=== PATIENT | male | born 1935 | race Caucasian/White ===

== ENCOUNTER → 2020-04-22 11:14 | Outpatient (REF) | payer MEDICARE, SELFPAY | LOC: ANHLAB 11:14 | PROVIDERS: PCP Internal Medicine; Visit Provider Nurse Practitioner Family | DX: L90.5 Scar conditions and fibrosis of skin (principal) | CPT/HCPCS: 88305 ==

== ENCOUNTER 2020-07-22 03:25 | Emergency (ER) | payer MEDICARE, SELFPAY ==
--- NOTE | ~2020-07-22 | XR_ITS ---
EXAMINATION: XR chest 1V portable EXAM DATE: 07/22/2020 04:05 INDICATION: Chest tightness. TECHNIQUE: Portable AP frontal chest x-ray was obtained. Comparison is made to prior examination from 12/17/2016. FINDINGS: Some left 1st rib chondral cartilage calcification. The lungs are clear. There are no pleu ral effusions. The cardiomediastinal silhouette is within normal limits. There is no pneumothorax s uspected. The bones and soft tissues are unremarkable. IMPRESSION: No acute cardiopulmonary findings. Reviewed, dictated and finalized at location A.
[2020-07-22 03:29] VITALS: BP 130/78; PULSE 115; RESP 11; TEMP 36.8; O2SAT 97
--- NOTE | 2020-07-22 03:37 | ECG_ITS ---
Measurements Intervals [place] Rate: 136 P: [place]: 0 QRS: -39 QRSD: 106 T: 84 QT: 284 QTc: 427 Interpretive Statements ATRIAL FLUTTER/TACHYCARDIA WITH RAPID VENTRICULAR RESPONSE MARKED LEFT AXIS DEVIATION [QRS AXIS < -30] NONSPECIFIC ST & T-WAVE ABNORMALITY- LAT/HIGH LAT LEADS ABNORMAL ECG Electronically Signed On 07-22-2020 6:41:25 CDT by Florin Rosas D.O.
[2020-07-22 03:51] VITALS: PULSE 115
[2020-07-22 03:51] LABS: Basophils Absolute Auto 0.1 K/mm3 (0.0-0.1); Eosinophils Absolute Auto 0.4 K/mm3 (0-0.3); Eosinophils Percent Auto 4.6 % (0-4.4); Hematocrit 41.2 % (42.0-52.0); Hemoglobin 14.2 g/dL (14.0-18.0); Immature Granulocyte Absolute 0.02 K/mm3 (0.00-0.031); Immature Granulocyte Percent A 0.2 % (0-0.5); Lymphocytes Absolute Auto 2.66 K/mm3 (0.9-3.2); Lymphocytes Percent Auto 31.9 % (18.3-44.2); Mean Corpuscular HGB Conc 34.5 g/dl (32-36); Mean Corpuscular Hemoglobin 32.3 pg (26-34); Mean Corpuscular Volume 93.6 fl (80-100); Mean Platelet Volume 10.4 fl (7.4-10.4); Monocytes Absolute Auto 0.7 K/mm3 (0.1-0.6); Monocytes Percent Auto 8.5 % (2.6-8.5); Neutrophils Absolute Auto 4.5 K/mm3 (1.3-6.7); Neutrophils Percent Auto 53.8 % (45.5-73.1); Platelet Count Result 170 k/mm3 (150-375); Red Cell Distribution Width 12.8 % (11.5-14.5); White Blood Count 8.4 K/mm3 (4.5-10.0)
[2020-07-22] MEDS: dilTIAZem HCl INJ 25 MG/5 ML VIAL 20 MG IV PUSH (03:55)
[2020-07-22 04:00] LABS: INR 1.7; Prothrombin Time 19.8 Seconds (11.1-14.7)
[2020-07-22 04:04] LABS: Alanine Aminotransferase 14 U/L (4-50); Albumin Level 4.1 g/dL (3.5-5.1); Alkaline Phosphatase 83 U/L (38-126); Anion Gap 6 mmol/L (8-16); Aspartate Amino Transferase 30 U/L (17-59); Bilirubin,Total 0.7 mg/dL (0.2-1.3); Blood Urea Nitrogen 18 mg/dL (9-20); Calcium 9.8 mg/dL (8.4-10.2); Carbon Dioxide 29 mmol/L (22-30); Chloride 100 mmol/L (98-107); Estimated CRCL calculation 49 ml/min; Estimated Glomerular Filt Rate > 60; Glucose 114 mg/dL (75-110); Potassium 3.7 mmol/L (3.4-5.0); Sodium 135 mmol/L (137-145)
[2020-07-22 04:10] VITALS: BP 103/60; PULSE 69; RESP 16; O2SAT 100
[2020-07-22 04:14] LABS: NT Pro B Type Natriuretic Pept 220 PG/ML (5-100)
[2020-07-22 04:29] LABS: Troponin I 0.049 ng/mL (0.000-0.034)
--- NOTE | 2020-07-22 04:51 | ED.CHESTPAIN ---
HPI - Chest Pain General Chief Complaint: Chest Pain Stated Complaint: A-FIB, CHEST PAIN, LEFT ARM PAIN Time Seen by Provider: 07/22/20 03:37 Source: patient Mode of arrival: ambulatory Limitations: no limitations History of Present Illness HPI narrative: 85-year-old with a history of A. fib on Xarelto here with complaints of palpitation and chest discomfort since 11 PM. Patient states that he was just about to go to sleep started having palpitations along with some chest discomfort he denied any pain. He said it was more like discomfort. No history of shortness of breath or fever or chills. Patient states that he has been taking all his medications. MD complaint: chest discomfort Pertinent past history: other (afib) Onset (ago): hour(s) (5) Timing of current episode: constant Prior episodes: Yes Onset: during rest Pain location: left chest Pain radiation: none Severity: moderate Relieving factors: nothing Exacerbating factors: nothing Risk Factors Coronary artery disease risk factors: none Related Data Home Medications Medication Instructions Recorded Confirmed aspirin 81 mg tablet,delayed 81 mg PO DAILY 01/08/20 release rivaroxaban 20 mg tablet 20 mg PO QPM tablet 01/08/20 ascorbate calcium (vitamin C) 500 500 mg PO DAILY 03/25/20 mg tablet calcium carb-vit D3-minerals 600 tablet PO 03/25/20 mg calcium-200 unit tablet lysqtgu-vdmhyfgnw-ordv tablet PO 03/25/20 coenzyme Q10 100 mg capsule 100 mg PO DAILY 03/25/20 glucosamine-chondroitin 2 tablet PO DAILY 03/25/20 lactobacillus combination no.9 4 4,000 mmu cells PO DAILY 03/25/20 billion cell capsule multivitamin 1 tablet PO DAILY 03/25/20 niacin 250 mg capsule,extended 250 mg PO DAILY cap 03/25/20 release omega-3 fatty acids 1,000 mg 1,000 mg PO DAILY 03/25/20 capsule saw palmetto 160 mg capsule 320 mg PO DAILY cap 03/25/20 vitamin E succinate 400 unit tablet 400 unit PO DAILY 03/25/20 Allergies Allergy/AdvReac Type Severity Reaction Status Date / Time No Known Allergies Allergy Verified 07/20/20 14:19 Review of Systems Review of Systems: All systems reviewed & are unremarkable except as noted in HPI and below Constitutional: Constitutional: Reports no additional constitutional complaints Eyes: Eyes: Reports no additional eye complaints ENT: Reports system reviewed and no additional complaints, except as documented Cardiovascular: Cardiovascular: Reports as per HPI Respiratory: Respiratory: Reports no additional respiratory complaints Gastrointestinal: Gastrointestinal: Reports no additional gastrointestinal complaints Musculoskeletal: Musculoskeletal: Reports no additional musculoskeletal complaints [facility] Surgical History Surgical History History of appendectomy 1951 History of eye surgery 2013, 2016, 2018, 2019 Social History Social History Smoking status: Never smoker Alcohol intake: current Exam Narrative: Exam Narrative: GENERAL: Well-appearing, well-nourished, and in no acute distress. HEAD: Normocephalic, atraumatic. EYES: PERRLA and EOMI. ENT: Nares clear, no rhinorrhea or epistaxis. Mucous membranes moist. NECK: Supple. CHEST: Clear to auscultation. No respiratory distress. HEART: Irregularly irregular and tachycardic. ABDOMEN: Soft, nontender, nondistended, normal active bowel sounds. EXTREMITIES: Normal range of motion. No edema. SKIN: Warm, dry, no rash. NEURO: No focal deficits. Alert and oriented x3. PSYCH: Normal mood and affect. Course Course Emergency Course: EKG showed A. fib with RVR with a rate of 136, given IV Cardizem 10 mg, heart rate has dropped to 80s. Patient states that he was feeling much better. I ordered CBC and a chemistry and tropes. His troponin was 0.049. I discussed with Dr. Lomeli informed him about his trop , pt can be discharged home . pt states he is
[2020-07-22 05:34] VITALS: BP 124/77; PULSE 84; RESP 14; TEMP 36.6; O2SAT 95
== END 2020-07-22 05:36 | disposition home or self-care (01) ==
PROVIDERS: Emergency Provider Family Medicine; PCP Internal Medicine
DX: I48.91 Unspecified atrial fibrillation (principal); R00.0 Tachycardia, unspecified; Z79.01 Long term (current) use of anticoagulants; Z79.82 Long term (current) use of aspirin
CPT/HCPCS: 36415; 71045; 80053; 83880; 84443; 84484; 85025; 85610; 93005; 96374; 99284

== ENCOUNTER 2020-09-29 10:58 | Outpatient (CLI) | payer MEDICARE, SELFPAY ==
--- NOTE | ~2020-09-29 | XR_ITS ---
EXAMINATION: XR finger 1st RT min 2V DATE: 09/29/2020 11:18 INDICATION: Right thumb pain. TECHNIQUE: 3 views of right thumb were obtained. COMPARISON: None. FINDINGS: Bone alignment is normal. No fracture. There is moderate osteoarthritis of first carpometac arpal joint. There is mild osteoarthritis of first metacarpophalangeal joint and first interphalangea l joint. There is a dystrophic calcification at dorsal aspect of first interphalangeal joint. IMPRESSION: 1. Polyarticular osteoarthritis. Reviewed, dictated and finalized at location A. [employer]
== END 2020-09-29 10:59 | disposition home or self-care (01) ==
PROVIDERS: PCP Internal Medicine; Visit Provider Nurse Practitioner
DX: M19.041 Primary osteoarthritis, right hand (principal)
CPT/HCPCS: 73140

== ENCOUNTER 2020-11-11 01:42 | Day surgery (SDC) | payer MEDICARE, SELFPAY ==
[2020-11-03 09:02] VITALS: BMI 24.4
[2020-11-11 12:04] VITALS: BP 142/46; PULSE 54; RESP 16; TEMP 35.9; O2SAT 100
[2020-11-11 12:15] VITALS: BP 157/66; PULSE 56; RESP 18; O2SAT 100
[2020-11-11 12:20] VITALS: BP 155/56; PULSE 57; RESP 18; O2SAT 100
--- NOTE | 2020-11-11 12:20 | PM.HPGS ---
History of Present Illness History of Present Illness Consent: Risks, benefits, and alternatives have been discussed and questions answered. Patient agrees to proceed with procedure. Chief complaint: Hemorrhoids Narrative: Armando Walton is a 85 year old male with history of hemorrhoid banding, lately more symptomatic. Review of Systems Constitutional: Constitutional: Denies headache(s) and Denies weakness Eyes: Eyes: Denies blurry vision ENT: Reports Normal hearing present, Denies headache(s) and Denies neck pain Cardiovascular: Cardiovascular: Denies chest pain and Denies dyspnea Respiratory: Respiratory: Denies dyspnea Gastrointestinal: Gastrointestinal: Reports no additional gastrointestinal complaints Genitourinary: Genitourinary: Denies dysuria Musculoskeletal: Musculoskeletal: Denies neck pain Integumentary/Breasts: Skin/Breast: Denies dry skin Neurologic: Reports Normal hearing present, Denies headache(s) and Denies weakness Psychiatric: Psychiatric: Denies anxiety Endocrine: Endocrine: Denies change in body appearance Hematologic/Lymphatic: Hematologic/Lymphatic: Denies easy bleeding Allergic/Immunologic: Allergic/Immunologic: Denies urticaria PMFSH Past Medical History Medical History (Updated 09/29/20 @ 10:30 by EVER Fox) Pain of right thumb Surgical History Surgical History History of appendectomy 1951 History of eye surgery 2013, 2015, 2017, 2019 Social History Social History Smoking status: Never smoker Alcohol intake: current Drinks per week: 4 Substance use: never Substance use type: does not use Living arrangements: alone Meds Home Medications and Allergies Home Medications Medication Instructions Recorded Confirmed Type aspirin 81 mg tablet,delayed 81 mg PO DAILY 01/08/20 11/03/20 History release rivaroxaban 20 mg tablet 20 mg PO QPM tablet 01/08/20 11/03/20 History ascorbate calcium (vitamin C) 500 500 mg PO DAILY 03/25/20 11/03/20 History mg tablet calcium carb-vit D3-minerals 600 2 tablet PO DAILY 03/25/20 11/03/20 History mg calcium-200 unit tablet waioatg-ipfalwuly-gpsz tablet 2 tablet PO DAILY 03/25/20 11/03/20 History coenzyme Q10 100 mg capsule 100 mg PO DAILY 03/25/20 11/03/20 History glucosamine-chondroitin 2 tablet PO DAILY 03/25/20 11/03/20 History lactobacillus combination no.9 4 4,000 mmu cells PO DAILY 03/25/20 11/03/20 History billion cell capsule multivitamin 1 tablet PO DAILY 03/25/20 11/03/20 History niacin 250 mg capsule,extended 250 mg PO DAILY cap 03/25/20 11/03/20 History release omega-3 fatty acids 1,000 mg 1,000 mg PO DAILY 03/25/20 11/03/20 History capsule vitamin E succinate 400 unit tablet 400 unit PO DAILY 03/25/20 11/03/20 History tamsulosin 0.4 mg capsule 0.4 mg PO DAILY #30 cap 07/14/20 11/03/20 Rx Allergies Allergy/AdvReac Type Severity Reaction Status Date / Time No Known Allergies Allergy Verified 11/11/20 12:12 Exam Const: General: comfortable and no acute distress HENMT: General nose exam: Normal nares present Eyes: General: appearance normal, both eyes and all related structures Neck: Neck: no JVD Resp: Auscultation: clear to auscultation bilaterally Cardio: Rate: regular rate Rhythm: regular rhythm GI: Inspection: non-distended GI Palp: Yes Soft to palpation Skin: General skin exam: normal color Neuro: General: gait normal Speech: normal speech Extrem: General: normal to inspection Psych: Mental Status: mental status grossly normal Assessment and Plan Assessment and plan (1) Hemorrhoids: Code(s): K64.9 - Unspecified hemorrhoids Status: Acute Assessment and Plan: will proceed with IRC
[2020-11-11 12:22] VITALS: BMI 26.2
--- NOTE | 2020-11-11 12:23 | PM.PROC ---
Procedure Note - Detailed Date of procedure: 11/11/20 Pre-op diagnosis: Hemorrhoids Post-op diagnosis: same Procedure performed: after he signed consent, I perfomed rectal exam, no lesions, only small hemorrhoids, no fissure. Then I introduced IRC using anoscope, found grade II internal hemorrhoids at 3-6 o 'clock, treated with IRC x4 applications at 1.5 seconds each time, no complications. We did not use anesthesia Description of procedure: Infrared coagulation Anesthesia: none Surgeon: Redd Schwab MD Complications: No immediate complications Condition: stable Disposition: other (home) Findings: grade II internal hemorrhoids
== END 2020-11-11 12:35 | disposition home or self-care (01) ==
PROVIDERS: PCP Internal Medicine; Visit Provider Internal Medicine Gastroenterology
PROC: (CPT 46930; principal; 2020-11-11 12:30)
DX: K64.1 Second degree hemorrhoids (principal); Z79.82 Long term (current) use of aspirin; Z79.01 Long term (current) use of anticoagulants
CPT/HCPCS: 46930

== ENCOUNTER 2020-12-17 01:33 | Day surgery (SDC) | payer MEDICARE, SELFPAY ==
[2020-12-17 14:20] VITALS: BP 150/72; PULSE 61; RESP 17; O2SAT 100
--- NOTE | 2020-12-17 14:41 | PM.HPGS ---
History of Present Illness History of Present Illness Consent: Risks, benefits, and alternatives have been discussed and questions answered. Patient agrees to proceed with procedure. Chief complaint: Hemorrhoids Narrative: Armando Walton is a 85 year old male here with symptomatic hemorrhoids again, last IRC helped for couple of weeks Review of Systems Constitutional: Constitutional: Denies headache(s) and Denies weakness Eyes: Eyes: Denies blurry vision ENT: Reports Normal hearing present, Denies headache(s) and Denies neck pain Cardiovascular: Cardiovascular: Denies chest pain and Denies dyspnea Respiratory: Respiratory: Denies dyspnea Gastrointestinal: Gastrointestinal: Reports no additional gastrointestinal complaints Genitourinary: Genitourinary: Denies dysuria Musculoskeletal: Musculoskeletal: Denies neck pain Integumentary/Breasts: Skin/Breast: Denies dry skin Neurologic: Reports Normal hearing present, Denies headache(s) and Denies weakness Psychiatric: Psychiatric: Denies anxiety Endocrine: Endocrine: Denies change in body appearance Hematologic/Lymphatic: Hematologic/Lymphatic: Denies easy bleeding Allergic/Immunologic: Allergic/Immunologic: Denies urticaria PMFSH Past Medical History Medical History (Updated 09/29/20 @ 10:30 by EVER Fox) Pain of right thumb Surgical History Surgical History History of appendectomy 1951 History of eye surgery 2013, 2015, 2017, 2019 Social History Social History Smoking status: Never smoker Alcohol intake: current Drinks per week: 4 Substance use: never Substance use type: does not use Living arrangements: alone Spiritual care concerns: No Meds Home Medications and Allergies Home Medications Medication Instructions Recorded Confirmed Type aspirin 81 mg tablet,delayed 81 mg PO DAILY 01/08/20 12/14/20 History release rivaroxaban 20 mg tablet 20 mg PO QPM tablet 01/08/20 12/14/20 History ascorbate calcium (vitamin C) 500 500 mg PO DAILY 03/25/20 12/14/20 History mg tablet calcium carb-vit D3-minerals 600 2 tablet PO DAILY 03/25/20 12/14/20 History mg calcium-200 unit tablet ytzcdof-curnnikex-ruzn tablet 2 tablet PO DAILY 03/25/20 12/14/20 History coenzyme Q10 100 mg capsule 100 mg PO DAILY 03/25/20 12/14/20 History glucosamine-chondroitin 2 tablet PO DAILY 03/25/20 12/14/20 History lactobacillus combination no.9 4 4,000 mmu cells PO DAILY 03/25/20 12/14/20 History billion cell capsule multivitamin 1 tablet PO DAILY 03/25/20 12/14/20 History niacin 250 mg capsule,extended 250 mg PO DAILY cap 03/25/20 12/14/20 History release omega-3 fatty acids 1,000 mg 1,000 mg PO DAILY 03/25/20 12/14/20 History capsule vitamin E succinate 400 unit tablet 400 unit PO DAILY 03/25/20 12/14/20 History tamsulosin 0.4 mg capsule 0.4 mg PO DAILY #30 cap 07/14/20 12/14/20 Rx Allergies Allergy/AdvReac Type Severity Reaction Status Date / Time No Known Allergies Allergy Verified 12/14/20 13:41 Exam Const: General: comfortable and no acute distress HENMT: General nose exam: Normal nares present Eyes: General: appearance normal, both eyes and all related structures Neck: Neck: no JVD Resp: Auscultation: clear to auscultation bilaterally Cardio: Rate: regular rate Rhythm: regular rhythm GI: Inspection: non-distended GI Palp: Yes Soft to palpation Skin: General skin exam: normal color Neuro: General: gait normal Speech: normal speech Extrem: General: normal to inspection Psych: Mental Status: mental status grossly normal Assessment and Plan Assessment and plan (1) Hemorrhoids: Code(s): K64.9 - Unspecified hemorrhoids Status: Acute Assessment and Plan: [facility]
[2020-12-17 14:42] VITALS: BP 131/63; PULSE 57; RESP 16; O2SAT 99
--- NOTE | 2020-12-17 14:42 | PM.PROC ---
Procedure Note - Detailed Date of procedure: 12/17/20 Pre-op diagnosis: Hemorrhoids Surgeon: Redd Schwab MD Pre-op diagnosis: Internal Hemorrhoids Post-op diagnosis: same Procedure performed: after he signed consent, I perfomed rectal exam, no lesions, only small hemorrhoids, no fissure. Then I introduced IRC using anoscope, found grade II internal hemorrhoids at 3-6 o 'clock, treated with IRC x5 applications at 1.5 seconds each time, no complications. We did not use anesthesia Description of procedure: Infrared coagulation Anesthesia: none Surgeon: Redd Schwab MD Complications: No immediate complications Condition: stable Disposition: other (home) Findings: grade II internal hemorrhoids
== END 2020-12-17 15:02 | disposition home or self-care (01) ==
PROVIDERS: PCP Internal Medicine; Visit Provider Internal Medicine Gastroenterology
PROC: (CPT 46930; principal; 2020-12-17 14:45)
DX: K64.1 Second degree hemorrhoids (principal)
CPT/HCPCS: 46930

== ENCOUNTER → 2021-04-13 11:51 | Outpatient (REF) | payer MEDICARE, SELFPAY | LOC: ANHLAB 11:51 | PROVIDERS: PCP Internal Medicine; Visit Provider Nurse Practitioner | DX: L82.1 Other seborrheic keratosis (principal) | CPT/HCPCS: 88305 ==

== ENCOUNTER 2021-05-16 01:47 | Emergency (ER) | payer MEDICARE, SELFPAY ==
--- NOTE | ~2021-05-16 | CT_ITS ---
EXAMINATION: CT lumbar spine wo con DATE: 05/16/2021 02:16 INDICATION: Back pain. TECHNIQUE: Computed tomography (CT) of the lumbar spine was performed without intravenous contrast. A utomated exposure control and iterative reconstruction technique were employed. The dose-length produ ct was 946.32 mGy-cm. COMPARISON: None FINDINGS: There is 3 degrees levocurvature of lumbar spine. Vertebral body heights are normal. There is moderately decreased disc height at L2-L3, mildly decreased disc height at L3-L4 and L4-L5, and mo derately decreased disc height at L5-S1. The following disc levels are specifically discussed: L1-L2: The disc is bulging. There is mild right and moderate left facet joint osteoarthritis. There i s mild left neural foraminal stenosis. There is no central canal stenosis. L2-L3: The disc is bulging. There is severe bilateral facet joint osteoarthritis. There is moderate b ilateral neural foraminal stenosis. There is mild central canal stenosis. L3-L4: The disc is bulging. There is severe bilateral facet joint osteoarthritis. There is mild bilat eral neural foraminal stenosis. There is mild central canal stenosis. L4-L5: The disc is bulging. There is severe bilateral facet joint osteoarthritis. There is mild right and moderate left neural foraminal stenosis. There is mild central canal stenosis. L5-S1: The disc is bulging. There is severe bilateral facet joint osteoarthritis. There is moderate b ilateral neural foraminal stenosis. There is mild central canal stenosis. IMPRESSION: 1. Moderate lumbar spondylosis. Reviewed, dictated and finalized at location A.
[2021-05-16 01:48] VITALS: BP 163/54; PULSE 63; RESP 16; TEMP 36.7; O2SAT 98
[2021-05-16] MEDS: ACETAMINOPHEN 500 MG TABLET 1000 MG PO (02:07)
[2021-05-16 03:28] VITALS: BP 146/60; PULSE 55; RESP 18; O2SAT 97
[2021-05-16] MEDS: predniSONE 20 MG TABLET 60 MG PO (03:44)
--- NOTE | 2021-05-16 03:54 | ED.BACK ---
HPI - Back Pain/Injury General Chief Complaint: Back Pain/Injury Stated Complaint: back pain - i think its nerve, havent slept 3 days Time Seen by Provider: 05/16/21 01:55 Source: RN notes reviewed History of Present Illness HPI Narrative: Patient presents to emergency department from home for back pain. He states he has a long running history of back pain for the past 50 years he states current episode is been ongoing for the past 1 week denies any direct trauma or injury. States pain is located in the right lower back greatest in the right buttocks and down the right leg pain is worse with certain movements. He states he seen his chiropractor 3 times this week and had adjustments in these and ultrasounds back with no relief he states he last took Tylenol this afternoon was had no medication since then states the pain has been keeping him up at night he denies any fevers or chills, abdominal pain numbness or tingling in the extremities bowel or bladder incontinence weakness or any other symptoms. Patient states he drove himself to the emergency department Related Data Home Medications Medication Instructions Recorded Confirmed aspirin 81 mg tablet,delayed 81 mg PO DAILY 01/08/20 01/28/21 release rivaroxaban 20 mg tablet 20 mg PO QPM tablet 01/08/20 01/28/21 ascorbate calcium (vitamin C) 500 500 mg PO DAILY 03/25/20 01/28/21 mg tablet calcium carb-vit D3-minerals 600 2 tablet PO DAILY 03/25/20 01/28/21 mg calcium-200 unit tablet fdyirqv-imadgtnhn-nlzg tablet 2 tablet PO DAILY 03/25/20 01/28/21 coenzyme Q10 100 mg capsule 100 mg PO DAILY 03/25/20 01/28/21 glucosamine-chondroitin 2 tablet PO DAILY 03/25/20 01/28/21 lactobacillus combination no.9 4 4,000 mmu cells PO DAILY 03/25/20 01/28/21 billion cell capsule multivitamin 1 tablet PO DAILY 03/25/20 01/28/21 niacin 250 mg capsule,extended 250 mg PO DAILY cap 03/25/20 01/28/21 release omega-3 fatty acids 1,000 mg 1,000 mg PO DAILY 03/25/20 01/28/21 capsule vitamin E succinate 400 unit tablet 400 unit PO DAILY 03/25/20 01/28/21 Allergies Allergy/AdvReac Type Severity Reaction Status Date / Time No Known Allergies Allergy Verified 05/16/21 01:51 Review of Systems Review of Systems: Narrative: Gen.: Denies fevers or chills ENT: Denies congestion Respiratory: Denies shortness of breath or cough CV: Denies chest pain or palpitations GI: Denies abdominal pain nausea, emesis or diarrhea Musculoskeletal: See HPI Neuro: Denies numbness, tingling, weakness or focal weakness Skin: Denies rash Except as documented, all other systems reviewed and negative [facility] Past Medical History Medical History (Updated 05/16/21 @ 03:56 by Eron Lewis DO) Atrial fibrillation Pain of right thumb Surgical History Surgical History H/O hemorrhoidectomy History of appendectomy 1951 History of eye surgery 2013, 2015, 2017, 2019 Social History Social History Smoking status: Never smoker Alcohol intake: current Drinks per week: 4 Substance use: never Substance use type: does not use Gender identity (if verbalized by the patient): Male Sexual Orientation (if Verbalized by the Patient): Straight or Heterosexual Spiritual care concerns: No Exam Narrative: Exam Narrative: APPEARANCE: No acute distress, nontoxic, resting in bed Eyes: EOMI HEENT: Normocephalic, atraumatic, CV: Regular rate and rhythm without murmur RESPIRATORY: No respiratory distress. Clear to auscultation bilaterally. Abdomen: Soft and nontender, no rebound or guarding MUSCULOSKELETAl: Moves all extremities, no clubbing cyanosis or edema Back: No midline lumbar tenderness to palpation or step-off, tender to palpation over right paravertebral muscles L4-5 and right piriformis region, pain increased with forward flexion NEURO: Awake and alert. Following commands, speech no
[2021-05-16 04:03] LABS: Add Urine Microscopic? YES; Amorphous Sediment Urine Few; Appearance Urine Cloudy (Clear); Bilirubin Urine Negative (Negative); Blood Urine Negative (Negative); Color Urine Yellow (Yellow); Glucose Urine UA Negative (Negative); Ketones Urine Negative (Negative); Leukocyte Esterase Ur Negative LEU/UL (Negative); Mucus Urine Rare /lpf; Nitrate Urine Negative (Negative); Protein Urine Negative (Negative); RBC Urine 0-2 /hpf (0-2); Specific Grav Ur 1.019 (1.001-1.035); Urobilinogen Urine Negative mg/dL (<2.0); WBC Urine 0-3 /hpf
== END 2021-05-16 04:13 | disposition home or self-care (01) ==
PROVIDERS: Emergency Provider Emergency Medicine; PCP Internal Medicine
DX: M54.5 Low back pain (principal); Z79.82 Long term (current) use of aspirin; Z79.01 Long term (current) use of anticoagulants; I48.91 Unspecified atrial fibrillation; M47.816 Spondylosis without myelopathy or radiculopathy, lumbar region
CPT/HCPCS: 72131; 81001; 99284; A9270; J7512

== ENCOUNTER 2024-06-03 03:26 | Emergency (ER) | payer MEDICARE, SELFPAY ==
[2024-06-03 03:35] VITALS: BP 174/55; PULSE 62; RESP 16; TEMP 36.7; O2SAT 99
[2024-06-03] MEDS: FLUORESCEIN SOD 1 MG/STRIP AFFCTD EYE (03:48)
[2024-06-03] MEDS: TETRACAINE HCL 0.5% OPHTH SOLN 4 ML BTL 1 DROP AFFCTD EYE (03:48)
--- NOTE | 2024-06-03 03:52 | ED.EYEPROB ---
HPI - Eye Problem General Chief complaint: Eye Problems Stated complaint: contact feels stuck Time Seen by Provider: 06/03/24 03:30 History of Present Illness HPI Narrative: This is an 88-year-old male with a past medical history including recent corneal surgery on his right eye. Patient wears special contact lenses for visual deficits and protection of his recent procedure. Patient states his vision has been normal but since noon today he has been having some pain at his right eye with some discharge and redness. He states he was not able to get his contact lens out of his right eye and proceeded to the emergency department as he was not able to sleep because of the pain and redness. Denies any systemic features such as fever, chills, nausea, vomiting, headache. He has never had issues with his contact before and has no history of corneal ulcers, corneal abrasions or any kind of complications from his recent procedure otherwise. Related Data Home Medications Medication Instructions Recorded Confirmed aspirin 81 mg tablet,delayed 81 mg PO DAILY 01/08/20 02/20/24 release (Adult Aspirin Regimen) rivaroxaban 20 mg tablet (Xarelto) 20 mg PO QPM 01/08/20 02/20/24 ascorbate calcium (vitamin C) 500 500 mg PO DAILY 03/25/20 02/20/24 mg tablet calcium carb-vit D3-minerals 600 2 tablet PO DAILY 03/25/20 02/20/24 mg calcium-200 unit tablet gfrgcvo-tmbnydebd-kaxc tablet 2 tablet PO DAILY 03/25/20 02/20/24 coenzyme Q10 100 mg capsule 100 mg PO DAILY 03/25/20 02/20/24 (CoQ-10) glucosamine-chondroitin 2 tablet PO DAILY 03/25/20 02/20/24 lactobacillus combination no.9 4 4,000 mmu cells PO DAILY 03/25/20 02/20/24 billion cell capsule (Adult 50 Plus Probiotic) multivitamin 1 tablet PO DAILY 03/25/20 02/20/24 niacin 250 mg capsule,extended 250 mg PO DAILY 03/25/20 02/20/24 release omega-3 fatty acids 1,000 mg 1,000 mg PO DAILY 03/25/20 02/20/24 capsule Allergies Allergy/AdvReac Type Severity Reaction Status Date / Time No Known Allergies Allergy Verified 02/20/24 09:45 Review of Systems Review of Systems: As reviewed above in the HPI [facility] Past Medical History Medical History Atrial fibrillation COVID Pain of right thumb Surgical History Surgical History H/O hemorrhoidectomy THD and rubber banding History of appendectomy 1951 History of eye surgery 2013, 2016, 2018, 2020 Family History Family History Father Dementia Mother Heart disease Sibling Heart disease Sibling Heart disease Social History Social History Smoking status: Never smoker Alcohol intake: current Drinks per week: 4 Substance use: never Substance use type: does not use Lack of Transportation: No Lack of Food: Never True Current Housing: I Have Housing Concerned About Future Housing: No Difficulty Paying Gas/Electric Bills: No Difficulty Paying for Meds: No Currently Unemployed: No Education: Bachelor's Degree Difficulty w/ Childcare or Family Care: No Living arrangements: alone Gender identity (if verbalized by the patient): Male Sexual Orientation (if Verbalized by the Patient): Straight or Heterosexual Spiritual care concerns: No Exam Narrative: GENERAL: [Well-appearing, well-nourished, and in no acute distress.] HEAD: [Normocephalic, atraumatic.] EYES: Pupils are 3 mm and equally reactive. The right eye has some redness any injections at this spares the corneal limbus. Some minimal purulence was noted and crusting around the eyelid. Contact lens remains in place in the right eye without any jagged edges are irregularity to it. Fluorescein stain showed right-sided lateral corneal abrasion when the contact was removed but no other ulcerations, negative Hannah
[2024-06-03] MEDS: MOXIFLOXACIN HCL 0.5% 3 ML OPHTH SOLN 1 DROP RIGHT EYE (03:56)
[2024-06-03 04:55] VITALS: BP 172/88; PULSE 63; RESP 16; O2SAT 100
== END 2024-06-03 04:56 | disposition home or self-care (01) ==
LOC: ANHED 04:04
PROVIDERS: Emergency Provider Student in an Organized Health Care Education/Training Program; PCP Family Medicine
DX: H18.821 Corneal disorder due to contact lens, right eye (principal); I48.91 Unspecified atrial fibrillation; Z86.16 Personal history of COVID-19; Z79.82 Long term (current) use of aspirin; Z79.01 Long term (current) use of anticoagulants
CPT/HCPCS: 99283; A9270

== ENCOUNTER 2025-04-07 14:29 | Inpatient (IN) | payer MEDICARE, SELFPAY ==
[2025-04-07] VITALS (19 sets, daily range): BP systolic 98–115; BP diastolic 48–84; PULSE 73–127; RESP 16–25; TEMP 36.6–39.5; O2SAT 94–100; BMI 24.0
--- NOTE | ~2025-04-07 | XR_ITS ---
Portable chest x-ray Comparison: 04/09/2025 Clinical History: Dyspnea Findings: Right-sided PICC line in place. Small right pleural effusion present. There is probable mi ld interstitial edema. Cardiomediastinal silhouette is stable. Bones and soft tissues are unremarkab le. Impression: Small right pleural effusion and probable mild pulmonary edema pattern. Questionable underlying COPD. Stable cardiomegaly. Right-sided PICC line. Reviewed, dictated and finalized at location . Impression: Small right pleural effusion and probable mild pulmonary edema pattern. Questionable underlying COPD. Stable cardiomegaly. Right-sided PICC line.
--- NOTE | ~2025-04-07 | US_ITS ---
US venous doppler [facility] 04/09/2025 14:13 Indication: Throat and left neck pain. Procedure: Limited vascular ultrasound of the internal jugular veins Comparison: No prior studies for comparison. Findings: The internal jugular veins are patent bilaterally with normal compressibility and augmentat ion. Impression: 1: Normal venous ultrasound of the internal jugular veins. No evidence for deep venous thrombosis. Reviewed, dictated and finalized at location A. Impression: 1: Normal venous ultrasound of the internal jugular veins. No evidence for deep venous thrombosis.
--- NOTE | ~2025-04-07 | CT_ITS ---
EXAMINATION: CT brain wo con DATE: 04/08/2025 15:23 INDICATION: Fall TECHNIQUE: Computed tomography (CT) of the head was performed without intravenous contrast. Sagittal and coronal reconstructions were performed. The mA was adjusted according to patient size. Iterative reconstruction technique was employed. The dose-length product was 681.00 mGy-cm. COMPARISON: None FINDINGS: No fracture. No acute intracranial hemorrhage, acute infarction or abnormal extra axial fluid collect ion. There is mild to moderate scattered white matter hypoattenuation consistent with chronic small v essel ischemic disease. Symmetric prominence of the sulci consistent with mild age-appropriate diffus e cerebral volume loss. Ventricles are normal and symmetric. No mass/mass effect. Changes of bilater al intraocular lens replacement. The orbits, paranasal sinuses and mastoid air cells are normal. IMPRESSION: 1. No fracture or acute intracranial process. 2. Age-related changes including mild diffuse volume loss and mild to moderate scattered white matter hypoattenuation consistent with chronic small vessel ischemic disease. Reviewed, dictated and finalized at location A. IMPRESSION: 1. No fracture or acute intracranial process. 2. Age-related changes including mild diffuse volume loss and mild to moderate scattered white matter hypoattenuation consistent with chronic small vessel isc hemic disease.
--- NOTE | ~2025-04-07 | CT_ITS ---
CT head without contrast Indication: Status post fall COMPARISON: 04/08/2025 Technique: Serial scans were obtained through the brain without the administration of contrast. Dose reduction technique was used on this scan by utilizing automated exposure control and iterative recon struction technique. The dose-length product (DLP) was 681.00 mGy-cm. Findings: There is no evidence of intracranial hemorrhage, mass lesion, or acute infarct. The ventri cles and subarachnoid spaces are dilated, consistent with mild to moderate atrophy. Low attenuation regions are seen within the periventricular white matter bilaterally, likely representing changes fro m chronic microvascular ischemic disease. There is no evidence of edema, mass effect or midline shif t. The visualized paranasal sinuses and mastoid air cells are clear. Impression: No intracranial hemorrhage, mass, or acute infarct. Atrophy and chronic white matter changes, as above. Reviewed, dictated and finalized at location . Impression: No intracranial hemorrhage, mass, or acute infarct. Atrophy and chronic white matter changes, as above.
--- NOTE | ~2025-04-07 | US_ITS ---
Limited ABDOMINAL ULTRASOUND (Doppler ultrasound interrogation techniques used as needed for this exa m.) Ordering provider: Vita Boyer PA-C History: . elevated LFTs . Comparison: None. FINDINGS: PANCREAS: Not visualized. PORTAL VEIN: Hepatopedal flow demonstrated. LIVER: Normal size and echotexture. No focal hepatic lesions or perihepatic fluid collections are yared ntified. BILIARY DUCTS: No intra or extrahepatic biliary dilation. Common bile duct measures 3.9 mm in diamete r which is normal for patient's age. GALLBLADDER: Distended. No stones, sludge, or gallbladder wall thickening. Pericholecystic fluid or e tripp is noted. Negative sonographic Song's sign. Wall thickness is 2.1 mm. FREE FLUID: None visualized within the upper abdomen. IMPRESSION: Distended gallbladder with possible minimal pericholecystic fluid versus edema. Clinical correlation and follow-up advised. Otherwise, normal Limited abdominal ultrasound. Reviewed, dictated and finalized at location A. IMPRESSION: Distended gallbladder with possible minimal pericholecystic fluid versus edema. Clinical correlation and follow-up advised. Otherwise, normal Limited abdomina l ultrasound.
--- NOTE | ~2025-04-07 | XR_ITS ---
XR chest 1V portable 04/08/2025 13:11 Indication: Shortness of breath Procedure: AP portable chest Comparison: Comparison to multiple prior studies sequentially, with oldest reviewed study dated 12/17. Findings: Borderline heart size with interstitial edema. No pleural effusion or pneumothorax. No acut e osseous abnormality. Impression: 1: Borderline heart size with mild interstitial edema. Reviewed, dictated and finalized at location A. Impression: 1: Borderline heart size with mild interstitial edema.
--- NOTE | ~2025-04-07 | CT_ITS ---
EXAMINATION: CT soft tissue neck w con DATE: 04/07/2025 17:01 INDICATION: Neck swelling, sore throat TECHNIQUE: Computed tomography (CT) of the neck was performed with 75 mL Omnipaque-350 intravenous co ntrast. Automated exposure control and iterative reconstruction technique were employed. The dose-christina gth product was 455.86 mGy-cm. COMPARISON: None FINDINGS: Mild right palatine tonsil enlargement. No tonsillar abscess detected. Subcentimeter left thyroid lob e nodule, which requires no additional evaluation. The left submandibular gland is enlarged with gallo rrounding stranding. The parotid glands are symmetric. Enlarged left upper cervical chain lymph nod e. Subcentimeter bilateral anterior and posterior cervical chain nodes are present. The superior med iastinum is unremarkable. The airway is unremarkable. Parapharyngeal and pre-glottic fat planes a re preserved. Normal-appearing neck arteries. Bilateral lens replacements. Ethmoid and maxillary mucosal thickening, the remaining aerated spaces are clear. Septal thickening in the upper lungs. En larged paratracheal lymph nodes. There is mild cervical spondylosis. IMPRESSION: Right palatine tonsillar enlargement. No tonsillar abscess detected. Left submandibular gland enlargement. Left anterior cervical chain lymphadenopathy. Anterior neck soft tissue stranding, which may represent cellulitis in the appropriate clinical chris xt. Paratracheal lymphadenopathy. Mild interstitial edema. Reviewed, dictated and finalized at location K. IMPRESSION: Right palatine tonsillar enlargement. No tonsillar abscess detected. Left submandibular gland enlargement. Left anterior cervical chain lymphadenopathy. Anterior neck soft tissue stranding, which may represent cellulitis in the appr opriate clinical context. Paratracheal lymphadenopathy. Mild interstitial edema.
--- NOTE | ~2025-04-07 | CT_ITS ---
EXAMINATION: CT brain wo con DATE: 04/15/2025 13:01 INDICATION: Mental status changes TECHNIQUE: Computed tomography (CT) of the head was performed without intravenous contrast. Sagittal and coronal reconstructions were performed. The mA was adjusted according to patient size. Iterative reconstruction technique was employed. The dose-length product was 756.67 mGy-cm. COMPARISON: head CT dated 04/09/2025 FINDINGS: No acute intracranial hemorrhage, acute infarction or abnormal extra axial fluid collection. There is moderate scattered white matter hypoattenuation consistent with chronic small vessel ischemic diseas e. Symmetric prominence of the sulci consistent with moderate age-appropriate diffuse cerebral volume loss. Ventricles are normal and symmetric. No mass/mass effect. Changes of bilateral intraocular christina s replacement. The orbits, paranasal sinuses and mastoid air cells are normal. IMPRESSION: 1. No acute intracranial process. 2. Age-related changes including moderate diffuse volume loss and moderate scattered white matter hyp oattenuation consistent with chronic small vessel ischemic disease. Reviewed, dictated and finalized at location A. IMPRESSION: 1. No acute intracranial process. 2. Age-related changes including moderate diffuse volume loss and moderate scat tered white matter hypoattenuation consistent with chronic small vessel ischemi c disease.
--- NOTE | ~2025-04-07 | XR_ITS ---
XR hip BI 2V w AP pelvis 04/08/2025 15:37 Indication: Status post fall. Pelvic pain. Procedure: AP view of the pelvis Comparison: No prior studies for comparison. Findings: No fracture, subluxation or dislocation. Pelvic rings are grossly intact, although evaluati on of sacrum limited by bowel content. No significant joint space narrowing. There is lower lumbar sp ondylosis. Impression: 1: No acute bone or joint abnormality. Reviewed, dictated and finalized at location A. Impression: 1: No acute bone or joint abnormality.
--- NOTE | ~2025-04-07 | XR_ITS ---
XR chest PICC line 04/09/2025 11:05 Indication: PICC line placement Procedure: AP portable chest Comparison: Comparison to multiple prior studies sequentially, with oldest reviewed study dated 02/2024. Findings: Cardiomegaly. Mild interstitial edema. Right subclavian PICC line tip in the SVC. Possible small left effusion. No pneumothorax. Impression: 1: Cardiomegaly with mild interstitial edema, improved compared with 04/08/2025. Reviewed, dictated and finalized at location A. Impression: 1: Cardiomegaly with mild interstitial edema, improved compared with 04/08/2025 .
--- NOTE | ~2025-04-07 | XR_ITS ---
EXAMINATION: XR chest 1V portable Exam Date/Time: 04/07/2025 16:10 CDT HISTORY: FEVER Comparison: 09/09/2024. RESULT: Lines, tubes, and devices: Coronary stents. Lungs and pleura: Clear. Cardiomediastinal silhouette: Stable. Other: No acute osseous or upper abdominal finding. IMPRESSION: No acute cardiopulmonary process. Reviewed, dictated and finalized at location K.
--- NOTE | ~2025-04-07 | CT_ITS ---
CT chest abdomen pelvis wo con Ordering provider: Howard Manuel History: . Sepsis . Comparison: None. Technique: CT chest without IV contrast. CT abdomen and pelvis without oral and IV contrast. Radiatio n reduction technique utilized. The dose-length product was 1009.85 mGy-cm. FINDINGS: The study is limited due to lack of IV contrast. Motion Artifacts degraded the images. CHEST: --VISUALIZED THORACIC INLET: Normal as visualized. --MEDIASTINUM: Aorta/coronary arteries: Mild atheromatous disease. Heart/other: The heart is slightly enlarged. Lymph nodes: Paratracheal lymph nodes are seen with the largest measuring 1.7 cm. Precarinal lymph no mony are also noted with the largest measuring 2.2 cm. --LUNGS: Bilateral basal atelectasis versus pneumonia with moderate right pleural effusion and mild t o moderate left pleural effusion. Nodule is seen adjacent to the oblique fissure in the left upper lo be posteromedially measuring 6 mm. 6 months follow-up CT is advised. No pulmonary masses. No pneumot horax. --MUSCULOSKELETAL: Soft tissues: The superficial soft tissues are normal. Bones: Age appropriate degenerative changes of the spine. ABDOMEN/PELVIS: --MUSCULOSKELETAL: Bones: Age appropriate degenerative changes of the spine. Bilateral sacroiliitis. Bilateral hip osteo arthritic changes. Superficial soft tissues: Bilateral small fat-containing inguinal hernias. Otherwise, The superficial soft tissues are normal. --UPPER ABDOMINAL ORGANS: Liver: Normal. Gallbladder: Normal. Spleen: Normal. Stomach/duodenum: Normal. Pancreas: Normal. Adrenals: Normal. Kidneys: Hypodense area seen in the right kidney midpole left kidney lower poles which may be residua l contrast or hemorrhagic cysts. --PELVIC ORGANS: The bladder shows residual contrast in the urinary bladder.. No bladder stones. Hyp erdense area seen in the left side of the prostate which may be calcification. --BOWEL AND MESENTERY: Colon: No evidence of diverticulitis. No evidence of appendicitis. Small Bowel: Normal. No obstruction. Peritoneum/mesentery: No free air or free fluid. No mesenteric lymphadenopathy. --RETROPERITONEUM: Slight aneurysmal dilatation seen in the distal aorta measuring 2.6 x 2.5 cm. Dila tation of the common iliac artery is also noted Moderate atheromatous disease of the abdominal aorta. No retroperitoneal lymphadenopathy. IMPRESSION: CHEST: 1. Bilateral basal atelectasis versus pneumonia with bilateral pleural effusion more on the right si de. 2. Mediastinal lymphadenopathy. 3. Cardiomegaly. 4. Nodule in the left upper lobe. 6 months follow-up CT is advised. ABDOMEN/PELVIS: 1. No evidence of appendicitis, diverticulitis or intestinal obstruction. 2. 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 3. Hyperdense areas in the kidneys which may be residual contrast versus hemorrhagic cysts. Reviewed, dictated and finalized at location A. IMPRESSION: CHEST: 1. Bilateral basal atelectasis versus pneumonia with bilateral pleural effusio n more on the right side. 2. Mediastinal lymphadenopathy. 3. Cardiomegaly. 4. Nodule in the left upper lobe. 6 months follow-up CT is advised. ABDOMEN/PELVIS: 1. No evidence of appendicitis, diverticulitis or intestinal obstruction. 2. 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 3. Hyperdense areas in the kidneys which may be residual contrast versus hemor rhagic cysts.
--- NOTE | ~2025-04-07 | XR_ITS ---
XR chest 1V portable Ordering provider: Vita Boyer PA-C History: 89 years Male with . tachypnea . Comparison: April 08, 2025 FINDINGS: MEDIASTINUM: The cardiac silhouette is moderately enlarged. Congestive natalia. LUNGS: No effusions or pneumothorax. Bilateral interstitial and alveolar opacification suggestive of pulmonary edema. OTHER: No free air under the diaphragm. Degenerative changes of the spine. IMPRESSION: Cardiomegaly with cardiac decompensation and pulmonary edema. Superimposed pneumonitis is noted. Unde rlying fibrotic changes are also seen. Reviewed, dictated and finalized at location A. IMPRESSION: Cardiomegaly with cardiac decompensation and pulmonary edema. Superimposed pneu monitis is noted. Underlying fibrotic changes are also seen.
--- NOTE | ~2025-04-07 | CT_ITS ---
EXAMINATION: CT cervical spine wo con DATE: 04/08/2025 15:23 INDICATION: Neck pain after fall TECHNIQUE: Computed tomography (CT) of the cervical spine was performed without intravenous contrast. The dose-length product was 324 mGy-cm. Automated exposure control and iterative reconstruction tech nique were employed. COMPARISON: None FINDINGS: There is normal cervical alignment. Vertebral body heights are maintained. There is disc na rrowing at C5-6. There are endplate degenerative changes at C5-6. Odontoid process is normal. Craniov ertebral junction within normal limits. There is multilevel uncinate and facet hypertrophy. There are coarse interstitial changes of the lung apices craniovertebral junction within normal limits. No par aspinal soft tissue abnormality. There is mild cervical lymphadenopathy, likely reactive. IMPRESSION: 1. No acute abnormality of the cervical spine. 2: Moderate cervical spondylosis. Reviewed, dictated and finalized at location A.
--- NOTE | ~2025-04-07 | US_ITS ---
EXAMINATION: US carotid duplex BI DATE: 04/15/2025 12:42 INDICATION: Neck swelling TECHNIQUE: Grayscale, color Doppler, and pulsed Doppler images of the cervical carotid arteries were obtained. The degree of vessel stenosis is placed in one of the following categories: normal, <50%, 5 0-69%, >=70% but less than near-occlusion, near-occlusion, or total occlusion. Note that percent sten osis relative to normal distal artery lumen diameter is indirectly measured from velocity measurement s as described by Del, et al. Radiology 2003; 229:340-346. Notes: Normal: Peak systolic velocity <125 centimeters/sec and no plaque <50%. Peak systolic velocity <125 ( EDV <40; ICA/CCA PSV ratio <2.0; used these factors only a tandem lesions or low cardiac output or co ntralateral disease) 50-69 %: PSV 125-230 (EDV 40-100; ratio 2-4) >= 70% but less than near occlusion: PSV greater than 230 (EDV > 100; ratio> 4.0) Near Occlusion: PSV that is variable; markedly narrowed lumen Occlusion: Absent flow on color/spectral Doppler and no lumen on pena scale. COMPARISON: None. FINDINGS: RIGHT: The right common carotid artery (CCA) peak systolic velocity (PSV) is 60 cm/s. The right internal car otid artery (ICA) PSV is 94 cm/s. The right ICA end-diastolic velocity (EDV) is 7 cm/s. The right ICA /CCA PSV ratio is 1.6. The external carotid artery (ECA) PSV is 95 cm/s. There is antegrade flow in t he right vertebral artery. LEFT: The left CCA PSV is 39 cm/s. The left ICA PSV is 56 cm/s. The left ICA EDV is 9 cm/s. The left ICA/CC A PSV ratio is 1.4. The ECA PSV is 36 cm/s. There is antegrade flow in the left vertebral artery. IMPRESSION: 1. Less than 50% stenosis in the right internal carotid artery by sonographic criteria. 2. Less than 50% stenosis in the left internal carotid artery by sonographic criteria. Reviewed, dictated and finalized at location B. IMPRESSION: 1. Less than 50% stenosis in the right internal carotid artery by sonographic za zuñiga. 2. Less than 50% stenosis in the left internal carotid artery by sonographic ruby boateng.
--- NOTE | 2025-04-07 15:09 | ED_ITS ---
HPI - URI/Sore Throat General Chief Complaint: Upper Respiratory Infection <Latasha Bruce PA-C - Last Filed: 04/07/25 18:42> Stated Complaint: febrile/SOB <Latasha Bruce PA-C - Last Filed: 04/07/25 18:42> Time Seen by Provider: 04/07/25 14:42 <Latasha Bruce PA-C - Last Filed: 04/07/25 18:42> Source: patient <JEZ Gtz Last Filed: 04/07/25 18:42> Mode of arrival: EMS <Latasha Bruce PA-C - Last Filed: 04/07/25 18:42> Limitations: no limitations <Latasha Bruce PA-C - Last Filed: 04/07/25 18:42> History of Present Illness HPI Narrative: This is an 89-year-old male that presents to the emergency department for cold symptoms. Ongoing over the last week. Reports fever, cough, sore throat, he started to developed shortness of breath today which prompted him to be seen. He was seen by his PCP and placed on Cefdinir. He has been taking this with little relief. <Latasha Bruce PA-C - Last Filed: 04/07/25 18:42> Related Data Home Medications: Home Medications ?Medication ?Instructions ?Recorded ?Confirmed ?Last Taken ?Type aspirin 81 mg tablet,delayed 81 mg PO DAILY 01/08/20 04/07/25 11/08/20 History release (Adult Aspirin Regimen) ascorbate calcium (vitamin C) 500 500 mg PO DAILY 03/25/20 04/07/25 11/08/20 History mg tablet calcium 600 mg (as carbonate)-vit 2 tablet PO DAILY 03/25/20 04/07/25 11/08/20 History D3 5 mcg (200 unit)-minerals tablet coenzyme Q10 100 mg capsule 100 mg PO DAILY 03/25/20 04/03/25 11/08/20 History (CoQ-10) multivitamin 1 tablet PO DAILY 03/25/20 04/07/25 11/08/20 History omega-3 fatty acids 1,000 mg 1,000 mg PO DAILY 03/25/20 04/07/25 Unknown History capsule atorvastatin 80 mg tablet (Lipitor) 80 mg PO QHS 12/30/24 04/03/25 Unknown History clopidogrel 75 mg tablet 75 mg PO DAILY 12/30/24 04/07/25 Unknown History cyclosporine 0.05 % eye drops in a 1 drp EACH EYE Q12H 12/30/24 04/07/25 Unknown History dropperette famotidine 20 mg tablet 20 mg PO BID PRN 12/30/24 04/03/25 Unknown History glucosamine-chondroitin 2 tablet PO DAILY 12/30/24 04/07/25 Unknown History isosorbide mononitrate 30 mg 30 mg PO DAILY 12/30/24 04/07/25 Unknown History tablet,extended release 24 hr nitroglycerin 0.4 mg sublingual 0.4 mg sublingual Q5M PRN chest 12/30/24 04/07/25 Unknown History tablet pain propylene glycol 0.6 % eye drops 1 drp EACH EYE 4-6XD PRN 12/30/24 04/03/25 Unknown History (Systane Complete) ranolazine 500 mg tablet,extended 500 mg PO Q12H 12/30/24 04/07/25 Unknown History release,12 hr vitamin E 400 unit/15 mL oral 400 unit PO DAILY 12/30/24 04/03/25 Unknown History liquid perfluorohexyloctane (PF) 100 % 1 drp EACH EYE QID 04/07/25 04/07/25 Unknown History eye drops (Miebo (PF)) <Latasha Bruce PA-C - Last Filed: 04/07/25 18:42> Allergies/Adverse Reactions: Allergies Allergy/AdvReac Type Severity Reaction Status Date / Time No Known Allergies Allergy Verified 04/03/25 13:23 <Latasha Bruce PA-C - Last Filed: 04/07/25 18:42> Review of Systems 2 Review of Systems: CONSTITUTIONAL: Reports fever ENT: Reports sore throat RESPIRATORY: Reports cough and dyspnea. GASTROINTESTINAL: Denies abdominal pain, nausea, vomiting <JEZ Gtz Last Filed: 04/07/25 18:42> All systems reviewed & are unremarkable except as noted in HPI and below < JEZ Gtz Last Filed: 04/07/25 18:42> [facility] Past Medical History Medical History: Medical History (Updated 04/07/25 @ 19:44 by Vita Boyer PA-C) Hypertension Hyperlipidemia Coronary artery disease Benign prostatic hyperplasia Paroxysmal atrial fibrillation <Latasha Bruce PA-C - Last Filed: 04/07/25 18:42> Surgical History Surgical History: Surgical History (Updated 04/07/25 @ 19:19 by Vita Boyer PA-C) History of coronary artery stent placement History of cardiac catheterization History of hemorrhoidectomy History of cataract extraction History of appendectomy <Latasha Bruce PA-C - Last Filed: 04/07/25 18:42> Family History Family History: Family History Father Dementia Mother Heart disease Sibling Heart disease Sibling Heart disease <Latasha Bruce PA-C - Last Filed: 04/07/25 18:42> Social History Social History: Social History (Updated 04/07/25 @ 19:19 by Vita Boyer PA-C) Social History: Surrogate medical decision maker: Luke Gibson. Code status: Full code. 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. Spiritual care concerns: No <Latasah Bruce PA-C - Last Filed: 04/07/25 18:42> Exam 2 Narrative: GENERAL: Ill-appearing, well-nourished, and in no acute distress. HEAD: Normocephalic, atraumatic. EYES: EOMI. ENT: Nares clear, no rhinorrhea or epistaxis. Mucous membranes dry. Oropharynx without tonsillar hypertrophy exudate or other lesions. Bilateral TMs pearly pena non-bulging NECK: Supple. Tender left anterior cervical adenopathy CHEST: Clear to auscultation. No respiratory distress. No wheezes rales or rhonchi HEART: Regular rate and rhythm. No murmur heard. Normal peripheral pulses. ABDOMEN: Soft, nontender, nondistended, normal active bowel sounds. EXTREMITIES: Normal range of motion. No edema. SKIN: Warm, dry, no rash. NEURO: No focal deficits. Alert and oriented x3. PSYCH: Normal mood and affect <Latasha Bruce PA-C - Last Filed: 04/07/25 18:42> Course Course Emergency Course: Patient updated on workup and agrees with plan of care <Latasha Bruce PA-C - Last Filed: 04/07/25 18:42> IT DISASTER RECOVERY MANAGER/PA Physician Supervision This visit was performed by both a physician and an APC. I performed all aspects of the MDM as documented. <Mika Noble MD - Last Filed: 04/07/25 20:34> Consultations Consultation #1: Spoke with hospitalist about patient and workup who accepts admission < Latasha Bruce PA-C - Last Filed: 04/07/25 18:42> Date: 04/07/25 <Latasha Bruce PA-C - Last Filed: 04/07/25 18:42> Vital Signs Vital signs: Vital Signs Temperature 100.5 F H 04/07/25 14:28 Pulse Rate 90 04/07/25 14:28 Respiratory Rate 24 H 04/07/25 14:28 Blood Pressure 115/64 04/07/25 14:28 Pulse Oximetry 97 04/07/25 14:28 Oxygen Delivery Room Air 04/07/25 14:28 Temperature 97.9 F 04/07/25 18:00 Pulse Rate 108 H 04/07/25 20:02 Respiratory Rate 24 H 04/07/25 20:02 Blood Pressure 108/68 04/07/25 20:02 Pulse Oximetry 98 04/07/25 20:02 Oxygen Delivery Room Air 04/07/25 14:30 <Latasha Bruce PA-C - Last Filed: 04/07/25 18:42> Vital Signs Temperature 100.5 F H 04/07/25 14:28 Pulse Rate 90 04/07/25 14:28 Respiratory Rate 24 H 04/07/25 14:28 Blood Pressure 115/64 04/07/25 14:28 Pulse Oximetry 97 04/07/25 14:28 Oxygen Delivery Room Air 04/07/25 14:28 Temperature 97.9 F 04/07/25 18:00 Pulse Rate 108 H 04/07/25 20:02 Respiratory Rate 24 H 04/07/25 20:02 Blood Pressure 108/68 04/07/25 20:02 Pulse Oximetry 98 04/07/25 20:02 Oxygen Delivery Room Air 04/07/25 14:30 <Mika Noble MD - Last Filed: 04/07/25 20:34> MDM - URI/Sore Throat MDM Narrative Medical decision making narrative: Patient presents the emergency department for fevers, sore throat, malaise. Started on Cefdinir by PCP without relief. Febrile and tachypneic upon arrival. Blood pressure is soft, but stable. CBC with leukocytosis to 16.4. Metabolic panel with evidence of dehydration, hyponatremia. CRP is elevated at 26.6. Influenza, RSV and COVID screens are negative. Chest x-ray without acute cardiopulmonary abnormality. CT soft tissue neck obtained for further evaluation, this shows right palatine tonsillar enlargement, no abscess. Left submandibular gland enlargement. Left anterior cervical chain lymphadenopathy. Anterior neck soft tissue stranding, possible cellulitis. Paratracheal lymphadenopathy. Mild interstitial edema. Patient updated on his workup and need for admission. Blood cultures drawn, patient hydrated and started on IV antibiotics. Spoke with hospitalist about patient and workup who accepts admission <Latasha Bruce PA-C - Last Filed: 04/07/25 18:42> Differential Diagnosis Differential diagnosis: Likely upper respiratory infection, sinusitis, viral infection, bronchitis, influenza, pharyngitis and other (sepsis, parotitis, cellulitis) < Latasha Bruce PA-C - Last Filed: 04/07/25 18:42> Lab Data Attestation: I reviewed the patient's lab results. <Latasha Bruce PA-C - Last Filed: 04/07/25 18:42> Result diagrams: 04/07/25 15:14 04/07/25 15:14 <JEZ Gtz Last Filed: 04/07/25 18:42> Labs: Lab Results 04/07/25 Range/Units 15:14 WBC 16.4 H (4.5-10.0) K/mm3 RBC 3.59 L (4.6-6.20) M/mm3 Hgb 11.3 L (14.0-18.0) g/dL Hct 33.3 L (42.0-52.0) % MCV 92.8 (80-100) fl MCH 31.5 (26-34) pg MCHC 33.9 (32-36) g/dl RDW 14.1 (11.5-14.5) % Plt Count 125 L (150-375) k/mm3 MPV 11.2 H (7.4-10.4) fl Immature Gran % (Auto) 0.4 (0-0.5) % Neut % (Auto) 95.1 H (45.5-73.1) % Lymph % (Auto) 2.6 L (18.3-44.2) % [place] % (Auto) 1.4 L (2.6-8.5) % Eos % (Auto) 0.2 (0-4.4) % Baso % (Auto) 0.3 (0.2-1.2) % Lymph # (Auto) 0.43 L (0.9-3.2) K/mm3 [place] # (Auto) 0.2 (0.1-0.6) K/mm3 Eos # (Auto) 0.0 (0-0.3) K/mm3 Baso # (Auto) 0.1 (0.0-0.1) K/mm3 Abs Immat Gran (auto) 0.07 H (0.00-0.031) K/mm3 Absolute Neuts (auto) 15.6 H (1.3-6.7) K/mm3 Absolute Nucleated RBC 0.000 (0.0-0.012) K/mm3 Nucleated RBC % 0.0 (0.0-0.2) % Sodium 124 L (137-145) mmol/L Potassium 4.1 (3.4-5.0) mmol/L Chloride 94 L (98-107) mmol/L Carbon Dioxide 20 L (22-30) mmol/L Anion Gap 10 (4-12) mmol/L BUN 27 H (9-20) mg/dL Creatinine 1.21 (0.7-1.3) mg/dL Estim Creat Clear Calc 38 ml/min Estimated GFR 57 L (59 - ) Glucose 117 H (65-110) mg/dL Lactic Acid 2.0 (0.7-2.0) mmol/L Calcium 8.3 L (8.4-10.2) mg/dL Total Bilirubin 1.1 (0.2-1.3) mg/dL AST 100 H (17-59) U/L ALT 84 H (6-50) U/L Alkaline Phosphatase 118 (38-126) U/L C-Reactive Protein 26.6 H (<1.0) mg/dL Total Protein 6.0 L (6.3-8.2) g/dL Albumin 3.4 L (3.5-5.1) g/dL Influenza A (RT-PCR) Negative (Negative) Influenza B (RT-PCR) Negative (Negative) RSV (RT-PCR) Negative (Negative) SARS-CoV-2 RNA (RT-PCR) Negative (Negative) <Latasha Bruce PA-C - Last Filed: 04/07/25 18:42> Lab Results 04/07/25 Range/Units 15:14 WBC 16.4 H (4.5-10.0) K/mm3 RBC 3.59 L (4.6-6.20) M/mm3 Hgb 11.3 L (14.0-18.0) g/dL Hct 33.3 L (42.0-52.0) % MCV 92.8 (80-100) fl MCH 31.5 (26-34) pg MCHC 33.9 (32-36) g/dl RDW 14.1 (11.5-14.5) % Plt Count 125 L (150-375) k/mm3 MPV 11.2 H (7.4-10.4) fl Immature Gran % (Auto) 0.4 (0-0.5) % Neut % (Auto) 95.1 H (45.5-73.1) % Lymph % (Auto) 2.6 L (18.3-44.2) % [place] % (Auto) 1.4 L (2.6-8.5) % Eos % (Auto) 0.2 (0-4.4) % Baso % (Auto) 0.3 (0.2-1.2) % Lymph # (Auto) 0.43 L (0.9-3.2) K/mm3 [place] # (Auto) 0.2 (0.1-0.6) K/mm3 Eos # (Auto) 0.0 (0-0.3) K/mm3 Baso # (Auto) 0.1 (0.0-0.1) K/mm3 Abs Immat Gran (auto) 0.07 H (0.00-0.031) K/mm3 Absolute Neuts (auto) 15.6 H (1.3-6.7) K/mm3 Absolute Nucleated RBC 0.000 (0.0-0.012) K/mm3 Nucleated RBC % 0.0 (0.0-0.2) % Sodium 124 L (137-145) mmol/L Potassium 4.1 (3.4-5.0) mmol/L Chloride 94 L (98-107) mmol/L Carbon Dioxide 20 L (22-30) mmol/L Anion Gap 10 (4-12) mmol/L BUN 27 H (9-20) mg/dL Creatinine 1.21 (0.7-1.3) mg/dL Estim Creat Clear Calc 38 ml/min Estimated GFR 57 L (59 - ) Glucose 117 H (65-110) mg/dL Lactic Acid 2.0 (0.7-2.0) mmol/L Calcium 8.3 L (8.4-10.2) mg/dL Total Bilirubin 1.1 (0.2-1.3) mg/dL AST 100 H (17-59) U/L ALT 84 H (6-50) U/L Alkaline Phosphatase 118 (38-126) U/L C-Reactive Protein 26.6 H (<1.0) mg/dL Total Protein 6.0 L (6.3-8.2) g/dL Albumin 3.4 L (3.5-5.1) g/dL Influenza A (RT-PCR) Negative (Negative) Influenza B (RT-PCR) Negative (Negative) RSV (RT-PCR) Negative (Negative) SARS-CoV-2 RNA (RT-PCR) Negative (Negative) <Mika Noble MD - Last Filed: 04/07/25 20:34> Imaging Data Radiologist's impression: ITS Impressions Chest X-Ray 04/07/25 16:22 IMPRESSION: No acute cardiopulmonary process. Soft Tissue Neck CT 04/07/25 17:28 IMPRESSION: Right palatine tonsillar enlargement. No tonsillar abscess detected. Left submandibular gland enlargement. Left anterior cervical chain lymphadenopathy. Anterior neck soft tissue stranding, which may represent cellulitis in the appropriate clinical context. Paratracheal lymphadenopathy. Mild interstitial edema. <JEZ Gtz Last Filed: 04/07/25 18:42> Critical Care Time Critical Care Time Critical Care Time: Yes <Latasha Bruce PA-C - Last Filed: 04/07/25 18:42> Total Critical Care Time: 35 <JEZ Gtz Last Filed: 04/07/25 18:42> Discharge Plan Discharge Clinical Impression: Acute hyponatremia, Acute dehydration Cellulitis Qualifiers: Site of cellulitis: head Qualified Code(s): L03.811 - Cellulitis of head [any part, except face] Acute tonsillitis Qualifiers: Pharyngitis/tonsillitis etiology: unspecified etiology Qualified Code(s): J 03.90 - Acute tonsillitis, unspecified Sepsis Qualifiers: Sepsis type: sepsis due to unspecified organism Sepsis acute organ dysfunction status: without acute organ dysfunction Qualified Code(s): A41.9 - Sepsis, unspecified organism <JEZ Gtz Last Filed: 04/07/25 18:42> Patient Disposition: Still a Patient <JEZ Gtz Last Filed: 04/07/25 18:42> Condition: Serious <JEZ Gtz Last Filed: 04/07/25 18:42>
[2025-04-07 15:33] LABS: Basophils Absolute Auto 0.1 K/mm3 (0.0-0.1); Basophils Percent Auto 0.3 % (0.2-1.2); Eosinophils Percent Auto 0.2 % (0-4.4); Hematocrit 33.3 % (42.0-52.0); Hemoglobin 11.3 g/dL (14.0-18.0); Immature Granulocyte Absolute 0.07 K/mm3 (0.00-0.031); Immature Granulocyte Percent A 0.4 % (0-0.5); Lymphocytes Absolute Auto 0.43 K/mm3 (0.9-3.2); Lymphocytes Percent Auto 2.6 % (18.3-44.2); Mean Corpuscular HGB Conc 33.9 g/dl (32-36); Mean Corpuscular Hemoglobin 31.5 pg (26-34); Mean Corpuscular Volume 92.8 fl (80-100); Mean Platelet Volume 11.2 fl (7.4-10.4); Monocytes Absolute Auto 0.2 K/mm3 (0.1-0.6); Monocytes Percent Auto 1.4 % (2.6-8.5); Neutrophils Absolute Auto 15.6 K/mm3 (1.3-6.7); Neutrophils Percent Auto 95.1 % (45.5-73.1); Platelet Count Result 125 k/mm3 (150-375); Red Blood Count 3.59 M/mm3 (4.6-6.20); Red Cell Distribution Width 14.1 % (11.5-14.5); White Blood Count 16.4 K/mm3 (4.5-10.0)
--- OUTSIDE RECORDS SUMMARY | 2025-04-07 15:38 | XMS_ITS | Encounter Summary ---
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
--- OUTSIDE RECORDS SUMMARY | 2025-04-07 15:38 | XMS_ITS | Clinical Summary ---
Author Organization [facility] Address [address] [address] Phone Care Team Providers Care Tele Tech Name Role Phone Alex Sunshine MD Primary Care Provider [phone] Allergies No known active allergies Medications Calcium-Vitamin D 600-200 MG-UNIT Tablet Take 1 Tab by mouth. Active Glucosamine-Luciano droitin 500-400 MG Tablet Take 1 Tab by mouth. Active ipratropium (ATROVENT) 0.06 % Solution 2 Sprays. 8 Active Multiple Vitamins-Mineral s (COMPLETE) Tablet Take by mouth. Active niacin 250 MG Tablet Take 250 mg by mouth. Active Saw [place], [place]renoa repens, (SAW PALMETTO EXTRACT PO) Take by mouth. Active rivaroxaban (XARELTO) 20 MG Tablet TAKE 1 TABLET(20 MG) BY MOUTH DAILY WITH DINNER 9 Active [place]-3 Fatty Acids (FISH OIL PO) Take by mouth. Active aspirin EC (ASPIRIN 81) 81 MG Tablet Delayed Response 81 mg. 5 Active Coenzyme Q10 (CO Q-10) 100 MG Capsule Take by mouth. Active vitamin E (TOCOPHEROL) 400 UNIT Capsule Take 400 Units by mouth daily. Active Multiple Minerals-Vitamin s (CALCIUM-MAGNESI UM-ZINC-D3 PO) Take by mouth. Active Methylcellulose, Laxative, (CITRUCEL PO) Take by mouth 2 times daily. Active PROCTOZONE-HC 2.5 % CreamIndications :Hemorrhoids, unspecified hemorrhoid type APPLY TO RECTUM DIRECTED 30 g 1 0 Active PROCTOZONE-HC 2.5 % CreamIndications :Hemorrhoids, unspecified hemorrhoid type APPLY TO RECTUM DIRECTED 30 g 1 0 Active Active Problems Problem Noted Date Diagnosed Date Ventricular tachycardia, nonsustained 02/22/2019 SVT (supraventricular tachycardia) 02/21/2019 Hemorrhoids 02/21/2019 Coronary artery disease invo lving saxman coronary artery of saxman heart without angina pectoris 02/21/2019 BPH (benign prostatic hyperplasia) 02/21/2019 Paroxysmal atrial fibrillation 02/21/2019 Family History Medical History Relation Name Comments Cancer Brother lung Dementia Father Dementia Mother Colon Cancer Sister Relation Name Status Comments Brother Father Mother Sister Social History Tobacco Use Types Packs/Day Years Used Date Smoking Tobacco: Never Smokeless Tobacco: Never Tobacco Cessation:Counseling Given: No Alcohol Use Standard Drinks/Week Comments Yes 0 (1 standard drink = 0.6 oz pur e alcohol) very little-3 beers per week Sex and Gender Information Value Date Recorded Sex Assigned at Not on file Legal Sex Male 12:11 AM CDT Gender Identity Not on file Sexual Orientation Not on file Last Filed Vital Signs Vital Sign Reading Time Taken Comments Blood Pressure 118/58 03/20/2020 8:55 AM CDT Pulse 60 03/20/2020 8:55 AM CDT Temperature 36.6 C (97.9 F) 03/20/2020 8:55 AM CDT Respiratory Rate 16 03/20/2020 8:55 AM CDT Oxygen Saturation 98% 03/20/2020 8:55 AM CDT Inhaled Oxygen Concentration - - Weight 73.5 kg (162 lb) 03/20/2020 8:55 AM CDT Height 175.3 cm (5' 9) 03/20/2020 8:55 AM CDT Body Mass Index 23.92 03/20/2020 8:55 AM CDT Plan of Treatment Health Maintenance Due Date Last Done Comments Hepatitis C Virus (HCV) Screening 1935 TdaP Immunization 1935 Pneumococcal Immunization (5 0+ years) (1 of 1 - PCV) 1986 Zoster Immunization (1 of 2) 1986 Respiratory Syncytial Virus (RSV) Immunization (Adult) (1 - 1-dose 75+ series) 2011 Influenza Immunization (#1) 2024 SARS-COV-2 Immunization ( season) 2024 09/04/2021, 01/30/2021, 01/07/2021 Hepatitis B Immunization Aged Out No longer eligible based on patient's age to complete this topic Meningococcal Immunization (ACWY) Aged Out No longer eligible b ased on patient's age to complete this topic Rotavirus Immunization Aged Out No lo nger eligible based on patient's age to complete this topic Insurance [facility]IC[facility] [address] [facility] Advance Directives * Full Code (Latest Code Status on File) Date Activated Date Inactivated Comments 02/21/2019 4:00 PM 02/22/2019 2:13 PM CPR-Full Jose L atment: FULL ARREST: Attempt Resuscitation/CPR wit intubation and mechanical ventilation. PRE-ARREST: Use entire range of life support measures to stabilize the patient. Care Teams Tele Tech Relationship Specialty Start Date End Date Alex Sunshine MD PCP - General Internal Medicine 01/02/19
--- OUTSIDE RECORDS SUMMARY | 2025-04-07 15:38 | XMS_ITS | Clinical Summary ---
Author Organization [facility] Address [address] [place] [address] Phone Care Team Providers Care Industrial Machinery Mechanic Name Role Phone Alex Sunshine MD Primary Care Provider + Allergies No known active allergies Medications fluorometholone (FML) 0.1 % suspension Administer 1 Drop in both eyes 2 times daily. Active aspirin (ECOTRIN EC) 81 mg Tablet, Delayed Release (E.C.) Take 81 mg by mouth daily. Active calcium carbonate + vitamin D (CALTRATE+D) 600 mg(1,500mg) -400 unit Tablet Take by mouth. Activ e UBIDECARENONE (COENZYME Q10) 100 mg Tablet Take by mouth. A ctive multivitamin (DAILY-AMEYA) tablet Take 1 Tablet by mouth daily. Active niacin (NIACOR) 250 mg tablet Take 250 mg by mouth daily. Active Saw [place] 160 mg Capsule Take by mouth. Active vitamin E 400 unit capsule Take 400 Units by mouth daily. Active rivaroxaban (XARELTO) 20 mg Tablet Take 20 mg by mouth daily. Active CALCIUM-MAGNESI UM-ZINC ORAL Take by mouth. Ac tive omega-3 fatty acids-fish oil 300-1,000 mg Capsule Take by mouth daily. Active ASCORBIC ACID (VITAMIN C WITH SUKHDEEP HIPS ORAL) Take by mouth. 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 Gender Identity Not on file Sexual Orientation Not on file Last Filed Vital Signs Vital Sign Reading Time Taken Comments Blood Pressure 125/60 11/10/2017 3:34 PM CYCLE SPECIALIST Pulse 55 11/10/2017 3:34 PM CYCLE SPECIALIST Temperature 36.1 C (97 F) 11/10/2017 3:34 PM CYCLE SPECIALIST Respiratory Rate 16 11/10/2017 3:34 PM CYCLE SPECIALIST Oxygen Saturation 99% 11/10/2017 3:34 PM CYCLE SPECIALIST Inhaled Oxygen Concentration - - Weight 76.2 kg (168 lb) 11/10/2017 10:49 AM CYCLE SPECIALIST Height 177.8 cm (5' 10) 11/07/2017 1:41 PM CYCLE SPECIALIST Body Mass Index 24.11 11/07/2017 1:41 PM CYCLE SPECIALIST Plan of Treatment Health Maintenance Due Date Last Done Comments DTAP/TDAP/TD VACCINES (1 - Tdap) 1954 PNEUMOCOCCAL VACCINE 50+ YEARS (1 of 1 - PCV) 07/22/19 86 ZOSTER VACCINE (1 of 2) 1986 RSV VACCINE (60+ or ) (1 - 1-dose 75+ series) 2011 INFLUENZA VACCINE (#1) 2024 Insurance [facility] [id number] Advance Directives For more information, please contact: [phone] * Full Code (Latest Code Status on File) Date Activated Date Inactivated Comments 11/10/2017 12:09 PM 11/10/2017 6:14 PM * Full Code Date Activated Date Inactivated Comments 11/10/2017 10:41 AM 11/10/2017 12:09 PM Care Teams Industrial Machinery Mechanic Relationship Specialty Start Date End Date Alex Sunshine MD [address] [place] [address] PCP - General Internal Medicine 10/23/17
--- OUTSIDE RECORDS SUMMARY | 2025-04-07 15:38 | XMS_ITS | Clinical Summary ---
Author Organization [facility] Address [address] [place] [address] Care Team Providers Care Gallery Director Name Role Phone Alex Sunshine MD Primary Care Provider [phone] Source Comments [facility],non-owned Affiliates and Associated Physician Practices is amultiple site organization consisting of ambulatory clinics and hospital sitesin [place], [place], [place] and [place]. This disclosure is being madepursuant to the Care Everywhere program and may not contain all information available regarding this patient. 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 Gender Identity Not on file Sexual Orientation Not on file Plan of Treatment Health Maintenance Due Date Last Done Comments DTAP/TDAP/TD VACCINES (1 - Tdap) 1955 PNEUMOCOCCAL VACCINE 50+ (1 of 1 - PCV) 1986 ZOSTER VACCINE (1 of 2) 1986 Respiratory Syncytial Virus (RSV) Vaccine Pt: or over 60 yrs (1 - 1-dose 75+ series) 2011 COVID-19 VACCINE ( - 2023-2 5 season) 2024 DEPRESSION SCREENING 11/06/2024 INFLUENZA VACCINE (Season Ended) 2025 HEPATITIS B VACCINE Aged Out No longe r eligible based on patient's age to complete this topic HIB VACCINE Aged Out No longer eligi ble based on patient's age to complete this topic HPV VACCINE Aged Out No longer eligi ble based on patient's age to complete this topic MENINGOCOCCAL (Group B) VACC INE SHARED DECISION-MAKING Aged Out No longer eligibl e based on patient's age to complete this topic MENINGOCOCCAL GROUPS A/C/Y/W VACCINE Aged Out No longer eligible b ased on patient's age to complete this topic Insurance [facility] MEDICARE ADV Care Teams Gallery Director Relationship Specialty Start Date End Date Alex Sunshine MD [address] [place] [address] PCP - General 09/09/15
--- OUTSIDE RECORDS SUMMARY | 2025-04-07 15:38 | XMS_ITS | Encounter Summary ---
Author Organization [employer] Address [address] [place] [address] Care Team Providers Care Leather Flesher Name Role Phone Alex Sunshine MD Primary Care Provider + Encounter Details Date Type Department Care Team (Latest Contact Info) Description 08/03/2007 Inpatient Historical HIS PATIENT IN A BED Martin Calhoun MD [address] [place], [place] [id number] [facility] Infrc, Init Episd ([facility]) (Primary Dx) Social History Tobacco Use Types Packs/Day Years Used Date Smoking Tobacco: Never Assessed Sex and Gender Information Value Date Recorded Sex Assigned at Not on file Legal Sex Male 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 Gender Identity Not on file Sexual Orientation Not on file documented as of this encounter Plan of Treatment Not on file documented as of this encounter Procedures Procedure Name Priority Date/Time Associated Diagnosis Comments CBC WITH DIFFERENTIAL Routine 08/03/2007 2:21 PM CDT CBC WITH DIFFERENTIAL Routine 08/03/2007 2:21 PM CDT PTT Routine 08/03/2007 2:21 PM CDT PROTIME-INR Routine 08/03/2007 2:21 PM CDT COMPREHENSIVE METABOLIC PANEL Routine 08/03/2007 2:21 PM CDT documented in this encounter Results * (ABNORMAL) COMPREHENSIVE METABOLIC PANEL (08/03/2007 2:21 PM CDT) GLUCOSE 102(H) 65 - 99 mg/dL INTERFACE SYSTEM CREATININE 1.12 0.67 - 1.17 mg/dL INTERFACE SYSTEM CALCIUM 8.4 8.4 - 10.2 mg/dL INTERFACE SYSTEM ALKALINE PHOSPHATASE 79 40 - 129 U/L INTERFACE SYSTEM AST 42(H) 12 - 38 U/L INTERFACE SYSTEM ALT 47(H) 0 - 41 U/L INTERFACE SYSTEM TOTAL PROTEIN 6.6 6.3 - 8.6 g/dL INTERFACE SYSTEM ALBUMIN 3.9 3.4 - 4.8 g/dL INTERFACE SYSTEM BILIRUBIN TOTAL 0.4 0.2 - 1.0 mg/dL INTERFACE SYSTEM BUN 14 6 - 20 mg/dL INTERFACE SYSTEM SODIUM 142 135 - 145 mmol/L INTERFACE SYSTEM POTASSIUM 4.5 3.5 - 4.9 mmol/L INTERFACE SYSTEM CHLORIDE 105 96 - 108 mmol/L INTERFACE SYSTEM CO2 31(H) 22 - 30 mmol/L INTERFACE SYSTEM GFR, >60 >=60 mL/min/1. 7 sq meter INTERFACE SYSTEM GFR >60 >=60 mL/min/1. 7 sq meter INTERFACE SYSTEM Comment: Estimated GFR rate interpretative information for both Americans and non- Americans is available on the [facility] Intranet at: [email or web address] Select: Lab Policies and Procedures Select: Reference Ranges - GFR 08/03/2007 2:21 PM CDT Martin Calhoun MD CHEMISTRY ORDERABLES Edited INTERFACE SYSTEM Refer to clinic/hospital department * PTT (08/03/2007 2:21 PM CDT) PTT 29.5 24.4 - 36.4 Seconds INTERFACE SYSTEM Comment: PTT Therapeutic Range: Heparin Level PTT (seconds) <0.10 units/mL <53 0.10 - 0.30 units/mL 53 - 67 0.30 - 0.70 units/mL* 67 - 95* 0.70 - 1.00 units/mL 95 - 116 *corresponds to therapeutic range for unfractionated heparin 08/03/2007 2:[address] [facility] Martin Calhoun MD HEMATOLOGY ORDERABLES Edited Performing Organization Address City/[facility] de Phone Number INTERFACE SYSTEM Refer to clinic/hospital department * PROTIME-INR (08/03/2007 2:21 PM CDT) PROTIME 13.7 12.7 - 15.1 Seconds INTERFACE SYSTEM INR 1.0 0.9 - 1.1 INTERFACE SYSTEM Comment: INR Therapeutic Range: Adult: 2.0 - 3.0 for pulmonary embolism or prophylaxis against venous thrombosis or systemic embolization. 2.0 - 3.0 for patients with tissue heart valves. 2.5 - 3.5 for patients with mechanical heart valves or post DE. Pediatric (12 years and under): 1.5 - 3.0 Although the target range in children is not well established , INR values of 1.5 - 3.0 are recommended for most patients. Higher values have been used in children with prosthetic cardiac valves and hereditary clotting disorders. (<3 days) therapeutic ranges have not been established. 08/03/2007 2:21 PM CDT Martin Calhoun MD HEMATOLOGY ORDERABLES Edited Performing Organization Address [facility] de Phone Number INTERFACE SYSTEM Refer to clinic/hospital department * CBC WITH DIFFERENTIAL (08/03/2007 2:21 PM CDT) NEUTROPHILS 53 45 - 70 % INTERFAC E SYSTEM LYMPHOCYTES 33 16 - 45 % INTERFAC E SYSTEM MONOCYTES 11 3 - 13 % INTERFACE SYSTEM EOSINOPHILS 2 0 - 7 % INTERFAC E SYSTEM BASOPHILS 1 0 - 2 % INTERFACE SYSTEM NEUTROPHIL ABSOLUTE 3.06 1.90 - 7.00 K/uL INTERFACE SYSTEM LYMPHOCYTE ABSOLUTE 1.93 0.70 - 4.50 K/uL INTERFACE SYSTEM MONOCYTE ABSOLUTE 0.64 0.10 - 1.30 K/uL INTERFACE SYSTEM EOSINOPHIL ABSOLUTE 0.14 0.00 - 0.70 K/uL INTERFACE SYSTEM BASOPHILS ABSOLUTE 0.04 0.00 - 0.20 K/uL INTERFACE SYSTEM 08/03/2007 2:[address] [facility] Martin Calhoun MD HEMATOLOGY ORDERABLES Edited INTERFACE SYSTEM Refer to clinic/hospital department * (ABNORMAL) CBC WITH DIFFERENTIAL (08/03/2007 2:21 PM CDT) WBC 5.8 4.0 - 9.8 K/uL INTERFACE SYSTEM RBC 3.99(L) 4.50 - 5.40 M/uL INTERFACE SYSTEM HEMOGLOBIN 12.7(L) 13.6 - 16.5 g/dL INTERFACE SYSTEM HEMATOCRIT 37.0(L) 40.0 - 48.0 % INTERFACE SYSTEM MCV 92.7 82.0 - 99.0 fL INTERFACE SYSTEM MCH 31.8 27.2 - 32.6 pg INTERFACE SYSTEM MCHC 34.3 31.5 - 35.5 % INTERFACE SYSTEM RDW 13.2 11.5 - 14.5 % INTERFACE SYSTEM RDW-STDEV 44.5 37.1 - 48.7 fL INTERFACE SYSTEM PLATELETS 174 140 - 350 K/uL INTERFACE SYSTEM MPV 10.6 9.3 - 12.4 fL INTERFACE SYSTEM 08/03/2007 2:21 PM CDT Martin Calhoun MD HEMATOLOGY ORDERABLES Edited INTERFACE SYSTEM Refer to clinic/hospital department documented in this encounter Visit Diagnoses Diagnosis Acute myocardial infarction, subendocardial infarction, initial episode of care ([facility])- Primary Acute myocardial infarction, subendocardial infarction, initial episode of care documented in this encounter Care Teams Leather Flesher Relationship Specialty Start Date End Date Alex Sunshine MD [address] [place] [id number] PCP - General Internal Medicine 10/23/17 documented as of this encounter
--- OUTSIDE RECORDS SUMMARY | 2025-04-07 15:38 | XMS_ITS | Referral Summary ---
Author Organization [facility] [address] [place] [address] [address] [place] [address] Care Team Providers Care Evp Sales Name Role Phone Al Martinez MD Primary Care Provider [phone] Encounters Date Type Department Care Team Description 02/12/2025 Telephone [facility] Cardiology [address] [place] [address] Kleber Ervin MD 01/24/2025 Telephone [facility] Medical [facility] Cardiology [address] [facility] [address] [place] [address] Kleber Ervin MD 01/20/2025 Telephone [facility] [address] [place] [address] [address] [place] [address] Kleber Ervin MD 01/09/2025 9:30 AM TUBE TELLER Office Visit [facility] Cardiology at [address] [place] [address] Kleber Ervin MD Coronary artery disease involving [place] coronary artery of [place]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 (HCC) (Primary Dx); History of coronary artery stent placement; Paroxysmal atrial fibrillation (HCC) from Last 3 Months Allergies No known active allergies Medications aspirin (ASPIR-81) 81 mg tablet take 1 Tablet by oral route every day 0 0 5 Active multivitamin,tx -iron-minerals tablet Take 1 tablet by mouth every morning Active glucosamine-cho ndroitin 500-400 mg tablet Take 1 tablet by mouth 2 (two) times a day Active vitamin E 400 unit capsule Take 1 capsule (400 Units total) by mouth every morning Active calcium carb-mag oxide-vit D3 400-167-133 mg-mg-unit tablet Take 1 tablet by mouth 2 (two) times a day Active ascorbic acid (VITAMIN C) 500 mg tablet,chewable Take 1 tablet/chew tab (500 mg total) by mouth every morning Active acidophilus-pec tin, citrus 100 million cell-10 mg capsule Take 1 capsule by mouth every morning Active uuaou-0-ydi-epa -dpa-fish oil 1,050-1,200 mg capsule Take 1 capsule by mouth every morning Active ipratropium (ATROVENT) 42 mcg (0.06 %) nasal sprayIndication s:PND (post-nasal drip) Administer 2 sprays into each nostril 3 (three) times a day 15 mL 6 2 09/24/20 25 Active propylene glycoL, PF, (Systane Complete PF) 0.6 % dropsIndication s:Dry Eye Administer 1 drop into affected eye(s) 6 (six) times a day Active hydrocortisone (ANUSOL-HC) 1 % cream with perineal applicatorIndic ations:Hemorrho ids,Pruritus Ani Insert 1 Application into the rectum 2 (two) times a day Active clopidogreL (PLAVIX) 75 mg tablet Take 1 tablet (75 mg total) by mouth daily 90 tablet 1 4 10/16/20 25 Active cycloSPORINE (RESTASIS) 0.05 % ophthalmic emulsion Administer 1 drop into both eyes 2 (two) times a day Active nitroglycerin (NITROSTAT) 0.4 mg SL tabletIndicatio ns:Stable angina Place 1 tablet (0.4 mg total) under the tongue every 5 (five) minutes as needed for chest pain May repeat dose every 5 minutes for up to 3 doses total. 25 tablet 3 5 Active isosorbide mononitrate ER (IMDUR) 30 mg 24 hr tabletIndicatio ns:prevention of anginal pain in coronary artery disease Take 1 tablet (30 mg total) by mouth daily 90 tablet 3 5 12/19/19 26 Active sodium chloride (Renuka 128) 5 % ophthalmic ointment Apply 1 drop to right eye nightly Active senna-docusate (PERICOLACE) 8.6-50 mg Take 1 tablet by mouth 2 (two) times a day as needed for constipation 20 tablet 5 Active famotidine (PEPCID) 20 mg tablet Take 1 tablet (20 mg total) by mouth 2 (two) times a day as needed for heartburn or indigestion 10 tablet 5 Active atorvastatin (LIPITOR) 80 mg tablet Take 1 tablet (80 mg total) by mouth nightly 90 tablet 2 5 11/09/19 26 Active Active Problems Problem Noted Date Diagnosed Date Primary hypertension 12/26/2024 Dyslipidemia 12/26/2024 Stage 3a chronic kidney disease 12/25/2024 Frailty syndrome in geriatric patient 12/25/2024 Moderate protein-calorie malnutrition 12/25/2024 Unstable angina 12/25/2024 Abnormal stress test 12/24/2024 Chronic systolic congestive heart failure 2024 Troponin level elevated 12/24/2024 Chest pain, unspecified type 09/15/2024 Longstanding persistent atrial fibrillation 04/2024 NSTEMI (non-ST elevated myocardial infarction) 1 11/10/2023 Oropharyngeal dysphagia 10/04/2023 Chronic throat clearing 09/21/2023 Pharyngoesophageal dysphagia 08/07/2023 Throat pain in adult 08/07/2023 Coughing 10/25/2021 Laryngopharyngeal reflux (LPR) 10/25/2021 PND (post-nasal drip) 10/25/2021 Dysphonia 10/25/2021 Diplopia 10/25/2019 Overview (10/25/2019): Added automatically from request for surgery [id number] Coronary artery disease invo lving [place] coronary artery of [place]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 09/19/2017 History of coronary artery stent placement 09/19 Paroxysmal atrial fibrillation 09/19/2017 Immunizations Immunization Administration Dates Next Due Influenza, Unspecified 09/05/2024 Pfizer SARS-CoV-2 Monovalent Vaccination (12+ Yrs) PURPLE 01/30/2021,01/07/2021 Social History Tobacco Use Types Packs/Day Years Used Date Smoking Tobacco: Never Smokeless Tobacco: Never Tobacco Cessation:Counseling Given: No Alcohol Use Standard Drinks/Week Comments Yes 0 (1 standard drink = 0.6 oz pur e alcohol) 2-5 ETOH per week [facility] Utilities Answer Date Recorded In the past 12 months has th e electric, gas, oil, or water company threatened to shut off services in your home? No 12/25/2024 Social Connection and Isolat ion Panel [NHANES] Answer Date Recorded In a typical week, how many times do you talk on the phone with family, friends, or neighbors? More than three times a week 12/25/2024 How often do you get togethe r with friends or relatives? More than three times a week 12/25/2024 How often do you attend chur ch or mormon services? More than 4 times per year 12/25/2024 Do you belong to any clubs o r organizations such as protestant groups, unions, fraternal or athletic groups, or school groups? No 12/25/2024 How often do you attend meet ings of the clubs or organizations you belong to? Never 12/25/2024 Are you , , di vorced, , never , or living with a partner? 12/25/2024 AUDIT-C Answer Date Recorded Q1: How often do you have a drink containing alc ohol? Monthly or less 12/25/2024 Q2: How many drinks containi ng alcohol do you have on a typical day when you are drinking? 1 or 2 12/25/2024 Q3: How often do you have si x or more drinks on one occasion? Never 12/25/2024 Overall Financial Resource Strain (CARDIA) Answe r Date Recorded How hard is it for you to pa y for the very basics like food, housing, medical care, and heating? Not hard at all 12/25/2024 Hunger Vital Sign Answer Date Recorded Within the past 12 months, y ou worried that your food would run out before you got the money to buy more. Never true 12/25/19 25 Within the past 12 months, t he food you bought just didn't last and you didn't have money to get more. Never true 12/25/2024 PRAPARE - Transportation Answer Date Re corded In the past 12 months, has l ack of transportation kept you from medical appointments or from getting medications? No 12/07 In the past 12 months, has l ack of transportation kept you from meetings, work, or from getting things needed for daily living? No 12/25/2024 Housing Stability Vital Sign Answer Gilberto e Recorded In the last 12 months, was t here a time when you were not able to pay the mortgage or rent on time? No 12/25/2024 In the past 12 months, how m any times have you moved where you were living? 0 12/25/2024 At any time in the past [address] [facility], were you homeless or living in a long term (including now)? No 12/25/2024 Personal Safety Answer Date Recorded Have you ever been in or are you currently in a harmful physical or emotional relationship or is someone making you feel afraid or unsafe? Denies 12/24/2024 Sex and Gender Information Value Date Recorded Sex Assigned at Not on file Legal Sex Male 8:42 AM TUBE TELLER Gender Identity Not on file Sexual Orientation Not on file Last Filed Vital Signs Vital Sign Reading Time Taken Comments Blood Pressure 116/60 01/09/2025 9:27 AM TUBE TELLER Pulse 61 01/09/2025 9:27 AM TUBE TELLER Temperature 36.4 C (97.5 F) 12/26/2024 11:43 AM TUBE TELLER Respiratory Rate 16 12/26/2024 11:43 AM TUBE TELLER Oxygen Saturation 94% 01/09/2025 9:27 AM TUBE TELLER Inhaled Oxygen Concentration - - Weight 73.5 kg (162 lb) 01/09/2025 9:27 AM TUBE TELLER Height 175.3 cm (5' 9) 01/09/2025 9:27 AM TUBE TELLER Body Mass Index 23.92 01/09/2025 9:27 AM TUBE TELLER Plan of Treatment Not on file Medical Devices Implanted Type Area Lap Runner Device Identifier Shelf Expiration Date Model / Serial / Lot Stent Stent Heart [employer] Angio-Seal Vip Bondek-Plus 8fr .038in 70cm Hemostatic Latex Free [id number] - [id number] Implanted:Qty: 1 on 09/13/2024 by Garo Lopez MD at [facility] [employer] [id number] / / Future [employer] Card Vasc Surgery 3.5 X 34mm Basil Eckert Rx Coronary Stent [id number] - [id number] Implanted:Qty: 1 on [facility]16[facility] Vasc [facility] 06/18/2026 [id number] / / [id number] Medtronic [facility] Vas Surgery 3.0 X 34mm Waverly Eckert Rx Coronary Stent [id number] - [id number] Implanted:Qty: 1 on 12/25/2024 by Margaret Hamilton MD at [facility] Vasc Surgery 05/22/2027 [id number] UX / / [id number] 001 Ter[employer] Casandra Angio-Seal Vip 6fr Closere Device [id number] - [id number] Implanted:Qty: 1 on 12/25/2024 by Margaret Hamilton MD at [facility] [employer] [id number] / / Insurance [facility] MEDICARE [facility] MEDICARE [facility] MEDICARE Advance Directives For more information, please contact: [phone] Documents on File Type Date Recorded Patient Hand Salter Expl anation ADVANCE DIRECTIVE 11/28/2019 4:58 AM POWER OF INSTANT POTATO PROCESSING SUPERVISOR-MEDICAL ADVANCE DIRECTIVE 11/21/2019 12:28 PM SEMAJ R OF INSTANT POTATO PROCESSING SUPERVISOR-MEDICAL * Full Code (Latest Code Status on File) Date Activated Date Inactivated Comments 12/24/2024 11:04 PM 12/26/2024 7:39 PM * Full Code Date Activated Date Inactivated Comments 09/15/2024 12:07 PM 09/17/2024 6:45 PM * Full Code Date Activated Date Inactivated Comments 09/11/2024 4:51 AM 09/14/2024 5:17 PM Healthcare Agents on File Name Relationship Healthcare Agent Relationshi p Communication Daniel Hayden Health Care Agent Care Teams Evp Sales Relationship Specialty Start Date End Date Al Martinez MD PCP - General Family Practice 08/22/23
--- OUTSIDE RECORDS SUMMARY | 2025-04-07 15:38 | XMS_ITS | Clinical Summary ---
Author Organization [facility] [address] Address [address] [place] [address] Care Team Providers Care Manager Packaging Name Role Phone Al Martinez MD Primary Care Provider [phone] Allergies No known active allergies Medications aspirin [...] 1 capsule by mouth every morning Active ydkei-3-vqi-epa -dpa-fish oil 1,050-1,200 mg capsule Take 1 [...] (10/25/2019): Added automatically from request for surgery [id number] Coronary artery disease invo lving [place] coronary artery of [place]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 09/19/2017 History of coronary artery stent placement 09/19 Paroxysmal atrial fibrillation 09/19/2017 Encounters Date Type Department Care Team Description 02/12/2025 Telephone [facility] Cardiology [address] [facility] [address] [facility] [address] [place] [address] Kleber Ervin MD 01/24/2025 Telephone [facility] Medical [facility] Cardiology [address] [place] [address] Kleber Ervin MD 01/20/2025 Telephone [facility] Cardiology [address] [facility] [address] [place] [phone] Kleber Ervin MD 01/09/2025 9:30 AM PUMPER GAGER Office Visit [facility] Medical Group Cardiology at [address] [place] [address] Kleber Ervin MD Coronary artery disease involving [place] coronary artery of [place]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 (HCC) (Primary Dx); History of coronary artery stent placement; Paroxysmal atrial fibrillation (HCC) from Last 3 Months Immunizations Immunization Administration Dates Next Due Influenza, Unspecified 09/05/2024 Pfizer SARS-CoV-2 Monovalent Vaccination (12+ Yrs) PURPLE 01/30/2021,01/07/2021 Surgical History Surgery Date Site/Laterality Comments APPENDECTOMY 11/06/1949 - 11/05/1950 CARDIAC STENT PLACEMENT 09/20/2011: Promus stent x 2 dCrx & Ostium of O2, 12/03/2010: BMS to pCrx, 2007: BMS PRCA, Taxus stent RPL, 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 CARDIAC CATHETERIZATION 12/25/2024 N/A Procedure: IVUS/OCT CORS OR GRAFTS, FIRST VESSEL (+) [id number]; Surgeon: Margaret Hamilton MD; Location: CARDIAC SPREADER BOX OPERATOR; Service: Cardiovascular; Laterality: N/A; Medical devices from this surgery are in the Medical Devices section. CARDIAC CATHETERIZATION 12/25/2024 N/A Procedure: IVUS/OCT CORS OR GRAFTS, EACH ADDTN'L VESSEL (+) [id number]; Surgeon: Margaret Hamilton MD; Location: CARDIAC SPREADER BOX OPERATOR; Service: Cardiovascular; Laterality: N/A; Medical devices from this surgery are in the Medical Devices section. CARDIAC CATHETERIZATION 12/25/2024 N/A Procedure: PCI MIRLANDE MAJOR CORONARY [id number] - [id number]; Surgeon: Margaret Hamilton MD; Location: CARDIAC SPREADER BOX OPERATOR; Service: Cardiovascular; Laterality: N/A; Medical devices from this surgery are in the Medical Devices section. CARDIAC CATHETERIZATION 12/25/2024 N/A Procedure: Percutaneous Coronary Lithotripsy W/ PCI (+) [id number]; Surgeon: Margaret Hamilton MD; Location: CARDIAC SPREADER BOX OPERATOR; Service: Cardiovascular; Laterality: N/A; Medical devices from this surgery are in the Medical Devices section. Medical History Medical History Date Comments PAF (paroxysmal atrial fibri llation) ([facility]) Coronary artery disease Rhinitis BPH (benign prostatic hyperplasia) NSVT (nonsustained ventricul ar tachycardia) ([facility]) 02/21/2019 Cardiac complication 02/21/2019 NSVT during colonoscopy/hemorrhoid surgery --> 23 hr observation admit Nasal drainage Nasal congestion Hoarseness Globus sensation Family History Medical History Relation Name Comments No Known Problems Father No Known Problems Mother Relation Name Status Comments Father Mother Social History Tobacco Use Types Packs/Day Years Used Date Smoking Tobacco: Never Smokeless Tobacco: Never Tobacco Cessation:Counseling Given: No Alcohol Use Standard Drinks/Week Comments Yes 0 (1 standard drink = 0.6 oz pur e alcohol) 2-5 ETOH per week [facility] Utilities Answer Date Recorded In the past 12 months has [employer] ( [employer] ), gas, oil, or water [employer] threatened to shut off services in your [...] often do you attend chur ch or worship services? More than 4 times per year 12/25/2024 Do you belong to any clubs o r organizations such as voodoo groups, unions, fraternal or athletic groups, or [...] any time in the past 12 m [facility], were you homeless or living in a detention (including now)? No 12/25/2024 Personal Safety Answer Date Recorded Have you ever been in or are you currently in a harmful physical or emotional relationship or is someone making you feel afraid or unsafe? Denies 12/24/2024 Sex and Gender Information Value Date Recorded Sex Assigned at Not on file Legal Sex Male 8:42 AM PUMPER GAGER Gender Identity Not on file Sexual Orientation Not on file Obstetrics History Last Filed Vital Signs Vital Sign Reading Time Taken Comments Blood Pressure 116/60 01/09/2025 9:27 AM PUMPER GAGER Pulse 61 01/09/2025 9:27 AM PUMPER GAGER Temperature 36.4 C (97.5 F) 12/26/2024 11:43 AM PUMPER GAGER Respiratory Rate 16 12/26/2024 11:43 AM PUMPER GAGER Oxygen Saturation 94% 01/09/2025 9:27 AM PUMPER GAGER Inhaled Oxygen Concentration - - Weight 73.5 kg (162 lb) 01/09/2025 9:27 AM PUMPER GAGER Height 175.3 cm (5' 9) 01/09/2025 9:27 AM PUMPER GAGER Body Mass Index 23.92 01/09/2025 9:27 AM PUMPER GAGER Plan of Treatment Health Maintenance Due Date Last Done Comments Depression Screening 1936 DTaP/Tdap/Td Vaccine (1 - Tdap) 1947 Hepatitis B Screening 1954 Pneumococcal vaccine 65+ (1 of 2 - PCV) 1955 Zoster Vaccine (1 of 2) 1986 Well Visit 65+ 2001 Covid-19 Vaccine (3 - season) 2024, 01/07/2021 Fall Risk Assessment 12/26/2025 12/26/2024 Influenza Vaccine Completed 09/05/2024 Medical Devices Implanted Type Area Manager Of Training Device Identifier Shelf Expiration Date Model / Serial / Lot Stent Stent Heart [employer] Angio-Seal Vip Bondek-Plus 8fr .038in 70cm Hemostatic Latex Free [id number] - [id number] Implanted:Qty: 1 on 09/13/2024 [facility] [id number] / / Medtronic Card Vasc Surgery 3.5 X 34mm [employer] Rx Coronary Stent [id number] - [id number] Implanted:Qty: 1 on 09/16/2024 by Garo Lopez MD at [facility] Med[employer]onic Card Vasc Surgery 06/18/2026 [id number] UX / / [id number] Medtronic Card Vasc Surgery 3.0 X 34mm [place] [employer] Rx Coronary Stent [id number] - [id number] Implanted:Qty: 1 on 12/25/2024 by Margaret Hamilton MD at [facility] Med[employer]onic Card Vasc Surgery 05/22/2027 [id number] / / [id number] 001 [employer] Angio-Seal Vip 6fr Closere Device [id number] - [id number] Implanted:Qty: 1 on 12/25/2024 by Margaret Hamilton MD at [facility] [id number] / / Insurance [employer] MEDICARE [facility] MEDICARE [facility] MEDICARE Advance Directives For more information, please contact: [phone] Documents on File Type Date Recorded Patient Violin Restorer Expl anation ADVANCE DIRECTIVE 11/28/2019 4:58 AM POWER OF MONONITROTOLUENE OPERATOR-MEDICAL ADVANCE DIRECTIVE 11/21/2019 12:28 PM SEMAJ R OF MONONITROTOLUENE OPERATOR-MEDICAL * Full Code (Latest Code Status on File) Date Activated Date Inactivated Comments 12/24/2024 11:04 PM 12/26/2024 7:39 PM * Full Code Date Activated Date Inactivated Comments 09/15/2024 12:07 PM 09/17/2024 6:45 PM * Full Code Date Activated Date Inactivated Comments 09/11/2024 4:51 AM 09/14/2024 5:17 PM Healthcare Agents on File Name Relationship Healthcare Agent [facility] Communication Daniel Cagebasim Barjooa Health Care Agent Care Teams Manager Packaging Relationship Specialty Start Date End Date Al Martinez MD PCP - General Family Practice 08/22/23
--- OUTSIDE RECORDS SUMMARY | 2025-04-07 15:38 | XMS_ITS | Encounter Summary ---
Author Organization [facility] Address [address] [facility] [place] [address] Care Team Providers Care Associate Financial Representative Name Role Phone Alex Sunshine MD Primary Care Provider [phone] Encounter Details Date Type Department Care Team (Late st Contact Info) Description 05/03/2020 Lab Requisition [facility] Derm[facility] Lab [address] [facility] [place] [id number] Radhames Freeman MD [address] [facility] [address] [place] [address] Social History Tobacco Use Types Packs/Day Years Used Date Smoking Tobacco: Never Alcohol Use Standard Drinks/Week Comments Not Asked 0 (1 standard drink = 0.6 oz pur e alcohol) Sex and Gender Information Value Date Recorded Sex Assigned at Not on file 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 Gender Identity Not on file Sexual Orientation Not on file documented as of this encounter Plan of Treatment Not on file documented as of this encounter Procedures Procedure Name Priority Date/Time Associated Diagnosis Comments DERMPATH SLIDE CONSULT Routine 05/03/2020 12:00 AM CDT documented in this encounter Results * DERMPATH SLIDE CONSULT (05/03/2020 12:00 AM CDT) Case Report Dermatopathology Report Case: [id number] Authorizing Provider: Radhames Freeman MD Collected: 05/03/2020 12:00 AM Ordering Location: [facility] Derm[facility] Lab Received: 05/03/2020 11:44 AM Pathologist: Kari Jones MD Specimen: Slide(s), Left upper leg, OSC# [id number] 0 4:10 PM CDT DERMATOPATHOLOGY LABORATORY Final Diagnosis Specimen A. Slide(s), Left upper leg, [id number]# [id number]: DERMAL SCAR WITH INCREASED DERMAL BLOOD VESSELS (L90.5) 0 4:10 PM CDT DERMATOPATHOLOGY LABORATORY at 1610 CDT Clinical History Materials received from: [facility] [address] [place], [place] [id number] Received at the request of Dr. Radhames Freeman, a consult will be performed on 2 (H&E) slide(s) labeled [id number]. Benign vascular proliferation. All slides returned. Any additional sections, special stains or immunohistochemical stains performed by our laboratory will be kept here on file. 0 4:10 PM CDT DERMATOPATHOLOGY LABORATORY Microscopic Description Specimen A. Slide(s), Left upper leg, OSC# [id number]: There are fibroblasts and collagen bundles oriented parallel to the skin surface with elongated blood vessels, some of which are oriented perpendicular to the skin surface. There are dilated vascular spaces surrounded by widely spaced endothelial cells. 0 4:10 PM CDT DERMATOPATHOLOGY LABORATORY Disclaimer An external and internal positive and negative controls are appropriate for the histochemical, immunohistochemical and immunofluorescence stain(s) in this case (if any), except where stated explicitly. The performance characteristics of the stain(s) cited in this report were developed and its performance characteristic determined by the Dermatopathology Laboratory at [facility], directed by Dr. Tawny Ba. These tests need not be, and therefore are not, approved by the [place] Food and Drug Administration. The tests are used for clinical purposes. Billing Codes Specimen Charges Stain Charges 60287 1 0 4:10 PM CDT DERMATOPATHOLOGY LABORATORY Embedded Images 0 4:10 PM CDT DERMATOPATHOLOGY LABORATORY Pathology/Cytolog y SLIDE / Unknown 05/03/2020 05/03/2020 11:44 AM CDT Radhames Freeman MD LAB - PATHOLOGY/CYTOLOGY ORDER MARLON Final Result DERMATOPATHOLOGY LABORATORY [facility] - Department of Dermatology Dealer Development Manager Center/[facility] [address] [phone] documented in this encounter Visit Diagnoses Not on filedocumented in this encounter Care Teams Associate Financial Representative Relationship Specialty Start Date End Date Alex Sunshine MD [address] [place] [address] PCP - General 09/09/15 documented as of this encounter
[2025-04-07 16:00] LABS: Alanine Aminotransferase 84 U/L (6-50); Albumin Level 3.4 g/dL (3.5-5.1); Alkaline Phosphatase 118 U/L (38-126); Anion Gap 10 mmol/L (4-12); Aspartate Amino Transferase 100 U/L (17-59); Bilirubin,Total 1.1 mg/dL (0.2-1.3); Blood Urea Nitrogen 27 mg/dL (9-20); Calcium 8.3 mg/dL (8.4-10.2); Carbon Dioxide 20 mmol/L (22-30); Chloride 94 mmol/L (98-107); Estimated CRCL calculation 38 ml/min; Estimated Glomerular Filt Rate 57; Glucose 117 mg/dL (65-110); Potassium 4.1 mmol/L (3.4-5.0); Sodium 124 mmol/L (137-145)
[2025-04-07] MEDS: SODIUM CHLORIDE 0.9% IV 1,000 ML 999 ML IV CONT ×2 (16:03→16:30)
[2025-04-07] MEDS: ACETAMINOPHEN 500 MG TABLET 1000 MG PO (16:03)
[2025-04-07 16:13] LABS: Influenza A QL RT-PCR Negative (Negative); Influenza B QL RT-PCR Negative (Negative); RSV RNA, RT-PCR Negative (Negative); SARS-CoV-2 RNA PCR Negative (Negative)
[2025-04-07 16:45] LABS: CRP 26.6 mg/dL (<1.0)
[2025-04-07] MEDS: AMPICILLIN SULB 3 GM/NS 100 ML 3 GM/100 ML VIAL IVPB (17:56)
--- NOTE | 2025-04-07 18:23 | ECG_ITS ---
Test Date: 2025-04-07 19:21:18 Measurements Intervals [place] Rate: 108 P: 0 VT: 0 QRS: -27 QRSD: 109 T: 115 QT: 364 QTc: 489 Interpretive Statements ATRIAL FIBRILLATION WITH RAPID VENTRICULAR RESPONSE CANNOT R/O SEPTAL INFARCT, AGE INDETERMINATE ST-T WAVE ABNORMALITY IN ANTEROLAT/HIGH LAT LEADS- CONSIDER ISCHEMIA ABNORMAL ECG Compared to ECG 09/09/2024 19:56:51 SINUS BRADYCARDIA NO LONGER PRESENT Electronically Signed On 04-07-2025 20:43:16 CDT by Florin Rosas D.O.
[2025-04-07 19:10] LABS: Strep Group A RT-PCR NOT DETECTED (Negative)
--- NOTE | 2025-04-07 19:15 | PM.IMHP ---
H&P: HPI History of Present Illness Date/Time: 04/07/25 19:15 Chief Complaint: Fever and sore throat. Narrative: This is a very pleasant 89-year-old male with history of coronary artery disease, paroxysmal atrial fibrillation, hypertension, gastroesophageal reflux disease, and benign prostatic hyperplasia who presented to the emergency department via EMS from home for evaluation of fever and sore throat. He was in [place] at the beginning of March and about a week after returning home he began to feel unwell with symptoms to include generalized malaise, sore throat, fever, rigors, and a tender nodule under the left side of his jaw. He was seen at his doctor's office 4 days ago and was prescribed cefdinir for [address] scan of the soft tissue of the neck was also ordered but had not yet been done. He is feeling worse despite taking the antibiotics and came in today for evaluation. His appetite is poor and he feels dehydrated. Stools have been a bit soft since starting the antibiotic but he denies overt diarrhea. He arrives with a diffuse rash of which he was unaware. He continues to have frequent rigors for which he is taking acetaminophen. He also reports feeling a bit short of breath. No other parties that accompanied him on vacation have similar symptoms. He denies tick and mosquito bites, animal bites or scratches, weight loss, dental pain and broken teeth, difficulties tolerating secretions, and open wounds. He also denies headache, neck pain, confusion, visual changes, eye pain, otalgia, cough, nausea, vomiting, diarrhea, and dysuria. He has not noticed any joint swelling and denies pruritus despite the widespread rash. In the ED: Vital signs on arrival include a temperature of 100.5?, blood pressure 115/64, pulse 90, respiratory rate 24, SpO2 97% on room air. Labs were significant for WBC count of 16.4, hemoglobin 11.3, platelet 125, sodium 124, chloride 94, BUN 27, creatinine 1.21, lactic acid 2.0, AST 100, ALT 84, CRP 26.6. He tested negative for influenza, RSV, COVID, and group A strep. Soft tissue neck CT showed right palatine tonsillar enlargement, anterior neck soft tissue stranding, and lymphadenopathy. He was given a 2 L bolus of normal saline and was started on ampicillin-sulbactam and he is being admitted in this setting for further treatment. Review of Systems Review of Systems: 12 systems were reviewed and are negative except for as per HPI. [facility] Past Medical History Medical History (Updated 04/08/25 @ 03:32 by Vita Boyer PA-C) Hypertension Hyperlipidemia Coronary artery disease Benign prostatic hyperplasia Paroxysmal atrial fibrillation Surgical History Surgical History (Updated 04/07/25 @ 19:19 by Vita Boyer PA-C) History of coronary artery stent placement History of cardiac catheterization History of hemorrhoidectomy History of cataract extraction History of appendectomy Family History Family History Father Dementia Mother Heart disease Sibling Heart disease Sibling Heart disease Social History Social History Social History: Surrogate medical decision maker: Luke Gibson. Code status: Full code. 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 Spiritual care concerns: No Meds Home Medications and Allergies Home Medications ?Medication ?Instructions ?Recorded ?Confirmed ?Type aspirin 81 mg tablet,delayed 81 mg PO DAILY 01/08/20 04/07/25 History release (Adult Aspirin Regimen) ascorbate calcium (vitamin C) 500 500 mg PO DAILY 03/25/20 04/07/25 History mg tablet calcium 600 mg (as carbonate)-vit 2 tablet PO DAILY 03/25/20 04/07/25 History D3 5 mcg (200 unit)-minerals tablet multivitamin 1 tablet PO DAILY 03/25/20 04/07/25 History omega-3 fatty acids 1,000 mg 1,000 mg PO DAILY 03/25/20 04/07/25 History capsule atorvastatin 80 mg tablet (Lipitor) 80 mg PO QHS 12/30/24 04/07/25 History clopidogrel 75 mg tablet 75 mg PO DAILY 12/30/24 04/07/25 History cyclosporine 0.05 % eye drops in a 1 drp EACH EYE Q12H 12/30/24 04/07/25 History dropperette famotidine 20 mg tablet 20 mg PO BID 12/30/24 04/07/25 History glucosamine-chondroitin 2 tablet PO DAILY 12/30/24 04/07/25 History isosorbide mononitrate 30 mg 30 mg PO DAILY 12/30/24 04/07/25 History tablet,extended release 24 hr nitroglycerin 0.4 mg sublingual 0.4 mg sublingual Q5M PRN chest 12/30/24 04/07/25 History tablet pain propylene glycol 0.6 % eye drops 1 drp EACH EYE 4-6XD PRN dry eye(s) 12/30/24 04/07/25 History (Systane Complete) ranolazine 500 mg tablet,extended 500 mg PO Q12H 12/30/24 04/07/25 History release,12 hr ipratropium bromide 42 mcg (0.06 2 spray intranasal TID #15 mL 01/15/25 04/07/25 Rx %) nasal spray cefdinir 300 mg capsule 300 mg PO Q12H 10 days #20 caps 04/03/25 04/07/25 Rx metoprolol succinate 25 mg 25 mg PO Q12H 04/07/25 04/07/25 History tablet,extended release 24 hr perfluorohexyloctane (PF) 100 % 1 drp EACH EYE QID 04/07/25 04/07/25 History eye drops (Miebo (PF)) Allergies Allergy/AdvReac Type Severity Reaction Status Date / Time No Known Allergies Allergy Verified 04/03/25 13:23 Vital Signs Vital Signs - 24 hr 04/07/25 14:28 04/07/25 14:30 04/07/25 15:30 Temperature 100.5 F H Pulse Rate 90 87 Respiratory Rate 24 H 20 Blood Pressure 115/64 108/54 L Pulse Oximetry 97 97 Oxygen Delivery Room Air Room Air 04/07/25 16:01 04/07/25 16:30 04/07/25 16:46 Temperature Pulse Rate 85 80 77 Respiratory Rate 18 18 23 H Blood Pressure 115/84 107/57 L 111/53 L Pulse Oximetry 97 100 99 Oxygen Delivery 04/07/25 17:06 04/07/25 17:16 04/07/25 17:46 Temperature Pulse Rate 82 81 73 Respiratory Rate 24 H 23 H 24 H Blood Pressure 100/53 L 100/49 L 98/48 L Pulse Oximetry 94 95 97 Oxygen Delivery 04/07/25 18:00 04/07/25 18:04 04/07/25 18:31 Temperature 97.9 F Pulse Rate 104 H 105 H Respiratory Rate 22 H 25 H Blood Pressure 98/58 L 113/65 Pulse Oximetry 97 96 Oxygen Delivery 04/07/25 19:01 Temperature Pulse Rate 112 H Respiratory Rate 22 H Blood Pressure 100/63 Pulse Oximetry 96 Oxygen Delivery Exam Narrative: General: Ill-appearing male sitting up in bed with rigors. Weight: 73.8 kg. BMI: 24.0. HEENT: Normocephalic, atraumatic. PERRL, EOMI. Sclera anicteric. Conjunctiva mildly injected. Oropharynx is erythematous with mild swelling of the right tonsil. No exudate or petechiae seen. Tacky mucous membranes. No oral lesions seen. Floor of the mouth is soft and without swelling. Neck: Supple. No nuchal rigidity. Tender lymphadenopathy along the anterior cervical chain. There is erythema and mild edema of the skin over the anterior neck. Respiratory: Mildly tachypneic. He is speaking in full sentences. Lungs are clear to auscultation. Cardiovascular: Irregularly irregular rate and rhythm. Gastrointestinal: Abdomen is soft, nontender, and nondistended with positive bowel sounds. Skin: Warm and dry. Diffuse morbilliform rash on the trunk and upper and lower extremities with coalescing especially around the lower abdomen, sparing the palms and soles. Extremities: No cyanosis, clubbing, or edema. Normal capillary refill. Hands and feet are warm and perfused. Neurological: Alert and oriented. Cranial nerves 2-12 are grossly intact. No gross focal deficits to casual conversation. Psychiatric: Pleasant and cooperative with normal mood and affect. Judgment and insight intact. H&P: Results Labs Labs: Short CBC 04/07/25 Range/Units 15:14 WBC 16.4 H (4.5-10.0) K/mm3 Hgb 11.3 L (14.0-18.0) g/dL Hct 33.3 L (42.0-52.0) % Plt Count 125 L (150-375) k/mm3 BMP 04/07/25 15:14 Sodium 124 L Potassium 4.1 Chloride 94 L Carbon Dioxide 20 L BUN 27 H Creatinine 1.21 Glucose 117 H Calcium 8.3 L Liver Function 04/07/25 Range/Units 15:14 Total Bilirubin 1.1 (0.2-1.3) mg/dL AST 100 H (17-59) U/L ALT 84 H (6-50) U/L Alkaline Phosphatase 118 (38-126) U/L Albumin 3.4 L (3.5-5.1) g/dL Imaging Chest X-Ray 04/07/25 16:22 IMPRESSION: No acute cardiopulmonary process. Soft Tissue Neck CT 04/07/25 17:28 IMPRESSION: Right palatine tonsillar enlargement. No tonsillar abscess detected. Left submandibular gland enlargement. Left anterior cervical chain lymphadenopathy. Anterior neck soft tissue stranding, which may represent cellulitis in the appropriate clinical context. Paratracheal lymphadenopathy. Mild interstitial edema. Assessment and Plan Assessment and plan (1) Sepsis: Qualifiers: Sepsis acute organ dysfunction status: without acute organ dysfunction Sepsis type: sepsis due to unspecified organism Qualified Code(s): A41.9 - Sepsis, unspecified organism Code(s): A41.9 - Sepsis, unspecified organism Status: Acute (2) Cellulitis of neck: Code(s): L03.221 - Cellulitis of neck Status: Acute (3) Tonsillitis: Code(s): J03.90 - Acute tonsillitis, unspecified Status: Acute (4) Lymphadenitis: Code(s): I88.9 - Nonspecific lymphadenitis, unspecified Status: Acute (5) Hyponatremia: Code(s): E87.1 - Hypo-osmolality and hyponatremia Status: Acute (6) Elevated LFTs: Code(s): R79.89 - Other specified abnormal findings of blood chemistry Status: Acute (7) Rhabdomyolysis: Code(s): M62.82 - Rhabdomyolysis Status: Acute (8) Paroxysmal atrial fibrillation: Code(s): I48.0 - Paroxysmal atrial fibrillation Status: Acute (9) Hypertension: Code(s): I10 - Essential (primary) hypertension Status: Acute (10) Coronary artery disease: Qualifiers: Associated angina: without angina Coronary Disease-Associated Artery/Lesion type: [place] artery [place] vs. transplanted heart: [place] heart Qualified Code(s): I25.10 - Atherosclerotic heart disease of [place] coronary artery without angina pectoris Code(s): I25.10 - Atherosclerotic heart disease of [place] coronary artery without angina pectoris Status: Acute Plan The patient presented to the emergency department for evaluation of fever, sore throat, and swelling under the jaw ongoing for at least 2 weeks without improvement on antibiotics the last several days as detailed in HPI. Labs, imaging, EKG, and all reports were personally reviewed. He meets SIRS and sepsis criteria with a SOFA score of 3 (MAP < 70, thrombocytopenia, creatinine 1.21). It seems as though the infection started as tonsillitis and/or lymphadenitis which has progressed to apparent anterior neck cellulitis. Etiology is not entirely clear; it does not seem to be stemming from an odontogenic, otogenic, or sinogenic source. No evidence of abscess or deep infection seen on CT scan. He tested negative for group A strep and mononucleosis. A morbilliform rash was present on presentation and may be drug related (cefdinir) however the rash seems to have worsened with ampicillin-sulbactam. There is no blistering, sloughing, desquamation, or detachment of the skin to suggest a more severe process. No eosinophilia. Change antibiotics to meropenem and add vancomycin for broad-spectrum coverage as he is quite ill, pending cultures. I am going to ask ENT to see him in consultation for their opinion. Hyponatremia is due to hypovolemia from poor oral intake and insensible losses (he has likely been running a fever for quite some time). AST and ALT are a bit elevated and may be due to mild rhabdomyolysis (total CK 895) which is presumably from ongoing rigors and illness. Abdominal exam is benign though will obtain a right upper quadrant ultrasound. He received an IV fluid bolus in the ED and we will continue with judicious IV fluid rehydration with close monitoring of volume status and electrolytes. No acute issues with regards to his coronary artery disease. Blood pressures have been at the lower end of normal and his antihypertensives have been placed on hold. The rest of his home medications will be reviewed and resumed as appropriate. Findings and treatment plan were discussed with the patient. Questions were solicited and answered to satisfaction. The patient's medical management will be taken over by the hospitalist team in a.m. Quality VTE Prophylaxis VTE prophylaxis: mechanical ordered If No VTE Prophylaxis Answer both mechanical and pharmacologic: Reason no pharmacologic proph: medical contraindication (patient on dual anti-platelet therapy, pharmacologic prophylaxis would put him at increased risk for bleeding) The patient has been admitted under observation status. Hospitalist MIPS Advance Care Plan I have confirmed that the patient's Advanced Care Plan is present, code status is documented, or surrogate decision maker is listed in patient medical record.: Yes Medication Reconciliation I have utilized all available resources to obtain, update and review the patients current medications (includes all prescriptions, OTC, herbals, cannabis, and nutritional supplements).: Yes
--- NOTE | 2025-04-07 20:20 | ADMGEN ---
This patient, Armando Walton, was admitted to IMU Room 214-01. Patient/family oriented to hospital policies and general routines including ID bracelet, bed and alarms, visiting hours, pain management, procedures, bathroom and other care routines, personal items, smoking policy, room service/diet, and visiting hours. Information on how to activate the Rapid Response Team has been discussed. Patient/Family are encouraged to report perceived risks to care and to ask questions if they do not understand what they are told or what they should do.
[2025-04-07 21:27] LABS: Sodium 125 mmol/L (137-145)
[2025-04-07 21:30] LABS: Creatine Kinase 895 U/L (55-170)
[2025-04-07 21:31] LABS: Anion Gap 10 mmol/L (4-12); Blood Urea Nitrogen 24 mg/dL (9-20); Calcium 7.8 mg/dL (8.4-10.2); Carbon Dioxide 19 mmol/L (22-30); Chloride 96 mmol/L (98-107); Estimated CRCL calculation 41 ml/min; Estimated Glomerular Filt Rate > 60; Glucose 113 mg/dL (65-110); Sodium 125 mmol/L (137-145)
[2025-04-07 21:36] LABS: Creatinine Urine 193.8 mg/dL
[2025-04-07 21:44] LABS: Monoscreen Negative (Negative); Negative Monotest Control Negative (Negative); Positive Monotest Control Positive (Positive)
[2025-04-07] MEDS: SODIUM CHLORIDE 0.9% IV 1,000 ML 125 ML IV CONT (21:53)
[2025-04-07] MEDS: ACETAMINOPHEN 325 MG TABLET 650 MG PO (21:53)
[2025-04-07 21:58] LABS: Sodium Urine Random < 5 meq/L
[2025-04-07] MEDS: VANCOMYCIN 1,750 MG/NS 500 ML 1,750 MG/500 ML BAG 250 MG IVPB (22:11)
[2025-04-07 22:14] LABS: Hepatitis B Surface Antigen Negative (Negative)
[2025-04-07 22:20] LABS: HAV RESULT Negative (Negative); Hepatitis B Core IgM Result Negative (Negative)
[2025-04-07 22:32] LABS: Hepatitis C Virus Antibody Negative (Negative)
[2025-04-08] VITALS (22 sets, daily range): BP systolic 101–142; BP diastolic 50–76; PULSE 102–140; RESP 22–34; TEMP 36.8–38.1; O2SAT 96–100
[2025-04-08] MEDS: AMPICILLIN SULB 3 GM/NS 100 ML 3 GM/100 ML VIAL IVPB (00:38)
[2025-04-08] MEDS: ACETAMINOPHEN 325 MG TABLET 650 MG PO ×2 (00:39→06:50)
[2025-04-08] MEDS: SODIUM CHLORIDE 0.9% IV 1,000 ML 125 ML IV CONT (01:21)
[2025-04-08] MEDS: MEROPENEM 1 GM/NS 100 ML 1 GM/100 ML BAG IVPB ×2 (03:10→19:40)
[2025-04-08 05:03] LABS: Creatine Kinase 922 U/L (55-170)
[2025-04-08 05:05] LABS: Alanine Aminotransferase 83 U/L (6-50); Alkaline Phosphatase 106 U/L (38-126); Anion Gap 12 mmol/L (4-12); Aspartate Amino Transferase 103 U/L (17-59); Bilirubin,Total 1.6 mg/dL (0.2-1.3); Blood Urea Nitrogen 24 mg/dL (9-20); Calcium 7.7 mg/dL (8.4-10.2); Carbon Dioxide 17 mmol/L (22-30); Chloride 99 mmol/L (98-107); Estimated CRCL calculation 35 ml/min; Estimated Glomerular Filt Rate 53; Glucose 93 mg/dL (65-110); Magnesium 1.9 mg/dL (1.6-2.3); Sodium 128 mmol/L (137-145)
[2025-04-08 05:08] LABS: Acetaminophen 12 ug/mL (10-30)
[2025-04-08 06:02] LABS: MRSA (PCR) NOT DETECTED (NOT DETECTE)
[2025-04-08] MEDS: METOPROLOL SUCCINATE EXT REL 25 MG TABCR PO (06:41)
--- NOTE | 2025-04-08 06:47 | ECHO_ITS ---
Patient Info Name: Armando Walton Age: 89 years : 1935 Gender: Male Ht: 69 in Wt: 162 lbs BSA: 1.90 m2 HR: 106 bpm BP: 101 / 50 mmHg Heart Rhythm: Atrial Fibrillation Technical Quality: Good Exam Date: 04/08/2025 9:46 AM Patient Status: I Admit Date: 04/08/2025 Exam Type: CA echo dop color flow w con Complete two-dimensional, color flow and Doppler transthoracic echocardiogram is performed with contrast to opacify the left ventricle and to improve the deliniation of the left ventricle endocardial borders. Staff Referring Physician: Vita MONTEZ [employer] Supervisor: Nubia Burt Attending Provider: Juanita Sandoval DO Contrast/Agitated Saline Contrast/Ag. Saline: Definity Amount: 2.00 ml Existing IV Access: Yes IV Access Condition: patent with no signs of infiltration Summary 1. Left ventricular chamber dimension is moderately enlarged. 2. Left ventricular systolic function is severely globally reduced, estimated at 20-25. 3. There is mild concentric increased left ventricular wall thickness. 4. The left ventricular diastolic function is abnormal. 5. E/e' 11 is mildly elevated. 6. Definity contrast administered improved wall motion interpretation. 7. Atrial fibrillation. 8. Left atrial chamber dimension is moderately enlarged. 9. Right atrial chamber dimension is moderately enlarged. 10. There is mild aortic valve sclerosis. 11. There is mild to moderate aortic valve regurgitation. 12. The mitral valve has a mildly calcified annulus. 13. There is mild to moderate mitral valve regurgitation. 14. There is mild tricuspid valve regurgitation. 15. No pulmonary hypertension, estimated pulmonary arterial systolic pressure is 33 mmHg. 16. The prox ascending aorta size is mildly dilated at 4.4 cm. Left Ventricle Atrial fibrillation. Left ventricular chamber dimension is moderately enlarged. Left ventricular systolic function is severely globally reduced, estimated at 20-25. There is mild concentric increased left ventricular wall thickness. The left ventricular diastolic function is abnormal. E/e' 11 is mildly elevated. Definity contrast administered improved wall motion interpretation. Right Ventricle Right ventricular chamber dimension is normal. Right ventricular systolic function is normal. Left Atria Left atrial chamber dimension is moderately enlarged. Right Atria Right atrial chamber dimension is moderately enlarged. Aortic Valve The aortic valve is trileaflet. There is mild aortic valve sclerosis. There is no aortic valve stenosis. There is mild to moderate aortic valve regurgitation. Pulmonic Valve There is no pulmonic regurgitation. Mitral Valve The mitral valve has a mildly calcified annulus. There is no mitral valve stenosis. There is mild to moderate mitral valve regurgitation. Tricuspid Valve There is mild tricuspid valve regurgitation. No pulmonary hypertension, estimated pulmonary arterial systolic pressure is 33 mmHg. Pericardium/Pleural There is no pericardial effusion. Inferior Vena Cava Normal inferior vena cava with >50% collapse upon inspiration consistent with normal right atrial pressure, 5 mmHg. Aorta The aortic root size at the sinus of Valsalva is normal. The prox ascending aorta size is mildly dilated at 4.4 cm. Left Ventricular Outflow Tract Name Value Normal LVOT 2D LVOT Diameter 2.2 cm LVOT Doppler LVOT Peak Velocity 120 cm/s LVOT Peak Gradient 3 mmHg LVOT Mean Gradient 2 mmHg LVOT VTI 19 cm LVOT Stroke Volume 74 ml LVOT CO 17.0 l/min LVOT CI 8.9 l/min/m2 Pulmonic Valve Name Value Normal PV Doppler PV Peak Velocity 55 cm/s PV Peak Gradient 1 mmHg Mitral Valve Name Value Normal MV Diastolic Function MV E Peak Velocity 117 cm/s MV A Peak Velocity 3 cm/s MV E/A 43.5 MV Decel Time (PW) 149 ms MV Annular TDI MV E/e' (Septal) 15.3 MV E/e' (Lateral) 9.3 MV E/e' (Average) 12.3 Tricuspid Valve Name Value Normal TV Regurgitation Doppler TR Peak Velocity 265 cm/s TR Peak Gradient 28 mmHg Estimated PAP/RSVP RA Pressure 5 mmHg <=5 PA Systolic Pressure 33 mmHg <36 RV Systolic Pressure 33 mmHg <36 TV Annular TDI TV Lateral Nichelle s' Velocity 9.6 cm/s >=9.5 Aorta Name Value Normal Ascending Aorta Ao Root Diameter (MM) 3.6 cm Ao Root Diam Index (MM) 1.9 cm/m2 Aortic Valve Name Value Normal AV Regurgitation 2D LVOT Area 3.8 cm2 Ventricles Name Value Normal LV Dimensions 2D/MM IVS Diastolic Thickness (2D) 1.2 cm 0.6-1.0 LVID Diastole (2D) 5.5 cm 4.2-5.8 LVIW Diastolic Thickness (2D) 1.1 cm 0.6-1.0 LVID Systole (2D) 4.7 cm 2.5-4.0 LVOT Diameter 2.2 cm LV Mass (2D Cubed) 252.26 g 88.00-224.00 LV Mass Index (2D Cubed) 133 g/m2 49-115 Relative Wall Thickness (2D) 0.39 <=0.42 LV Fractional Shortening/Ejection Fraction 2D/MM LV Fractional Shortening (2D) 15 % 25-43 LV EF (2D Teichholz) 31 % LV Diastolic Volume (4C MOD) 196 ml LV EF (4C MOD) 20 % LV Diastolic Volume (2C MOD) 179 ml LV EF (2C MOD) 24 % LV Diastolic Volume (BP MOD) 191 ml 62-150 LV Diastolic Volume Index (BP MOD) 101 ml/m2 34-74 LV Systolic Volume (BP MOD) 150 ml 21-61 LV Systolic Volume Index (BP MOD) 79 ml/m2 11-31 LV EF (BP MOD) 21 % 52-72 LV Diastolic Length (4C) 9.3 cm LV Systolic Length (4C) 8.9 cm LV Stroke Volume (4C MOD) 39 ml RV Dimensions 2D/MM RVID Diastole (2D) 4.6 cm 2.1-3.5 Atria Name Value Normal LA Dimensions LA Dimension (MM) 0.0 cm 3.0-4.0 LA Volume (4C A-L) 67 ml LA Volume (BP A-L) 74 ml RA Dimensions RA Systolic Major [place] Length (4C) 5.5 cm 2.1-2.7 RA Area (4C) 24.2 cm2 <=18.0 Report Signatures
[2025-04-08 06:50] LABS: Hematocrit 34.1 % (42.0-52.0); Hemoglobin 11.2 g/dL (14.0-18.0); Immature Platelet Fraction Pct 6.8 % (0.9-11.2); Mean Corpuscular HGB Conc 32.8 g/dl (32-36); Mean Corpuscular Hemoglobin 31.5 pg (26-34); Mean Corpuscular Volume 95.8 fl (80-100); Mean Platelet Volume 11.8 fl (7.4-10.4); Platelet Count Result 113 k/mm3 (150-375); Red Blood Count 3.56 M/mm3 (4.6-6.20); Red Cell Distribution Width 14.5 % (11.5-14.5); White Blood Count 16.7 K/mm3 (4.5-10.0)
[2025-04-08] MEDS: MULTIVITAMINS THERAPEUTIC TAB (*BKC) 1 TABLET PO (09:08)
[2025-04-08] MEDS: ASPIRIN 81 MG ENTERIC TABLET PO (09:09)
[2025-04-08] MEDS: ASCORBIC ACID 500 MG TABLET PO (09:09)
[2025-04-08] MEDS: OMEGA 3 POLYUNSAT FATTY ACIDS 1 GM CAP PO (09:09)
[2025-04-08] MEDS: cycloSPORINE 0.4 ML OPHTH SOLUTION 1 DROP EACH EYE ×2 (09:09→22:00)
[2025-04-08] MEDS: CLOPIDOGREL BISULFATE 75 MG TABLET PO (09:09)
[2025-04-08] MEDS: DOXYCYCLINE HYCLATE 100 MG TABLET PO (09:09)
[2025-04-08] MEDS: FAMOTIDINE 20 MG TABLET PO ×2 (09:09→21:59)
[2025-04-08] MEDS: RANOLAZINE 500 MG TAB.ER.12H PO ×2 (09:09→22:00)
[2025-04-08] MEDS: PERFLUTREN LIPID MICROSPHERES 1.5 ML VIAL DILUTED TO 10 ML TOTAL VOLUME IV PUSH (10:15)
[2025-04-08 10:40] LABS: NT Pro B Type Natriuretic Pept > 30000 pg/mL (19.9-100)
--- NOTE | 2025-04-08 10:58 | IVDEFINITY ---
Prior to administration of IV Definity the patient was educated on the risks and benefits of the imaging enhancing agent including potential adverse side effects. The patient verbalized understanding. Allergies were verified. No exclusion criteria were identified and at least one of the following inclusion criteria were met: 1) physician request, 2) patient technically difficult to image (per the [place] [employer] guidelines of two or more segments not discernable within the apical view), or 3) questionable left ventricular function. ?
--- NOTE | 2025-04-08 11:27 | P.PNIM_ITS ---
Progress Note: A&P Assessment and Plan (1) Sepsis: Qualifiers: Sepsis acute organ dysfunction status: without acute organ dysfunction Sepsis type: sepsis due to unspecified organism Qualified Code(s): A41.9 - S epsis, unspecified organism Code(s): A41.9 - Sepsis, unspecified organism Status: Acute Assessment and Plan: Patient with fever and rash. Rash began after abx given but drug reaction felt less likely. [place] Strept swab negative. [place] negative. MRSA nasal swab negative. CXR clear. CT Neck showing right tonsillar and left submandibular gland enlargement and adneopathy. Also with anterior neck stranding. Consider group A strept given the tonsillitis and cellulitis. Consider measles given recent outbreaks but felt less likely. Believe he has also underlying CHF with low EF and feeling SOB for the past few months possibly related to uncontrolled AFib. Continue broad spectrum abx and follow up on cultures. Discussed with ID RN regarding measles testing. Check for CMV. (2) Cellulitis of neck: Code(s): L03.221 - Cellulitis of neck Status: Acute Assessment and Plan: CT scan showing anterior neck soft tissue stranding and clinically with erythema. Consider strep with rash. Continue abx until clearer etiology is known. (3) Tonsillitis: Code(s): J03.90 - Acute tonsillitis, unspecified Status: Acute Assessment and Plan: As above. (4) Lymphadenitis: Code(s): I88.9 - Nonspecific lymphadenitis, unspecified Status: Acute Assessment and Plan: As above (5) CHF (congestive heart failure): Code(s): I50.9 - Heart failure, unspecified Status: Acute Assessment and Plan: Echo in Sep 2024 showing EF 55% but Lexiscan in December 2024 showing EF 42%. Patient complains of intermittent CP and SOB that has worsened over the past few months. Echo here showing moderately enlarged LV with EF 20-25% and diastolic dysfunction. Moderate LAE and mild valvular disease. He is in AFib with RVR. LV dysfunction could be from uncontrolled AFib. BNP >30K. CXR was clear. Will stop IV fluids since he is becoming more tachypneic. Repeat CXR and consider Lasix. Cardiology consult. (6) Paroxysmal atrial fibrillation: Code(s): I48.0 - Paroxysmal atrial fibrillation Status: Acute Assessment and Plan: Rate poorly controlled here felt related to sepsis. Consider he may have RVR chronically causing his poor EF. He was on metoprolol on admission that has been continued here. Will advance his metoprolol dose to improve his rate. BP reasonable. Defer to cardiology about resuming Xarelto. (7) Hyponatremia: Code(s): E87.1 - Hypo-osmolality and hyponatremia Status: Acute Assessment and Plan: Na low on admission at 124. Urine Na <5 to suggest either dehydration and/or poor cardiac output to kidneys. With IV fluids, sodium has improved to 128. Will hold off on continued IV fluids since his EF 20% and he is becoming more tachypneic Repeat CXR and consider Lasix. (8) Elevated LFTs: Code(s): R79.89 - Other specified abnormal findings of blood chemistry Status: Acute Assessment and Plan: AST/ALT mildly elevated with TBili at 1.6. Consider related to sepsis or viral etiology. Consider hepatic congestion. TCK also elevated which could result in elevated LFTs. Monitor. (9) Rhabdomyolysis: Code(s): M62.82 - Rhabdomyolysis Status: Acute Assessment and Plan: Patient is fluid positive here at 3.7L already so will stop IV fluids. TCK is higher but still <1000 so will monitor. Etiology is probably related to infectious etiology and/or statin therapy. Hold Ranexa since this is a known side effect Follow (10) Coronary artery disease: Qualifiers: Coronary Disease-Associated Artery/Lesion type: [place] artery [place] vs. transplanted heart: [place] heart Associated angina: without angina Qualified Code(s): I25.10 - Atherosclerotic heart disease of [place] coronary artery without angina pectoris Code(s): I25.10 - Atherosclerotic heart disease of [place] coronary artery without angina pectoris Status: Acute Assessment and Plan: Patient wsa hospitalized here in September for NSTEMI and transferred to [facility]. He underwent successful laser atherectomy assisted PTCA distal left circumflex, OM1 and OM2 bifurcation in stent restenosis and intravascular lithotripsy shockwave assisted PTCA the distal to proximal LAD. Patient was hospitalized again at [facility] in December where he underwent heart catheterization with shockwave and balloon angioplasty to distal left circumflex artery in stent restenosis. Patient remains on ASA and Plavix. Ranexa has also been resumed but hold for now Cardiology consult. Plan Code status - full DVT prophylaxis - SCDs Subjective Date/time seen: 04/08/25 11:27 Interval history: 89yo male with CAD with recent stent placement in December, pAFib (off anticoagulation for about 6 months) and HTN here for fever and sore throat. Assuming care. Chart reviewed. He has been SOB for a few months but worse over the past month. Also with chest pain intermittently during this time requiring NTG. He denies CP today but feels SOB. He feels slightly better today. Sore throat better. No throat ot tongue swelling. No odynophagia or dysphagia. His rash began upper torso area and has spread caudally to his feet. He also complains of pedal edema recently. He does not wear O2 at home. No sick contacts. He resides in [place]. He did spend 3 days in [place] recently. No tick bites. He was on Xarelto in the past but was taken off about 6 months ago due to complaints of anemia. Exam Narrative: Tm 103.1 98.4 142/62 110 32 (nml RR at the time of visit) 99% 2L Gen - NARD but becomes more SOB with activity (siting up in bed). HEENT - scant swelling right tonsillar pillar. OP clear. Neck - pink blanchable erythema anterior neck. No nuchal rigidity. Minimal anterior cervical LN pain. No [place] spots. Chest - coarse BS diffusely CV - tachycardia, irregular. Abd - Soft, NT/ND, Positive BS Ext - trace pedal edema Neuro - Alert and appropriate. Nonfocal exam. Psych - Nml mood and affect Skin - Warm and dry. Diffuse macularpapullar rash on the trunk and upper and lower extremities with coalescing especially around the lower abdomen. Sparing the palms and soles. Objective Data Vital Signs Vital Signs: Vital Signs - 24 hr 04/07/25 14:28 04/07/25 14:30 04/07/25 15:30 Temperature 100.5 F H Pulse Rate 90 87 Respiratory Rate 24 H 20 Blood Pressure 115/64 108/54 L Pulse Oximetry 97 97 Oxygen Delivery Room Air Room Air 04/07/25 16:01 04/07/25 16:30 04/07/25 16:46 Temperature Pulse Rate 85 80 77 Respiratory Rate 18 18 23 H Blood Pressure 115/84 107/57 L 111/53 L Pulse Oximetry 97 100 99 Oxygen Delivery 04/07/25 17:06 04/07/25 17:16 04/07/25 17:46 Temperature Pulse Rate 82 81 73 Respiratory Rate 24 H 23 H 24 H Blood Pressure 100/53 L 100/49 L 98/48 L Pulse Oximetry 94 95 97 Oxygen Delivery 04/07/25 18:00 04/07/25 18:04 04/07/25 18:31 Temperature 97.9 F Pulse Rate 104 H 105 H Respiratory Rate 22 H 25 H Blood Pressure 98/58 L 113/65 Pulse Oximetry 97 96 Oxygen Delivery 04/07/25 19:01 04/07/25 20:02 04/07/25 20:30 Temperature 98.0 F Pulse Rate 112 H 108 H 95 Respiratory Rate 22 H 24 H 18 Blood Pressure 100/63 108/68 102/54 L Pulse Oximetry 96 98 96 Oxygen Delivery 04/07/25 21:40 04/07/25 21:53 04/07/25 21:55 Temperature 100 F H 100 F H Pulse Rate 127 H 127 H Respiratory Rate 18 Blood Pressure Pulse Oximetry Oxygen Delivery 04/07/25 22:25 04/07/25 22:53 04/08/25 00:00 Temperature 103.1 F H 100.3 F H Pulse Rate 122 H Respiratory Rate 16 Blood Pressure 113/60 Pulse Oximetry 97 Oxygen Delivery Room Air 04/08/25 00:00 04/08/25 00:00 04/08/25 00:39 Temperature 100.3 F H 100.3 F H Pulse Rate 126 H 120 H Respiratory Rate 30 H Blood Pressure 107/55 L Pulse Oximetry 99 Oxygen Delivery 04/08/25 01:40 04/08/25 02:00 04/08/25 04:00 Temperature 99.8 F H Pulse Rate 129 H Respiratory Rate Blood Pressure Pulse Oximetry Oxygen Delivery Room Air 04/08/25 04:00 04/08/25 04:00 04/08/25 06:00 Temperature 99.8 F H Pulse Rate 119 H 110 H 106 H Respiratory Rate 28 H Blood Pressure 101/50 L Pulse Oximetry 99 Oxygen Delivery 04/08/25 06:41 04/08/25 06:44 04/08/25 06:50 Temperature 100.6 F H 100.6 F H Pulse Rate 124 H Respiratory Rate Blood Pressure Pulse Oximetry Oxygen Delivery 04/08/25 07:30 Temperature 99.9 F H Pulse Rate 102 H Respiratory Rate 22 H Blood Pressure 124/76 Pulse Oximetry 98 Oxygen Delivery Intake/Output Intake/Output: Intake & Output 04/05/25 04/06/25 04/07/25 04/08/25 23:59 23:59 23:59 23:59 Intake Total 2100 2074.0 Output Total 525 Balance 2100 1549.0 Meds/Results Medications: Active Medications Generic Name Dose Route Start Last Admin Trade Name Freq PRN Reason Stop Dose Admin Acetaminophen 650 mg 04/07/25 19:59 04/08/25 06:50 Acetaminophen 325 Mg Tablet PO 650 mg Q6H PRN Administration Mild Pain (1-3) or Fever Artificial Tears 1 drop 04/08/25 03:43 Artificial Tears Ophth Soln 15 Ml Bottle EACH EYE Q4H PRN Dry Eye(s) Ascorbic Acid 500 mg 04/08/25 09:00 04/08/25 09:09 Ascorbic Acid 500 Mg Tablet PO 500 mg DAILY ATUL Administration Aspirin 81 mg 04/08/25 09:00 04/08/25 09:09 Aspirin 81 Mg Enteric Tablet PO 81 mg DAILY ATUL Administration Calcium Carbonate 1,000 mg 04/08/25 12:00 Calcium/Vitamin D 500 Mg/5 Mcg (200 I.U.) Tablet PO DAILY@1200 ATUL Clopidogrel Bisulfate 75 mg 04/08/25 09:00 04/08/25 09:09 Clopidogrel Bisulfate 75 Mg Tablet PO 75 mg DAILY ATUL Administration Cyclosporine 1 drop 04/08/25 09:00 04/08/25 09:09 Cyclosporine 0.4 Ml Ophth Solution EACH EYE 1 drop Q12HR ATUL Administration Doxycycline Hyclate 100 mg 04/08/25 09:00 04/08/25 09:09 Doxycycline Hyclate 100 Mg Tablet PO 100 mg Q12HR ATUL Administration Famotidine 20 mg 04/08/25 09:00 04/08/25 09:09 Famotidine 20 Mg Tablet PO 20 mg Q12HR ATUL Administration Fish Oil 1 gm 04/08/25 09:00 04/08/25 09:09 [place] 3 Polyunsat Fatty Acids 1 Gm Cap PO 1 gm DAILY ATUL Administration Sodium Chloride 1,000 mls @ 75 mls/hr 04/07/25 18:25 04/08/25 06:56 Normal Saline Iv IV CONT 75 mls/hr .[id number] ATUL Infusion Vancomycin HCl 1,500 mg in 500 mls @ 250 mls/hr 04/08/25 22:00 Vancomycin 1,500 Mg/Ns 500 Ml IVPB Q24H ATUL Meropenem 1 gm in 100 mls @ 200 mls/hr 04/08/25 04:00 04/08/25 03:40 IVPB Infused Q12H ATUL Infusion Ipratropium [place] 2 spray 04/08/25 09:00 Ipratropium Nasal [place] 0.06% 15 Ml Bottle NASAL TID ATUL Metoprolol Succinate 25 mg 04/08/25 09:00 04/08/25 06:41 Metoprolol Succinate Ext Rel 25 Mg Tabcr PO 25 mg Q12HR ATUL Administration Miscellaneous Information 1 each 04/08/25 00:01 (Perfluorohexyloctane (Pf) [Miebo (Pf)] 100 % Drops) Are Nonformulary, Can Patient Bring F XX 05/08/25 00:00 [facility] Multivitamins Therapeutic 1 tablet 04/08/25 09:00 04/08/25 09:08 Multivitamins Therapeutic Tab (*Bkc) PO 1 tablet DAILY [facility] Administration Non-Formulary Medication 1 drop 04/08/25 09:00 Perfluorohexyloctane (Pf) [Miebo (Pf)] EACH EYE 05/08/25 08:59 QID ATUL Ranolazine 500 mg 04/08/25 09:00 04/08/25 09:09 Ranolazine 500 Mg Tab.Er.12h PO 500 mg Q12HR ATUL Administration Radiology Results: ITS Impressions Chest X-Ray 04/07/25 16:22 IMPRESSION: No acute cardiopulmonary process. Soft Tissue Neck CT 04/07/25 17:28 IMPRESSION: Right palatine tonsillar enlargement. No tonsillar abscess detected. Left submandibular gland enlargement. Left anterior cervical chain lymphadenopathy. Anterior neck soft tissue stranding, which may represent cellulitis in the appropriate clinical context. Paratracheal lymphadenopathy. Mild interstitial edema. Labs Labs: Laboratory Results - last 24 hr 04/07/25 04/07/25 04/07/25 15:14 18:31 21:03 WBC 16.4 H RBC 3.59 L Hgb 11.3 L Hct 33.3 L MCV 92.8 MCH 31.5 MCHC 33.9 RDW 14.1 Plt Count 125 L MPV 11.2 H Immature Gran % (Auto) 0.4 Neut % (Auto) 95.1 H Lymph % (Auto) 2.6 L [place] % (Auto) 1.4 L Eos % (Auto) 0.2 Baso % (Auto) 0.3 Lymph # (Auto) 0.43 L [place] # (Auto) 0.2 Eos # (Auto) 0.0 Baso # (Auto) 0.1 Abs Immat Gran (auto) 0.07 H Absolute Neuts (auto) 15.6 H Absolute Nucleated RBC 0.000 Nucleated RBC % 0.0 % Immature Plt Fraction Sodium 124 L 125 L Potassium 4.1 Chloride 94 L Carbon Dioxide 20 L Anion Gap 10 BUN 27 H Creatinine 1.21 Estim Creat Clear Calc 38 Estimated GFR 57 L Glucose 117 H Lactic Acid 2.0 Calcium 8.3 L Magnesium Total Bilirubin 1.1 AST 100 H ALT 84 H Alkaline Phosphatase 118 Total Creatine Kinase C-Reactive Protein 26.6 H NT-Pro-B Natriuret Pep Total Protein 6.0 L Albumin 3.4 L TSH (Reflex) Ur Random Sodium Urine Creatinine Nasal MRSA (PCR) Acetaminophen Hepatitis A IgM Ab Hep Bs Antigen Hep B Core IgM Ab Hepatitis C Ab Screen Monoscreen Influenza A (RT-PCR) Negative Influenza B (RT-PCR) Negative RSV (RT-PCR) Negative SARS-CoV-2 RNA (RT-PCR) Negative Group A Strep (PCR) Not detected 04/07/25 04/07/25 04/08/25 21:03 21:06 03:58 WBC 16.7 H RBC 3.56 L Hgb 11.2 L Hct 34.1 L MCV 95.8 MCH 31.5 MCHC 32.8 RDW 14.5 Plt Count 113 L MPV 11.8 H Immature Gran % (Auto) Neut % (Auto) Lymph % (Auto) [place] % (Auto) Eos % (Auto) Baso % (Auto) Lymph # (Auto) [place] # (Auto) Eos # (Auto) Baso # (Auto) Abs Immat Gran (auto) Absolute Neuts (auto) Absolute Nucleated RBC Nucleated RBC % % Immature Plt Fraction 6.8 Sodium 125 L Potassium 4.0 Chloride 96 L Carbon Dioxide 19 L Anion Gap 10 BUN 24 H Creatinine 1.12 Estim Creat Clear Calc 41 Estimated GFR > 60 Glucose 113 H Lactic Acid Calcium 7.8 L Magnesium Total Bilirubin AST ALT Alkaline Phosphatase Total Creatine Kinase 895 H 922 H C-Reactive Protein NT-Pro-B Natriuret Pep > 44132 H Total Protein Albumin TSH (Reflex) 1.580 Ur Random Sodium < 5 Urine Creatinine 193.8 Nasal MRSA (PCR) Acetaminophen 12 Hepatitis A IgM Ab Negative Hep Bs Antigen Negative Hep B Core IgM Ab Negative Hepatitis C Ab Screen Negative Monoscreen Negative Influenza A (RT-PCR) Influenza B (RT-PCR) RSV (RT-PCR) SARS-CoV-2 RNA (RT-PCR) Group A Strep (PCR) 04/08/25 04/08/25 03:59 04:13 WBC RBC Hgb Hct MCV MCH MCHC RDW Plt Count MPV Immature Gran % (Auto) Neut % (Auto) Lymph % (Auto) [place] % (Auto) Eos % (Auto) Baso % (Auto) Lymph # (Auto) [place] # (Auto) Eos # (Auto) Baso # (Auto) Abs Immat Gran (auto) Absolute Neuts (auto) Absolute Nucleated RBC Nucleated RBC % % Immature Plt Fraction Sodium 128 L Potassium 4.0 Chloride 99 Carbon Dioxide 17 L Anion Gap 12 BUN 24 H Creatinine 1.29 Estim Creat Clear Calc 35 Estimated GFR 53 L Glucose 93 Lactic Acid Calcium 7.7 L Magnesium 1.9 Total Bilirubin 1.6 H AST 103 H ALT 83 H Alkaline Phosphatase 106 Total Creatine Kinase C-Reactive Protein NT-Pro-B Natriuret Pep Total Protein 6.0 L Albumin 3.0 L TSH (Reflex) Ur Random Sodium Urine Creatinine Nasal MRSA (PCR) Not detected Acetaminophen Hepatitis A IgM Ab Hep Bs Antigen Hep B Core IgM Ab Hepatitis C Ab Screen Monoscreen Influenza A (RT-PCR) Influenza B (RT-PCR) RSV (RT-PCR) SARS-CoV-2 RNA (RT-PCR) Group A Strep (PCR)
[2025-04-08] MEDS: CALCIUM/VITAMIN D 500 MG/5 MCG (200 I.U.) TABLET 1000 MG PO (13:17)
[2025-04-08] MEDS: METOPROLOL TARTRATE 25 MG TABLET PO ×2 (13:17→21:59)
--- NOTE | 2025-04-08 13:37 | PM.CNCAR ---
Assessment and Plan Assessment and plan (1) Coronary artery disease: Qualifiers: Coronary Disease-Associated Artery/Lesion type: [place] artery [place] vs. transplanted heart: [place] heart Associated angina: without angina Qualified Code(s): I25.10 - Atherosclerotic heart disease of [place] coronary artery without angina pectoris Code(s): I25.10 - Atherosclerotic heart disease of [place] coronary artery without angina pectoris Status: Acute Assessment and Plan: Longstanding history of CAD as detailed in the HPI. He has been having chest pain requiring NTG several times weekly. Could consider repeat angiogram, however, given complex CAD this would need to take place at [facility]. Currently, not appropriate for cath because of sepsis Continue ASA, plavix, statin (2) Atrial fibrillation: Qualifiers: Atrial fibrillation type: persistent (not longstanding) Qualified Code(s): I48.19 - Other persistent atrial fibrillation Code(s): I48.91 - Unspecified atrial fibrillation Status: Acute Assessment and Plan: Atrial fibrillation with RVR in the setting of infection, CHF metoprolol increased to 25mg q8h just recently, so will see how his heart rate responds. Metoprolol can be up titrated as need be Avoid diltiazem given cardiomyopathy He was previously on Xarelto because of atrial fibrillation, unclear why is no longer taking this. Will review records once again to see if there is a contraindication. If not, would resume a/c and discontinue ASA leaving him on plavix. (3) Cardiomyopathy: Code(s): I42.9 - Cardiomyopathy, unspecified Status: Acute Assessment and Plan: EF 20-25%, previously 40% Possibly secondary to worsening CAD or uncontrolled Afib Will start low dose Entresto Add spironolactone, jardiance as tolerated When HR becomes controlled, shift metoprolol tartrate to succinate (4) CHF (congestive heart failure): Code(s): I50.9 - Heart failure, unspecified Status: Acute Assessment and Plan: Perhaps mild decompensated heart failure. Will give one dose IV furosemide 20mg now and observe response. Don't think he needs aggressive diuresis and would avoid this given hyponatremia. (5) Sepsis: Qualifiers: Sepsis acute organ dysfunction status: without acute organ dysfunction Sepsis type: sepsis due to unspecified organism Qualified Code(s): A41.9 - Sepsis, unspecified organism Code(s): A41.9 - Sepsis, unspecified organism Status: Acute Assessment and Plan: Abx and other management per hospitalist. History of Present Illness History of Present Illness Consult date/time: 04/08/25 13:37 Requesting physician: Keith Thomas MD Consult reason: atrial fibrillation, congestive heart failure and shortness of breath Reason For Visit: Sepsis, Cellulitis, Tonsillitis Narrative: Armando Walton is an 89 year old male with coronary artery disease s/p PCI to RCA, LCx, repeat intervention to the c in 2010, vprox LAD in 2023, and shockwave and stenting of the LAD and LCx in 2024). He presents to the hospital with sore throat, shortness of breath, and fever. Cardiology is consulted for atrial fibrillation and CHF. Echocardiogram performed during this hospitalization showed severe LV dysfunction with EF 20-25% which is a decline compared to echo in December 2024 showing EF 40%. Patient states he has intermittent chest pain and takes NTG about 3 times weekly on average. Has been experiencing shortness of breath and some lower extremity edema but no palpitations. Feeling a little better today but still has chills and shortness of breath. Review of Systems Review of Systems: All systems reviewed & are unremarkable except as noted in HPI and below PMFSH Past Medical History Medical History Hypertension Hyperlipidemia Coronary artery disease Benign prostatic hyperplasia Paroxysmal atrial fibrillation Surgical History Surgical History History of coronary artery stent placement History of cardiac catheterization History of hemorrhoidectomy History of cataract extraction History of appendectomy Family History Family History Father Dementia Mother Heart disease Sibling Heart disease Sibling Heart disease Social History Social History Social History: Surrogate medical decision maker: Luke Gibson. Code status: Full code. 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 Spiritual care concerns: No Meds Home Medications and Allergies Home Medications ?Medication ?Instructions ?Recorded ?Confirmed ?Type aspirin 81 mg tablet,delayed 81 mg PO DAILY 01/08/20 04/07/25 History release (Adult Aspirin Regimen) ascorbate calcium (vitamin C) 500 500 mg PO DAILY 03/25/20 04/07/25 History mg tablet calcium 600 mg (as carbonate)-vit 2 tablet PO DAILY 03/25/20 04/07/25 History D3 5 mcg (200 unit)-minerals tablet multivitamin 1 tablet PO DAILY 03/25/20 04/07/25 History omega-3 fatty acids 1,000 mg 1,000 mg PO DAILY 03/25/20 04/07/25 History capsule atorvastatin 80 mg tablet (Lipitor) 80 mg PO QHS 12/30/24 04/07/25 History clopidogrel 75 mg tablet 75 mg PO DAILY 12/30/24 04/07/25 History cyclosporine 0.05 % eye drops in a 1 drp EACH EYE Q12H 12/30/24 04/07/25 History dropperette famotidine 20 mg tablet 20 mg PO BID 12/30/24 04/07/25 History glucosamine-chondroitin 2 tablet PO DAILY 12/30/24 04/07/25 History isosorbide mononitrate 30 mg 30 mg PO DAILY 12/30/24 04/07/25 History tablet,extended release 24 hr nitroglycerin 0.4 mg sublingual 0.4 mg sublingual Q5M PRN chest 12/30/24 04/07/25 History tablet pain propylene glycol 0.6 % eye drops 1 drp EACH EYE 4-6XD PRN dry eye(s) 12/30/24 04/07/25 History (Systane Complete) ranolazine 500 mg tablet,extended 500 mg PO Q12H 12/30/24 04/07/25 History release,12 hr ipratropium bromide 42 mcg (0.06 2 spray intranasal TID #15 mL 03/12/25 06/02/25 Rx %) nasal spray cefdinir 300 mg capsule 300 mg PO Q12H 10 days #20 caps 04/03/25 04/07/25 Rx metoprolol succinate 25 mg 25 mg PO Q12H 04/07/25 04/07/25 History tablet,extended release 24 hr perfluorohexyloctane (PF) 100 % 1 drp EACH EYE QID 04/07/25 04/07/25 History eye drops (Miebo (PF)) Allergies Allergy/AdvReac Type Severity Reaction Status Date / Time cefdinir Allergy Intermediate Rash Verified 04/08/25 09:12 Vital Signs Vital Signs - 24 hr 04/07/25 14:28 04/07/25 14:30 04/07/25 15:30 Temperature 38.1 C H Pulse Rate 90 87 Respiratory Rate 24 H 20 Blood Pressure 115/64 108/54 L Pulse Oximetry 97 97 Oxygen Delivery Room Air Room Air 04/07/25 16:01 04/07/25 16:30 04/07/25 16:46 Temperature Pulse Rate 85 80 77 Respiratory Rate 18 18 23 H Blood Pressure 115/84 107/57 L 111/53 L Pulse Oximetry 97 100 99 Oxygen Delivery 04/07/25 17:06 04/07/25 17:16 04/07/25 17:46 Temperature Pulse Rate 82 81 73 Respiratory Rate 24 H 23 H 24 H Blood Pressure 100/53 L 100/49 L 98/48 L Pulse Oximetry 94 95 97 Oxygen Delivery 04/07/25 18:00 04/07/25 18:04 04/07/25 18:31 Temperature 36.6 C Pulse Rate 104 H 105 H Respiratory Rate 22 H 25 H Blood Pressure 98/58 L 113/65 Pulse Oximetry 97 96 Oxygen Delivery 04/07/25 19:01 04/07/25 20:02 04/07/25 20:30 Temperature 36.7 C Pulse Rate 112 H 108 H 95 Respiratory Rate 22 H 24 H 18 Blood Pressure 100/63 108/68 102/54 L Pulse Oximetry 96 98 96 Oxygen Delivery 04/07/25 21:40 04/07/25 21:53 04/07/25 21:55 Temperature 37.7 C H 37.7 C H Pulse Rate 127 H 127 H Respiratory Rate 18 Blood Pressure Pulse Oximetry Oxygen Delivery 04/07/25 22:25 04/07/25 22:53 04/08/25 00:00 Temperature 39.5 C H 37.9 C H Pulse Rate 122 H Respiratory Rate 16 Blood Pressure 113/60 Pulse Oximetry 97 Oxygen Delivery Room Air 04/08/25 00:00 04/08/25 00:00 04/08/25 00:39 Temperature 37.9 C H 37.9 C H Pulse Rate 126 H 120 H Respiratory Rate 30 H Blood Pressure 107/55 L Pulse Oximetry 99 Oxygen Delivery 04/08/25 01:40 04/08/25 02:00 04/08/25 04:00 Temperature 37.7 C H Pulse Rate 129 H Respiratory Rate Blood Pressure Pulse Oximetry Oxygen Delivery Room Air 04/08/25 04:00 04/08/25 04:00 04/08/25 06:00 Temperature 37.7 C H Pulse Rate 119 H 110 H 106 H Respiratory Rate 28 H Blood Pressure 101/50 L Pulse Oximetry 99 Oxygen Delivery 04/08/25 06:41 04/08/25 06:44 04/08/25 06:50 Temperature 38.1 C H 38.1 C H Pulse Rate 124 H Respiratory Rate Blood Pressure Pulse Oximetry Oxygen Delivery 04/08/25 07:30 04/08/25 11:35 Temperature 37.7 C H 36.9 C Pulse Rate 102 H 140 H Respiratory Rate 22 H 32 H Blood Pressure 124/76 142/62 H Pulse Oximetry 98 99 Oxygen Delivery Exam Const: General: comfortable, no acute distress, alert and awake Orientation/consciousness: patient oriented x3 HENMT: Head: normal to inspection Eyes: General: appearance normal, both eyes and all related structures Pupils: Equal, round and reactive pupils present Neck: Neck: normal visual inspection, supple and no JVD Carotids: normal carotid upstroke Resp: Auscultation: rales Cardio: Rate: tachycardic Rhythm: abnormal rhythm irregularly irregular Heart sounds: S1 normal heart sound present, S2 normal heart sound present and no murmurs GI: Auscultation: normal bowel sounds Skin: General skin exam: erythema Rashes: rashes noted Neuro: General: patient oriented x3 Cranial nerves: Yes Equal, round and reactive pupils present Extrem: General: edema and pedal edema Psych: Appearance: grossly normal Mental Status: mental status grossly normal Results Labs and Meds 04/08/25 03:58 04/08/25 03:59 Lab results: Cardiac Enzymes 04/07/25 04/08/25 Range/Units 15:14 03:59 AST 100 H 103 H (17-59) U/L CBC 04/07/25 04/08/25 Range/Units 15:14 03:58 WBC 16.4 H 16.7 H (4.5-10.0) K/mm3 RBC 3.59 L 3.56 L (4.6-6.20) M/mm3 Hgb 11.3 L 11.2 L (14.0-18.0) g/dL Hct 33.3 L 34.1 L (42.0-52.0) % Plt Count 125 L 113 L (150-375) k/mm3 Lymph # (Auto) 0.43 L (0.9-3.2) K/mm3 [place] # (Auto) 0.2 (0.1-0.6) K/mm3 Eos # (Auto) 0.0 (0-0.3) K/mm3 Baso # (Auto) 0.1 (0.0-0.1) K/mm3 Comprehensive Metabolic Panel 04/07/25 04/07/25 04/07/25 Range/Units 15:14 21:03 21:03 Sodium 124 L 125 L 125 L (137-145) mmol/L Potassium 4.1 4.0 (3.4-5.0) mmol/L Chloride 94 L 96 L (98-107) mmol/L Carbon Dioxide 20 L 19 L (22-30) mmol/L BUN 27 H 24 H (9-20) mg/dL Creatinine 1.21 1.12 (0.7-1.3) mg/dL Glucose 117 H 113 H (65-110) mg/dL Calcium 8.3 L 7.8 L (8.4-10.2) mg/dL AST 100 H (17-59) U/L ALT 84 H (6-50) U/L Alkaline Phosphatase 118 (38-126) U/L Total Protein 6.0 L (6.3-8.2) g/dL Albumin 3.4 L (3.5-5.1) g/dL 04/08/25 Range/Units 03:59 Sodium 128 L (137-145) mmol/L Potassium 4.0 (3.4-5.0) mmol/L Chloride 99 (98-107) mmol/L Carbon Dioxide 17 L (22-30) mmol/L BUN 24 H (9-20) mg/dL Creatinine 1.29 (0.7-1.3) mg/dL Glucose 93 (65-110) mg/dL Calcium 7.7 L (8.4-10.2) mg/dL AST 103 H (17-59) U/L ALT 83 H (6-50) U/L Alkaline Phosphatase 106 (38-126) U/L Total Protein 6.0 L (6.3-8.2) g/dL Albumin 3.0 L (3.5-5.1) g/dL Intake and Output 04/07/25 04/08/25 04/08/25 23:59 07:59 15:59 Intake Total 2100 1250.0 824 Output Total 525 Balance 2100 725.0 824 Intake: IV 2100 1250.0 Sodium Chloride 0.9% IV 1,000 2000 1050.0 ml @ 75 mls/hr IV CONT .[id number] ATUL Rx#:[id number] Ampicillin Sulb 3 gm/Ns 100 ml 100 100 3 gm In 100 ml @ 200 mls/hr IVPB Q6HR ATUL Rx#:[id number] Meropenem 1 gm/Ns 100 ml 1 gm 100 In 100 ml @ 200 mls/hr IVPB Q12H ATUL Rx#:[id number] Oral 824 Output: Urine 525 Other: # Unmeasured Voids 1 Number of Bowel Movements Today 2 Patient Weight 04/08/25 23:59 Weight 73.5 kg
[2025-04-08 16:04] LABS: Alveolar/Arterial O2 Gradient 103.3 mmHg; Base Excess ABG -7.1 mEq/l (+/-2.0); Fractional Inspired Oxygen 28 %; HCO3 ABG 13.5 mEq/l (22.0-26.0); Oxygen Content ABG 15.7 %vol (16.0-22.0); Oxygen Saturation ABG 96.7 % (95.0-100.0); Oxyhemoglobin 95.9 % THb (90.0-100.0); PO2 FiO2 Ratio Arterial Blood 2.71 %; Total Hemoglobin 11.6 g/dL (12.0-18.0)
[2025-04-08 16:12] LABS: Device NASAL CANNULA; Modified Allen's Test Pass; PCO2 ABG 17.2 mmHg (35.0-45.0); Site Drawn RIGHT RADIAL; pH ABG 7.514 (7.350-7.450)
--- NOTE | 2025-04-08 17:26 | WPDCN ---
Assessment and Plan Assessment and plan (1) Nasal mucosa dry: Code(s): J34.89 - Other specified disorders of nose and nasal sinuses Status: Acute (2) Cellulitis: Qualifiers: Site of cellulitis: head Qualified Code(s): L03.811 - Cellulitis of head [any part, except face] Code(s): L03.90 - Cellulitis, unspecified Status: Acute (3) Cellulitis of neck: Code(s): L03.221 - Cellulitis of neck Status: Acute (4) Lymphadenitis: Code(s): I88.9 - Nonspecific lymphadenitis, unspecified Status: Acute Plan 89-year-old male with rash over anterior neck skin with possible skin neck cellulitis ENT exam: Neck: Erythema over the anterior neck skin without palpable masses, no gas or fluctuation could be palpated in the neck, both submandibular glands are non tender to palpation,and left submandibular gland slightly enlarged Throat: Severely dry oral mucosa with tenacious secretions, I do not see any abnormalities of both tonsillar fossa, I do not see any signs of infection in the oral cavity, floor of the mouth soft nontender without any abnormality, tongue soft nontender without signs of infection Nose: Severely dry nasal mucosa with crusting spreading in all the nasal cavity without mucopurulent secretions. FIBEROPTIC NASOLARYNGOSCOPY Anesthesia: None as the patient was able to tolerate the scope well Findings: The flexible fiberoptic laryngoscope was passed through the nasal cavity and advanced to examine the nasopharynx, oropharynx, hypopharynx and larynx. The nasopharynx was without masses, lesions or mucosal irregularities. The pharyngeal morales were symmetric without masses, lesions or mucosal irregularities. The vallecula and base of tongue was symmetric without masses, lesions or mucosal irregularities. The epiglottis and aryepiglottic folds were without masses, lesions or mucosal irregularities. The pyriform sinuses were symmetric without pooled secretions or suspicious lesions. The arytenoids and inter-arytenoid area was without erythema or edema. The glottis showed the false and true vocal folds to be without lesion. True vocal cords had normal mobility with abduction and and midline approximation with adduction. Abnormal finding: Dry oral mucosa, dry nasal mucosa, tenacious secretions in in the laryngopharynx indicating severe dehydration, normal swallowing EBL none No complications were noted. I have personally reviewed the CT scan neck with contrast CT neck with contrast on 04/08/2025 revealed:Mild right palatine tonsil enlargement. No tonsillar abscess detected. Subcentimeter left thyroid lobe nodule, which requires no additional evaluation. The left submandibular gland is enlarged with surrounding stranding. The parotid glands are symmetric. Enlarged left upper cervical chain lymph node. Subcentimeter bilateral anterior and posterior cervical chain nodes are present. The superior mediastinum is unremarkable. The airway is unremarkable. Parapharyngeal and pre-glottic fat planes are preserved. Normal-appearing neck arteries. Bilateral lens replacements. Ethmoid and maxillary mucosal thickening, the remaining aerated spaces are clear. Septal thickening in the upper lungs. Enlarged paratracheal lymph nodes. There is mild cervical spondylosis. IMPRESSION: Right palatine tonsillar enlargement. No tonsillar abscess detected. Left submandibular gland enlargement. Left anterior cervical chain lymphadenopathy. Anterior neck soft tissue stranding, which may represent cellulitis in the appropriate clinical context. Paratracheal lymphadenopathy. Mild interstitial edema. Plan: The oral cavity does not seem to be having an active infection same as the nasal cavity, patient is dehydrated which manifested as dryness in his nasal cavity a laryngopharynx tenacious secretions, and dry oral mucosa I do not see any tonsil infection 1. IV antibiotics based on blood cultures or based on infectious disease consultation. 2. Advised to use saline nasal sprays 2 sprays each nostril 3 times per day to loosen out the crusty secretions in both nostrils, to be used for 2 weeks even after discharge. 3. Oral hygiene every 12 hours. 4. Hydration of the patient 5. Repeat consult as needed HPI Data of Consult Date/Time: 04/08/25 17:26 Requesting Physician: Juanita Sandoval DO Primary Care Provider: Wallace Reich DO Consult Narrative Reason for consult: I was consulted for evaluation of right-sided tonsillar enlargement Narrative: Armando Walton is a 89 year old male why was consulted to examine. 89yo male with CAD with recent stent placement in December, pAFib (off anticoagulation for about 6 months) and HTN here for fever and sore throat. Sore throat better. No throat ot tongue swelling. No odynophagia or dysphagia. Has rash over the anterior aspect of his Review of Systems Review of Systems: All systems reviewed & are unremarkable except as noted in HPI and below Constitutional: Constitutional: Reports as per HPI ENT: Reports as per HPI [facility] Past Medical History Medical History Hypertension Hyperlipidemia Coronary artery disease Benign prostatic hyperplasia Paroxysmal atrial fibrillation Surgical History Surgical History History of coronary artery stent placement History of cardiac catheterization History of hemorrhoidectomy History of cataract extraction History of appendectomy Family History Family History Father Dementia Mother Heart disease Sibling Heart disease Sibling Heart disease Social History Social History Social History: Surrogate medical decision maker: Luke Gibson. Code status: Full code. 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 Spiritual care concerns: No Meds Home Medications and Allergies Home Medications ?Medication ?Instructions ?Recorded ?Confirmed ?Type aspirin 81 mg tablet,delayed 81 mg PO DAILY 01/08/20 04/07/25 History release (Adult Aspirin Regimen) ascorbate calcium (vitamin C) 500 500 mg PO DAILY 03/25/20 04/07/25 History mg tablet calcium 600 mg (as carbonate)-vit 2 tablet PO DAILY 03/25/20 04/07/25 History D3 5 mcg (200 unit)-minerals tablet multivitamin 1 tablet PO DAILY 03/25/20 04/07/25 History omega-3 fatty acids 1,000 mg 1,000 mg PO DAILY 03/25/20 04/07/25 History capsule atorvastatin 80 mg tablet (Lipitor) 80 mg PO QHS 12/30/24 04/07/25 History clopidogrel 75 mg tablet 75 mg PO DAILY 12/30/24 04/07/25 History cyclosporine 0.05 % eye drops in a 1 drp EACH EYE Q12H 12/30/24 04/07/25 History dropperette famotidine 20 mg tablet 20 mg PO BID 12/30/24 04/07/25 History glucosamine-chondroitin 2 tablet PO DAILY 12/30/24 04/07/25 History isosorbide mononitrate 30 mg 30 mg PO DAILY 12/30/24 04/07/25 History tablet,extended release 24 hr nitroglycerin 0.4 mg sublingual 0.4 mg sublingual Q5M PRN chest 12/30/24 04/07/25 History tablet pain propylene glycol 0.6 % eye drops 1 drp EACH EYE 4-6XD PRN dry eye(s) 12/30/24 04/07/25 History (Systane Complete) ranolazine 500 mg tablet,extended 500 mg PO Q12H 12/30/24 04/07/25 History release,12 hr ipratropium bromide 42 mcg (0.06 2 spray intranasal TID #15 mL 01/15/25 04/07/25 Rx %) nasal spray cefdinir 300 mg capsule 300 mg PO Q12H 10 days #20 caps 04/03/25 04/07/25 Rx metoprolol succinate 25 mg 25 mg PO Q12H 04/07/25 04/07/25 History tablet,extended release 24 hr perfluorohexyloctane (PF) 100 % 1 drp EACH EYE QID 04/07/25 04/07/25 History eye drops (Miebo (PF)) Allergies Allergy/AdvReac Type Severity Reaction Status Date / Time cefdinir Allergy Intermediate Rash Verified 04/08/25 09:12 Vital Signs Vital Signs - 24 hr 04/07/25 17:46 04/07/25 18:00 04/07/25 18:04 Temperature 36.6 C Pulse Rate 73 104 H Respiratory Rate 24 H 22 H Blood Pressure 98/48 L 98/58 L Pulse Oximetry 97 97 Oxygen Delivery 04/07/25 18:31 04/07/25 19:01 04/07/25 20:02 Temperature Pulse Rate 105 H 112 H 108 H Respiratory Rate 25 H 22 H 24 H Blood Pressure 113/65 100/63 108/68 Pulse Oximetry 96 96 98 Oxygen Delivery 04/07/25 20:30 04/07/25 21:40 04/07/25 21:53 Temperature 36.7 C 37.7 C H 37.7 C H Pulse Rate 95 127 H Respiratory Rate 18 18 Blood Pressure 102/54 L Pulse Oximetry 96 Oxygen Delivery 04/07/25 21:55 04/07/25 22:25 04/07/25 22:53 Temperature 39.5 C H 37.9 C H Pulse Rate 127 H 122 H Respiratory Rate 16 Blood Pressure 113/60 Pulse Oximetry 97 Oxygen Delivery 04/08/25 00:00 04/08/25 00:00 04/08/25 00:00 Temperature 37.9 C H Pulse Rate 126 H 120 H Respiratory Rate 30 H Blood Pressure 107/55 L Pulse Oximetry 99 Oxygen Delivery Room Air 04/08/25 00:39 04/08/25 01:40 04/08/25 02:00 Temperature 37.9 C H 37.7 C H Pulse Rate 129 H Respiratory Rate Blood Pressure Pulse Oximetry Oxygen Delivery 04/08/25 04:00 04/08/25 04:00 04/08/25 04:00 Temperature 37.7 C H Pulse Rate 119 H 110 H Respiratory Rate 28 H Blood Pressure 101/50 L Pulse Oximetry 99 Oxygen Delivery Room Air 04/08/25 06:00 04/08/25 06:41 04/08/25 06:44 Temperature 38.1 C H Pulse Rate 106 H 124 H Respiratory Rate Blood Pressure Pulse Oximetry Oxygen Delivery 04/08/25 06:50 04/08/25 07:30 04/08/25 08:00 Temperature 38.1 C H 37.7 C H Pulse Rate 102 H 125 H Respiratory Rate 22 H 32 H Blood Pressure 124/76 Pulse Oximetry 98 98 Oxygen Delivery Room Air 04/08/25 11:35 04/08/25 12:00 04/08/25 14:59 Temperature 36.9 C 37.3 C Pulse Rate 140 H 125 H 125 H Respiratory Rate 32 H 32 H 32 H Blood Pressure 142/62 H 126/66 Pulse Oximetry 99 98 98 Oxygen Delivery Room Air 04/08/25 16:00 04/08/25 16:00 Temperature 37.5 C Pulse Rate 125 H 110 H Respiratory Rate 32 H 30 H Blood Pressure 105/59 L Pulse Oximetry 98 100 Oxygen Delivery Room Air Exam Const: General: cooperative, comfortable, well developed, alert and awake Orientation/consciousness: oriented to person, oriented to place, oriented to time and patient oriented x3 HENMT: Head: normocephalic and atraumatic Ears: external ears normal and EAC's normal Face/Nose/Sinus: Normal external nose present, Normal nares present and dry mucous membranes Face and sinus: normal facial exam and sinuses nontender Face images:  1. erythmea over the anterior apsect of the neck Mouth: Yes lip normal, Yes tongue normal and Yes dry mucous membranes Teeth and gingiva: gingiva normal Throat: posterior oropharynx normal, tonsils normal and uvula midline Other: Neck: Erythema over the anterior neck skin with midline neck swelling over the thyroid notch , no gas or fluctuation could be palpated in the neck, both submandibular glands are non tender to palpation Throat: Severely dry oral mucosa with tenacious secretions, I do not see any abnormalities of both tonsillar fossa, I do not see any signs of infection in the oral cavity, floor of the mouth soft nontender without any abnormality, tongue soft nontender without signs of infection Nose: Severely dry nasal mucosa with crusting spreading in all the nasal cavity without mucopurulent secretions. Eyes: General: appearance normal, both eyes and all related structures Neck: Neck: full ROM, trachea midline and lymphadenopathy (midline swelling below the hyoid and above the thyroid notch) bilateral anterior cervical Thyroid: thyroid normal Results Labs 04/08/25 03:58 04/08/25 03:59 Labs: Short CBC 04/08/25 Range/Units 03:58 WBC 16.7 H (4.5-10.0) K/mm3 Hgb 11.2 L (14.0-18.0) g/dL Hct 34.1 L (42.0-52.0) % Plt Count 113 L (150-375) k/mm3 BMP 04/07/25 04/07/25 04/08/25 21:03 21:03 03:59 Sodium 125 L 125 L 128 L Potassium 4.0 4.0 Chloride 96 L 99 Carbon Dioxide 19 L 17 L BUN 24 H 24 H Creatinine 1.12 1.29 Glucose 113 H 93 Calcium 7.8 L 7.7 L Cardiac Enzymes 04/07/25 04/08/25 Range/Units 21:03 03:58 Total Creatine Kinase 895 H 922 H (55-170) U/L Liver Function 04/08/25 Range/Units 03:59 Total Bilirubin 1.6 H (0.2-1.3) mg/dL AST 103 H (17-59) U/L ALT 83 H (6-50) U/L Alkaline Phosphatase 106 (38-126) U/L Albumin 3.0 L (3.5-5.1) g/dL
[2025-04-08 17:49] LABS: Hematocrit 31.2 % (42.0-52.0); Hemoglobin 10.6 g/dL (14.0-18.0); Mean Corpuscular Hemoglobin 31.6 pg (26-34); Mean Corpuscular Volume 93.1 fl (80-100); Mean Platelet Volume 11.2 fl (7.4-10.4); Platelet Count Result 134 k/mm3 (150-375); Red Blood Count 3.35 M/mm3 (4.6-6.20); Red Cell Distribution Width 14.7 % (11.5-14.5); White Blood Count 19.9 K/mm3 (4.5-10.0)
[2025-04-08 18:03] LABS: Lactic Acid Reflex 3.5 mmol/L (0.7-2.0)
[2025-04-08 18:06] LABS: Alanine Aminotransferase 110 U/L (6-50); Alkaline Phosphatase 109 U/L (38-126); Anion Gap 9 mmol/L (4-12); Aspartate Amino Transferase 143 U/L (17-59); Bilirubin,Total 1.1 mg/dL (0.2-1.3); Blood Urea Nitrogen 31 mg/dL (9-20); Calcium 7.9 mg/dL (8.4-10.2); Carbon Dioxide 17 mmol/L (22-30); Chloride 100 mmol/L (98-107); Estimated CRCL calculation 31 ml/min; Estimated Glomerular Filt Rate 46; Glucose 128 mg/dL (65-110); Potassium 4.9 mmol/L (3.4-5.0); Sodium 126 mmol/L (137-145)
[2025-04-08 18:09] LABS: Band Neutrophils Percent 10 % (0-6); Lymphocytes Absolute Manual 0.39 K/mm3 (1.1-4.5); Lymphocytes Percent Manual 2 % (18-44); Monocytes Absolute Manual 0.39 K/mm3 (0.1-0.90); Monocytes Percent Manual 2 % (3-9); Neutrophils Percent Manual 86 % (46-73); Total Cells Counted 100
[2025-04-08 18:10] LABS: Burr Cells 1+; Ovalocytes 1+; Platelet Estimate Slightly Decreased (Adequate); Poikilocytosis 1+; Schistocytes None Seen
[2025-04-08 18:20] LABS: Procalcitonin 5.2 ng/mL
[2025-04-08 18:31] LABS: CRP > 9.0 mg/dL (<1.0)
--- NOTE | 2025-04-08 18:57 | P.PNCROSS_ITS ---
Event Note Event Note Event Note: had another fall. patient was found on the floor. injured right elbow with supe rficial laceration. alerta nd oriented. denies any head injury or LOC. vitals: 98.1, 119/min, 30 bpm, 98% RA, 138/71 mmHg. no other injuries reported. trauma screen negative for any bony injuries. wound care to the lacerations on right elbow with skin protective coverings. fall precautions as ordered
[2025-04-08] MEDS: FUROSEMIDE INJ 40 MG/4 ML VIAL 20 MG IV PUSH (19:39)
[2025-04-08 19:47] LABS: Reflex Lactic Acid Yes or No Add Lactic
[2025-04-08] MEDS: DOXYCYCLINE 100 MG/NS 100 ML 100 MG/100 ML BAG IVPB (21:59)
[2025-04-08] MEDS: SACUBITRIL/VALSARTAN 24-26 MG TABLET 1 TAB PO (22:00)
[2025-04-08] MEDS: VANCOMYCIN 1,500 MG/NS 500 ML 1,500 MG/500 ML BAG 250 MG IVPB (22:30)
[2025-04-08 23:25] LABS: Lactic Acid 3.6 mmol/L (0.7-2.0)
[2025-04-09] VITALS (21 sets, daily range): BP systolic 84–134; BP diastolic 33–76; PULSE 90–117; RESP 24–34; TEMP 36.8–38.9; O2SAT 93–100
[2025-04-09 04:39] LABS: Hematocrit 32.5 % (42.0-52.0); Hemoglobin 10.8 g/dL (14.0-18.0); Mean Corpuscular HGB Conc 33.2 g/dl (32-36); Mean Corpuscular Hemoglobin 31.2 pg (26-34); Mean Corpuscular Volume 93.9 fl (80-100); Platelet Count Result 121 k/mm3 (150-375); Red Blood Count 3.46 M/mm3 (4.6-6.20); White Blood Count 13.5 K/mm3 (4.5-10.0)
[2025-04-09 04:54] LABS: Alanine Aminotransferase 402 U/L (6-50); Albumin Level 2.8 g/dL (3.5-5.1); Alkaline Phosphatase 97 U/L (38-126); Anion Gap 9 mmol/L (4-12); Aspartate Amino Transferase 654 U/L (17-59); Bilirubin,Total 1.1 mg/dL (0.2-1.3); Blood Urea Nitrogen 40 mg/dL (9-20); Calcium 7.9 mg/dL (8.4-10.2); Carbon Dioxide 18 mmol/L (22-30); Chloride 101 mmol/L (98-107); Creatine Kinase 579 U/L (55-170); Estimated CRCL calculation 27 ml/min; Estimated Glomerular Filt Rate 38; Glucose 118 mg/dL (65-110); Magnesium 2.1 mg/dL (1.6-2.3); Phosphorus 3.6 mg/dL (2.5-4.5); Potassium 4.3 mmol/L (3.4-5.0); Sodium 128 mmol/L (137-145); Total Protein 5.6 g/dL (6.3-8.2)
[2025-04-09 05:10] LABS: Band Neutrophils Percent 10 % (0-6); Lymphocytes Absolute Manual 0.54 K/mm3 (1.1-4.5); Lymphocytes Percent Manual 4 % (18-44); Monocytes Absolute Manual 0.27 K/mm3 (0.1-0.90); Monocytes Percent Manual 2 % (3-9); Neutrophils Absolute Manual 12.69 K/mm3 (1.3-6.7); Neutrophils Percent Manual 84 % (46-73); Platelet Estimate Slightly Decreased (Adequate); Total Cells Counted 100
[2025-04-09 05:11] LABS: Burr Cells 2+; Ovalocytes 1+; Poikilocytosis 2+; Schistocytes None Seen
[2025-04-09] MEDS: MEROPENEM 1 GM/NS 100 ML 1 GM/100 ML BAG IVPB ×2 (05:15→16:33)
[2025-04-09] MEDS: METOPROLOL TARTRATE 25 MG TABLET PO (06:35)
[2025-04-09] MEDS: ALBUMIN HUMAN 5% 25 GM/500 ML BTL IV CONT (08:30)
--- NOTE | 2025-04-09 08:46 | WPDCNINT ---
Assessment and Plan Assessment and plan (1) Sepsis: Qualifiers: Sepsis acute organ dysfunction status: without acute organ dysfunction Sepsis type: sepsis due to unspecified organism Qualified Code(s): A41.9 - Sepsis, unspecified organism Code(s): A41.9 - Sepsis, unspecified organism Status: Acute Assessment and Plan: Patient presented with sepsis with the fever and rash and complained of sore throat and pain in the left neck CT scan of the soft tissue neck showed IMPRESSION: Right palatine tonsillar enlargement. No tonsillar abscess detected. Left submandibular gland enlargement. Left anterior cervical chain lymphadenopathy. Anterior neck soft tissue stranding, which may represent cellulitis in the appropriate clinical context. Paratracheal lymphadenopathy Patient was evaluated by ENT who recommended antibiotic therapy Also check UA Will check CT chest to evaluate for pneumonia Blood cultures ordered and pending Ultrasound of the right upper quadrant suggest cholecystitis and hence general surgery will be consulted Patient is currently isolated and is also being checked for measles (2) Cardiomyopathy: Code(s): I42.9 - Cardiomyopathy, unspecified Status: Acute Assessment and Plan: History of coronary disease and ischemic cardiomyopathy. Conservative IV fluid Hold beta-angelo and Entresto at this time due to low blood pressure. EchoSummary 1. Left ventricular chamber dimension is moderately enlarged. 2. Left ventricular systolic function is severely globally reduced, estimated at 20-25. 3. There is mild concentric increased left ventricular wall thickness. 4. The left ventricular diastolic function is abnormal. 5. E/e' 11 is mildly elevated. 6. Definity contrast administered improved wall motion interpretation. 7. Atrial fibrillation. 8. Left atrial chamber dimension is moderately enlarged. 9. Right atrial chamber dimension is moderately enlarged. 10. There is mild aortic valve sclerosis. 11. There is mild to moderate aortic valve regurgitation. 12. The mitral valve has a mildly calcified annulus. 13. There is mild to moderate mitral valve regurgitation. 14. There is mild tricuspid valve regurgitation. 15. No pulmonary hypertension, estimated pulmonary arterial systolic pressure is 33 mmHg. 16. The prox ascending aorta size is mildly dilated at 4.4 cm. (3) CHF (congestive heart failure): Code(s): I50.9 - Heart failure, unspecified Status: Acute Assessment and Plan: See above (4) Coronary artery disease: Qualifiers: Coronary Disease-Associated Artery/Lesion type: [place] artery [place] vs. transplanted heart: [place] heart Associated angina: without angina Qualified Code(s): I25.10 - Atherosclerotic heart disease of [place] coronary artery without angina pectoris Code(s): I25.10 - Atherosclerotic heart disease of [place] coronary artery without angina pectoris Status: Acute Assessment and Plan: History of coronary disease status post stenting. Continue aspirin and Plavix Hold beta-angelo and statin (5) Paroxysmal atrial fibrillation: Code(s): I48.0 - Paroxysmal atrial fibrillation Status: Acute Assessment and Plan: Currently in AFib with controlled ventricular rate. Hold beta-angelo due to hypotension May need amiodarone infusion (6) Localized swelling, mass and lump, neck: Code(s): R22.1 - Localized swelling, mass and lump, neck Status: Acute Assessment and Plan: See above (7) Elevated LFTs: Code(s): R79.89 - Other specified abnormal findings of blood chemistry Status: Acute Assessment and Plan: Likely secondary to shock liver Hold statin ultrasound reviewed (8) Benign prostatic hyperplasia: Code(s): N40.0 - Benign prostatic hyperplasia without lower urinary tract symptoms Status: Acute Assessment and Plan: Place Nation catheter (9) Rhabdomyolysis: Code(s): M62.82 - Rhabdomyolysis Status: Acute Assessment and Plan: Conservative IV fluids due to history of congestive heart failure (10) LENIN (acute kidney injury): Code(s): N17.9 - Acute kidney failure, unspecified Status: Acute Assessment and Plan: Worsening renal function likely secondary to sepsis Conservative IV fluids due to history of congestive heart failure CT scan of abdomen is ordered and will also evaluate any stones or obstruction Place Nation catheter for accurate I&Os Monitor urine output electrolytes and creatinine (11) Rash: Code(s): R21 - Rash and other nonspecific skin eruption Status: Acute Assessment and Plan: Can be secondary antibiotics or viral infection Note schistocytes on peripheral blood smear Check coag panel to evaluate for DIC (12) Cholecystitis: Code(s): K81.9 - Cholecystitis, unspecified Status: Acute Assessment and Plan: Right upper quadrant ultrasound showed Distended gallbladder with possible minimal pericholecystic fluid versus edema. Clinical correlation and follow-up advised. Otherwise, normal Limited abdominal ultrasound. Consult general surgery NPO Plan DVT prophylaxis -Lovenox Nutrition -diet ordered Code Status -patient wishes to be Full Code but does not want want to be on mechanical ventilation for a prolonged period of time. He is a and does not have any biological children. He wants his cousin Daniel to be decision maker on his behalf he is unable to do so Total Critical Care Time - 40 minutes Due to a high probability of clinically significant, life threatening deterioration, the patient required my highest level of preparedness to intervene emergently and I personally spent this critical care time directly and personally managing the patient. This critical care time included obtaining a history; examining the patient; pulse oximetry; ordering and review of studies; arranging urgent treatment with development of a management plan; evaluation of patient's response to treatment; frequent reassessment; and discussions with other providers. It was exclusive of separately billable procedures and treating other patients and teaching time. 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 He he states that was in [place] at the beginning of March and about a week after returning home he began to feel unwell with symptoms to include generalized malaise, sore throat, fever, rigors, and a tender nodule under the left side of his jaw. He was seen at his doctor's office 4 days prior and was prescribed cefdinir for 10 days. He did not improve and came to ER for evaluation. He mentioned that appetite is poor and he feels dehydrated. No diarrhea, constipation, abdominal pain, nausea vomiting. He also had some shortness of breath and cough which is mostly dry. No dizziness lightheadedness. Review of system was also positive shortness of breath. He denied tick and mosquito bites, animal bites or scratches, weight loss, dental pain and broken teeth, difficulties tolerating secretions, and open wounds. He also denies headache, neck pain, confusion, visual changes, eye pain, otalgia, cough, nausea, vomiting, diarrhea, and dysuria. He has not noticed any joint swelling and denies pruritus Workup in the ER showed the patient had a diffuse rash of which he was unaware. Vital signs on arrival include a temperature of 100.5?, blood pressure 115/64, pulse 90, respiratory rate 24, SpO2 97% on room air. Labs were significant for WBC count of 16.4, hemoglobin 11.3, platelet 125, sodium 124, chloride 94, BUN 27, creatinine 1.21, lactic acid 2.0, AST 100, ALT 84, CRP 26.6. He tested negative for influenza, RSV, COVID, and group A strep. Soft tissue neck CT showed right palatine tonsillar enlargement, anterior neck soft tissue stranding, and lymphadenopathy. He was given a 2 L bolus of normal saline and was started on ampicillin-sulbactam and and was admitted to step-down unit. In the hospital patient was evaluated by ENT who did not find any tonsil infection and I commended IV antibiotics Patient was also evaluated by Cardiology and was started on metoprolol and Entresto. Echocardiogram was done and is as below Last night patient twice try to get out of bed and once had a fall Overnight patient's blood pressure was further low and I was asked to evaluate the patient. This morning patient is confused but able to give history and confirmed most of the history mentioned above. He states he still has pain in the left side of his neck. Review of Systems Review of Systems: All systems reviewed & are unremarkable except as noted in HPI and below (HPI) [facility] Past Medical History Medical History Hypertension Hyperlipidemia Coronary artery disease Benign prostatic hyperplasia Paroxysmal atrial fibrillation Surgical History Surgical History History of coronary artery stent placement History of cardiac catheterization History of hemorrhoidectomy History of cataract extraction History of appendectomy Family History Family History Father Dementia Mother Heart disease Sibling Heart disease Sibling Heart disease Social History Social History Social History: Surrogate medical decision maker: Luke Gibson. Code status: Full code. 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 Spiritual care concerns: No Meds Home Medications and Allergies Home Medications ?Medication ?Instructions ?Recorded ?Confirmed ?Type aspirin 81 mg tablet,delayed 81 mg PO DAILY 01/08/20 04/07/25 History release (Adult Aspirin Regimen) ascorbate calcium (vitamin C) 500 500 mg PO DAILY 03/25/20 04/07/25 History mg tablet calcium 600 mg (as carbonate)-vit 2 tablet PO DAILY 03/25/20 04/07/25 History D3 5 mcg (200 unit)-minerals tablet multivitamin 1 tablet PO DAILY 03/25/20 04/07/25 History omega-3 fatty acids 1,000 mg 1,000 mg PO DAILY 03/25/20 04/07/25 History capsule atorvastatin 80 mg tablet (Lipitor) 80 mg PO QHS 12/30/24 04/07/25 History clopidogrel 75 mg tablet 75 mg PO DAILY 12/30/24 04/07/25 History cyclosporine 0.05 % eye drops in a 1 drp EACH EYE Q12H 12/30/24 04/07/25 History dropperette famotidine 20 mg tablet 20 mg PO BID 12/30/24 04/07/25 History glucosamine-chondroitin 2 tablet PO DAILY 12/30/24 04/07/25 History isosorbide mononitrate 30 mg 30 mg PO DAILY 12/30/24 04/07/25 History tablet,extended release 24 hr nitroglycerin 0.4 mg sublingual 0.4 mg sublingual Q5M PRN chest 12/30/24 04/07/25 History tablet pain propylene glycol 0.6 % eye drops 1 drp EACH EYE 4-6XD PRN dry eye(s) 12/30/24 04/07/25 History (Systane Complete) ranolazine 500 mg tablet,extended 500 mg PO Q12H 12/30/24 04/07/25 History release,12 hr ipratropium bromide 42 mcg (0.06 2 spray intranasal TID #15 mL 01/15/25 04/07/25 Rx %) nasal spray cefdinir 300 mg capsule 300 mg PO Q12H 10 days #20 caps 04/03/25 04/07/25 Rx metoprolol succinate 25 mg 25 mg PO Q12H 04/07/25 04/07/25 History tablet,extended release 24 hr perfluorohexyloctane (PF) 100 % 1 drp EACH EYE QID 04/07/25 04/07/25 History eye drops (Miebo (PF)) Allergies Allergy/AdvReac Type Severity Reaction Status Date / Time cefdinir Allergy Intermediate Rash Verified 04/08/25 09:12 Vital Signs Vital Signs - 24 hr 04/08/25 10:00 04/08/25 11:35 04/08/25 12:00 Temperature 36.9 C Pulse Rate 125 H 140 H 125 H Respiratory Rate 32 H 32 H Blood Pressure 142/62 H Pulse Oximetry 99 98 Oxygen Delivery Room Air 04/08/25 12:00 04/08/25 14:00 04/08/25 14:59 Temperature 37.3 C Pulse Rate 119 H 125 H 125 H Respiratory Rate 32 H Blood Pressure 126/66 Pulse Oximetry 98 Oxygen Delivery 04/08/25 16:00 04/08/25 16:00 04/08/25 16:00 Temperature 37.5 C Pulse Rate 125 H 110 H 105 H Respiratory Rate 32 H 30 H Blood Pressure 105/59 L Pulse Oximetry 98 100 Oxygen Delivery Room Air 04/08/25 18:00 04/08/25 19:35 04/08/25 20:00 Temperature 37.3 C Pulse Rate 119 H 119 H 112 H Respiratory Rate 30 H 34 H Blood Pressure 138/71 Pulse Oximetry 98 98 Oxygen Delivery Room Air 04/08/25 20:00 04/08/25 20:00 04/08/25 21:59 Temperature 36.8 C Pulse Rate 112 H 112 H 131 H Respiratory Rate 34 H Blood Pressure 118/69 Pulse Oximetry 96 Oxygen Delivery 04/08/25 22:00 04/09/25 00:00 04/09/25 00:00 Temperature Pulse Rate 115 H 115 H 115 H Respiratory Rate 34 H Blood Pressure Pulse Oximetry 96 Oxygen Delivery Room Air 04/09/25 00:00 04/09/25 02:00 04/09/25 04:00 Temperature 38.6 C H Pulse Rate 115 H 99 97 Respiratory Rate 32 H 32 H Blood Pressure 134/72 Pulse Oximetry 100 100 Oxygen Delivery Room Air 04/09/25 04:00 04/09/25 04:00 04/09/25 06:00 Temperature 36.8 C Pulse Rate 97 90 101 H Respiratory Rate 24 H Blood Pressure 102/33 L Pulse Oximetry 96 Oxygen Delivery 04/09/25 06:35 04/09/25 07:45 Temperature 38.8 C H Pulse Rate 102 H 105 H Respiratory Rate 32 H Blood Pressure 89/53 L Pulse Oximetry 100 Oxygen Delivery Exam Narrative: General: Pt is free old man who is drowsy but arousable and slightly confused Lungs/Chest: Trachea central course BS B/L, mild tachypnea but no respiratory distress Cardiac: Irregular rate and rhythm. Normal S1 S2. No murmurs Circulation: Pedal pulses are intact and symmetrical. Feet are warm Abdomen: Normal bowel sounds.. Soft. Mild tenderness to palpation right upper quadrant Extremities: No clubbing, cyanosis or edema. Warm : Nation in place Neurologic: Follows commands. Moves all 4 extremities PERRL AO x1 Skin: Maculopapular rash on both legs Results Labs 04/09/25 04:02 04/09/25 04:02 Labs: Short CBC 04/08/25 04/09/25 Range/Units 17:43 04:02 WBC 19.9 H 13.5 H (4.5-10.0) K/mm3 Hgb 10.6 L 10.8 L (14.0-18.0) g/dL Hct 31.2 L 32.5 L (42.0-52.0) % Plt Count 134 L 121 L (150-375) k/mm3 BMP 04/08/25 04/09/25 17:43 04:02 Sodium 126 L 128 L Potassium 4.9 4.3 Chloride 100 101 Carbon Dioxide 17 L 18 L BUN 31 H 40 H Creatinine 1.46 H 1.69 H Glucose 128 H 118 H Calcium 7.9 L 7.9 L Cardiac Enzymes 04/09/25 Range/Units 04:02 Total Creatine Kinase 579 H (55-170) U/L Liver Function 04/08/25 04/09/25 Range/Units 17:43 04:02 Total Bilirubin 1.1 1.1 (0.2-1.3) mg/dL AST 143 H 654 H (17-59) U/L ALT 110 H 402 H (6-50) U/L Alkaline Phosphatase 109 97 (38-126) U/L Albumin 3.0 L 2.8 L (3.5-5.1) g/dL Quality VTE Prophylaxis VTE prophylaxis: pharmacologic ordered Hospitalist MIPS Advance Care Plan I have confirmed that the patient's Advanced Care Plan is present, code status is documented, or surrogate decision maker is listed in patient medical record.: Yes Medication Reconciliation I have utilized all available resources to obtain, update and review the patients current medications (includes all prescriptions, OTC, herbals, cannabis, and nutritional supplements).: Yes
[2025-04-09] MEDS: DOXYCYCLINE 100 MG/NS 100 ML 100 MG/100 ML BAG IVPB ×2 (08:53→20:59)
[2025-04-09 09:20] LABS: Alveolar/Arterial O2 Gradient 167.6 mmHg; Base Excess ABG -9.9 mEq/l (+/-2.0); Fractional Inspired Oxygen 32 %; HCO3 ABG 13.2 mEq/l (22.0-26.0); Oxygen Content ABG 10.4 %vol (16.0-22.0); PO2 FiO2 Ratio Arterial Blood 1.08 %; Total Hemoglobin 11.7 g/dL (12.0-18.0); pH ABG 7.392 (7.350-7.450)
[2025-04-09 09:24] LABS: PCO2 ABG 22.2 mmHg (35.0-45.0)
[2025-04-09 09:25] LABS: Oxygen Saturation ABG 67.8 % (95.0-100.0); PO2 ABG 34.6 mmHg (80.0-100.0)
[2025-04-09 09:26] LABS: Oxyhemoglobin 63.3 % THb (90.0-100.0); Site Drawn LEFT RADIAL
[2025-04-09 09:27] LABS: Device NASAL CANNULA
[2025-04-09] MEDS: LIDOCAINE 1% PF INJ 5 ML VIAL INFILTRATE (09:35)
--- NOTE | 2025-04-09 10:36 | PM.CNGS ---
Assessment and Plan Assessment and plan (1) Atrial fibrillation: Qualifiers: Atrial fibrillation type: persistent (not longstanding) Qualified Code(s): I48.19 - Other persistent atrial fibrillation Code(s): I48.91 - Unspecified atrial fibrillation Status: Acute (2) Coronary artery disease: Qualifiers: Coronary Disease-Associated Artery/Lesion type: [place] artery [place] vs. transplanted heart: [place] heart Associated angina: without angina Qualified Code(s): I25.10 - Atherosclerotic heart disease of [place] coronary artery without angina pectoris Code(s): I25.10 - Atherosclerotic heart disease of [place] coronary artery without angina pectoris Status: Acute (3) CHF (congestive heart failure): Code(s): I50.9 - Heart failure, unspecified Status: Acute (4) Cholecystitis: Code(s): K81.9 - Cholecystitis, unspecified Status: Acute Assessment and Plan: RUQ US demonstrated distended gallbladder with possible pericholecystic fluid versus edema. Patient nontender on exam. Elevated WBC, creatinine, lactic acid, and liver enzymes. CT abd/pelvis w/ con ordered (CT agreed ok for contrast if gfr >30) to rule out any abdominal etiology of sepsis. Plavix temporarily held. Plan Discussed patient's case and plan of care with Dr. Vu. History of Present Illness Consult details Consult date: 04/09/25 Reason for consult: other (cholecystitis, sepsis) Requesting physician: Howard Manuel MD Narrative: Patient is an 89 y/o male with history of CAD, afib, HTN, and GERD who presented to ED 2 days ago with complaint of cold symptoms, fever, shortness of breath, and a tender left jaw nodule. He was previously seen by his PCP and prescribed cefdinir for 10 days. Upon ED admission, patient meets SIRS and sepsis criteria. Etiology unclear. Abdominal exam was benign however right upper quadrant ultrasound was obtained and demonstrated a distended gallbladder with possible minimal pericholecystic fluid vs. edema. General surgery consulted, as well as ENT. Patient does not note any abdominal pain, nausea/vomiting, or discomfort after meals. He mentions having some diarrhea prior to admission. Abdominal surgical history includes appendectomy when he was 16 y/o. Currently being treated with vanc, meropenem, doxycycline. Cultures still pending. WBC 13.5 (down from 16.4). Creatinine 1.69. CrCl 27. eGFR 38. Lactic acid 3.6. AST 654. ALT 402. [facility] Past Medical History Medical History Hypertension Hyperlipidemia Coronary artery disease Benign prostatic hyperplasia Paroxysmal atrial fibrillation Surgical History Surgical History History of coronary artery stent placement History of cardiac catheterization History of hemorrhoidectomy History of cataract extraction History of appendectomy Family History Family History Father Dementia Mother Heart disease Sibling Heart disease Sibling Heart disease Social History Social History Social History: Surrogate medical decision maker: Luke Gibson. Code status: Full code. 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 Spiritual care concerns: No Meds Home Medications and Allergies Home Medications ?Medication ?Instructions ?Recorded ?Confirmed ?Type aspirin 81 mg tablet,delayed 81 mg PO DAILY 01/08/20 04/07/25 History release (Adult Aspirin Regimen) ascorbate calcium (vitamin C) 500 500 mg PO DAILY 03/25/20 04/07/25 History mg tablet calcium 600 mg (as carbonate)-vit 2 tablet PO DAILY 03/25/20 04/07/25 History D3 5 mcg (200 unit)-minerals tablet multivitamin 1 tablet PO DAILY 03/25/20 04/07/25 History omega-3 fatty acids 1,000 mg 1,000 mg PO DAILY 03/25/20 04/07/25 History capsule atorvastatin 80 mg tablet (Lipitor) 80 mg PO QHS 12/30/24 04/07/25 History clopidogrel 75 mg tablet 75 mg PO DAILY 12/30/24 04/07/25 History cyclosporine 0.05 % eye drops in a 1 drp EACH EYE Q12H 12/30/24 04/07/25 History dropperette famotidine 20 mg tablet 20 mg PO BID 12/30/24 04/07/25 History glucosamine-chondroitin 2 tablet PO DAILY 12/30/24 04/07/25 History isosorbide mononitrate 30 mg 30 mg PO DAILY 12/30/24 04/07/25 History tablet,extended release 24 hr nitroglycerin 0.4 mg sublingual 0.4 mg sublingual Q5M PRN chest 12/30/24 04/07/25 History tablet pain propylene glycol 0.6 % eye drops 1 drp EACH EYE 4-6XD PRN dry eye(s) 12/30/24 04/07/25 History (Systane Complete) ranolazine 500 mg tablet,extended 500 mg PO Q12H 12/30/24 04/07/25 History release,12 hr ipratropium bromide 42 mcg (0.06 2 spray intranasal TID #15 mL 01/15/25 04/07/25 Rx %) nasal spray cefdinir 300 mg capsule 300 mg PO Q12H 10 days #20 caps 04/03/25 04/07/25 Rx metoprolol succinate 25 mg 25 mg PO Q12H 04/07/25 04/07/25 History tablet,extended release 24 hr perfluorohexyloctane (PF) 100 % 1 drp EACH EYE QID 04/07/25 04/07/25 History eye drops (Miebo (PF)) Allergies Allergy/AdvReac Type Severity Reaction Status Date / Time cefdinir Allergy Intermediate Rash Verified 04/08/25 09:12 Vital Signs Vital Signs - 24 hr 04/08/25 11:35 04/08/25 12:00 04/08/25 12:00 Temperature 98.4 F Pulse Rate 140 H 125 H 119 H Respiratory Rate 32 H 32 H Blood Pressure 142/62 H Pulse Oximetry 99 98 Oxygen Delivery Room Air 04/08/25 14:00 04/08/25 14:59 04/08/25 16:00 Temperature 99.2 F Pulse Rate 125 H 125 H 125 H Respiratory Rate 32 H 32 H Blood Pressure 126/66 Pulse Oximetry 98 98 Oxygen Delivery Room Air 04/08/25 16:00 04/08/25 16:00 04/08/25 18:00 Temperature 99.5 F Pulse Rate 110 H 105 H 119 H Respiratory Rate 30 H Blood Pressure 105/59 L Pulse Oximetry 100 Oxygen Delivery 04/08/25 19:35 04/08/25 20:00 04/08/25 20:00 Temperature 99.1 F Pulse Rate 119 H 112 H 112 H Respiratory Rate 30 H 34 H Blood Pressure 138/71 Pulse Oximetry 98 98 Oxygen Delivery Room Air 04/08/25 20:00 04/08/25 21:59 04/08/25 22:00 Temperature 98.3 F Pulse Rate 112 H 131 H 115 H Respiratory Rate 34 H Blood Pressure 118/69 Pulse Oximetry 96 Oxygen Delivery 04/09/25 00:00 04/09/25 00:00 04/09/25 00:00 Temperature 101.4 F H Pulse Rate 115 H 115 H 115 H Respiratory Rate 34 H 32 H Blood Pressure 134/72 Pulse Oximetry 96 100 Oxygen Delivery Room Air 04/09/25 02:00 04/09/25 04:00 04/09/25 04:00 Temperature Pulse Rate 99 97 97 Respiratory Rate 32 H Blood Pressure Pulse Oximetry 100 Oxygen Delivery Room Air 04/09/25 04:00 04/09/25 06:00 04/09/25 06:35 Temperature 98.3 F Pulse Rate 90 101 H 102 H Respiratory Rate 24 H Blood Pressure 102/33 L Pulse Oximetry 96 Oxygen Delivery 04/09/25 07:45 04/09/25 07:54 04/09/25 10:00 Temperature 102 F H Pulse Rate 105 H 97 100 Respiratory Rate 32 H Blood Pressure 89/53 L Pulse Oximetry 100 Oxygen Delivery Exam Const: General: no acute distress Eyes: General: appearance normal, both eyes and all related structures Neck: Neck: supple Resp: Other: shortness of breath Cardio: Rate: regular rate GI: Inspection: non-distended GI Palp: Yes Soft to palpation, No Tenderness to palpation present (GI) and No Guarding due to palpation present (GI) Auscultation: normal bowel sounds Other: No tenderness. Song's sign difficult to appreciate d/t altered mental status and shortness of breath. Skin: Other: morbilliform rash present to bilateral anterior thighs Neuro: Speech: normal speech Sensory Exam: normal sensation Extrem: General: normal exam except as noted (morbilliform rash) Psych: Affect: normal affect Other: mental status slightly altered Results Labs 04/09/25 04:02 04/09/25 04:02 Labs: Abnormal lab results 04/08/25 04/08/25 04/08/25 Range/Units 03:58 15:51 17:43 WBC 19.9 H (4.5-10.0) K/mm3 RBC 3.35 L (4.6-6.20) M/mm3 Hgb 10.6 L (14.0-18.0) g/dL Hct 31.2 L (42.0-52.0) % RDW 14.7 H (11.5-14.5) % Plt Count 134 L (150-375) k/mm3 MPV 11.2 H (7.4-10.4) fl Neutrophils % (Manual) 86 H (46-73) % Band Neutrophils % 10 H (0-6) % Lymphocytes % (Manual) 2 L (18-44) % Monocytes % (Manual) 2 L (3-9) % Abs Neuts (Manual) 19.10 H (1.3-6.7) K/mm3 Abs Lymphs (Manual) 0.39 L (1.1-4.5) K/mm3 ABG pH 7.514 H* (7.350-7.450) ABG pCO2 17.2 L* (35.0-45.0) mmHg ABG pO2 76.0 L (80.0-100.0) mmHg ABG HCO3 13.5 L (22.0-26.0) mEq/l ABG O2 Saturation (95.0-100.0) % ABG O2 Content 15.7 L (16.0-22.0) %vol Oxyhemoglobin (90.0-100.0) % THb Total Hemoglobin 11.6 L (12.0-18.0) g/dL Sodium 126 L (137-145) mmol/L Carbon Dioxide 17 L (22-30) mmol/L BUN 31 H (9-20) mg/dL Creatinine 1.46 H (0.7-1.3) mg/dL Estimated GFR 46 L (59 - ) Glucose 128 H (65-110) mg/dL Lactic Acid 3.5 H (0.7-2.0) mmol/L Calcium 7.9 L (8.4-10.2) mg/dL AST 143 H (17-59) U/L ALT 110 H (6-50) U/L Total Creatine Kinase (55-170) U/L C-Reactive Protein > 9.0 H (<1.0) mg/dL NT-Pro-B Natriuret Pep > 94329 H (19.9-100) pg/mL Total Protein 6.0 L (6.3-8.2) g/dL Albumin 3.0 L (3.5-5.1) g/dL 04/08/25 04/09/25 04/09/25 Range/Units 23:06 04:02 09:17 WBC 13.5 H (4.5-10.0) K/mm3 RBC 3.46 L (4.6-6.20) M/mm3 Hgb 10.8 L (14.0-18.0) g/dL Hct 32.5 L (42.0-52.0) % RDW 15.0 H (11.5-14.5) % Plt Count 121 L (150-375) k/mm3 MPV 12.0 H (7.4-10.4) fl Neutrophils % (Manual) 84 H (46-73) % Band Neutrophils % 10 H (0-6) % Lymphocytes % (Manual) 4 L (18-44) % Monocytes % (Manual) 2 L (3-9) % Abs Neuts (Manual) 12.69 H (1.3-6.7) K/mm3 Abs Lymphs (Manual) 0.54 L (1.1-4.5) K/mm3 ABG pH (7.350-7.450) ABG pCO2 22.2 L* (35.0-45.0) mmHg ABG pO2 34.6 L* (80.0-100.0) mmHg ABG HCO3 13.2 L (22.0-26.0) mEq/l ABG O2 Saturation 67.8 L* (95.0-100.0) % ABG O2 Content 10.4 L (16.0-22.0) %vol Oxyhemoglobin 63.3 L* (90.0-100.0) % THb Total Hemoglobin 11.7 L (12.0-18.0) g/dL Sodium 128 L (137-145) mmol/L Carbon Dioxide 18 L (22-30) mmol/L BUN 40 H (9-20) mg/dL Creatinine 1.69 H (0.7-1.3) mg/dL Estimated GFR 38 L (59 - ) Glucose 118 H (65-110) mg/dL Lactic Acid 3.6 H (0.7-2.0) mmol/L Calcium 7.9 L (8.4-10.2) mg/dL AST 654 H (17-59) U/L ALT 402 H (6-50) U/L Total Creatine Kinase 579 H (55-170) U/L C-Reactive Protein (<1.0) mg/dL NT-Pro-B Natriuret Pep (19.9-100) pg/mL Total Protein 5.6 L (6.3-8.2) g/dL Albumin 2.8 L (3.5-5.1) g/dL Diabetes panel 04/08/25 04/09/25 Range/Units 17:43 04:02 Sodium 126 L 128 L (137-145) mmol/L Potassium 4.9 4.3 (3.4-5.0) mmol/L Chloride 100 101 (98-107) mmol/L Carbon Dioxide 17 L 18 L (22-30) mmol/L BUN 31 H 40 H (9-20) mg/dL Creatinine 1.46 H 1.69 H (0.7-1.3) mg/dL Glucose 128 H 118 H (65-110) mg/dL Calcium 7.9 L 7.9 L (8.4-10.2) mg/dL AST 143 H 654 H (17-59) U/L ALT 110 H 402 H (6-50) U/L Alkaline Phosphatase 109 97 (38-126) U/L Total Protein 6.0 L 5.6 L (6.3-8.2) g/dL Albumin 3.0 L 2.8 L (3.5-5.1) g/dL Calcium panel 04/08/25 04/09/25 Range/Units 17:43 04:02 Calcium 7.9 L 7.9 L (8.4-10.2) mg/dL Phosphorus 3.6 (2.5-4.5) mg/dL Albumin 3.0 L 2.8 L (3.5-5.1) g/dL Pituitary panel 04/08/25 04/09/25 Range/Units 17:43 04:02 Sodium 126 L 128 L (137-145) mmol/L Potassium 4.9 4.3 (3.4-5.0) mmol/L Chloride 100 101 (98-107) mmol/L Carbon Dioxide 17 L 18 L (22-30) mmol/L BUN 31 H 40 H (9-20) mg/dL Creatinine 1.46 H 1.69 H (0.7-1.3) mg/dL Glucose 128 H 118 H (65-110) mg/dL Calcium 7.9 L 7.9 L (8.4-10.2) mg/dL Adrenal panel 04/08/25 04/09/25 Range/Units 17:43 04:02 Sodium 126 L 128 L (137-145) mmol/L Potassium 4.9 4.3 (3.4-5.0) mmol/L Chloride 100 101 (98-107) mmol/L Carbon Dioxide 17 L 18 L (22-30) mmol/L BUN 31 H 40 H (9-20) mg/dL Creatinine 1.46 H 1.69 H (0.7-1.3) mg/dL Glucose 128 H 118 H (65-110) mg/dL Calcium 7.9 L 7.9 L (8.4-10.2) mg/dL Total Bilirubin 1.1 1.1 (0.2-1.3) mg/dL AST 143 H 654 H (17-59) U/L ALT 110 H 402 H (6-50) U/L Alkaline Phosphatase 109 97 (38-126) U/L Total Protein 6.0 L 5.6 L (6.3-8.2) g/dL Albumin 3.0 L 2.8 L (3.5-5.1) g/dL All other labs normal.
--- NOTE | 2025-04-09 10:57 | P.PNCA_ITS ---
Progress Note: A&P Assessment and Plan (1) Sepsis: Qualifiers: Sepsis acute organ dysfunction status: without acute organ dysfunction Sepsis type: sepsis due to unspecified organism Qualified Code(s): A41.9 - S epsis, unspecified organism Code(s): A41.9 - Sepsis, unspecified organism Status: Acute Plan Sepsis Acute on chronic heart failure with reduced LVEF Paroxysmal atrial fibrillation with RVR Coronary artery disease s/p PCI Elevated liver enzymes Anemia Acute kidney injury Rhabdomyolysis PLAN: -Currently, CHF meds are on hold due to hypotension. Will continue to hold these for now until blood pressures stabilize and sepsis resolves. -Currently in rate controlled AFIB, however, if issues with RVR, then would do Amiodarone given hypotension. -Continue ASA 81mg once daily. Plavix currently on hold -- if no procedures are anticipated, then recommend to resume Plavix given his recent PCI. -Continue Ranolazine. -Statin on hold given elevated liver enzymes. -He was previously on Xarelto because of atrial fibrillation, unclear why he is no longer taking this. Will review records to see if there is a contraindication. If not, would resume a/c at some point prior to discharge and discontinue ASA leaving him on Plavix (to avoid triple therapy). -IV Lasix as needed. Recommendations and plan discussed with ICU Physician. Subjective Date/time seen: 04/09/25 10:57 Interval history: Reason for visit: AFIB, CHF, Sepsis HPI: Armando Walton is an 89 year old male with coronary artery disease s/p PCI to RCA, LCx, repeat intervention to the LXc in 2010, vprox LAD in 2023, and shockwave and stenting of the LAD and LCx in 2024). He presents to the hospital with sore throat, shortness of breath, and fever. Cardiology is consulted for atrial fibrillation and CHF. Echocardiogram performed during this hospitalization showed severe LV dysfunction with EF 20-25% which is a decline compared to echo in December 2024 showing EF 40%. Patient states he has intermittent chest pain and takes NTG about 3 times weekly on average. Has been experiencing shortness of breath and some lower extremity edema but no palpitations. Feeling a little better today but still has chills and shortness of breath. Date of service 04/09: Overnight, he had two falls in his room. Now in the ICU. Patient quite sleepy this morning. Review of Systems Review of Systems: ROS unobtainable: Yes unobtainable due to mental status Exam Const: General: no acute distress Other: Sleepy HENMT: Mouth: Yes dry mucous membranes Eyes: General: appearance normal, both eyes and all related structures Sclera: sclerae normal Resp: Effort & Inspection: normal respiratory effort Cardio: Rate: regular rate Rhythm: abnormal rhythm irregularly irregular Skin: General skin exam: normal color Psych: Other: Sleepy Objective Data Vital Signs Vital Signs: Vital Signs - 24 hr 04/08/25 11:35 04/08/25 12:00 04/08/25 12:00 Temperature 36.9 C Pulse Rate 140 H 125 H 119 H Respiratory Rate 32 H 32 H Blood Pressure 142/62 H Pulse Oximetry 99 98 Oxygen Delivery Room Air 04/08/25 14:00 04/08/25 14:59 04/08/25 16:00 Temperature 37.3 C Pulse Rate 125 H 125 H 125 H Respiratory Rate 32 H 32 H Blood Pressure 126/66 Pulse Oximetry 98 98 Oxygen Delivery Room Air 04/08/25 16:00 04/08/25 16:00 04/08/25 18:00 Temperature 37.5 C Pulse Rate 110 H 105 H 119 H Respiratory Rate 30 H Blood Pressure 105/59 L Pulse Oximetry 100 Oxygen Delivery 04/08/25 19:35 04/08/25 20:00 04/08/25 20:00 Temperature 37.3 C Pulse Rate 119 H 112 H 112 H Respiratory Rate 30 H 34 H Blood Pressure 138/71 Pulse Oximetry 98 98 Oxygen Delivery Room Air 04/08/25 20:00 04/08/25 21:59 04/08/25 22:00 Temperature 36.8 C Pulse Rate 112 H 131 H 115 H Respiratory Rate 34 H Blood Pressure 118/69 Pulse Oximetry 96 Oxygen Delivery 04/09/25 00:00 04/09/25 00:00 04/09/25 00:00 Temperature 38.6 C H Pulse Rate 115 H 115 H 115 H Respiratory Rate 34 H 32 H Blood Pressure 134/72 Pulse Oximetry 96 100 Oxygen Delivery Room Air 04/09/25 02:00 04/09/25 04:00 04/09/25 04:00 Temperature Pulse Rate 99 97 97 Respiratory Rate 32 H Blood Pressure Pulse Oximetry 100 Oxygen Delivery Room Air 04/09/25 04:00 06/04/25 06:00 04/09/25 06:35 Temperature 36.8 C Pulse Rate 90 101 H 102 H Respiratory Rate 24 H Blood Pressure 102/33 L Pulse Oximetry 96 Oxygen Delivery 04/09/25 07:45 04/09/25 07:54 04/09/25 10:00 Temperature 38.8 C H Pulse Rate 105 H 97 100 Respiratory Rate 32 H Blood Pressure 89/53 L Pulse Oximetry 100 Oxygen Delivery Intake/Output Intake/Output: Intake & Output 04/06/25 04/07/25 04/08/25 04/09/25 23:59 23:59 23:59 23:59 Intake Total 2100 2524.0 900 Output Total 525 300 Balance 2100 1999.0 600 Meds/Results Medications: Active Medications Generic Name Dose Route Start Last Admin Trade Name Freq PRN Reason Stop Dose Admin Acetaminophen 650 mg 04/07/25 19:59 04/08/25 06:50 Acetaminophen 325 Mg Tablet PO 650 mg Q6H PRN Administration Mild Pain (1-3) or Fever Artificial Tears 1 drop 04/08/25 03:43 Artificial Tears Ophth Soln 15 Ml Bottle EACH EYE Q4H PRN Dry Eye(s) Ascorbic Acid 500 mg 04/08/25 09:00 04/08/25 09:09 Ascorbic Acid 500 Mg Tablet PO 500 mg DAILY ATUL Administration Aspirin 81 mg 04/08/25 09:00 04/08/25 09:09 Aspirin 81 Mg Enteric Tablet PO 81 mg DAILY ATUL Administration Calcium Carbonate 1,000 mg 04/08/25 12:00 04/08/25 13:17 Calcium/Vitamin D 500 Mg/5 Mcg (200 I.U.) Tablet PO 1,000 mg DAILY@1200 ATUL Administration Clopidogrel Bisulfate 75 mg 04/08/25 09:00 04/08/25 09:09 Clopidogrel Bisulfate 75 Mg Tablet PO 75 mg DAILY ATUL Administration Cyclosporine 1 drop 04/08/25 09:00 04/08/25 22:00 Cyclosporine 0.4 Ml Ophth Solution EACH EYE 1 drop Q12HR ATUL Administration Enoxaparin Sodium 30 mg 04/09/25 09:00 Enoxaparin 30 Mg/0.3 Ml Syringe SUB-Q DAILY ATUL Famotidine 20 mg 04/08/25 09:00 04/08/25 21:59 Famotidine 20 Mg Tablet PO 20 mg Q12HR ATUL Administration Fish Oil 1 gm 04/08/25 09:00 04/08/25 09:09 [place] 3 Polyunsat Fatty Acids 1 Gm Cap PO 1 gm DAILY ATUL Administration Vancomycin HCl 1,500 mg in 500 mls @ 250 mls/hr 04/08/25 22:00 04/09/25 08:00 Vancomycin 1,500 Mg/Ns 500 Ml IVPB Infused Q24H ATUL Infusion Meropenem 1 gm in 100 mls @ 200 mls/hr 04/08/25 04:00 04/09/25 08:00 IVPB Infused Q12H ATUL Infusion Doxycycline Hyclate 100 mg in 100 mls @ 100 mls/hr 04/08/25 21:00 04/09/25 08:53 Vibramycin 100 Mg/Ns 100 Ml IVPB 100 mls/hr Q12H ATUL Administration Albumin Human 25 gm in 500 mls @ 125 mls/hr 04/09/25 08:12 Albumin Human 5% IV CONT 04/09/25 12:11 .Q4H ONE Phenylephrine HCl 50 mg/ 250 mls @ 12 mls/hr 04/09/25 10:45 Sodium Chloride IV CONT .[id number] [facility] Protocol 40 MCG/MIN Ipratropium [place] 2 spray 04/08/25 09:00 04/08/25 19:38 Ipratropium Nasal [place] 0.06% 15 Ml Bottle NASAL Not Given TID [facility] Metoprolol Tartrate 25 mg 04/08/25 12:45 04/09/25 06:35 Metoprolol Tartrate 25 Mg Tablet PO 25 mg Q8HR ATUL Administration Multivitamins Therapeutic 1 tablet 04/08/25 09:00 04/08/25 09:08 Multivitamins Therapeutic Tab (*Bkc) PO 1 tablet DAILY ATUL Administration Oxymetazoline HCl 1 spray 04/08/25 16:42 Oxymetazoline Hcl 0.05% Ade[place] 15 Ml Btl (*Bkc) NASAL Q12HR PRN Congestion Ranolazine 500 mg 04/08/25 09:00 04/08/25 22:00 Ranolazine 500 Mg Tab.Er.12h PO 500 mg Q12HR ATUL Administration Sodium Chloride 10 ml 04/09/25 14:00 Central Line Flush IV PUSH Q8HR ATUL Sodium Chloride 10 ml 04/09/25 10:42 Central Line Flush IV PUSH PRN PRN with TPN bag changes Sodium Chloride 20 ml 04/09/25 10:42 Central Line Flush IV PUSH PRN PRN after blood draws Radiology Results: ITS Impressions Soft Tissue Neck CT 04/07/25 17:28 IMPRESSION: Right palatine tonsillar enlargement. No tonsillar abscess detected. Left submandibular gland enlargement. Left anterior cervical chain lymphadenopathy. Anterior neck soft tissue stranding, which may represent cellulitis in the appropriate clinical context. Paratracheal lymphadenopathy. Mild interstitial edema. Hip/Pelvis X-Ray 04/08/25 15:38 Impression: 1: No acute bone or joint abnormality. Head CT 04/08/25 15:46 IMPRESSION: 1. No fracture or acute intracranial process. 2. Age-related changes including mild diffuse volume loss and mild to moderate scattered white matter hypoattenuation consistent with chronic small vessel ischemic disease. Cervical Spine CT 04/08/25 15:49 IMPRESSION: 1. No acute abnormality of the cervical spine. 2: Moderate cervical spondylosis. Abdomen Ultrasound 04/08/25 17:43 IMPRESSION: Distended gallbladder with possible minimal pericholecystic fluid versus edema. Clinical correlation and follow-up advised. Otherwise, normal Limited abdominal ultrasound. Labs Labs: Laboratory Results - last 24 hr 04/08/25 04/08/25 04/08/25 15:51 17:43 23:06 WBC 19.9 H RBC 3.35 L Hgb 10.6 L Hct 31.2 L MCV 93.1 MCH 31.6 MCHC 34.0 RDW 14.7 H Plt Count 134 L MPV 11.2 H Immature Gran % (Auto) Not Reportable Neut % (Auto) Not Reportable Lymph % (Auto) Not Reportable [place] % (Auto) Not Reportable Eos % (Auto) Not Reportable Baso % (Auto) Not Reportable Lymph # (Auto) Not Reportable [place] # (Auto) Not Reportable Eos # (Auto) Not Reportable Baso # (Auto) Not Reportable Abs Immat Gran (auto) Not Reportable Absolute Neuts (auto) Not Reportable Absolute Nucleated RBC Not Reportable Total Counted 100 Neutrophils % (Manual) 86 H Band Neutrophils % 10 H Lymphocytes % (Manual) 2 L Monocytes % (Manual) 2 L Nucleated RBC % Not Reportable Abs Neuts (Manual) 19.10 H Abs Lymphs (Manual) 0.39 L Abs Monocytes (Manual) 0.39 Platelet Estimate Slightly decreased Poikilocytosis 1+ Ovalocytes 1+ Bly Cells 1+ Schistocytes None seen Puncture Site Right radial ABG pH 7.514 H* ABG pCO2 17.2 L* ABG pO2 76.0 L ABG PO2/FiO2 Ratio 2.71 ABG HCO3 13.5 L ABG O2 Saturation 96.7 ABG O2 Content 15.7 L ABG Base Excess -7.1 A-a Gradient 103.3 Oxyhemoglobin 95.9 Total Hemoglobin 11.6 L O2 Delivery Device Nasal cannula O2 Liters/Min 2.0 FiO2 28 Sodium 126 L Potassium 4.9 Chloride 100 Carbon Dioxide 17 L Anion Gap 9 BUN 31 H Creatinine 1.46 H Estim Creat Clear Calc 31 Estimated GFR 46 L Glucose 128 H Lactic Acid 3.5 H 3.6 H Calcium 7.9 L Phosphorus Magnesium Total Bilirubin 1.1 AST 143 H ALT 110 H Alkaline Phosphatase 109 Total Creatine Kinase C-Reactive Protein > 9.0 H Total Protein 6.0 L Albumin 3.0 L Procalcitonin 5.2 04/09/25 04/09/25 04:02 09:17 WBC 13.5 H RBC 3.46 L Hgb 10.8 L Hct 32.5 L MCV 93.9 MCH 31.2 MCHC 33.2 RDW 15.0 H Plt Count 121 L MPV 12.0 H Immature Gran % (Auto) Not Reportable Neut % (Auto) Not Reportable Lymph % (Auto) Not Reportable [place] % (Auto) Not Reportable Eos % (Auto) Not Reportable Baso % (Auto) Not Reportable Lymph # (Auto) Not Reportable [place] # (Auto) Not Reportable Eos # (Auto) Not Reportable Baso # (Auto) Not Reportable Abs Immat Gran (auto) Not Reportable Absolute Neuts (auto) Not Reportable Absolute Nucleated RBC Not Reportable Total Counted 100 Neutrophils % (Manual) 84 H Band Neutrophils % 10 H Lymphocytes % (Manual) 4 L Monocytes % (Manual) 2 L Nucleated RBC % Not Reportable Abs Neuts (Manual) 12.69 H Abs Lymphs (Manual) 0.54 L Abs Monocytes (Manual) 0.27 Platelet Estimate Slightly decreased Poikilocytosis 2+ Ovalocytes 1+ Bly Cells 2+ Schistocytes None seen Puncture Site Left radial ABG pH 7.392 ABG pCO2 22.2 L* ABG pO2 34.6 L* ABG PO2/FiO2 Ratio 1.08 ABG HCO3 13.2 L ABG O2 Saturation 67.8 L* ABG O2 Content 10.4 L ABG Base Excess -9.9 A-a Gradient 167.6 Oxyhemoglobin 63.3 L* Total Hemoglobin 11.7 L O2 Delivery Device Nasal cannula O2 Liters/Min 3.0 FiO2 32 Sodium 128 L Potassium 4.3 Chloride 101 Carbon Dioxide 18 L Anion Gap 9 BUN 40 H Creatinine 1.69 H Estim Creat Clear Calc 27 Estimated GFR 38 L Glucose 118 H Lactic Acid Calcium 7.9 L Phosphorus 3.6 Magnesium 2.1 Total Bilirubin 1.1 AST 654 H ALT 402 H Alkaline Phosphatase 97 Total Creatine Kinase 579 H C-Reactive Protein Total Protein 5.6 L Albumin 2.8 L Procalcitonin
[2025-04-09 10:59] LABS: INR 1.8; Prothrombin Time 20.6 Seconds (11.1-14.7)
[2025-04-09 11:00] LABS: Fibrinogen 453 mg/dl (215-510); Partial Thromboplastin Time 42.3 Seconds (22.3-36.8)
[2025-04-09] MEDS: PHENYLEPHRINE HCL INJ 50 MG in SODIUM CHLORIDE 0.9% IV 245 ML 12 ML IV CONT (11:33)
[2025-04-09] MEDS: CENTRAL LINE FLUSH 10 ML IV PUSH ×2 (12:05→21:08)
[2025-04-09] MEDS: IPRATROPIUM NASAL SPRAY 0.06% 15 ML BOTTLE 2 SPRAY NASAL ×3 (12:06→16:33)
[2025-04-09] MEDS: cycloSPORINE 0.4 ML OPHTH SOLUTION 1 DROP EACH EYE ×2 (12:06→20:52)
--- NOTE | 2025-04-09 13:40 | PCSTNOTE ---
Please refer to the Bedside Swallow Evaluation in the EMR. Please note, silent aspiration cannot be ruled out at bedside. The above pt was seen for a bedside swallow evaluation after RN noted excessive coughing after a sip of water. Pt was admitted with fever and a sore throat. Pt was positioned upright in the bed with head propped for safe swallowing. Cursory oral exam revealed dry mucosa, good dentition, and adequate labial and lingual ROM and strength. Vocal quality was clear before oral trials but pt was coughing. The pt was presented with 1/2 to 1 tsp amounts of pudding, small bite size pieces of cracker, two 5 ml trials of thin liquid via a spoon, and uncontrolled trials of thin liquid via a cup and a straw. The oral stages were WFL, but he complained of dry mouth slowing his ability to chew. Laryngeal elevation appeared adequate but intermittent coughing occurred after the solids and thin liquids when taken via a straw. Given the inconsistent overt s/s of aspiration exhibited at the bedside, it is recommended that the swallow be further assessed via a modified barium swallow (MBS) to determine a safe diet. Impression: questionable degree of dysphagia due to inconsistent overt s/s of aspiration; Recommendation: NPO until MBS
--- NOTE | 2025-04-09 13:49 | P.PNIM_ITS ---
Progress Note: A&P Assessment and Plan (1) Sepsis: Qualifiers: Sepsis acute organ dysfunction status: without acute organ dysfunction Sepsis type: sepsis due to unspecified organism Qualified Code(s): A41.9 - S epsis, unspecified organism Code(s): A41.9 - Sepsis, unspecified organism Status: Acute Assessment and Plan: Patient with fever and rash. Rash began after abx given but drug reaction felt less likely. [place] Strept swab negative. [place] negative. MRSA nasal swab negative. Influenza, COVID and RSV PCR negative. CXR was clear. CT Neck showing right tonsillar and left submandibular gland enlargement and adneopathy. Also with anterior neck stranding. BCx NGTD UA noted and did not trigger a UCx. Curently on Vanco, Meropenem and Doxy. Still having fevers. Developed HoTN with septic shock treated wtih Phenylephrine. Appreciate java software input. CT Ch/A/P pending. WBC better with 10% bands. PCT 5.2. Continue broad spectrum abx and follow up on cultures. Discussed with ID RN regarding measles testing. Discussed with java software. (2) Cellulitis of neck: Code(s): L03.221 - Cellulitis of neck Status: Acute Assessment and Plan: CT scan showing anterior neck soft tissue stranding and clinically with erythema. Consider strep with rash. Continue abx until clearer etiology is known. (3) Tonsillitis: Code(s): J03.90 - Acute tonsillitis, unspecified Status: Acute Assessment and Plan: As above. (4) Lymphadenitis: Code(s): I88.9 - Nonspecific lymphadenitis, unspecified Status: Acute Assessment and Plan: As above (5) CHF (congestive heart failure): Code(s): I50.9 - Heart failure, unspecified Status: Acute Assessment and Plan: Echo in Sep 2024 showing EF 55% but Lexiscan in December 2024 showing EF 42%. Patient complains of intermittent CP and SOB that has worsened over the past few months. Echo here showing moderately enlarged LV with EF 20-25% and diastolic dysfunction. Moderate LAE and mild valvular disease. He is in AFib with RVR. LV dysfunction could be from uncontrolled AFib. BNP >30K. CXR was clear but repeat showing pulmonary edema felt related to IV fluids. IV fluids stopped since he is becoming more tachypneic. Metoprolol advanced to control heart rate. Entresto added by Cardiology. Metoprolol and Entresto on hold since hypotensive now. Apprecaite Cardiology input (6) Paroxysmal atrial fibrillation: Code(s): I48.0 - Paroxysmal atrial fibrillation Status: Acute Assessment and Plan: Rate was poorly controlled here felt related to sepsis. Consider he may have RVR chronically causing his poor EF. He was on metoprolol on admission that was advanced (now held due to HoTN) Defer to cardiology about resuming Xarelto. Monitor on tele (7) Hyponatremia: Code(s): E87.1 - Hypo-osmolality and hyponatremia Status: Acute Assessment and Plan: Na low on admission at 124. Urine Na <5 to suggest either dehydration and/or poor cardiac output to kidneys. With IV fluids, sodium has improved to 128. Off IV fluids since his EF 20% and he is becoming more tachypneic Repeat CXR showing improvement in the pulmonary edema. (8) Elevated LFTs: Code(s): R79.89 - Other specified abnormal findings of blood chemistry Status: Acute Assessment and Plan: AST/ALT elevated. Consider related to sepsis or viral etiology. Consider hepatic congestion. TCK also elevated which could result in elevated LFTs. Abd US showing distended GB with possible pericholecystic fluid vs edema. GenSurg consulted for possible cholecystitis. Monitor. Trend LFTs. (9) Rhabdomyolysis: Code(s): M62.82 - Rhabdomyolysis Status: Acute Assessment and Plan: TCK was 895 on admission. Patient is fluid positive Etiology is probably related to infectious etiology and/or statin therapy. TCK is better Follow (10) Coronary artery disease: Qualifiers: Coronary Disease-Associated Artery/Lesion type: [place] artery [place] vs. transplanted heart: [place] heart Associated angina: without angina Qualified Code(s): I25.10 - Atherosclerotic heart disease of [place] coronary artery without angina pectoris Code(s): I25.10 - Atherosclerotic heart disease of [place] coronary artery without angina pectoris Status: Acute Assessment and Plan: Patient wsa hospitalized here in September for NSTEMI and transferred to [facility]. He underwent successful laser atherectomy assisted PTCA distal left circumflex, OM1 and OM2 bifurcation in stent restenosis and intravascular lithotripsy shockwave assisted PTCA the distal to proximal LAD. Patient was hospitalized again at [facility] in December where he underwent heart catheterization with shockwave and balloon angioplasty to distal left circumflex artery in stent restenosis. Patient was on ASA and Plavix but now on hold Cardiology consult. (11) LENIN (acute kidney injury): Code(s): N17.9 - Acute kidney failure, unspecified Status: Acute Assessment and Plan: Baseline Cr 1-1.2 range. Cr has climbed to 1.7 now [place] related to sepsis and shock. Nation placed so will be able to monitor UOP better. Monitor renal function, UOP and electrolytes. Plan Falls - patient had 2 falls in the IMU yesterday. Repeat CT head again showing no acute findings. Fall precautions. Code status - full DVT prophylaxis - SCDs Subjective Date/time seen: 04/09/25 13:49 Interval history: 89yo male with CAD with recent stent placement in December, pAFib (off anticoagulation for about 6 months) and HTN here for fever and sore throat. Patient moved to ICU yesterday evening. He was confused overnight but this has been improving. He was HoTN was started on phenylephrine. Nation catheter had to be placed today by urology. Still feels SOB but better. No CP. Cough that is productive. Sore throat is better. Exam Narrative: Tm 102 100.1 89/60 96 30 100% RA Gen - NARD Chest - basilar crackles o/w clear CV - tachycardia, irregular. Tele showing AFib Abd - Soft, NT/ND, Positive BS Ext - no pedal edema Neuro - Alert; oriented x3 (not Steve name) Psych - Nml mood and affect Skin - Diffuse maculopapular rash on the trunk and lower extremities with coalescing at the neck and lower abdomen. Objective Data Vital Signs Vital Signs: Vital Signs - 24 hr 04/08/25 14:00 04/08/25 14:59 04/08/25 16:00 Temperature 99.2 F Pulse Rate 125 H 125 H 125 H Respiratory Rate 32 H 32 H Blood Pressure 126/66 Pulse Oximetry 98 98 Oxygen Delivery Room Air 04/08/25 16:00 04/08/25 16:00 04/08/25 18:00 Temperature 99.5 F Pulse Rate 110 H 105 H 119 H Respiratory Rate 30 H Blood Pressure 105/59 L Pulse Oximetry 100 Oxygen Delivery 04/08/25 19:35 04/08/25 20:00 04/08/25 20:00 Temperature 99.1 F Pulse Rate 119 H 112 H 112 H Respiratory Rate 30 H 34 H Blood Pressure 138/71 Pulse Oximetry 98 98 Oxygen Delivery Room Air 04/08/25 20:00 04/08/25 21:59 04/08/25 22:00 Temperature 98.3 F Pulse Rate 112 H 131 H 115 H Respiratory Rate 34 H Blood Pressure 118/69 Pulse Oximetry 96 Oxygen Delivery 04/09/25 00:00 04/09/25 00:00 04/09/25 00:00 Temperature 101.4 F H Pulse Rate 115 H 115 H 115 H Respiratory Rate 34 H 32 H Blood Pressure 134/72 Pulse Oximetry 96 100 Oxygen Delivery Room Air 04/09/25 02:00 04/09/25 04:00 04/09/25 04:00 Temperature Pulse Rate 99 97 97 Respiratory Rate 32 H Blood Pressure Pulse Oximetry 100 Oxygen Delivery Room Air 04/09/25 04:00 04/09/25 06:00 04/09/25 06:35 Temperature 98.3 F Pulse Rate 90 101 H 102 H Respiratory Rate 24 H Blood Pressure 102/33 L Pulse Oximetry 96 Oxygen Delivery 04/09/25 07:45 04/09/25 07:54 04/09/25 10:00 Temperature 102 F H Pulse Rate 105 H 97 100 Respiratory Rate 32 H Blood Pressure 89/53 L Pulse Oximetry 100 Oxygen Delivery 04/09/25 10:00 04/09/25 11:33 04/09/25 12:00 Temperature 100.4 F H Pulse Rate 99 108 H 97 Respiratory Rate 33 H Blood Pressure 101/67 84/52 L Pulse Oximetry 100 Oxygen Delivery 04/09/25 12:00 04/09/25 12:04 Temperature 100.1 F H Pulse Rate 100 96 Respiratory Rate 30 H Blood Pressure 96/61 L 89/60 L Pulse Oximetry 100 Oxygen Delivery Intake/Output Intake/Output: Intake & Output 04/06/25 04/07/25 04/08/25 04/09/25 23:59 23:59 23:59 23:59 Intake Total 2100 2524.0 1006.2 Output Total 525 300 Balance 2100 1999.0 706.2 Meds/Results Medications: Active Medications Generic Name Dose Route Start Last Admin Trade Name Freq PRN Reason Stop Dose Admin Acetaminophen 650 mg 04/07/25 19:59 04/08/25 06:50 Acetaminophen 325 Mg Tablet PO 650 mg Q6H PRN Administration Mild Pain (1-3) or Fever Artificial Tears 1 drop 04/08/25 03:43 Artificial Tears Ophth Soln 15 Ml Bottle EACH EYE Q4H PRN Dry Eye(s) Ascorbic Acid 500 mg 04/08/25 09:00 04/09/25 12:02 Ascorbic Acid 500 Mg Tablet PO Not Given DAILY [facility] Aspirin 81 mg 04/08/25 09:00 04/09/25 12:02 Aspirin 81 Mg Enteric Tablet PO Not Given DAILY [facility] Calcium Carbonate 1,000 mg 04/08/25 12:00 04/09/25 12:03 Calcium/Vitamin D 500 Mg/5 Mcg (200 I.U.) Tablet PO Not Given DAILY@1200 [facility] Clopidogrel Bisulfate 75 mg 04/08/25 09:00 04/09/25 12:02 Clopidogrel Bisulfate 75 Mg Tablet PO Not Given DAILY [facility] Cyclosporine 1 drop 04/08/25 09:00 04/09/25 12:06 Cyclosporine 0.4 Ml Ophth Solution EACH EYE 1 drop Q12HR [facility] Administration Enoxaparin Sodium 30 mg 04/09/25 09:00 04/09/25 12:06 Enoxaparin 30 Mg/0.3 Ml Syringe SUB-Q Not Given DAILY [facility] Famotidine 20 mg 04/08/25 09:00 04/09/25 12:03 Famotidine 20 Mg Tablet PO Not Given Q12HR [facility] Fish Oil 1 gm 04/08/25 09:00 04/09/25 12:03 [place] 3 Polyunsat Fatty Acids 1 Gm Cap PO Not Given DAILY [facility] Vancomycin HCl 1,500 mg in 500 mls @ 250 mls/hr 04/08/25 22:00 04/09/25 08:00 Vancomycin 1,500 Mg/Ns 500 Ml IVPB Infused Q24H [facility] Infusion Meropenem 1 gm in 100 mls @ 200 mls/hr 04/08/25 04:00 04/09/25 08:00 IVPB Infused Q12H [facility] Infusion Doxycycline Hyclate 100 mg in 100 mls @ 100 mls/hr 04/08/25 21:00 04/09/25 11:38 Vibramycin 100 Mg/Ns 100 Ml IVPB Infused Q12H [facility] Infusion Phenylephrine HCl 50 mg/ 250 mls @ 27 mls/hr 04/09/25 10:45 04/09/25 12:04 Sodium Chloride IV CONT 90 mcg/min .Q9H16M ATUL 27 mls/hr Titration Protocol 90 MCG/MIN Ipratropium [place] 2 spray 04/08/25 09:00 04/09/25 12:06 Ipratropium Nasal [place] 0.06% 15 Ml Bottle NASAL 2 spray TID [facility] Administration Metoprolol Tartrate 25 mg 04/08/25 12:45 04/09/25 06:35 Metoprolol Tartrate 25 Mg Tablet PO 25 mg Q8HR [facility] Administration Multivitamins Therapeutic 1 tablet 04/08/25 09:00 04/09/25 12:03 Multivitamins Therapeutic Tab (*Bkc) PO Not Given DAILY [facility] Oxymetazoline HCl 1 spray 04/08/25 16:42 Oxymetazoline Hcl 0.05% [place] 15 Ml Btl (*Bkc) NASAL Q12HR PRN Congestion Ranolazine 500 mg 04/08/25 09:00 04/09/25 12:03 Ranolazine 500 Mg Tab.Er.12h PO Not Given Q12HR [facility] Sodium Bicarbonate 650 mg 04/09/25 17:00 Sodium Bicarbonate Tab 650 Mg Tablet PO BID AT[facility] Sodium Chloride 10 ml 04/09/25 14:00 04/09/25 12:05 Central Line Flush IV PUSH 10 ml Q8HR ATUL Administration Sodium Chloride 10 ml 04/09/25 10:42 Central Line Flush IV PUSH PRN PRN with TPN bag changes Sodium Chloride 20 ml 04/09/25 10:42 Central Line Flush IV PUSH PRN PRN after blood draws Radiology Results: ITS Impressions Soft Tissue Neck CT 04/07/25 17:28 IMPRESSION: Right palatine tonsillar enlargement. No tonsillar abscess detected. Left submandibular gland enlargement. Left anterior cervical chain lymphadenopathy. Anterior neck soft tissue stranding, which may represent cellulitis in the appropriate clinical context. Paratracheal lymphadenopathy. Mild interstitial edema. Hip/Pelvis X-Ray 04/08/25 15:38 Impression: 1: No acute bone or joint abnormality. Cervical Spine CT 04/08/25 15:49 IMPRESSION: 1. No acute abnormality of the cervical spine. 2: Moderate cervical spondylosis. Abdomen Ultrasound 04/08/25 17:43 IMPRESSION: Distended gallbladder with possible minimal pericholecystic fluid versus edema. Clinical correlation and follow-up advised. Otherwise, normal Limited abdominal ultrasound. Chest X-Ray 04/09/25 11:27 Impression: 1: Cardiomegaly with mild interstitial edema, improved compared with 04/08/2025. Head CT 04/09/25 12:26 Impression: No intracranial hemorrhage, mass, or acute infarct. Atrophy and chronic white matter changes, as above. Labs Labs: Laboratory Results - last 24 hr 04/08/25 04/08/25 04/08/25 15:51 17:43 23:06 WBC 19.9 H RBC 3.35 L Hgb 10.6 L Hct 31.2 L MCV 93.1 MCH 31.6 MCHC 34.0 RDW 14.7 H Plt Count 134 L MPV 11.2 H Immature Gran % (Auto) Not Reportable Neut % (Auto) Not Reportable Lymph % (Auto) Not Reportable [place] % (Auto) Not Reportable Eos % (Auto) Not Reportable Baso % (Auto) Not Reportable Lymph # (Auto) Not Reportable [place] # (Auto) Not Reportable Eos # (Auto) Not Reportable Baso # (Auto) Not Reportable Abs Immat Gran (auto) Not Reportable Absolute Neuts (auto) Not Reportable Absolute Nucleated RBC Not Reportable Total Counted 100 Neutrophils % (Manual) 86 H Band Neutrophils % 10 H Lymphocytes % (Manual) 2 L Monocytes % (Manual) 2 L Nucleated RBC % Not Reportable Abs Neuts (Manual) 19.10 H Abs Lymphs (Manual) 0.39 L Abs Monocytes (Manual) 0.39 Platelet Estimate Slightly decreased Poikilocytosis 1+ Ovalocytes 1+ [place] Cells 1+ Schistocytes None seen PT INR APTT Fibrinogen Puncture Site Right radial ABG pH 7.514 H* ABG pCO2 17.2 L* ABG pO2 76.0 L ABG PO2/FiO2 Ratio 2.71 ABG HCO3 13.5 L ABG O2 Saturation 96.7 ABG O2 Content 15.7 L ABG Base Excess -7.1 A-a Gradient 103.3 Oxyhemoglobin 95.9 Total Hemoglobin 11.6 L O2 Delivery Device Nasal cannula O2 Liters/Min 2.0 FiO2 28 Sodium 126 L Potassium 4.9 Chloride 100 Carbon Dioxide 17 L Anion Gap 9 BUN 31 H Creatinine 1.46 H Estim Creat Clear Calc 31 Estimated GFR 46 L Glucose 128 H Lactic Acid 3.5 H 3.6 H Calcium 7.9 L Phosphorus Magnesium Total Bilirubin 1.1 AST 143 H ALT 110 H Alkaline Phosphatase 109 Total Creatine Kinase C-Reactive Protein > 9.0 H Total Protein 6.0 L Albumin 3.0 L Procalcitonin 5.2 04/09/25 04/09/25 04/09/25 04:02 09:17 10:31 WBC 13.5 H RBC 3.46 L Hgb 10.8 L Hct 32.5 L MCV 93.9 MCH 31.2 MCHC 33.2 RDW 15.0 H Plt Count 121 L MPV 12.0 H Immature Gran % (Auto) Not Reportable Neut % (Auto) Not Reportable Lymph % (Auto) Not Reportable [place] % (Auto) Not Reportable Eos % (Auto) Not Reportable Baso % (Auto) Not Reportable Lymph # (Auto) Not Reportable [place] # (Auto) Not Reportable Eos # (Auto) Not Reportable Baso # (Auto) Not Reportable Abs Immat Gran (auto) Not Reportable Absolute Neuts (auto) Not Reportable Absolute Nucleated RBC Not Reportable Total Counted 100 Neutrophils % (Manual) 84 H Band Neutrophils % 10 H Lymphocytes % (Manual) 4 L Monocytes % (Manual) 2 L Nucleated RBC % Not Reportable Abs Neuts (Manual) 12.69 H Abs Lymphs (Manual) 0.54 L Abs Monocytes (Manual) 0.27 Platelet Estimate Slightly decreased Poikilocytosis 2+ Ovalocytes 1+ [place] Cells 2+ Schistocytes None seen PT 20.6 H INR 1.8 APTT 42.3 H Fibrinogen 453 Puncture Site Left radial ABG pH 7.392 ABG pCO2 22.2 L* ABG pO2 34.6 L* ABG PO2/FiO2 Ratio 1.08 ABG HCO3 13.2 L ABG O2 Saturation 67.8 L* ABG O2 Content 10.4 L ABG Base Excess -9.9 A-a Gradient 167.6 Oxyhemoglobin 63.3 L* Total Hemoglobin 11.7 L O2 Delivery Device Nasal cannula O2 Liters/Min 3.0 FiO2 32 Sodium 128 L Potassium 4.3 Chloride 101 Carbon Dioxide 18 L Anion Gap 9 BUN 40 H Creatinine 1.69 H Estim Creat Clear Calc 27 Estimated GFR 38 L Glucose 118 H Lactic Acid Calcium 7.9 L Phosphorus 3.6 Magnesium 2.1 Total Bilirubin 1.1 AST 654 H ALT 402 H Alkaline Phosphatase 97 Total Creatine Kinase 579 H C-Reactive Protein Total Protein 5.6 L Albumin 2.8 L Procalcitonin
[2025-04-09] MEDS: LIDOCAINE 2% GEL UROJET 10 ML PKG MUCOUS MEM (13:59)
[2025-04-09] MEDS: SODIUM BICARBONATE 8.4% 50 MEQ/50 ML SYRINGE IV PUSH (14:03)
[2025-04-09 14:16] LABS: Add Urine Microscopic? YES; Appearance Urine Cloudy (Clear); Bacteria Urine None Seen /hpf; Bilirubin Urine Negative (Negative); Blood Urine Negative (Negative); Color Urine Dark Yellow (Yellow); Glucose Urine UA Negative (Negative); Ketones Urine Trace mg/dL (Negative); Leukocyte Esterase Ur Negative LEU/UL (Negative); Need Manual Microscopic Reviewed; Nitrate Urine Negative (Negative); Non Pathogenic Casts >20; Protein Urine 2+ mg/dL (Negative); Squamous Epithelial Cell Urine Moderate /hpf (Few); WBC Urine 0-5 /hpf (0-3)
[2025-04-09 14:39] LABS: Osmolality, Urine 779 mOsm/kg (50-1200)
--- NOTE | 2025-04-09 14:47 | P.CONUR_ITS ---
Assessment and Plan Assessment and plan (1) Difficult Nation catheter placement: Code(s): T83.9XXA - Unspecified complication of genitourinary prosthetic device, implant and graft, initial encounter Status: Acute Plan - A 20 F coude catheter placed at bedside without incident. Catheter to be maintained as needed per primary team and then void trial -urology will sign off. Call with questions. Urology Consult Note HPI Date Seen: 04/09/25 Requesting Physician: Juanita Sandoval DO Primary Care Provider: Wallace Reich DO Consult Narrative Narrative: Armando Walton is a 89 year old male admitted the ICU for respiratory illness, positive measles. Nursing staff was unable place Nation catheter which is needed for I's and O's. Urology consult catheter placement PMFSH Past Medical History Medical History (Updated 04/09/25 @ 14:50 by Manuel Haider MD) Difficult Nation catheter placement Hypertension Hyperlipidemia Coronary artery disease Benign prostatic hyperplasia Paroxysmal atrial fibrillation Surgical History Surgical History History of coronary artery stent placement History of cardiac catheterization History of hemorrhoidectomy History of cataract extraction History of appendectomy Family History Family History Father Dementia Mother Heart disease Sibling Heart disease Sibling Heart disease Social History Social History Social History: Surrogate medical decision maker: Luke Gibson. Code status: Full code. 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 Spiritual care concerns: No Meds Home Medications and Allergies Home Medications ?Medication ?Instructions ?Recorded ?Confirmed ?Type aspirin 81 mg tablet,delayed 81 mg PO DAILY 01/08/20 04/07/25 History release (Adult Aspirin Regimen) ascorbate calcium (vitamin C) 500 500 mg PO DAILY 03/25/20 04/07/25 History mg tablet calcium 600 mg (as carbonate)-vit 2 tablet PO DAILY 03/25/20 04/07/25 History D3 5 mcg (200 unit)-minerals tablet multivitamin 1 tablet PO DAILY 03/25/20 04/07/25 History omega-3 fatty acids 1,000 mg 1,000 mg PO DAILY 03/25/20 04/07/25 History capsule atorvastatin 80 mg tablet (Lipitor) 80 mg PO QHS 12/30/24 04/07/25 History clopidogrel 75 mg tablet 75 mg PO DAILY 12/30/24 04/07/25 History cyclosporine 0.05 % eye drops in a 1 drp EACH EYE Q12H 12/30/24 04/07/25 History dropperette famotidine 20 mg tablet 20 mg PO BID 12/30/24 04/07/25 History glucosamine-chondroitin 2 tablet PO DAILY 12/30/24 04/07/25 History isosorbide mononitrate 30 mg 30 mg PO DAILY 12/30/24 04/07/25 History tablet,extended release 24 hr nitroglycerin 0.4 mg sublingual 0.4 mg sublingual Q5M PRN chest 12/30/24 04/07/25 History tablet pain propylene glycol 0.6 % eye drops 1 drp EACH EYE 4-6XD PRN dry eye(s) 12/30/24 04/07/25 History (Systane Complete) ranolazine 500 mg tablet,extended 500 mg PO Q12H 12/30/24 04/07/25 History release,12 hr ipratropium bromide 42 mcg (0.06 2 spray intranasal TID #15 mL 01/15/25 04/07/25 Rx %) nasal spray cefdinir 300 mg capsule 300 mg PO Q12H 10 days #20 caps 04/03/25 04/07/25 Rx metoprolol succinate 25 mg 25 mg PO Q12H 04/07/25 04/07/25 History tablet,extended release 24 hr perfluorohexyloctane (PF) 100 % 1 drp EACH EYE QID 04/07/25 04/07/25 History eye drops (Miebo (PF)) Allergies Allergy/AdvReac Type Severity Reaction Status Date / Time cefdinir Allergy Intermediate Rash Verified 04/08/25 09:12 Vital Signs Vital Signs - 24 hr 04/08/25 14:59 04/08/25 16:00 04/08/25 16:00 Temperature 37.3 C 37.5 C Pulse Rate 125 H 125 H 110 H Respiratory Rate 32 H 32 H 30 H Blood Pressure 126/66 105/59 L Pulse Oximetry 98 98 100 Oxygen Delivery Room Air 04/08/25 16:00 04/08/25 18:00 04/08/25 19:35 Temperature 37.3 C Pulse Rate 105 H 119 H 119 H Respiratory Rate 30 H Blood Pressure 138/71 Pulse Oximetry 98 Oxygen Delivery 04/08/25 20:00 04/08/25 20:00 04/08/25 20:00 Temperature 36.8 C Pulse Rate 112 H 112 H 112 H Respiratory Rate 34 H 34 H Blood Pressure 118/69 Pulse Oximetry 98 96 Oxygen Delivery Room Air 04/08/25 21:59 04/08/25 22:00 04/09/25 00:00 Temperature Pulse Rate 131 H 115 H 115 H Respiratory Rate 34 H Blood Pressure Pulse Oximetry 96 Oxygen Delivery Room Air 04/09/25 00:00 04/09/25 00:00 04/09/25 02:00 Temperature 38.6 C H Pulse Rate 115 H 115 H 99 Respiratory Rate 32 H Blood Pressure 134/72 Pulse Oximetry 100 Oxygen Delivery 04/09/25 04:00 04/09/25 04:00 04/09/25 04:00 Temperature 36.8 C Pulse Rate 97 97 90 Respiratory Rate 32 H 24 H Blood Pressure 102/33 L Pulse Oximetry 100 96 Oxygen Delivery Room Air 04/09/25 06:00 04/09/25 06:35 04/09/25 07:45 Temperature 38.8 C H Pulse Rate 101 H 102 H 105 H Respiratory Rate 32 H Blood Pressure 89/53 L Pulse Oximetry 100 Oxygen Delivery 04/09/25 07:54 04/09/25 10:00 04/09/25 10:00 Temperature 38.0 C H Pulse Rate 97 100 99 Respiratory Rate 33 H Blood Pressure 101/67 Pulse Oximetry 100 Oxygen Delivery 04/09/25 11:33 04/09/25 12:00 04/09/25 12:00 Temperature 37.8 C H Pulse Rate 108 H 97 100 Respiratory Rate 30 H Blood Pressure 84/52 L 96/61 L Pulse Oximetry 100 Oxygen Delivery 04/09/25 12:04 04/09/25 14:00 04/09/25 14:00 Temperature Pulse Rate 96 98 101 H Respiratory Rate Blood Pressure 89/60 L 111/76 Pulse Oximetry Oxygen Delivery 04/09/25 14:00 Temperature 37.6 C Pulse Rate 101 H Respiratory Rate 25 H Blood Pressure 111/76 Pulse Oximetry 93 Oxygen Delivery Exam 2 Narrative: Patient is in no acute distress breathing is unlabored his abdomen is soft nontender. exam normal penis bilateral normal testicles Results Labs 04/09/25 04:02 04/09/25 04:02 Labs: Short CBC 04/08/25 04/09/25 Range/Units 17:43 04:02 WBC 19.9 H 13.5 H (4.5-10.0) K/mm3 Hgb 10.6 L 10.8 L (14.0-18.0) g/dL Hct 31.2 L 32.5 L (42.0-52.0) % Plt Count 134 L 121 L (150-375) k/mm3 BMP 04/08/25 04/09/25 17:43 04:02 Sodium 126 L 128 L Potassium 4.9 4.3 Chloride 100 101 Carbon Dioxide 17 L 18 L BUN 31 H 40 H Creatinine 1.46 H 1.69 H Glucose 128 H 118 H Calcium 7.9 L 7.9 L Cardiac Enzymes 04/09/25 Range/Units 04:02 Total Creatine Kinase 579 H (55-170) U/L Liver Function 04/08/25 04/09/25 Range/Units 17:43 04:02 Total Bilirubin 1.1 1.1 (0.2-1.3) mg/dL AST 143 H 654 H (17-59) U/L ALT 110 H 402 H (6-50) U/L Alkaline Phosphatase 109 97 (38-126) U/L Albumin 3.0 L 2.8 L (3.5-5.1) g/dL Urine 04/09/25 Range/Units 10:31 Urine Color Dark yellow (Yellow) Urine Appearance Cloudy H (Clear) Urine pH 5.0 (5.0-9.0) Ur Specific [place] 1.030 (1.001-1.035) Urine Protein 2+ H (Negative) mg/dL Urine Glucose (UA) Negative (Negative) mg/dL Procedure: The patient was prepped and draped in normal sterile fashion. A lidocaine Uro jet was used. A 20 F coude catheter was inserted with return of clear urine. Catheter was placed to gravity drainage.
[2025-04-09] MEDS: RANOLAZINE 500 MG TAB.ER.12H PO (20:52)
[2025-04-09] MEDS: ACETAMINOPHEN 325 MG TABLET 650 MG PO (20:52)
[2025-04-09] MEDS: FAMOTIDINE 20 MG TABLET PO (20:52)
[2025-04-09 21:58] LABS: Vancomycin Trough 10.1 ug/mL (10.0-20.0)
[2025-04-09] MEDS: VANCOMYCIN 1,750 MG/NS 500 ML 1,750 MG/500 ML BAG 250 MG IVPB (22:38)
[2025-04-10] VITALS (20 sets, daily range): BP systolic 76–128; BP diastolic 50–78; PULSE 62–135; RESP 23–29; TEMP 36.7–38.2; O2SAT 95–100
[2025-04-10 02:09] LABS: CMV IgG Antibody <0.60 U/mL; CMV IgM Antibody <30.00 AU/mL
[2025-04-10] MEDS: MEROPENEM 1 GM/NS 100 ML 1 GM/100 ML BAG IVPB ×2 (03:31→15:48)
[2025-04-10 04:10] LABS: Hematocrit 32.9 % (42.0-52.0); Hemoglobin 11.1 g/dL (14.0-18.0); Mean Corpuscular HGB Conc 33.7 g/dl (32-36); Mean Corpuscular Hemoglobin 31.1 pg (26-34); Mean Corpuscular Volume 92.2 fl (80-100); Mean Platelet Volume 11.7 fl (7.4-10.4); Platelet Count Result 136 k/mm3 (150-375); Red Blood Count 3.57 M/mm3 (4.6-6.20); White Blood Count 21.3 K/mm3 (4.5-10.0)
[2025-04-10 04:23] LABS: Alanine Aminotransferase 702 U/L (6-50); Albumin Level 2.6 g/dL (3.5-5.1); Alkaline Phosphatase 85 U/L (38-126); Anion Gap 8 mmol/L (4-12); Aspartate Amino Transferase 722 U/L (17-59); Bilirubin,Total 1.3 mg/dL (0.2-1.3); Blood Urea Nitrogen 52 mg/dL (9-20); Calcium 7.7 mg/dL (8.4-10.2); Carbon Dioxide 19 mmol/L (22-30); Chloride 105 mmol/L (98-107); Creatine Kinase 720 U/L (55-170); Estimated CRCL calculation 33 ml/min; Estimated Glomerular Filt Rate 48; Glucose 108 mg/dL (65-110); Magnesium 2.2 mg/dL (1.6-2.3); Phosphorus 3.2 mg/dL (2.5-4.5); Sodium 132 mmol/L (137-145); Total Protein 5.2 g/dL (6.3-8.2)
[2025-04-10 04:39] LABS: Band Neutrophils Percent 21 % (0-6); Eosinophils Absolute Manual 0.21 K/mm3 (0.02-0.50); Eosinophils Percent Manual 1 % (0-4); Lymphocytes Absolute Manual 0.42 K/mm3 (1.1-4.5); Monocytes Percent Manual 8 % (3-9); Neutrophils Absolute Manual 18.95 K/mm3 (1.3-6.7); Neutrophils Percent Manual 68 % (46-73); Platelet Estimate Decreased (Adequate); Total Cells Counted 100
[2025-04-10 04:40] LABS: Acanthocytes 3+; Anisocytosis 1+; Schistocytes None Seen
[2025-04-10] MEDS: CENTRAL LINE FLUSH 10 ML IV PUSH ×3 (05:00→20:54)
--- NOTE | 2025-04-10 09:03 | WPDINTPN ---
Progress Note: A&P Assessment and Plan (1) Sepsis: Qualifiers: Sepsis acute organ dysfunction status: without acute organ dysfunction Sepsis type: sepsis due to unspecified organism Qualified Code(s): A41.9 - Sepsis, unspecified organism Code(s): A41.9 - Sepsis, unspecified organism Status: Acute Assessment and Plan: Patient presented with sepsis with the fever and rash and complained of sore throat and pain in the left neck CT scan of the soft tissue neck showed IMPRESSION: Right palatine tonsillar enlargement. No tonsillar abscess detected. Left submandibular gland enlargement. Left anterior cervical chain lymphadenopathy. Anterior neck soft tissue stranding, which may represent cellulitis in the appropriate clinical context. Paratracheal lymphadenopathy Patient was evaluated by ENT who recommended antibiotic therapy UA negative Ultrasound of IJ negative for any clot Will check CT chest showed Bilateral basal atelectasis versus pneumonia with bilateral pleural effusion more on the right side. Blood cultures ordered and pending Ultrasound of the right upper quadrant suggest cholecystitis and hence general surgery consulted Patient is currently isolated and is also being checked for measles Continue Kike-Synephrine for blood pressure support (2) Cardiomyopathy: Code(s): I42.9 - Cardiomyopathy, unspecified Status: Acute Assessment and Plan: History of coronary disease and ischemic cardiomyopathy. Hold further IV fluids IV fluid Hold beta-angelo and Entresto at this time due to low blood pressure. Continue Kike-Synephrine EchoSummary 1. Left ventricular chamber dimension is moderately enlarged. 2. Left ventricular systolic function is severely globally reduced, estimated at 20-25. 3. There is mild concentric increased left ventricular wall thickness. 4. The left ventricular diastolic function is abnormal. 5. E/e' 11 is mildly elevated. 6. Definity contrast administered improved wall motion interpretation. 7. Atrial fibrillation. 8. Left atrial chamber dimension is moderately enlarged. 9. Right atrial chamber dimension is moderately enlarged. 10. There is mild aortic valve sclerosis. 11. There is mild to moderate aortic valve regurgitation. 12. The mitral valve has a mildly calcified annulus. 13. There is mild to moderate mitral valve regurgitation. 14. There is mild tricuspid valve regurgitation. 15. No pulmonary hypertension, estimated pulmonary arterial systolic pressure is 33 mmHg. 16. The prox ascending aorta size is mildly dilated at 4.4 cm. (3) CHF (congestive heart failure): Code(s): I50.9 - Heart failure, unspecified Status: Acute Assessment and Plan: See above (4) Coronary artery disease: Qualifiers: Coronary Disease-Associated Artery/Lesion type: [place] artery [place] vs. transplanted heart: [place] heart Associated angina: without angina Qualified Code(s): I25.10 - Atherosclerotic heart disease of [place] coronary artery without angina pectoris Code(s): I25.10 - Atherosclerotic heart disease of [place] coronary artery without angina pectoris Status: Acute Assessment and Plan: History of coronary disease status post stenting. Continue aspirin and Plavix Hold beta-angelo and statin (5) Paroxysmal atrial fibrillation: Code(s): I48.0 - Paroxysmal atrial fibrillation Status: Acute Assessment and Plan: Currently in AFib with controlled ventricular rate. Hold beta-angelo due to hypotension May need amiodarone infusion (6) Localized swelling, mass and lump, neck: Code(s): R22.1 - Localized swelling, mass and lump, neck Status: Acute Assessment and Plan: See above (7) Elevated LFTs: Code(s): R79.89 - Other specified abnormal findings of blood chemistry Status: Acute Assessment and Plan: Likely secondary to shock liver Hold statin ultrasound reviewed (8) Benign prostatic hyperplasia: Code(s): N40.0 - Benign prostatic hyperplasia without lower urinary tract symptoms Status: Acute Assessment and Plan: Place Nation catheter (9) Rhabdomyolysis: Code(s): M62.82 - Rhabdomyolysis Status: Acute Assessment and Plan: Conservative IV fluids due to history of congestive heart failure (10) LENIN (acute kidney injury): Code(s): N17.9 - Acute kidney failure, unspecified Status: Acute Assessment and Plan: LENIN likely secondary to sepsis and abscess Conservative IV fluids due to history of congestive heart failure. Will give additional 1 L of IV fluids with bicarb CT scan of abdomen negative for any obstruction or stone Consulted Urology Place Nation catheter for accurate I&Os Creatinine slightly improved Monitor urine output electrolytes and creatinine (11) Rash: Code(s): R21 - Rash and other nonspecific skin eruption Status: Acute Assessment and Plan: Can be secondary antibiotics or viral infection No schistocytes on peripheral blood smear Coag panel mildly abnormal (12) Cholecystitis: Code(s): K81.9 - Cholecystitis, unspecified Status: Acute Assessment and Plan: Right upper quadrant ultrasound showed Distended gallbladder with possible minimal pericholecystic fluid versus edema. Clinical correlation and follow-up advised. Otherwise, normal Limited abdominal ultrasound. Consulted general surgery NPO at this time Plan DVT prophylaxis -Lovenox Nutrition -diet ordered Code Status -patient wishes to be Full Code but does not want want to be on mechanical ventilation for a prolonged period of time. He is a and does not have any biological children. He wants his cousin Daniel to be decision maker on his behalf he is unable to do so Total Critical Care Time - 30 minutes Due to a high probability of clinically significant, life threatening deterioration, the patient required my highest level of preparedness to intervene emergently and I personally spent this critical care time directly and personally managing the patient. This critical care time included obtaining a history; examining the patient; pulse oximetry; ordering and review of studies; arranging urgent treatment with development of a management plan; evaluation of patient's response to treatment; frequent reassessment; and discussions with other providers. It was exclusive of separately billable procedures and treating other patients and teaching time. Please see Assessment and Plan section and the rest of the note for further information on patient assessment and treatment Subjective Date/time seen: 04/10/25 He states he feels much better today and his throat pain has improved significantly. He denies any nausea vomiting shortness of breath or chest pain. No cough abdominal pain. All other systems were reviewed and were negative. He states he is hungry and would like to have some fluid. He continues to be on Kike-Synephrine drip at a low rate. His in AFib with controlled ventricular rate. Urine output is on the lower side. He is still having fevers. Nation catheter was placed by Urology. Interval history: 89yo male with CAD with recent stent placement in December, pAFib (off anticoagulation for about 6 months) and HTN here for fever and sore throat. Review of Systems Review of Systems: All systems reviewed & are unremarkable except as noted in HPI and below (HPI) Exam Narrative: General: Pt is free old man who is awake and alert today Lungs/Chest: Trachea central course BS decreased at bases B/L, mild tachypnea but no respiratory distress Cardiac: Irregular rate and rhythm. Normal S1 S2. No murmurs Circulation: Pedal pulses are intact and symmetrical. Feet are warm Abdomen: Normal bowel sounds.. Soft. Mild tenderness to palpation right upper quadrant Extremities: No clubbing, cyanosis or edema. Warm : Nation in place Neurologic: Follows commands. Moves all 4 extremities PERRL AO x3 Skin: Maculopapular rash on both legs appears less red the as compared to yesterday Objective Data Vital Signs Vital Signs: Vital Signs - 24 hr 04/09/25 10:00 04/09/25 10:00 04/09/25 11:33 Temperature 38.0 C H Pulse Rate 100 99 108 H Respiratory Rate 33 H Blood Pressure 101/67 84/52 L Pulse Oximetry 100 Oxygen Delivery Oxygen Flow Rate 04/09/25 12:00 04/09/25 12:00 04/09/25 12:04 Temperature 37.8 C H Pulse Rate 97 100 96 Respiratory Rate 30 H Blood Pressure 96/61 L 89/60 L Pulse Oximetry 100 Oxygen Delivery Oxygen Flow Rate 04/09/25 14:00 04/09/25 14:00 04/09/25 14:00 Temperature 37.6 C Pulse Rate 98 101 H 101 H Respiratory Rate 25 H Blood Pressure 111/76 111/76 Pulse Oximetry 93 Oxygen Delivery Oxygen Flow Rate 04/09/25 16:00 04/09/25 16:00 04/09/25 16:00 Temperature 37.7 C H Pulse Rate 96 98 Respiratory Rate 28 H Blood Pressure 117/75 Pulse Oximetry 96 96 Oxygen Delivery Nasal Cannula Oxygen Flow Rate 3 04/09/25 16:00 04/09/25 17:06 04/09/25 18:00 Temperature Pulse Rate 98 106 H 100 Respiratory Rate Blood Pressure 117/75 120/61 Pulse Oximetry Oxygen Delivery Oxygen Flow Rate 04/09/25 18:00 04/09/25 20:00 04/09/25 20:00 Temperature 37.7 C H Pulse Rate 100 108 H 117 H Respiratory Rate 30 H Blood Pressure 113/72 117/63 Pulse Oximetry 100 Oxygen Delivery Oxygen Flow Rate 04/09/25 20:00 04/09/25 20:00 04/09/25 20:52 Temperature 38.9 C H 38.9 C H Pulse Rate 117 H Respiratory Rate 27 H Blood Pressure 117/63 Pulse Oximetry 98 98 Oxygen Delivery Nasal Cannula Oxygen Flow Rate 3 04/09/25 21:00 04/09/25 21:01 04/09/25 21:52 Temperature 36.9 C Pulse Rate 105 H 111 H Respiratory Rate 29 H Blood Pressure 122/74 Pulse Oximetry 99 Oxygen Delivery Nasal Cannula Oxygen Flow Rate 2 04/09/25 22:00 04/09/25 22:00 04/09/25 22:00 Temperature Pulse Rate 109 H 109 H 109 H Respiratory Rate 29 H Blood Pressure 98/63 L 98/63 L Pulse Oximetry 98 Oxygen Delivery Oxygen Flow Rate 04/10/25 00:00 04/10/25 00:00 04/10/25 00:00 Temperature 36.7 C Pulse Rate 96 96 Respiratory Rate 24 H Blood Pressure 92/61 L 92/61 L Pulse Oximetry 98 98 Oxygen Delivery Nasal Cannula Oxygen Flow Rate 3 04/10/25 00:00 04/10/25 02:00 04/10/25 02:00 Temperature Pulse Rate 99 107 H 107 H Respiratory Rate 25 H Blood Pressure 92/58 L Pulse Oximetry 100 Oxygen Delivery Oxygen Flow Rate 04/10/25 02:00 04/10/25 04:00 04/10/25 04:00 Temperature 37.2 C Pulse Rate 107 H 115 H Respiratory Rate 24 H Blood Pressure 92/58 L 114/67 Pulse Oximetry 99 100 Oxygen Delivery Nasal Cannula Oxygen Flow Rate 3 04/10/25 04:00 04/10/25 04:00 04/10/25 04:15 Temperature Pulse Rate 115 H 107 H 112 H Respiratory Rate Blood Pressure 99/54 L 76/50 L Pulse Oximetry Oxygen Delivery Oxygen Flow Rate 04/10/25 04:20 04/10/25 06:00 04/10/25 06:00 Temperature Pulse Rate 110 H 105 H 105 H Respiratory Rate Blood Pressure 83/65 L 92/57 L Pulse Oximetry Oxygen Delivery Oxygen Flow Rate 04/10/25 06:00 04/10/25 07:53 Temperature 38.2 C H Pulse Rate 105 H 62 Respiratory Rate 24 H 24 H Blood Pressure 92/57 L 128/53 L Pulse Oximetry 100 96 Oxygen Delivery Oxygen Flow Rate Intake/Output Intake/Output: Intake & Output 04/07/25 04/08/25 04/09/25 04/10/25 23:59 23:59 23:59 23:59 Intake Total 2100 2524.0 1340.0 653.5 Output Total 525 600 350 Balance 2100 1999.0 740.0 303.5 Meds/Results Medications: Active Medications Generic Name Dose Route Start Last Admin Trade Name Freq PRN Reason Stop Dose Admin Acetaminophen 650 mg 04/07/25 19:59 04/09/25 20:52 Acetaminophen 325 Mg Tablet PO 650 mg Q6H PRN Administration Mild Pain (1-3) or Fever Artificial Tears 1 drop 04/08/25 03:43 Artificial Tears Ophth Soln 15 Ml Bottle EACH EYE Q4H PRN Dry Eye(s) Ascorbic Acid 500 mg 04/08/25 09:00 04/09/25 12:02 Ascorbic Acid 500 Mg Tablet PO Not Given DAILY [facility] Aspirin 81 mg 04/08/25 09:00 04/09/25 12:02 Aspirin 81 Mg Enteric Tablet PO Not Given DAILY ATUL Calcium Carbonate 1,000 mg 04/08/25 12:00 04/09/25 12:03 Calcium/Vitamin D 500 Mg/5 Mcg (200 I.U.) Tablet PO Not Given DAILY@1200 ATUL Clopidogrel Bisulfate 75 mg 04/08/25 09:00 04/09/25 12:02 Clopidogrel Bisulfate 75 Mg Tablet PO Not Given DAILY [facility] Cyclosporine 1 drop 04/08/25 09:00 04/09/25 20:52 Cyclosporine 0.4 Ml Ophth Solution EACH EYE 1 drop Q12HR ATUL Administration Enoxaparin Sodium 30 mg 04/09/25 09:00 04/09/25 12:06 Enoxaparin 30 Mg/0.3 Ml Syringe SUB-Q Not Given DAILY ATUL Famotidine 20 mg 04/08/25 09:00 04/09/25 20:52 Famotidine 20 Mg Tablet PO 20 mg Q12HR ATUL Administration Fish Oil 1 gm 04/08/25 09:00 04/09/25 12:03 [place] 3 Polyunsat Fatty Acids 1 Gm Cap PO Not Given DAILY [facility] Meropenem 1 gm in 100 mls @ 200 mls/hr 04/08/25 04:00 04/10/25 04:01 IVPB Infused Q12H ATUL Infusion Doxycycline Hyclate 100 mg in 100 mls @ 100 mls/hr 04/08/25 21:00 04/09/25 21:59 Vibramycin 100 Mg/Ns 100 Ml IVPB Infused Q12H ATUL Infusion Phenylephrine HCl 50 mg/ 250 mls @ 7.5 mls/hr 04/09/25 10:45 04/10/25 06:00 Sodium Chloride IV CONT 25 mcg/min .[id number] ATUL 7.5 mls/hr Titration Protocol 25 MCG/MIN Vancomycin HCl 1,750 mg in 500 mls @ 250 mls/hr 04/09/25 23:00 04/10/25 00:38 Vancomycin 1,750 Mg/Ns 500 Ml IVPB Infused Q18H ATUL Infusion Ipratropium [place] 2 spray 04/08/25 09:00 04/09/25 16:33 Ipratropium Nasal [place] 0.06% 15 Ml Bottle NASAL 2 spray TID ATUL Administration Metoprolol Tartrate 25 mg 04/08/25 12:45 04/09/25 06:35 Metoprolol Tartrate 25 Mg Tablet PO 25 mg Q8HR ATUL Administration Multivitamins Therapeutic 1 tablet 04/08/25 09:00 04/09/25 12:03 Multivitamins Therapeutic Tab (*Bkc) PO Not Given DAILY ATUL Oxymetazoline HCl 1 spray 04/08/25 16:42 Oxymetazoline Hcl 0.05% Adeel 15 Ml Btl (*Bkc) NASAL Q12HR PRN Congestion Ranolazine 500 mg 04/08/25 09:00 04/09/25 20:52 Ranolazine 500 Mg Tab.Er.12h PO 500 mg Q12HR ATUL Administration Sodium Bicarbonate 650 mg 04/09/25 17:00 04/09/25 16:34 Sodium Bicarbonate Tab 650 Mg Tablet PO Not Given BID ATUL Sodium Chloride 10 ml 04/09/25 14:00 04/10/25 05:00 Central Line Flush IV PUSH 10 ml Q8HR ATUL Administration Sodium Chloride 10 ml 04/09/25 10:42 Central Line Flush IV PUSH PRN PRN with TPN bag changes Sodium Chloride 20 ml 04/09/25 10:42 Central Line Flush IV PUSH PRN PRN after blood draws Radiology Results: ITS Impressions Soft Tissue Neck CT 04/07/25 17:28 IMPRESSION: Right palatine tonsillar enlargement. No tonsillar abscess detected. Left submandibular gland enlargement. Left anterior cervical chain lymphadenopathy. Anterior neck soft tissue stranding, which may represent cellulitis in the appropriate clinical context. Paratracheal lymphadenopathy. Mild interstitial edema. Hip/Pelvis X-Ray 04/08/25 15:38 Impression: 1: No acute bone or joint abnormality. Cervical Spine CT 04/08/25 15:49 IMPRESSION: 1. No acute abnormality of the cervical spine. 2: Moderate cervical spondylosis. Abdomen Ultrasound 04/08/25 17:43 IMPRESSION: Distended gallbladder with possible minimal pericholecystic fluid versus edema. Clinical correlation and follow-up advised. Otherwise, normal Limited abdominal ultrasound. Chest X-Ray 04/09/25 11:27 Impression: 1: Cardiomegaly with mild interstitial edema, improved compared with 04/08/2025. Head CT 04/09/25 12:26 Impression: No intracranial hemorrhage, mass, or acute infarct. Atrophy and chronic white matter changes, as above. Venous Doppler Study 04/09/25 14:23 Impression: 1: Normal venous ultrasound of the internal jugular veins. No evidence for deep venous thrombosis. Chest/Abdomen/Pelvis CT 04/09/25 19:03 IMPRESSION: CHEST: 1. Bilateral basal atelectasis versus pneumonia with bilateral pleural effusion more on the right side. 2. Mediastinal lymphadenopathy. 3. Cardiomegaly. 4. Nodule in the left upper lobe. 6 months follow-up CT is advised. ABDOMEN/PELVIS: 1. No evidence of appendicitis, diverticulitis or intestinal obstruction. 2. 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 3. Hyperdense areas in the kidneys which may be residual contrast versus hemorrhagic cysts. Labs Labs: Laboratory Results - last 24 hr 04/07/25 04/07/25 04/08/25 21:03 21:06 17:43 WBC RBC Hgb Hct MCV MCH MCHC RDW Plt Count MPV Immature Gran % (Auto) Neut % (Auto) Lymph % (Auto) [place] % (Auto) Eos % (Auto) Baso % (Auto) Lymph # (Auto) [place] # (Auto) Eos # (Auto) Baso # (Auto) Abs Immat Gran (auto) Absolute Neuts (auto) Absolute Nucleated RBC Total Counted Neutrophils % (Manual) Band Neutrophils % Lymphocytes % (Manual) Monocytes % (Manual) Eosinophils % (Manual) Nucleated RBC % Abs Neuts (Manual) Abs Lymphs (Manual) Abs Monocytes (Manual) Absolute Eos (Manual) Platelet Estimate Anisocytosis Acanthocytes (Spur) Schistocytes PT INR APTT Fibrinogen Puncture Site ABG pH ABG pCO2 ABG pO2 ABG PO2/FiO2 Ratio ABG HCO3 ABG O2 Saturation ABG O2 Content ABG Base Excess A-a Gradient Oxyhemoglobin Total Hemoglobin O2 Delivery Device O2 Liters/Min FiO2 Sodium Potassium Chloride Carbon Dioxide Anion Gap BUN Creatinine Estim Creat Clear Calc Estimated GFR Glucose Serum Osmolality 278 Calcium Phosphorus Magnesium Total Bilirubin AST ALT Alkaline Phosphatase Total Creatine Kinase Total Protein Albumin Urine Color Urine Appearance Urine pH Ur Specific [place] Urine Protein Urine Glucose (UA) Urine Ketones Ur Blood (Man) Urine Nitrate Urine Bilirubin Urine Urobilinogen Add Ur Microanalysis Leukocyte Esterase Rfl Urine RBC Urine WBC Ur Squamous Epith Cells Urine Bacteria Urine Casts Urine Osmolality 779 Vancomycin Trough CMV IgG Ab <0.60 CMV IgM Ab <30.00 04/09/25 04/09/25 04/09/25 09:17 10:31 21:00 WBC RBC Hgb Hct MCV MCH MCHC RDW Plt Count MPV Immature Gran % (Auto) Neut % (Auto) Lymph % (Auto) [place] % (Auto) Eos % (Auto) Baso % (Auto) Lymph # (Auto) [place] # (Auto) Eos # (Auto) Baso # (Auto) Abs Immat Gran (auto) Absolute Neuts (auto) Absolute Nucleated RBC Total Counted Neutrophils % (Manual) Band Neutrophils % Lymphocytes % (Manual) Monocytes % (Manual) Eosinophils % (Manual) Nucleated RBC % Abs Neuts (Manual) Abs Lymphs (Manual) Abs Monocytes (Manual) Absolute Eos (Manual) Platelet Estimate Anisocytosis Acanthocytes (Spur) Schistocytes PT 20.6 H INR 1.8 APTT 42.3 H Fibrinogen 453 Puncture Site Left radial ABG pH 7.392 ABG pCO2 22.2 L* ABG pO2 34.6 L* ABG PO2/FiO2 Ratio 1.08 ABG HCO3 13.2 L ABG O2 Saturation 67.8 L* ABG O2 Content 10.4 L ABG Base Excess -9.9 A-a Gradient 167.6 Oxyhemoglobin 63.3 L* Total Hemoglobin 11.7 L O2 Delivery Device Nasal cannula O2 Liters/Min 3.0 FiO2 32 Sodium Potassium Chloride Carbon Dioxide Anion Gap BUN Creatinine Estim Creat Clear Calc Estimated GFR Glucose Serum Osmolality Calcium Phosphorus Magnesium Total Bilirubin AST ALT Alkaline Phosphatase Total Creatine Kinase Total Protein Albumin Urine Color Dark yellow Urine Appearance Cloudy H Urine pH 5.0 Ur Specific [place] 1.030 Urine Protein 2+ H Urine Glucose (UA) Negative Urine Ketones Trace H Ur Blood (Man) Negative Urine Nitrate Negative Urine Bilirubin Negative Urine Urobilinogen 1.0 Add Ur Microanalysis Reviewed Leukocyte Esterase Rfl Negative Urine RBC 6-10 H Urine WBC 0-5 Ur Squamous Epith Cells Moderate Urine Bacteria None seen Urine Casts >20 Urine Osmolality Vancomycin Trough 10.1 CMV IgG Ab CMV IgM Ab 04/10/25 03:59 WBC 21.3 H RBC 3.57 L Hgb 11.1 L Hct 32.9 L MCV 92.2 MCH 31.1 MCHC 33.7 RDW 15.0 H Plt Count 136 L MPV 11.7 H Immature Gran % (Auto) Not Reportable Neut % (Auto) Not Reportable Lymph % (Auto) Not Reportable [place] % (Auto) Not Reportable Eos % (Auto) Not Reportable Baso % (Auto) Not Reportable Lymph # (Auto) Not Reportable [place] # (Auto) Not Reportable Eos # (Auto) Not Reportable Baso # (Auto) Not Reportable Abs Immat Gran (auto) Not Reportable Absolute Neuts (auto) Not Reportable Absolute Nucleated RBC Not Reportable Total Counted 100 Neutrophils % (Manual) 68 Band Neutrophils % 21 H Lymphocytes % (Manual) 2.0 L Monocytes % (Manual) 8 Eosinophils % (Manual) 1 Nucleated RBC % Not Reportable Abs Neuts (Manual) 18.95 H Abs Lymphs (Manual) 0.42 L Abs Monocytes (Manual) 1.70 H Absolute Eos (Manual) 0.21 Platelet Estimate Decreased Anisocytosis 1+ Acanthocytes (Spur) 3+ Schistocytes None seen PT INR APTT Fibrinogen Puncture Site ABG pH ABG pCO2 ABG pO2 ABG PO2/FiO2 Ratio ABG HCO3 ABG O2 Saturation ABG O2 Content ABG Base Excess A-a Gradient Oxyhemoglobin Total Hemoglobin O2 Delivery Device O2 Liters/Min FiO2 Sodium 132 L Potassium 4.0 Chloride 105 Carbon Dioxide 19 L Anion Gap 8 BUN 52 H D Creatinine 1.40 H Estim Creat Clear Calc 33 Estimated GFR 48 L Glucose 108 Serum Osmolality Calcium 7.7 L Phosphorus 3.2 Magnesium 2.2 Total Bilirubin 1.3 AST 722 H ALT 702 H Alkaline Phosphatase 85 Total Creatine Kinase 720 H Total Protein 5.2 L Albumin 2.6 L Urine Color Urine Appearance Urine pH Ur Specific [place] Urine Protein Urine Glucose (UA) Urine Ketones Ur Blood (Man) Urine Nitrate Urine Bilirubin Urine Urobilinogen Add Ur Microanalysis Leukocyte Esterase Rfl Urine RBC Urine WBC Ur Squamous Epith Cells Urine Bacteria Urine Casts Urine Osmolality Vancomycin Trough CMV IgG Ab CMV IgM Ab Quality VTE Prophylaxis VTE prophylaxis: pharmacologic ordered
--- NOTE | 2025-04-10 09:36 | P.PNCA_ITS ---
Progress Note: A&P Assessment and Plan (1) Sepsis: Qualifiers: Sepsis acute organ dysfunction status: without acute organ dysfunction Sepsis type: sepsis due to unspecified organism Qualified Code(s): A41.9 - S epsis, unspecified organism Code(s): A41.9 - Sepsis, unspecified organism Status: Acute Plan Sepsis Acute on chronic heart failure with reduced LVEF Paroxysmal atrial fibrillation with RVR Coronary artery disease s/p PCI Elevated liver enzymes Anemia Acute kidney injury Rhabdomyolysis PLAN: -Currently, CHF meds are on hold due to hypotension. Will continue to hold these for now until blood pressures stabilize and sepsis resolves. -Currently reasonably rate controlled AFIB, however, if issues with RVR, then would do Amiodarone given hypotension. -Continue ASA 81mg once daily. Plavix currently on hold -- if no procedures are anticipated, so resuming Plavix -Continue Ranolazine. -Statin on hold given elevated liver enzymes. -He was previously on Xarelto because of atrial fibrillation, unclear why he is no longer taking this. Will review records to see if there is a contraindication. If not, would resume a/c at some point prior to discharge and discontinue ASA leaving him on Plavix (to avoid triple therapy). -IV Lasix as needed. Recommendations and plan discussed with ICU Physician. Subjective Date/time seen: 04/10/25 09:36 Interval history: Reason for visit: AFIB, CHF, Sepsis HPI: Armando Walton is an 89 year old male with coronary artery disease s/p PCI to RCA, LCx, repeat intervention to the LXc in 2010, vprox LAD in 2023, and shockwave and stenting of the LAD and LCx in 2024). He presents to the hospital with sore throat, shortness of breath, and fever. Cardiology is consulted for atrial fibrillation and CHF. Echocardiogram performed during this hospitalization showed severe LV dysfunction with EF 20-25% which is a decline compared to echo in December 2024 showing EF 40%. Patient states he has intermittent chest pain and takes NTG about 3 times weekly on average. Has been experiencing shortness of breath and some lower extremity edema but no palpitations. Feeling a little better today but still has chills and shortness of breath. Date of service 04/09: Overnight, he had two falls in his room. Now in the ICU. Patient quite sleepy this morning. Date of service 04/10/2025: Review of Systems Review of Systems: All systems reviewed & are unremarkable except as noted in HPI and below ROS unobtainable: Yes unobtainable due to mental status Cardiovascular: Cardiovascular: Reports as per HPI Exam Const: General: comfortable, no acute distress, alert and awake Orientation/consciousness: patient oriented x3 Other: Sleepy HENMT: Head: normal to inspection Mouth: Yes moist mucous membranes and Yes dry mucous membranes Eyes: General: appearance normal, both eyes and all related structures Sclera: sclerae normal Pupils: Equal, round and reactive pupils present Neck: Neck: normal visual inspection, supple and no JVD Carotids: normal carotid upstroke Resp: Effort & Inspection: normal respiratory effort Auscultation: rales Cardio: Rate: regular rate and tachycardic Rhythm: abnormal rhythm irregularly irregular Heart sounds: S1 normal heart sound present, S2 normal heart sound present and no murmurs GI: Auscultation: normal bowel sounds Skin: General skin exam: normal color, erythema and rashes Rashes: rashes noted Neuro: General: patient oriented x3 Cranial nerves: Yes Equal, round and reactive pupils present Extrem: General: edema and pedal edema Psych: Appearance: grossly normal Mental Status: mental status grossly normal Affect: normal affect Other: Sleepy Objective Data Vital Signs Vital Signs: Vital Signs - 24 hr 04/09/25 10:00 04/09/25 10:00 04/09/25 11:33 Temperature 38.0 C H Pulse Rate 100 99 108 H Respiratory Rate 33 H Blood Pressure 101/67 84/52 L Pulse Oximetry 100 Oxygen Delivery Oxygen Flow Rate 04/09/25 12:00 04/09/25 12:00 04/09/25 12:04 Temperature 37.8 C H Pulse Rate 97 100 96 Respiratory Rate 30 H Blood Pressure 96/61 L 89/60 L Pulse Oximetry 100 Oxygen Delivery Oxygen Flow Rate 04/09/25 14:00 04/09/25 14:00 04/09/25 14:00 Temperature 37.6 C Pulse Rate 98 101 H 101 H Respiratory Rate 25 H Blood Pressure 111/76 111/76 Pulse Oximetry 93 Oxygen Delivery Oxygen Flow Rate 04/09/25 16:00 04/09/25 16:00 04/09/25 16:00 Temperature 37.7 C H Pulse Rate 96 98 Respiratory Rate 28 H Blood Pressure 117/75 Pulse Oximetry 96 96 Oxygen Delivery Nasal Cannula Oxygen Flow Rate 3 04/09/25 16:00 04/09/25 17:06 04/09/25 18:00 Temperature Pulse Rate 98 106 H 100 Respiratory Rate Blood Pressure 117/75 120/61 Pulse Oximetry Oxygen Delivery Oxygen Flow Rate 04/09/25 18:00 04/09/25 20:00 04/09/25 20:00 Temperature 37.7 C H Pulse Rate 100 108 H 117 H Respiratory Rate 30 H Blood Pressure 113/72 117/63 Pulse Oximetry 100 Oxygen Delivery Oxygen Flow Rate 04/09/25 20:00 04/09/25 20:00 04/09/25 20:52 Temperature 38.9 C H 38.9 C H Pulse Rate 117 H Respiratory Rate 27 H Blood Pressure 117/63 Pulse Oximetry 98 98 Oxygen Delivery Nasal Cannula Oxygen Flow Rate 3 04/09/25 21:00 04/09/25 21:01 04/09/25 21:52 Temperature 36.9 C Pulse Rate 105 H 111 H Respiratory Rate 29 H Blood Pressure 122/74 Pulse Oximetry 99 Oxygen Delivery Nasal Cannula Oxygen Flow Rate 2 04/09/25 22:00 04/09/25 22:00 04/09/25 22:00 Temperature Pulse Rate 109 H 109 H 109 H Respiratory Rate 29 H Blood Pressure 98/63 L 98/63 L Pulse Oximetry 98 Oxygen Delivery Oxygen Flow Rate 04/10/25 00:00 04/10/25 00:00 04/10/25 00:00 Temperature 36.7 C Pulse Rate 96 96 Respiratory Rate 24 H Blood Pressure 92/61 L 92/61 L Pulse Oximetry 98 98 Oxygen Delivery Nasal Cannula Oxygen Flow Rate 3 04/10/25 00:00 04/10/25 02:00 04/10/25 02:00 Temperature Pulse Rate 99 107 H 107 H Respiratory Rate 25 H Blood Pressure 92/58 L Pulse Oximetry 100 Oxygen Delivery Oxygen Flow Rate 04/10/25 02:00 04/10/25 04:00 04/10/25 04:00 Temperature 37.2 C Pulse Rate 107 H 115 H Respiratory Rate 24 H Blood Pressure 92/58 L 114/67 Pulse Oximetry 99 100 Oxygen Delivery Nasal Cannula Oxygen Flow Rate 3 04/10/25 04:00 04/10/25 04:00 04/10/25 04:15 Temperature Pulse Rate 115 H 107 H 112 H Respiratory Rate Blood Pressure 99/54 L 76/50 L Pulse Oximetry Oxygen Delivery Oxygen Flow Rate 04/10/25 04:20 04/10/25 06:00 04/10/25 06:00 Temperature Pulse Rate 110 H 105 H 105 H Respiratory Rate Blood Pressure 83/65 L 92/57 L Pulse Oximetry Oxygen Delivery Oxygen Flow Rate 04/10/25 06:00 04/10/25 07:53 Temperature 38.2 C H Pulse Rate 105 H 62 Respiratory Rate 24 H 24 H Blood Pressure 92/57 L 128/53 L Pulse Oximetry 100 96 Oxygen Delivery Oxygen Flow Rate Intake/Output Intake/Output: Intake & Output 04/07/25 04/08/25 04/09/25 04/10/25 23:59 23:59 23:59 23:59 Intake Total 2100 2524.0 1340.0 653.5 Output Total 525 600 350 Balance 2100 1999.0 740.0 303.5 Meds/Results Medications: Active Medications Generic Name Dose Route Start Last Admin Trade Name Freq PRN Reason Stop Dose Admin Acetaminophen 650 mg 04/07/25 19:59 04/09/25 20:52 Acetaminophen 325 Mg Tablet PO 650 mg Q6H PRN Administration Mild Pain (1-3) or Fever Artificial Tears 1 drop 04/08/25 03:43 Artificial Tears Ophth Soln 15 Ml Bottle EACH EYE Q4H PRN Dry Eye(s) Ascorbic Acid 500 mg 04/08/25 09:00 04/09/25 12:02 Ascorbic Acid 500 Mg Tablet PO Not Given DAILY [facility] Aspirin 81 mg 04/08/25 09:00 04/09/25 12:02 Aspirin 81 Mg Enteric Tablet PO Not Given DAILY [facility] Calcium Carbonate 1,000 mg 04/08/25 12:00 04/09/25 12:03 Calcium/Vitamin D 500 Mg/5 Mcg (200 I.U.) Tablet PO Not Given DAILY@1200 [facility] Clopidogrel Bisulfate 75 mg 04/08/25 09:00 04/09/25 12:02 Clopidogrel Bisulfate 75 Mg Tablet PO Not Given DAILY [facility] Cyclosporine 1 drop 04/08/25 09:00 04/09/25 20:52 Cyclosporine 0.4 Ml Ophth Solution EACH EYE 1 drop Q12HR ATUL Administration Enoxaparin Sodium 30 mg 04/09/25 09:00 04/09/25 12:06 Enoxaparin 30 Mg/0.3 Ml Syringe SUB-Q Not Given DAILY [facility] Famotidine 20 mg 04/08/25 09:00 04/09/25 20:52 Famotidine 20 Mg Tablet PO 20 mg Q12HR ATUL Administration Fish Oil 1 gm 04/08/25 09:00 04/09/25 12:03 Curt[place] 3 Polyunsat Fatty Acids 1 Gm Cap PO Not Given DAILY [facility] Meropenem 1 gm in 100 mls @ 200 mls/hr 04/08/25 04:00 04/10/25 04:01 IVPB Infused Q12H [facility] Infusion Doxycycline Hyclate 100 mg in 100 mls @ 100 mls/hr 04/08/25 21:00 04/09/25 21:59 Vibramycin 100 Mg/Ns 100 Ml IVPB Infused Q12H [facility] Infusion Phenylephrine HCl 50 mg/ 250 mls @ 7.5 mls/hr 04/09/25 10:45 04/10/25 06:00 Sodium Chloride IV CONT 25 mcg/min .[id number] [facility] 7.5 mls/hr Titration Protocol 25 MCG/MIN Vancomycin HCl 1,750 mg in 500 mls @ 250 mls/hr 04/09/25 23:00 04/10/25 00:38 Vancomycin 1,750 Mg/Ns 500 Ml IVPB Infused Q18H [facility] Infusion Sodium Bicarbonate 150 meq/ 1,100 mls @ 75 mls/hr 04/10/25 09:10 Sterile Water IV CONT 04/10/25 23:49 .[id number] [facility] Ipratropium [place] 2 spray 04/08/25 09:00 04/09/25 16:33 Ipratropium Nasal [place] 0.06% 15 Ml Bottle NASAL 2 spray TID ATUL Administration Metoprolol Tartrate 25 mg 04/08/25 12:45 04/09/25 06:35 Metoprolol Tartrate 25 Mg Tablet PO 25 mg Q8HR ATUL Administration Multivitamins Therapeutic 1 tablet 04/08/25 09:00 04/09/25 12:03 Multivitamins Therapeutic Tab (*Bkc) PO Not Given DAILY [facility] Oxymetazoline HCl 1 spray 04/08/25 16:42 Oxymetazoline Hcl 0.05% Adeel 15 Ml Btl (*Bkc) NASAL Q12HR PRN Congestion Ranolazine 500 mg 04/08/25 09:00 04/09/25 20:52 Ranolazine 500 Mg Tab.Er.12h PO 500 mg Q12HR ATUL Administration Sodium Bicarbonate 650 mg 04/09/25 17:00 04/09/25 16:34 Sodium Bicarbonate Tab 650 Mg Tablet PO Not Given BID [facility] Sodium Chloride 10 ml 04/09/25 14:00 04/10/25 05:00 Central Line Flush IV PUSH 10 ml Q8HR ATUL Administration Sodium Chloride 10 ml 04/09/25 10:42 Central Line Flush IV PUSH PRN PRN with TPN bag changes Sodium Chloride 20 ml 04/09/25 10:42 Central Line Flush IV PUSH PRN PRN after blood draws Radiology Results: ITS Impressions Soft Tissue Neck CT 04/07/25 17:28 IMPRESSION: Right palatine tonsillar enlargement. No tonsillar abscess detected. Left submandibular gland enlargement. Left anterior cervical chain lymphadenopathy. Anterior neck soft tissue stranding, which may represent cellulitis in the appropriate clinical context. Paratracheal lymphadenopathy. Mild interstitial edema. Hip/Pelvis X-Ray 04/08/25 15:38 Impression: 1: No acute bone or joint abnormality. Cervical Spine CT 04/08/25 15:49 IMPRESSION: 1. No acute abnormality of the cervical spine. 2: Moderate cervical spondylosis. Abdomen Ultrasound 04/08/25 17:43 IMPRESSION: Distended gallbladder with possible minimal pericholecystic fluid versus edema. Clinical correlation and follow-up advised. Otherwise, normal Limited abdominal ultrasound. Chest X-Ray 04/09/25 11:27 Impression: 1: Cardiomegaly with mild interstitial edema, improved compared with 04/08/2025. Head CT 04/09/25 12:26 Impression: No intracranial hemorrhage, mass, or acute infarct. Atrophy and chronic white matter changes, as above. Venous Doppler Study 04/09/25 14:23 Impression: 1: Normal venous ultrasound of the internal jugular veins. No evidence for deep venous thrombosis. Chest/Abdomen/Pelvis CT 04/09/25 19:03 IMPRESSION: CHEST: 1. Bilateral basal atelectasis versus pneumonia with bilateral pleural effusion more on the right side. 2. Mediastinal lymphadenopathy. 3. Cardiomegaly. 4. Nodule in the left upper lobe. 6 months follow-up CT is advised. ABDOMEN/PELVIS: 1. No evidence of appendicitis, diverticulitis or intestinal obstruction. 2. 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 3. Hyperdense areas in the kidneys which may be residual contrast versus hemorrhagic cysts. Labs Labs: Laboratory Results - last 24 hr 04/07/25 04/07/25 04/08/25 21:03 21:06 17:43 WBC RBC Hgb Hct MCV MCH MCHC RDW Plt Count MPV Immature Gran % (Auto) Neut % (Auto) Lymph % (Auto) [place] % (Auto) Eos % (Auto) Baso % (Auto) Lymph # (Auto) [place] # (Auto) Eos # (Auto) Baso # (Auto) Abs Immat Gran (auto) Absolute Neuts (auto) Absolute Nucleated RBC Total Counted Neutrophils % (Manual) Band Neutrophils % Lymphocytes % (Manual) Monocytes % (Manual) Eosinophils % (Manual) Nucleated RBC % Abs Neuts (Manual) Abs Lymphs (Manual) Abs Monocytes (Manual) Absolute Eos (Manual) Platelet Estimate Anisocytosis Acanthocytes (Spur) Schistocytes PT INR APTT Fibrinogen Sodium Potassium Chloride Carbon Dioxide Anion Gap BUN Creatinine Estim Creat Clear Calc Estimated GFR Glucose Serum Osmolality 278 Calcium Phosphorus Magnesium Total Bilirubin AST ALT Alkaline Phosphatase Total Creatine Kinase Total Protein Albumin Urine Color Urine Appearance Urine pH Ur Specific [place] Urine Protein Urine Glucose (UA) Urine Ketones Ur Blood (Man) Urine Nitrate Urine Bilirubin Urine Urobilinogen Add Ur Microanalysis Leukocyte Esterase Rfl Urine RBC Urine WBC Ur Squamous Epith Cells Urine Bacteria Urine Casts Urine Osmolality 779 Vancomycin Trough CMV IgG Ab <0.60 CMV IgM Ab <30.00 04/09/25 04/09/25 04/10/25 10:31 21:00 03:59 WBC 21.3 H RBC 3.57 L Hgb 11.1 L Hct 32.9 L MCV 92.2 MCH 31.1 MCHC 33.7 RDW 15.0 H Plt Count 136 L MPV 11.7 H Immature Gran % (Auto) Not Reportable Neut % (Auto) Not Reportable Lymph % (Auto) Not Reportable [place] % (Auto) Not Reportable Eos % (Auto) Not Reportable Baso % (Auto) Not Reportable Lymph # (Auto) Not Reportable [place] # (Auto) Not Reportable Eos # (Auto) Not Reportable Baso # (Auto) Not Reportable Abs Immat Gran (auto) Not Reportable Absolute Neuts (auto) Not Reportable Absolute Nucleated RBC Not Reportable Total Counted 100 Neutrophils % (Manual) 68 Band Neutrophils % 21 H Lymphocytes % (Manual) 2.0 L Monocytes % (Manual) 8 Eosinophils % (Manual) 1 Nucleated RBC % Not Reportable Abs Neuts (Manual) 18.95 H Abs Lymphs (Manual) 0.42 L Abs Monocytes (Manual) 1.70 H Absolute Eos (Manual) 0.21 Platelet Estimate Decreased Anisocytosis 1+ Acanthocytes (Spur) 3+ Schistocytes None seen PT 20.6 H INR 1.8 APTT 42.3 H Fibrinogen 453 Sodium 132 L Potassium 4.0 Chloride 105 Carbon Dioxide 19 L Anion Gap 8 BUN 52 H D Creatinine 1.40 H Estim Creat Clear Calc 33 Estimated GFR 48 L Glucose 108 Serum Osmolality Calcium 7.7 L Phosphorus 3.2 Magnesium 2.2 Total Bilirubin 1.3 AST 722 H ALT 702 H Alkaline Phosphatase 85 Total Creatine Kinase 720 H Total Protein 5.2 L Albumin 2.6 L Urine Color Dark yellow Urine Appearance Cloudy H Urine pH 5.0 Ur Specific [place] 1.030 Urine Protein 2+ H Urine Glucose (UA) Negative Urine Ketones Trace H Ur Blood (Man) Negative Urine Nitrate Negative Urine Bilirubin Negative Urine Urobilinogen 1.0 Add Ur Microanalysis Reviewed Leukocyte Esterase Rfl Negative Urine RBC 6-10 H Urine WBC 0-5 Ur Squamous Epith Cells Moderate Urine Bacteria None seen Urine Casts >20 Urine Osmolality Vancomycin Trough 10.1 CMV IgG Ab CMV IgM Ab Quality VTE Prophylaxis VTE prophylaxis: pharmacologic ordered
--- NOTE | 2025-04-10 09:56 | P.PNGS_ITS ---
Progress Note: A&P Assessment and Plan (1) Abnormal findings on diagnostic imaging of gallbladder: Code(s): R93.2 - Abnormal findings on diagnostic imaging of liver and biliary tract Status: Acute Assessment and Plan: * Patient continues to be febrile with his WBC count up to 21,[address] scan chest/abdomen/pelvis showed a normal gallbladder. Only acute finding was bilateral basal atelectasis versus pneumonia. His only complaint is a cough. He is not having any abdominal pain or tenderness. His abdominal exam is completely benign. Suspicion for acute cholecystitis being the source of his sepsis is extremely low. He is still on broad-spectrum IV antibiotics. No plans for any surgical management at this time without findings suggestive of acute cholecystitis. We will sign off, please call with any future surgical questions or concerns. If he were to develop signs of cholecystitis, then would recommend percutaneous cholecystostomy tube as the patient is a poor surgical candidate. Plan I have discussed the patient's case and plan of care with Dr. Vu. Subjective Subjective Date/Time Seen: 04/10/25 09:56 Patient reports: no new complaints and fever Interval history: Patient seen in ICU. Still had a temp of a 102? F last night and 100.7? F this morning. He is not complaining of any abdominal pain, nausea, or vomiting. His only complaint is a cough. Exam Const: General: comfortable and no acute distress GI: Inspection: non-distended GI Palp: Yes Soft to palpation, No Tenderness to palpation present (GI), No Guarding due to palpation present (GI) and No Rebound tenderness present Auscultation: normal bowel sounds Objective Data Vital Signs Vital Signs: Vital Signs - 24 hr 04/09/25 10:04/09/25 10:04/09/25 11:33 Temperature 100.4 F H Pulse Rate 100 99 108 H Respiratory Rate 33 H Blood Pressure 101/67 84/52 L Pulse Oximetry 100 Oxygen Delivery Oxygen Flow Rate 04/09/25 12:00 04/09/25 12:00 04/09/25 12:04 Temperature 100.1 F H Pulse Rate 97 100 96 Respiratory Rate 30 H Blood Pressure 96/61 L 89/60 L Pulse Oximetry 100 Oxygen Delivery Oxygen Flow Rate 04/09/25 14:00 04/09/25 14:04/09/25 14:00 Temperature 99.6 F Pulse Rate 98 101 H 101 H Respiratory Rate 25 H Blood Pressure 111/76 111/76 Pulse Oximetry 93 Oxygen Delivery Oxygen Flow Rate 04/09/25 16:00 04/09/25 16:00 04/09/25 16:00 Temperature 99.9 F H Pulse Rate 96 98 Respiratory Rate 28 H Blood Pressure 117/75 Pulse Oximetry 96 96 Oxygen Delivery Nasal Cannula Oxygen Flow Rate 3 04/09/25 16:00 04/09/25 17:06 04/09/25 18:00 Temperature Pulse Rate 98 106 H 100 Respiratory Rate Blood Pressure 117/75 120/61 Pulse Oximetry Oxygen Delivery Oxygen Flow Rate 04/09/25 18:00 04/09/25 20:00 04/09/25 20:00 Temperature 99.8 F H Pulse Rate 100 108 H 117 H Respiratory Rate 30 H Blood Pressure 113/72 117/63 Pulse Oximetry 100 Oxygen Delivery Oxygen Flow Rate 04/09/25 20:00 04/09/25 20:00 04/09/25 20:52 Temperature 102.0 F H 102.0 F H Pulse Rate 117 H Respiratory Rate 27 H Blood Pressure 117/63 Pulse Oximetry 98 98 Oxygen Delivery Nasal Cannula Oxygen Flow Rate 3 04/09/25 21:00 04/09/25 21:01 04/09/25 21:52 Temperature 98.5 F Pulse Rate 105 H 111 H Respiratory Rate 29 H Blood Pressure 122/74 Pulse Oximetry 99 Oxygen Delivery Nasal Cannula Oxygen Flow Rate 2 04/09/25 22:00 04/09/25 22:00 04/09/25 22:00 Temperature Pulse Rate 109 H 109 H 109 H Respiratory Rate 29 H Blood Pressure 98/63 L 98/63 L Pulse Oximetry 98 Oxygen Delivery Oxygen Flow Rate 04/10/25 00:00 04/10/25 00:00 04/10/25 00:00 Temperature 98.0 F Pulse Rate 96 96 Respiratory Rate 24 H Blood Pressure 92/61 L 92/61 L Pulse Oximetry 98 98 Oxygen Delivery Nasal Cannula Oxygen Flow Rate 3 04/10/25 00:00 04/10/25 02:00 04/10/25 02:00 Temperature Pulse Rate 99 107 H 107 H Respiratory Rate 25 H Blood Pressure 92/58 L Pulse Oximetry 100 Oxygen Delivery Oxygen Flow Rate 04/10/25 02:00 04/10/25 04:00 04/10/25 04:00 Temperature 98.9 F Pulse Rate 107 H 115 H Respiratory Rate 24 H Blood Pressure 92/58 L 114/67 Pulse Oximetry 99 100 Oxygen Delivery Nasal Cannula Oxygen Flow Rate 3 04/10/25 04:00 04/10/25 04:00 04/10/25 04:15 Temperature Pulse Rate 115 H 107 H 112 H Respiratory Rate Blood Pressure 99/54 L 76/50 L Pulse Oximetry Oxygen Delivery Oxygen Flow Rate 04/10/25 04:20 04/10/25 06:00 04/10/25 06:00 Temperature Pulse Rate 110 H 105 H 105 H Respiratory Rate Blood Pressure 83/65 L 92/57 L Pulse Oximetry Oxygen Delivery Oxygen Flow Rate 04/10/25 06:00 04/10/25 07:53 Temperature 100.7 F H Pulse Rate 105 H 62 Respiratory Rate 24 H 24 H Blood Pressure 92/57 L 128/53 L Pulse Oximetry 100 96 Oxygen Delivery Oxygen Flow Rate Intake/Output Intake/Output: Intake & Output 04/07/25 04/08/25 04/09/25 04/10/25 23:59 23:59 23:59 23:59 Intake Total 2100 2524.0 1340.0 653.5 Output Total 525 600 350 Balance 2100 1999.0 740.0 303.5 Meds/Results Medications: Active Medications Generic Name Dose Route Start Last Admin Trade Name Freq PRN Reason Stop Dose Admin Acetaminophen 650 mg 04/07/25 19:59 04/09/25 20:52 Acetaminophen 325 Mg Tablet PO 650 mg Q6H PRN Administration Mild Pain (1-3) or Fever Artificial Tears 1 drop 04/08/25 03:43 Artificial Tears Ophth Soln 15 Ml Bottle EACH EYE Q4H PRN Dry Eye(s) Ascorbic Acid 500 mg 04/08/25 09:00 04/09/25 12:02 Ascorbic Acid 500 Mg Tablet PO Not Given DAILY [facility] Aspirin 81 mg 04/08/25 09:00 04/09/25 12:02 Aspirin 81 Mg Enteric Tablet PO Not Given DAILY [facility] Calcium Carbonate 1,000 mg 04/08/25 12:00 04/09/25 12:03 Calcium/Vitamin D 500 Mg/5 Mcg (200 I.U.) Tablet PO Not Given DAILY@1200 [facility] Clopidogrel Bisulfate 75 mg 04/08/25 09:00 04/09/25 12:02 Clopidogrel Bisulfate 75 Mg Tablet PO Not Given DAILY [facility] Cyclosporine 1 drop 04/08/25 09:00 04/09/25 20:52 Cyclosporine 0.4 Ml Ophth Solution EACH EYE 1 drop Q12HR ATUL Administration Enoxaparin Sodium 30 mg 04/09/25 09:00 04/09/25 12:06 Enoxaparin 30 Mg/0.3 Ml Syringe SUB-Q Not Given DAILY [facility] Famotidine 20 mg 04/08/25 09:00 04/09/25 20:52 Famotidine 20 Mg Tablet PO 20 mg Q12HR ATUL Administration Fish Oil 1 gm 04/08/25 09:00 04/09/25 12:03 [place] 3 Polyunsat Fatty Acids 1 Gm Cap PO Not Given DAILY [facility] Meropenem 1 gm in 100 mls @ 200 mls/hr 04/08/25 04:00 04/10/25 04:01 IVPB Infused Q12H ATUL Infusion Doxycycline Hyclate 100 mg in 100 mls @ 100 mls/hr 04/08/25 21:00 04/09/25 21:59 Vibramycin 100 Mg/Ns 100 Ml IVPB Infused Q12H ATUL Infusion Phenylephrine HCl 50 mg/ 250 mls @ 7.5 mls/hr 04/09/25 10:45 04/10/25 06:00 Sodium Chloride IV CONT 25 mcg/min .[id number] ATUL 7.5 mls/hr Titration Protocol 25 MCG/MIN Vancomycin HCl 1,750 mg in 500 mls @ 250 mls/hr 04/09/25 23:00 04/10/25 00:38 Vancomycin 1,750 Mg/Ns 500 Ml IVPB Infused Q18H ATUL Infusion Sodium Bicarbonate 150 meq/ 1,100 mls @ 75 mls/hr 04/10/25 09:10 Sterile Water IV CONT 04/10/25 23:49 .[id number] ATUL Ipratropium [place] 2 spray 04/08/25 09:00 04/09/25 16:33 Ipratropium Nasal [place] 0.06% 15 Ml Bottle NASAL 2 spray TID ATUL Administration Metoprolol Tartrate 25 mg 04/08/25 12:45 04/09/25 06:35 Metoprolol Tartrate 25 Mg Tablet PO 25 mg Q8HR ATUL Administration Multivitamins Therapeutic 1 tablet 04/08/25 09:00 04/09/25 12:03 Multivitamins Therapeutic Tab (*Bkc) PO Not Given DAILY [facility] Oxymetazoline HCl 1 spray 04/08/25 16:42 Oxymetazoline Hcl 0.05% [place] 15 Ml Btl (*Bkc) NASAL Q12HR PRN Congestion Ranolazine 500 mg 04/08/25 09:00 04/09/25 20:52 Ranolazine 500 Mg Tab.Er.12h PO 500 mg Q12HR ATUL Administration Sodium Bicarbonate 650 mg 04/09/25 17:00 04/09/25 16:34 Sodium Bicarbonate Tab 650 Mg Tablet PO Not Given BID ATUL Sodium Chloride 10 ml 04/09/25 14:00 04/10/25 05:00 Central Line Flush IV PUSH 10 ml Q8HR ATUL Administration Sodium Chloride 10 ml 04/09/25 10:42 Central Line Flush IV PUSH PRN PRN with TPN bag changes Sodium Chloride 20 ml 04/09/25 10:42 Central Line Flush IV PUSH PRN PRN after blood draws Radiology Results: ITS Impressions Soft Tissue Neck CT 04/07/25 17:28 IMPRESSION: Right palatine tonsillar enlargement. No tonsillar abscess detected. Left submandibular gland enlargement. Left anterior cervical chain lymphadenopathy. Anterior neck soft tissue stranding, which may represent cellulitis in the appropriate clinical context. Paratracheal lymphadenopathy. Mild interstitial edema. Hip/Pelvis X-Ray 04/08/25 15:38 Impression: 1: No acute bone or joint abnormality. Cervical Spine CT 04/08/25 15:49 IMPRESSION: 1. No acute abnormality of the cervical spine. 2: Moderate cervical spondylosis. Abdomen Ultrasound 04/08/25 17:43 IMPRESSION: Distended gallbladder with possible minimal pericholecystic fluid versus edema. Clinical correlation and follow-up advised. Otherwise, normal Limited abdominal ultrasound. Chest X-Ray 04/09/25 11:27 Impression: 1: Cardiomegaly with mild interstitial edema, improved compared with 04/08/2025. Head CT 04/09/25 12:26 Impression: No intracranial hemorrhage, mass, or acute infarct. Atrophy and chronic white matter changes, as above. Venous Doppler Study 04/09/25 14:23 Impression: 1: Normal venous ultrasound of the internal jugular veins. No evidence for deep venous thrombosis. Chest/Abdomen/Pelvis CT 04/09/25 19:03 IMPRESSION: CHEST: 1. Bilateral basal atelectasis versus pneumonia with bilateral pleural effusion more on the right side. 2. Mediastinal lymphadenopathy. 3. Cardiomegaly. 4. Nodule in the left upper lobe. 6 months follow-up CT is advised. ABDOMEN/PELVIS: 1. No evidence of appendicitis, diverticulitis or intestinal obstruction. 2. 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 3. Hyperdense areas in the kidneys which may be residual contrast versus hemorrhagic cysts. Labs Labs: Laboratory Results - last 24 hr 04/07/25 04/07/25 04/08/25 21:03 21:06 17:43 WBC RBC Hgb Hct MCV MCH MCHC RDW Plt Count MPV Immature Gran % (Auto) Neut % (Auto) Lymph % (Auto) [place] % (Auto) Eos % (Auto) Baso % (Auto) Lymph # (Auto) [place] # (Auto) Eos # (Auto) Baso # (Auto) Abs Immat Gran (auto) Absolute Neuts (auto) Absolute Nucleated RBC Total Counted Neutrophils % (Manual) Band Neutrophils % Lymphocytes % (Manual) Monocytes % (Manual) Eosinophils % (Manual) Nucleated RBC % Abs Neuts (Manual) Abs Lymphs (Manual) Abs Monocytes (Manual) Absolute Eos (Manual) Platelet Estimate Anisocytosis Acanthocytes (Spur) Schistocytes PT INR APTT Fibrinogen Sodium Potassium Chloride Carbon Dioxide Anion Gap BUN Creatinine Estim Creat Clear Calc Estimated GFR Glucose Serum Osmolality 278 Calcium Phosphorus Magnesium Total Bilirubin AST ALT Alkaline Phosphatase Total Creatine Kinase Total Protein Albumin Urine Color Urine Appearance Urine pH Ur Specific [place] Urine Protein Urine Glucose (UA) Urine Ketones Ur Blood (Man) Urine Nitrate Urine Bilirubin Urine Urobilinogen Add Ur Microanalysis Leukocyte Esterase Rfl Urine RBC Urine WBC Ur Squamous Epith Cells Urine Bacteria Urine Casts Urine Osmolality 779 Vancomycin Trough CMV IgG Ab <0.60 CMV IgM Ab <30.00 04/09/25 04/09/25 04/10/25 10:31 21:00 03:59 WBC 21.3 H RBC 3.57 L Hgb 11.1 L Hct 32.9 L MCV 92.2 MCH 31.1 MCHC 33.7 RDW 15.0 H Plt Count 136 L MPV 11.7 H Immature Gran % (Auto) Not Reportable Neut % (Auto) Not Reportable Lymph % (Auto) Not Reportable [place] % (Auto) Not Reportable Eos % (Auto) Not Reportable Baso % (Auto) Not Reportable Lymph # (Auto) Not Reportable [place] # (Auto) Not Reportable Eos # (Auto) Not Reportable Baso # (Auto) Not Reportable Abs Immat Gran (auto) Not Reportable Absolute Neuts (auto) Not Reportable Absolute Nucleated RBC Not Reportable Total Counted 100 Neutrophils % (Manual) 68 Band Neutrophils % 21 H Lymphocytes % (Manual) 2.0 L Monocytes % (Manual) 8 Eosinophils % (Manual) 1 Nucleated RBC % Not Reportable Abs Neuts (Manual) 18.95 H Abs Lymphs (Manual) 0.42 L Abs Monocytes (Manual) 1.70 H Absolute Eos (Manual) 0.21 Platelet Estimate Decreased Anisocytosis 1+ Acanthocytes (Spur) 3+ Schistocytes None seen PT 20.6 H INR 1.8 APTT 42.3 H Fibrinogen 453 Sodium 132 L Potassium 4.0 Chloride 105 Carbon Dioxide 19 L Anion Gap 8 BUN 52 H D Creatinine 1.40 H Estim Creat Clear Calc 33 Estimated GFR 48 L Glucose 108 Serum Osmolality Calcium 7.7 L Phosphorus 3.2 Magnesium 2.2 Total Bilirubin 1.3 AST 722 H ALT 702 H Alkaline Phosphatase 85 Total Creatine Kinase 720 H Total Protein 5.2 L Albumin 2.6 L Urine Color Dark yellow Urine Appearance Cloudy H Urine pH 5.0 Ur Specific [place] 1.030 Urine Protein 2+ H Urine Glucose (UA) Negative Urine Ketones Trace H Ur Blood (Man) Negative Urine Nitrate Negative Urine Bilirubin Negative Urine Urobilinogen 1.0 Add Ur Microanalysis Reviewed Leukocyte Esterase Rfl Negative Urine RBC 6-10 H Urine WBC 0-5 Ur Squamous Epith Cells Moderate Urine Bacteria None seen Urine Casts >20 Urine Osmolality Vancomycin Trough 10.1 CMV IgG Ab CMV IgM Ab
[2025-04-10] MEDS: ASPIRIN 81 MG ENTERIC TABLET PO (10:08)
[2025-04-10] MEDS: SODIUM BICARBONATE TAB 650 MG TABLET PO ×2 (10:08→15:51)
[2025-04-10] MEDS: OMEGA 3 POLYUNSAT FATTY ACIDS 1 GM CAP PO (10:08)
[2025-04-10] MEDS: RANOLAZINE 500 MG TAB.ER.12H PO ×2 (10:08→20:50)
[2025-04-10] MEDS: FAMOTIDINE 20 MG TABLET PO ×2 (10:08→20:50)
[2025-04-10] MEDS: ASCORBIC ACID 500 MG TABLET PO (10:08)
[2025-04-10] MEDS: MULTIVITAMINS THERAPEUTIC TAB (*BKC) 1 TABLET PO (10:08)
[2025-04-10] MEDS: cycloSPORINE 0.4 ML OPHTH SOLUTION 1 DROP EACH EYE ×2 (10:08→20:50)
[2025-04-10] MEDS: DOXYCYCLINE 100 MG/NS 100 ML 100 MG/100 ML BAG IVPB ×2 (10:09→20:50)
[2025-04-10] MEDS: ENOXAPARIN 30 MG/0.3 ML SYRINGE SUB-Q (10:10)
[2025-04-10] MEDS: SODIUM BICARBONATE 8.4% 150 MEQ in WATER, STERILE FOR INJECTION 950 ML 75 MEQ IV CONT (10:22)
[2025-04-10] MEDS: CALCIUM/VITAMIN D 500 MG/5 MCG (200 I.U.) TABLET 1000 MG PO (11:31)
[2025-04-10] MEDS: IPRATROPIUM NASAL SPRAY 0.06% 15 ML BOTTLE 2 SPRAY NASAL (15:50)
[2025-04-10] MEDS: PHENYLEPHRINE HCL INJ 50 MG in SODIUM CHLORIDE 0.9% IV 245 ML 22.5 ML IV CONT (18:52)
[2025-04-10 23:18] LABS: EVB DNA,QN PCR Not Detected log IU/mL (Not Detected); Epstein Barr Virus PCR Not Detected (Not Detected)
[2025-04-11] VITALS (19 sets, daily range): BP systolic 82–103; BP diastolic 48–90; PULSE 82–123; RESP 14–32; TEMP 36.4–37.4; O2SAT 93–100
[2025-04-11] MEDS: MEROPENEM 1 GM/NS 100 ML 1 GM/100 ML BAG IVPB ×2 (04:13→15:28)
[2025-04-11] MEDS: PHENYLEPHRINE HCL INJ 50 MG in SODIUM CHLORIDE 0.9% IV 245 ML 22.5 ML IV CONT (04:14)
[2025-04-11] MEDS: CENTRAL LINE FLUSH 10 ML IV PUSH ×3 (04:20→20:07)
[2025-04-11 06:28] LABS: Hematocrit 31.9 % (42.0-52.0); Hemoglobin 10.9 g/dL (14.0-18.0); Mean Corpuscular HGB Conc 34.2 g/dl (32-36); Mean Corpuscular Volume 93.5 fl (80-100); Platelet Count Result 159 k/mm3 (150-375); Red Blood Count 3.41 M/mm3 (4.6-6.20); White Blood Count 19.3 K/mm3 (4.5-10.0)
[2025-04-11 06:44] LABS: Alanine Aminotransferase 495 U/L (6-50); Albumin Level 2.1 g/dL (3.5-5.1); Alkaline Phosphatase 88 U/L (38-126); Anion Gap 7 mmol/L (4-12); Aspartate Amino Transferase 334 U/L (17-59); Bilirubin,Total 1.3 mg/dL (0.2-1.3); Blood Urea Nitrogen 48 mg/dL (9-20); Calcium 7.3 mg/dL (8.4-10.2); Carbon Dioxide 22 mmol/L (22-30); Chloride 103 mmol/L (98-107); Creatine Kinase 248 U/L (55-170); Estimated CRCL calculation 43 ml/min; Estimated Glomerular Filt Rate > 60; Glucose 93 mg/dL (65-110); Magnesium 2.2 mg/dL (1.6-2.3); Phosphorus 2.1 mg/dL (2.5-4.5); Potassium 3.8 mmol/L (3.4-5.0); Sodium 132 mmol/L (137-145); Total Protein 4.6 g/dL (6.3-8.2)
[2025-04-11 07:53] LABS: Band Neutrophils Percent 26 % (0-6); Eosinophils Absolute Manual 0.77 K/mm3 (0.02-0.50); Eosinophils Percent Manual 4 % (0-4); Lymphocytes Percent Manual 0 % (18-44); Monocytes Absolute Manual 1.73 K/mm3 (0.1-0.90); Monocytes Percent Manual 9 % (3-9); Neutrophils Absolute Manual 16.79 K/mm3 (1.3-6.7); Neutrophils Percent Manual 61 % (46-73); Total Cells Counted 100
[2025-04-11 07:54] LABS: Nucleated Red Blood Cells 1 %; Platelet Estimate Adequate (Adequate); Schistocytes None Seen
[2025-04-11] MEDS: OMEGA 3 POLYUNSAT FATTY ACIDS 1 GM CAP PO (08:38)
[2025-04-11] MEDS: ENOXAPARIN 30 MG/0.3 ML SYRINGE SUB-Q (08:38)
[2025-04-11] MEDS: CLOPIDOGREL BISULFATE 75 MG TABLET PO (08:38)
[2025-04-11] MEDS: cycloSPORINE 0.4 ML OPHTH SOLUTION 1 DROP EACH EYE ×2 (08:38→20:07)
[2025-04-11] MEDS: FAMOTIDINE 20 MG TABLET PO ×2 (08:38→20:06)
[2025-04-11] MEDS: RANOLAZINE 500 MG TAB.ER.12H PO ×2 (08:38→20:06)
[2025-04-11] MEDS: SODIUM BICARBONATE TAB 650 MG TABLET PO (08:38)
[2025-04-11] MEDS: ASCORBIC ACID 500 MG TABLET PO (08:39)
[2025-04-11] MEDS: IPRATROPIUM NASAL SPRAY 0.06% 15 ML BOTTLE 2 SPRAY NASAL ×2 (08:39→17:39)
[2025-04-11] MEDS: ASPIRIN 81 MG ENTERIC TABLET PO (08:39)
[2025-04-11] MEDS: MULTIVITAMINS THERAPEUTIC TAB (*BKC) 1 TABLET PO (08:39)
[2025-04-11] MEDS: DOXYCYCLINE 100 MG/NS 100 ML 100 MG/100 ML BAG IVPB ×2 (08:39→20:07)
--- NOTE | 2025-04-11 08:40 | P.PNCA_ITS ---
Progress Note: A&P Assessment and Plan (1) Sepsis: Qualifiers: Sepsis acute organ dysfunction status: without acute organ dysfunction Sepsis type: sepsis due to unspecified organism Qualified Code(s): A41.9 - S epsis, unspecified organism Code(s): A41.9 - Sepsis, unspecified organism Status: Acute Plan Sepsis Acute on chronic heart failure with reduced LVEF Paroxysmal atrial fibrillation with RVR Coronary artery disease s/p PCI Elevated liver enzymes Anemia Acute kidney injury Rhabdomyolysis PLAN: -Currently, CHF meds are on hold due to hypotension. Will continue to hold these for now until blood pressures stabilize and sepsis resolves. -On telemetry heart rates consistently above goal but not sustaining over 120bpm generally. Unable to rate control with metoprolol because of need for pressor support. Can consider digoxin. Amiodarone also an option, but given that he has been off anticoagulation for an unknown period of time, concern for CVA if he were to chemically convert (unlikely), but would reserve amiodarone for persistent RVR with hemodynamic compromise. -Continue ASA 81mg once daily. Plavix currently on hold -- no procedures are anticipated, so resumed Plavix -Continue Ranolazine. -Statin on hold given elevated liver enzymes. -He was previously on Xarelto because of atrial fibrillation, unclear why he is no longer taking this. Will review records to see if there is a contraindication. If not, would resume a/c at some point prior to discharge and discontinue ASA leaving him on Plavix (to avoid triple therapy). -IV Lasix as needed. Subjective Date/time seen: 04/11/25 08:40 Interval history: Reason for visit: AFIB, CHF, Sepsis HPI: Armando Walton is an 89 year old male with coronary artery disease s/p PCI to RCA, LCx, repeat intervention to the LXc in 2010, vprox LAD in 2023, and shockwave and stenting of the LAD and LCx in 2024). He presents to the hospital with sore throat, shortness of breath, and fever. Cardiology is consulted for atrial fibrillation and CHF. Echocardiogram performed during this hospitalization showed severe LV dysfunction with EF 20-25% which is a decline compared to echo in December 2024 showing EF 40%. Patient states he has intermittent chest pain and takes NTG about 3 times weekly on average. Has been experiencing shortness of breath and some lower extremity edema but no palpi tations. Feeling a little better today but still has chills and shortness of breath. Date of service 04/09: Overnight, he had two falls in his room. Now in the ICU. Patient quite sleepy this morning. Date of service 04/11/2025: Still has some confusion. Does not have any specific complaints but feels lousy. Denies chest pain, palpitations, shortness of breath Review of Systems Review of Systems: All systems reviewed & are unremarkable except as noted in HPI and below ROS unobtainable: Yes unobtainable due to mental status Cardiovascular: Cardiovascular: Reports as per HPI Exam Const: General: comfortable, no acute distress, alert and awake Orientation/consciousness: confusion Other: Sleepy HENMT: Head: normal to inspection Mouth: Yes moist mucous membranes and Yes dry mucous membranes Eyes: General: appearance normal, both eyes and all related structures Sclera: sclerae normal Pupils: Equal, round and reactive pupils present Neck: Neck: normal visual inspection, supple and no JVD Carotids: normal carotid upstroke Resp: Effort & Inspection: normal respiratory effort Auscultation: rales Cardio: Rate: regular rate and tachycardic Rhythm: abnormal rhythm irregularly irregular Heart sounds: S1 normal heart sound present, S2 normal heart sound present and no murmurs GI: Auscultation: normal bowel sounds Skin: General skin exam: normal color, erythema and rashes Rashes: rashes noted Neuro: General: patient oriented x3 Cranial nerves: Yes Equal, round and reactive pupils present Extrem: General: edema and pedal edema Psych: Appearance: grossly normal Mental Status: mental status grossly normal Affect: normal affect Other: Sleepy Objective Data Vital Signs Vital Signs: Vital Signs - 24 hr 04/10/25 10:04/10/25 10:04/10/25 10:00 Temperature Pulse Rate 112 H 108 H 105 H Respiratory Rate 28 H Blood Pressure 117/55 L 101/68 Pulse Oximetry 97 Oxygen Delivery Oxygen Flow Rate 04/10/25 10:30 04/10/25 12:00 04/10/25 12:00 Temperature 37.7 C H Pulse Rate 109 H 119 H Respiratory Rate 24 H Blood Pressure 111/56 L 88/56 L Pulse Oximetry 99 100 Oxygen Delivery Nasal Cannula Oxygen Flow Rate 3 04/10/25 12:00 04/10/25 12:35 04/10/25 14:00 Temperature Pulse Rate 106 H 113 H 114 H Respiratory Rate Blood Pressure 87/65 L Pulse Oximetry Oxygen Delivery Oxygen Flow Rate 04/10/25 14:00 04/10/25 15:45 04/10/25 16:00 Temperature Pulse Rate 114 H 118 H 120 H Respiratory Rate 26 H 28 H Blood Pressure 97/59 L 93/53 L 105/63 Pulse Oximetry 95 100 Oxygen Delivery Oxygen Flow Rate 04/10/25 16:00 04/10/25 16:00 04/10/25 18:00 Temperature Pulse Rate 120 H 118 H Respiratory Rate 29 H Blood Pressure 85/55 L Pulse Oximetry 100 98 Oxygen Delivery Nasal Cannula Oxygen Flow Rate 3 04/10/25 18:00 04/10/25 18:52 04/10/25 18:52 Temperature Pulse Rate 125 H 111 H 111 H Respiratory Rate Blood Pressure 77/54 L 77/54 L Pulse Oximetry Oxygen Delivery Oxygen Flow Rate 04/10/25 20:00 04/10/25 20:00 04/10/25 20:00 Temperature Pulse Rate 115 H 125 H Respiratory Rate Blood Pressure 99/52 L Pulse Oximetry 100 Oxygen Delivery Nasal Cannula Oxygen Flow Rate 3 04/10/25 20:00 04/10/25 21:00 04/10/25 22:00 Temperature 36.9 C Pulse Rate 121 H 113 H Respiratory Rate 25 H Blood Pressure 99/52 L Pulse Oximetry 100 97 Oxygen Delivery Nasal Cannula Oxygen Flow Rate 3 04/10/25 22:00 04/10/25 22:00 04/11/25 00:00 Temperature Pulse Rate 123 H 123 H Respiratory Rate 23 H Blood Pressure 97/78 L 97/78 L Pulse Oximetry 99 100 Oxygen Delivery Nasal Cannula Oxygen Flow Rate 3 04/11/25 00:00 04/11/25 00:00 04/11/25 00:00 Temperature 37.0 C Pulse Rate 111 H 111 H 123 H Respiratory Rate 25 H Blood Pressure 103/63 103/63 Pulse Oximetry 100 Oxygen Delivery Oxygen Flow Rate 04/11/25 02:00 04/11/25 02:00 04/11/25 02:00 Temperature Pulse Rate 109 H 109 H 109 H Respiratory Rate 20 Blood Pressure 82/61 L 82/61 L Pulse Oximetry 100 Oxygen Delivery Oxygen Flow Rate 04/11/25 04:00 04/11/25 04:00 04/11/25 04:00 Temperature 37.4 C Pulse Rate 112 H 110 H Respiratory Rate 23 H Blood Pressure 88/74 L 88/74 L Pulse Oximetry 97 97 Oxygen Delivery Nasal Cannula Oxygen Flow Rate 3 04/11/25 04:00 04/11/25 04:14 04/11/25 04:14 Temperature Pulse Rate 104 H 110 H 110 H Respiratory Rate Blood Pressure 92/48 L 92/48 L Pulse Oximetry Oxygen Delivery Oxygen Flow Rate 04/11/25 06:00 04/11/25 06:00 04/11/25 06:00 Temperature Pulse Rate 119 H 115 H 119 H Respiratory Rate 26 H Blood Pressure 97/52 L 97/52 L Pulse Oximetry 98 Oxygen Delivery Oxygen Flow Rate Intake/Output Intake/Output: Intake & Output 04/08/25 04/09/25 04/10/25 04/11/25 23:59 23:59 23:59 23:59 Intake Total 2524.0 1340.0 1360.5 1580.0 Output Total 525 600 800 400 Balance 1999.0 740.0 560.5 1180.0 Meds/Results Medications: Active Medications Generic Name Dose Route Start Last Admin Trade Name Freq PRN Reason Stop Dose Admin Acetaminophen 650 mg 04/07/25 19:59 04/09/25 20:52 Acetaminophen 325 Mg Tablet PO 650 mg Q6H PRN Administration Mild Pain (1-3) or Fever Artificial Tears 1 drop 04/08/25 03:43 Artificial Tears Ophth Soln 15 Ml Bottle EACH EYE Q4H PRN Dry Eye(s) Ascorbic Acid 500 mg 04/08/25 09:00 04/10/25 10:08 Ascorbic Acid 500 Mg Tablet PO 500 mg DAILY ATUL Administration Aspirin 81 mg 04/08/25 09:00 04/10/25 10:08 Aspirin 81 Mg Enteric Tablet PO 81 mg DAILY ATUL Administration Calcium Carbonate 1,000 mg 04/08/25 12:00 04/10/25 11:31 Calcium/Vitamin D 500 Mg/5 Mcg (200 I.U.) Tablet PO 1,000 mg DAILY@1200 ATUL Administration Clopidogrel Bisulfate 75 mg 04/08/25 09:00 04/09/25 12:02 Clopidogrel Bisulfate 75 Mg Tablet PO Not Given DAILY ATUL Cyclosporine 1 drop 04/08/25 09:00 04/10/25 20:50 Cyclosporine 0.4 Ml Ophth Solution EACH EYE 1 drop Q12HR ATUL Administration Enoxaparin Sodium 30 mg 04/09/25 09:00 04/10/25 10:10 Enoxaparin 30 Mg/0.3 Ml Syringe SUB-Q 30 mg DAILY ATUL Administration Famotidine 20 mg 04/08/25 09:00 04/10/25 20:50 Famotidine 20 Mg Tablet PO 20 mg Q12HR ATUL Administration Fish Oil 1 gm 04/08/25 09:00 04/10/25 10:08 [place] 3 Polyunsat Fatty Acids 1 Gm Cap PO 1 gm DAILY ATUL Administration Meropenem 1 gm in 100 mls @ 200 mls/hr 04/08/25 04:00 04/11/25 06:37 IVPB Infused Q12H ATUL Infusion Doxycycline Hyclate 100 mg in 100 mls @ 100 mls/hr 04/08/25 21:00 04/10/25 22:38 Vibramycin 100 Mg/Ns 100 Ml IVPB Infused Q12H ATUL Infusion Phenylephrine HCl 50 mg/ 250 mls @ 22.5 mls/hr 04/09/25 10:45 04/11/25 06:00 Sodium Chloride IV CONT 75 mcg/min .Q11H7M ATUL 22.5 mls/hr Titration Protocol 75 MCG/MIN Potassium Phosphate 20 mmol/ 256.6667 mls @ 64.167 mls/hr 04/11/25 08:07 Sodium Chloride IVPB 04/11/25 12:06 ONCE ONE Ipratropium Only 2 spray 04/08/25 09:00 04/10/25 15:50 Ipratropium Nasal [place] 0.06% 15 Ml Bottle NASAL 2 spray TID ATUL Administration Metoprolol Tartrate 25 mg 04/08/25 12:45 04/09/25 06:35 Metoprolol Tartrate 25 Mg Tablet PO 25 mg Q8HR ATUL Administration Multivitamins Therapeutic 1 tablet 04/08/25 09:00 04/10/25 10:08 Multivitamins Therapeutic Tab (*Bkc) PO 1 tablet DAILY ATUL Administration Oxymetazoline HCl 1 spray 04/08/25 16:42 Oxymetazoline Hcl 0.05% [place] 15 Ml Btl (*Bkc) NASAL Q12HR PRN Congestion Ranolazine 500 mg 04/08/25 09:00 04/10/25 20:50 Ranolazine 500 Mg Tab.Er.12h PO 500 mg Q12HR ATUL Administration Sodium Bicarbonate 650 mg 04/09/25 17:00 04/10/25 15:51 Sodium Bicarbonate Tab 650 Mg Tablet PO 650 mg BID ATUL Administration Sodium Chloride 10 ml 04/09/25 14:00 04/11/25 04:20 Central Line Flush IV PUSH 10 ml Q8HR ATUL Administration Sodium Chloride 10 ml 04/09/25 10:42 Central Line Flush IV PUSH PRN PRN with TPN bag changes Sodium Chloride 20 ml 04/09/25 10:42 Central Line Flush IV PUSH PRN PRN after blood draws Radiology Results: ITS Impressions Soft Tissue Neck CT 04/07/25 17:28 IMPRESSION: Right palatine tonsillar enlargement. No tonsillar abscess detected. Left submandibular gland enlargement. Left anterior cervical chain lymphadenopathy. Anterior neck soft tissue stranding, which may represent cellulitis in the appropriate clinical context. Paratracheal lymphadenopathy. Mild interstitial edema. Hip/Pelvis X-Ray 04/08/25 15:38 Impression: 1: No acute bone or joint abnormality. Cervical Spine CT 04/08/25 15:49 IMPRESSION: 1. No acute abnormality of the cervical spine. 2: Moderate cervical spondylosis. Abdomen Ultrasound 04/08/25 17:43 IMPRESSION: Distended gallbladder with possible minimal pericholecystic fluid versus edema. Clinical correlation and follow-up advised. Otherwise, normal Limited abdominal ultrasound. Chest X-Ray 04/09/25 11:27 Impression: 1: Cardiomegaly with mild interstitial edema, improved compared with 04/08/2025. Head CT 04/09/25 12:26 Impression: No intracranial hemorrhage, mass, or acute infarct. Atrophy and chronic white matter changes, as above. Venous Doppler Study 04/09/25 14:23 Impression: 1: Normal venous ultrasound of the internal jugular veins. No evidence for deep venous thrombosis. Chest/Abdomen/Pelvis CT 04/09/25 19:03 IMPRESSION: CHEST: 1. Bilateral basal atelectasis versus pneumonia with bilateral pleural effusion more on the right side. 2. Mediastinal lymphadenopathy. 3. Cardiomegaly. 4. Nodule in the left upper lobe. 6 months follow-up CT is advised. ABDOMEN/PELVIS: 1. No evidence of appendicitis, diverticulitis or intestinal obstruction. 2. 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 3. Hyperdense areas in the kidneys which may be residual contrast versus hemorrhagic cysts. Labs Labs: Laboratory Results - last 24 hr 04/08/25 04/11/25 03:58 06:11 WBC 19.3 H RBC 3.41 L Hgb 10.9 L Hct 31.9 L MCV 93.5 MCH 32.0 MCHC 34.2 RDW 15.0 H Plt Count 159 MPV 12.0 H Immature Gran % (Auto) Not Reportable Neut % (Auto) Not Reportable Lymph % (Auto) Not Reportable Gage % (Auto) Not Reportable Eos % (Auto) Not Reportable Baso % (Auto) Not Reportable Lymph # (Auto) Not Reportable Gage # (Auto) Not Reportable Eos # (Auto) Not Reportable Baso # (Auto) Not Reportable Abs Immat Gran (auto) Not Reportable Absolute Neuts (auto) Not Reportable Absolute Nucleated RBC Not Reportable Total Counted 100 Neutrophils % (Manual) 61 Band Neutrophils % 26 H Lymphocytes % (Manual) 0 L Monocytes % (Manual) 9 Eosinophils % (Manual) 4 Nucleated RBC % Not Reportable Abs Neuts (Manual) 16.79 H Abs Lymphs (Manual) 0.00 L Abs Monocytes (Manual) 1.73 H Absolute Eos (Manual) 0.77 H Nucleated RBCs 1 Platelet Estimate Adequate Schistocytes None seen Sodium 132 L Potassium 3.8 Chloride 103 Carbon Dioxide 22 Anion Gap 7 BUN 48 H Creatinine 1.06 Estim Creat Clear Calc 43 Estimated GFR > 60 Glucose 93 Calcium 7.3 L Phosphorus 2.1 L Magnesium 2.2 Total Bilirubin 1.3 AST 334 H ALT 495 H Alkaline Phosphatase 88 Total Creatine Kinase 248 H Total Protein 4.6 L Albumin 2.1 L EBV (Quant-PCR) Quant Not detected EBV DNA Quant PCR log10 Not detected
--- NOTE | 2025-04-11 09:07 | WPDINTPN ---
Progress Note: A&P Assessment and Plan (1) Sepsis: Qualifiers: Sepsis acute organ dysfunction status: without acute organ dysfunction Sepsis type: sepsis due to unspecified organism Qualified Code(s): A41.9 - Sepsis, unspecified organism Code(s): A41.9 - Sepsis, unspecified organism Status: Acute Assessment and Plan: Patient presented with sepsis with the fever and rash and complained of sore throat and pain in the left neck CT scan of the soft tissue neck showed IMPRESSION: Right palatine tonsillar enlargement. No tonsillar abscess detected. Left submandibular gland enlargement. Left anterior cervical chain lymphadenopathy. Anterior neck soft tissue stranding, which may represent cellulitis in the appropriate clinical context. Paratracheal lymphadenopathy Patient was evaluated by ENT who recommended antibiotic therapy UA negative Ultrasound of IJ negative for any clot CT chest showed Bilateral basal atelectasis versus pneumonia with bilateral pleural effusion more on the right side. Blood cultures ordered and negative till now Ultrasound of the right upper quadrant suggest cholecystitis and hence general surgery consulted Patient is currently isolated and is also being checked for measles Continue Kike-Synephrine for blood pressure support (2) Cardiomyopathy: Code(s): I42.9 - Cardiomyopathy, unspecified Status: Acute Assessment and Plan: History of coronary disease and ischemic cardiomyopathy. Hold further IV fluids IV fluid Hold beta-angelo and Entresto at this time due to low blood pressure. Continue Kike-Synephrine EchoSummary 1. Left ventricular chamber dimension is moderately enlarged. 2. Left ventricular systolic function is severely globally reduced, estimated at 20-25. 3. There is mild concentric increased left ventricular wall thickness. 4. The left ventricular diastolic function is abnormal. 5. E/e' 11 is mildly elevated. 6. Definity contrast administered improved wall motion interpretation. 7. Atrial fibrillation. 8. Left atrial chamber dimension is moderately enlarged. 9. Right atrial chamber dimension is moderately enlarged. 10. There is mild aortic valve sclerosis. 11. There is mild to moderate aortic valve regurgitation. 12. The mitral valve has a mildly calcified annulus. 13. There is mild to moderate mitral valve regurgitation. 14. There is mild tricuspid valve regurgitation. 15. No pulmonary hypertension, estimated pulmonary arterial systolic pressure is 33 mmHg. 16. The prox ascending aorta size is mildly dilated at 4.4 cm. (3) CHF (congestive heart failure): Code(s): I50.9 - Heart failure, unspecified Status: Acute Assessment and Plan: See above (4) Coronary artery disease: Qualifiers: Coronary Disease-Associated Artery/Lesion type: [place] artery [place] vs. transplanted heart: [place] heart Associated angina: without angina Qualified Code(s): I25.10 - Atherosclerotic heart disease of [place] coronary artery without angina pectoris Code(s): I25.10 - Atherosclerotic heart disease of [place] coronary artery without angina pectoris Status: Acute Assessment and Plan: History of coronary disease status post stenting. Continue aspirin and Plavix Resume beta-angelo and hold statin (5) Paroxysmal atrial fibrillation: Code(s): I48.0 - Paroxysmal atrial fibrillation Status: Acute Assessment and Plan: Currently in AFib with now is elevated ventricular rate. Resume p.o. metoprolol (6) Localized swelling, mass and lump, neck: Code(s): R22.1 - Localized swelling, mass and lump, neck Status: Acute Assessment and Plan: See above (7) Elevated LFTs: Code(s): R79.89 - Other specified abnormal findings of blood chemistry Status: Acute Assessment and Plan: Likely secondary to shock liver Hold statin ultrasound reviewed (8) Benign prostatic hyperplasia: Code(s): N40.0 - Benign prostatic hyperplasia without lower urinary tract symptoms Status: Acute Assessment and Plan: Place [place] catheter (9) Rhabdomyolysis: Code(s): M62.82 - Rhabdomyolysis Status: Acute Assessment and Plan: Conservative IV fluids due to history of congestive heart failure CK level improving (10) LENIN (acute kidney injury): Code(s): N17.9 - Acute kidney failure, unspecified Status: Acute Assessment and Plan: LENIN likely secondary to sepsis and abscess Conservative IV fluids due to history of congestive heart failure. Patient was given additional 1 L of IV fluids with bicarb CT scan of abdomen negative for any obstruction or stone Consulted Urology Place [place] catheter for accurate I&Os Creatinine further improved Monitor urine output electrolytes and creatinine (11) Rash: Code(s): R21 - Rash and other nonspecific skin eruption Status: Acute Assessment and Plan: Can be secondary antibiotics or viral infection No schistocytes on peripheral blood smear Coag panel mildly abnormal (12) Cholecystitis: Code(s): K81.9 - Cholecystitis, unspecified Status: Acute Assessment and Plan: Right upper quadrant ultrasound showed Distended gallbladder with possible minimal pericholecystic fluid versus edema. Clinical correlation and follow-up advised. Otherwise, normal Limited abdominal ultrasound. Consulted general surgery and not require any intervention at this time Diet ordered Plan DVT prophylaxis -Lovenox Nutrition -diet ordered Code Status -patient wishes to be Full Code but does not want want to be on mechanical ventilation for a prolonged period of time. He is a and does not have any biological children. He wants his cousin Daniel to be decision maker on his behalf he is unable to do so Incentive spirometry, up in chair Will consult PT OT once isolation is discontinued Total Critical Care Time - 30 minutes Due to a high probability of clinically significant, life threatening deterioration, the patient required my highest level of preparedness to intervene emergently and I personally spent this critical care time directly and personally managing the patient. This critical care time included obtaining a history; examining the patient; pulse oximetry; ordering and review of studies; arranging urgent treatment with development of a management plan; evaluation of patient's response to treatment; frequent reassessment; and discussions with other providers. It was exclusive of separately billable procedures and treating other patients and teaching time. Please see Assessment and Plan section and the rest of the note for further information on patient assessment and treatment Subjective Date/time seen: 04/11/25 Overnight events reviewed. Afebrile On low-dose Kike-Synephrine drip He states he feels weak and tired but denies any specific complaints. Pain in the neck is better. Tolerating p.o. diet. Patient denies fever, chest pain, shortness of breath, cough, nausea vomiting, abdominal pain,, diarrhea, headache or constipation. All other systems were reviewed and were negative Improved urine output Interval history: 89yo male with CAD with recent stent placement in December, pAFib (off anticoagulation for about 6 months) and HTN here for fever and sore throat. Review of Systems Review of Systems: All systems reviewed & are unremarkable except as noted in HPI and below (HPI) Exam Narrative: General: Pt is free old man who is awake and alert today Lungs/Chest: Trachea central course BS decreased at bases B/L, mild tachypnea but no respiratory distress Cardiac: Irregular rate and rhythm. Normal S1 S2. No murmurs Circulation: Pedal pulses are intact and symmetrical. Feet are warm Abdomen: Normal bowel sounds.. Soft. Mild tenderness to palpation right upper quadrant Extremities: No clubbing, cyanosis or edema. Warm : Nation in place Neurologic: Follows commands. Moves all 4 extremities PERRL AO x3 Skin: Maculopapular rash on both legs appears less red the as compared to yesterday Objective Data Vital Signs Vital Signs: Vital Signs - 24 hr 04/10/25 10:00 04/10/25 10:00 04/10/25 10:00 Temperature Pulse Rate 112 H 108 H 105 H Respiratory Rate 28 H Blood Pressure 117/55 L 101/68 Pulse Oximetry 97 Oxygen Delivery Oxygen Flow Rate 04/10/25 10:30 04/10/25 12:00 04/10/25 12:00 Temperature 37.7 C H Pulse Rate 109 H 119 H Respiratory Rate 24 H Blood Pressure 111/56 L 88/56 L Pulse Oximetry 99 100 Oxygen Delivery Nasal Cannula Oxygen Flow Rate 3 04/10/25 12:00 04/10/25 12:35 04/10/25 14:00 Temperature Pulse Rate 106 H 113 H 114 H Respiratory Rate Blood Pressure 87/65 L Pulse Oximetry Oxygen Delivery Oxygen Flow Rate 04/10/25 14:00 04/10/25 15:45 04/10/25 16:00 Temperature Pulse Rate 114 H 118 H 120 H Respiratory Rate 26 H 28 H Blood Pressure 97/59 L 93/53 L 105/63 Pulse Oximetry 95 100 Oxygen Delivery Oxygen Flow Rate 04/10/25 16:00 04/10/25 16:00 04/10/25 18:00 Temperature Pulse Rate 120 H 118 H Respiratory Rate 29 H Blood Pressure 85/55 L Pulse Oximetry 100 98 Oxygen Delivery Nasal Cannula Oxygen Flow Rate 3 04/10/25 18:00 04/10/25 18:52 04/10/25 18:52 Temperature Pulse Rate 125 H 111 H 111 H Respiratory Rate Blood Pressure 77/54 L 77/54 L Pulse Oximetry Oxygen Delivery Oxygen Flow Rate 04/10/25 20:00 04/10/25 20:00 04/10/25 20:00 Temperature Pulse Rate 115 H 125 H Respiratory Rate Blood Pressure 99/52 L Pulse Oximetry 100 Oxygen Delivery Nasal Cannula Oxygen Flow Rate 3 04/10/25 20:00 04/10/25 21:00 04/10/25 22:00 Temperature 36.9 C Pulse Rate 121 H 113 H Respiratory Rate 25 H Blood Pressure 99/52 L Pulse Oximetry 100 97 Oxygen Delivery Nasal Cannula Oxygen Flow Rate 3 04/10/25 22:00 04/10/25 22:00 04/11/25 00:00 Temperature Pulse Rate 123 H 123 H Respiratory Rate 23 H Blood Pressure 97/78 L 97/78 L Pulse Oximetry 99 100 Oxygen Delivery Nasal Cannula Oxygen Flow Rate 3 04/11/25 00:00 04/11/25 00:00 04/11/25 00:00 Temperature 37.0 C Pulse Rate 111 H 111 H 123 H Respiratory Rate 25 H Blood Pressure 103/63 103/63 Pulse Oximetry 100 Oxygen Delivery Oxygen Flow Rate 04/11/25 02:00 04/11/25 02:00 04/11/25 02:00 Temperature Pulse Rate 109 H 109 H 109 H Respiratory Rate 20 Blood Pressure 82/61 L 82/61 L Pulse Oximetry 100 Oxygen Delivery Oxygen Flow Rate 04/11/25 04:00 04/11/25 04:00 04/11/25 04:00 Temperature 37.4 C Pulse Rate 112 H 110 H Respiratory Rate 23 H Blood Pressure 88/74 L 88/74 L Pulse Oximetry 97 97 Oxygen Delivery Nasal Cannula Oxygen Flow Rate 3 04/11/25 04:00 04/11/25 04:14 04/11/25 04:14 Temperature Pulse Rate 104 H 110 H 110 H Respiratory Rate Blood Pressure 92/48 L 92/48 L Pulse Oximetry Oxygen Delivery Oxygen Flow Rate 04/11/25 06:00 04/11/25 06:00 04/11/25 06:00 Temperature Pulse Rate 119 H 115 H 119 H Respiratory Rate 26 H Blood Pressure 97/52 L 97/52 L Pulse Oximetry 98 Oxygen Delivery Oxygen Flow Rate Intake/Output Intake/Output: Intake & Output 04/08/25 04/09/25 04/10/25 04/11/25 23:59 23:59 23:59 23:59 Intake Total 2524.0 1340.0 1360.5 1580.0 Output Total 525 600 800 400 Balance 1999.0 740.0 560.5 1180.0 Meds/Results Medications: Active Medications Generic Name Dose Route Start Last Admin Trade Name Freq PRN Reason Stop Dose Admin Acetaminophen 650 mg 04/07/25 19:59 04/09/25 20:52 Acetaminophen 325 Mg Tablet PO 650 mg Q6H PRN Administration Mild Pain (1-3) or Fever Artificial Tears 1 drop 04/08/25 03:43 Artificial Tears Ophth Soln 15 Ml Bottle EACH EYE Q4H PRN Dry Eye(s) Ascorbic Acid 500 mg 04/08/25 09:00 04/11/25 08:39 Ascorbic Acid 500 Mg Tablet PO 500 mg DAILY ATUL Administration Aspirin 81 mg 04/08/25 09:00 04/11/25 08:39 Aspirin 81 Mg Enteric Tablet PO 81 mg DAILY ATUL Administration Calcium Carbonate 1,000 mg 04/08/25 12:00 04/10/25 11:31 Calcium/Vitamin D 500 Mg/5 Mcg (200 I.U.) Tablet PO 1,000 mg DAILY@1200 ATUL Administration Clopidogrel Bisulfate 75 mg 04/08/25 09:00 04/11/25 08:38 Clopidogrel Bisulfate 75 Mg Tablet PO 75 mg DAILY ATUL Administration Cyclosporine 1 drop 04/08/25 09:00 04/11/25 08:38 Cyclosporine 0.4 Ml Ophth Solution EACH EYE 1 drop Q12HR ATUL Administration Enoxaparin Sodium 30 mg 04/09/25 09:00 04/11/25 08:38 Enoxaparin 30 Mg/0.3 Ml Syringe SUB-Q 30 mg DAILY ATUL Administration Famotidine 20 mg 04/08/25 09:00 04/11/25 08:38 Famotidine 20 Mg Tablet PO 20 mg Q12HR ATUL Administration Fish Oil 1 gm 04/08/25 09:00 04/11/25 08:38 [place] 3 Polyunsat Fatty Acids 1 Gm Cap PO 1 gm DAILY ATUL Administration Meropenem 1 gm in 100 mls @ 200 mls/hr 04/08/25 04:00 04/11/25 06:37 IVPB Infused Q12H ATUL Infusion Doxycycline Hyclate 100 mg in 100 mls @ 100 mls/hr 04/08/25 21:00 04/11/25 08:39 Vibramycin 100 Mg/Ns 100 Ml IVPB 100 mls/hr Q12H ATUL Administration Phenylephrine HCl 50 mg/ 250 mls @ 22.5 mls/hr 04/09/25 10:45 04/11/25 06:00 Sodium Chloride IV CONT 75 mcg/min .Q11H7M ATUL 22.5 mls/hr Titration Protocol 75 MCG/MIN Potassium Phosphate 20 mmol/ 256.6667 mls @ 64.167 mls/hr 04/11/25 08:07 Sodium Chloride IVPB 04/11/25 12:06 ONCE ONE Ipratropium [place] 2 spray 04/08/25 09:00 04/11/25 08:39 Ipratropium Nasal [place] 0.06% 15 Ml Bottle NASAL 2 spray TID ATUL Administration Multivitamins Therapeutic 1 tablet 04/08/25 09:00 04/11/25 08:39 Multivitamins Therapeutic Tab (*Bkc) PO 1 tablet DAILY ATUL Administration Oxymetazoline HCl 1 spray 04/08/25 16:42 Oxymetazoline Hcl 0.05% [place] 15 Ml Btl (*Bkc) NASAL Q12HR PRN Congestion Ranolazine 500 mg 04/08/25 09:00 04/11/25 08:38 Ranolazine 500 Mg Tab.Er.12h PO 500 mg Q12HR ATUL Administration Sodium Bicarbonate 650 mg 04/09/25 17:00 04/11/25 08:38 Sodium Bicarbonate Tab 650 Mg Tablet PO 650 mg BID ATUL Administration Sodium Chloride 10 ml 04/09/25 14:00 04/11/25 04:20 Central Line Flush IV PUSH 10 ml Q8HR ATUL Administration Sodium Chloride 10 ml 04/09/25 10:42 Central Line Flush IV PUSH PRN PRN with TPN bag changes Sodium Chloride 20 ml 04/09/25 10:42 Central Line Flush IV PUSH PRN PRN after blood draws Radiology Results: ITS Impressions Soft Tissue Neck CT 04/07/25 17:28 IMPRESSION: Right palatine tonsillar enlargement. No tonsillar abscess detected. Left submandibular gland enlargement. Left anterior cervical chain lymphadenopathy. Anterior neck soft tissue stranding, which may represent cellulitis in the appropriate clinical context. Paratracheal lymphadenopathy. Mild interstitial edema. Hip/Pelvis X-Ray 04/08/25 15:38 Impression: 1: No acute bone or joint abnormality. Cervical Spine CT 04/08/25 15:49 IMPRESSION: 1. No acute abnormality of the cervical spine. 2: Moderate cervical spondylosis. Abdomen Ultrasound 04/08/25 17:43 IMPRESSION: Distended gallbladder with possible minimal pericholecystic fluid versus edema. Clinical correlation and follow-up advised. Otherwise, normal Limited abdominal ultrasound. Chest X-Ray 04/09/25 11:27 Impression: 1: Cardiomegaly with mild interstitial edema, improved compared with 04/08/2025. Head CT 04/09/25 12:26 Impression: No intracranial hemorrhage, mass, or acute infarct. Atrophy and chronic white matter changes, as above. Venous Doppler Study 04/09/25 14:23 Impression: 1: Normal venous ultrasound of the internal jugular veins. No evidence for deep venous thrombosis. Chest/Abdomen/Pelvis CT 04/09/25 19:03 IMPRESSION: CHEST: 1. Bilateral basal atelectasis versus pneumonia with bilateral pleural effusion more on the right side. 2. Mediastinal lymphadenopathy. 3. Cardiomegaly. 4. Nodule in the left upper lobe. 6 months follow-up CT is advised. ABDOMEN/PELVIS: 1. No evidence of appendicitis, diverticulitis or intestinal obstruction. 2. 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 3. Hyperdense areas in the kidneys which may be residual contrast versus hemorrhagic cysts. Labs Labs: Laboratory Results - last 24 hr 04/08/25 04/11/25 03:58 06:11 WBC 19.3 H RBC 3.41 L Hgb 10.9 L Hct 31.9 L MCV 93.5 MCH 32.0 MCHC 34.2 RDW 15.0 H Plt Count 159 MPV 12.0 H Immature Gran % (Auto) Not Reportable Neut % (Auto) Not Reportable Lymph % (Auto) Not Reportable [place] % (Auto) Not Reportable Eos % (Auto) Not Reportable Baso % (Auto) Not Reportable Lymph # (Auto) Not Reportable [place] # (Auto) Not Reportable Eos # (Auto) Not Reportable Baso # (Auto) Not Reportable Abs Immat Gran (auto) Not Reportable Absolute Neuts (auto) Not Reportable Absolute Nucleated RBC Not Reportable Total Counted 100 Neutrophils % (Manual) 61 Band Neutrophils % 26 H Lymphocytes % (Manual) 0 L Monocytes % (Manual) 9 Eosinophils % (Manual) 4 Nucleated RBC % Not Reportable Abs Neuts (Manual) 16.79 H Abs Lymphs (Manual) 0.00 L Abs Monocytes (Manual) 1.73 H Absolute Eos (Manual) 0.77 H Nucleated RBCs 1 Platelet Estimate Adequate Schistocytes None seen Sodium 132 L Potassium 3.8 Chloride 103 Carbon Dioxide 22 Anion Gap 7 BUN 48 H Creatinine 1.06 Estim Creat Clear Calc 43 Estimated GFR > 60 Glucose 93 Calcium 7.3 L Phosphorus 2.1 L Magnesium 2.2 Total Bilirubin 1.3 AST 334 H ALT 495 H Alkaline Phosphatase 88 Total Creatine Kinase 248 H Total Protein 4.6 L Albumin 2.1 L EBV (Quant-PCR) Quant Not detected EBV DNA Quant PCR log10 Not detected Quality VTE Prophylaxis VTE prophylaxis: pharmacologic ordered
[2025-04-11] MEDS: METOPROLOL TARTRATE 25 MG TABLET PO ×2 (10:43→20:06)
[2025-04-11] MEDS: DIGOXIN INJ 250 MCG/ML 2 ML AMP (*BKC) 125 MCG IV PUSH (10:43)
[2025-04-11] MEDS: POTASSIUM PHOS,M-BASIC-D-BASIC 20 MMOL in SODIUM CHLORIDE 0.9% IV 250 ML 64.17 MMOL IVPB (10:43)
--- NOTE | 2025-04-11 11:26 | PCDIET ---
Spoke with nursing today regarding oral intake. Patient consuming 50-100% of most meals. MD orders for ensure clear on trays providing an additional 240 kcal and 8 gm protein. Agree with diet orders. Will follow in ICU rounds.
[2025-04-11] MEDS: PHENYLEPHRINE HCL INJ 50 MG in SODIUM CHLORIDE 0.9% IV 245 ML 30 ML IV CONT (15:26)
--- NOTE | 2025-04-11 17:28 | PM.IMPN ---
Progress Note: A&P Assessment and Plan (1) Sepsis: Qualifiers: Sepsis acute organ dysfunction status: without acute organ dysfunction Sepsis type: sepsis due to unspecified organism Qualified Code(s): A41.9 - Sepsis, unspecified organism Code(s): A41.9 - Sepsis, unspecified organism Status: Acute Assessment and Plan: Patient with fever and rash. Rash began after abx given but drug reaction felt less likely. GA Strept swab negative. [place] negative. MRSA nasal swab negative. Influenza, COVID and RSV PCR negative. CXR was clear. CT Neck showing right tonsillar and left submandibular gland enlargement and adneopathy. Also with anterior neck stranding. BCx NGTD UA noted and did not trigger a UCx. Curently on Vanco, Meropenem and Doxy. Still having fevers. Developed HoTN with septic shock treated wtih Phenylephrine. Appreciate custom shoemaker input. CT Ch/A/P pending. WBC better with 10% bands. PCT 5.2. Continue broad spectrum abx and follow up on cultures. Discussed with ID RN regarding measles testing. Discussed with custom shoemaker. (2) Cellulitis of neck: Code(s): L03.221 - Cellulitis of neck Status: Acute Assessment and Plan: CT scan showing anterior neck soft tissue stranding and clinically with erythema. Consider strep with rash. Continue abx until clearer etiology is known. (3) Tonsillitis: Code(s): J03.90 - Acute tonsillitis, unspecified Status: Acute Assessment and Plan: As above. (4) Lymphadenitis: Code(s): I88.9 - Nonspecific lymphadenitis, unspecified Status: Acute Assessment and Plan: As above (5) CHF (congestive heart failure): Code(s): I50.9 - Heart failure, unspecified Status: Acute Assessment and Plan: Echo in Sep 2024 showing EF 55% but Lexiscan in December 2024 showing EF 42%. Patient complains of intermittent CP and SOB that has worsened over the past few months. Echo here showing moderately enlarged LV with EF 20-25% and diastolic dysfunction. Moderate LAE and mild valvular disease. He is in AFib with RVR. LV dysfunction could be from uncontrolled AFib. BNP >30K. CXR was clear but repeat showing pulmonary edema felt related to IV fluids. IV fluids stopped since he is becoming more tachypneic. Metoprolol advanced to control heart rate. Entresto added by Cardiology. Metoprolol and Entresto on hold since hypotensive now. Apprecaite Cardiology input (6) Paroxysmal atrial fibrillation: Code(s): I48.0 - Paroxysmal atrial fibrillation Status: Acute Assessment and Plan: Rate was poorly controlled here felt related to sepsis. Consider he may have RVR chronically causing his poor EF. He was on metoprolol on admission that was advanced (now held due to HoTN) Defer to cardiology about resuming Xarelto. Monitor on tele (7) Hyponatremia: Code(s): E87.1 - Hypo-osmolality and hyponatremia Status: Acute Assessment and Plan: Na low on admission at 124. Urine Na <5 to suggest either dehydration and/or poor cardiac output to kidneys. With IV fluids, sodium has improved to 128. Off IV fluids since his EF 20% and he is becoming more tachypneic Repeat CXR showing improvement in the pulmonary edema. (8) Elevated LFTs: Code(s): R79.89 - Other specified abnormal findings of blood chemistry Status: Acute Assessment and Plan: AST/ALT elevated. Consider related to sepsis or viral etiology. Consider hepatic congestion. TCK also elevated which could result in elevated LFTs. Abd US showing distended GB with possible pericholecystic fluid vs edema. GenSurg consulted for possible cholecystitis. Monitor. Trend LFTs. (9) Rhabdomyolysis: Code(s): M62.82 - Rhabdomyolysis Status: Acute Assessment and Plan: TCK was 895 on admission. Patient is fluid positive Etiology is probably related to infectious etiology and/or statin therapy. TCK is better Follow (10) Coronary artery disease: Qualifiers: Coronary Disease-Associated Artery/Lesion type: [place] artery [place] vs. transplanted heart: [place] heart Associated angina: without angina Qualified Code(s): I25.10 - Atherosclerotic heart disease of [place] coronary artery without angina pectoris Code(s): I25.10 - Atherosclerotic heart disease of [place] coronary artery without angina pectoris Status: Acute Assessment and Plan: Patient wsa hospitalized here in September for NSTEMI and transferred to [facility]. He underwent successful laser atherectomy assisted PTCA distal left circumflex, OM1 and OM2 bifurcation in stent restenosis and intravascular lithotripsy shockwave assisted PTCA the distal to proximal LAD. Patient was hospitalized again at [facility] in December where he underwent heart catheterization with shockwave and balloon angioplasty to distal left circumflex artery in stent restenosis. Patient was on ASA and Plavix but now on hold Cardiology consult. (11) LENIN (acute kidney injury): Code(s): N17.9 - Acute kidney failure, unspecified Status: Acute Assessment and Plan: Baseline Cr 1-1.2 range. Cr has climbed to 1.7 now [place] related to sepsis and shock. Nation placed so will be able to monitor UOP better. Monitor renal function, UOP and electrolytes. Plan today patient stats he throat is still soar but as much as when he arrived, he was seen by ENT examined did not find any abscess, patient is being treated with IV abx, will monitor, patient has PAF and seen by sewing machine repairer helper and his HR is controlled, will monitor. Falls - patient had 2 falls in the IMU yesterday. Repeat CT head again showing no acute findings. Fall precautions. Code status - full DVT prophylaxis - SCDs Subjective Date/time seen: 04/11/25 17:28 Interval history: 89yo male with CAD with recent stent placement in December, pAFib (off anticoagulation for about 6 months) and HTN here for fever and sore throat. Patient moved to ICU yesterday evening. He was confused overnight but this has been improving. He was HoTN was started on phenylephrine. Nation catheter had to be placed today by urology. Still feels SOB but better. No CP. Cough that is productive. Sore throat is better. today patient stats he throat is still soar but as much as when he arrived, he was seen by ENT examined did not find any abscess, patient is being treated with IV abx, will monitor, patient has PAF and seen by sewing machine repairer helper and his HR is controlled, will monitor. Review of Systems Review of Systems: 12 systems were reviewed and are negative except for as per HPI. All systems reviewed & are unremarkable except as noted in HPI and below (HPI) Exam Narrative: Elderly frail Patient is comfortable, NAD HEENT: eyes are clear and none icteric LUNGS:CTA HEART: RR S1S2 ABD: BS+, Soft and nontender Lower extremities: no edema SKIN: nonjaundiced Neuro: grossly intact. Objective Data Vital Signs Vital Signs: Vital Signs - 24 hr 04/10/25 18:00 04/10/25 18:00 04/10/25 18:52 Temperature Pulse Rate 118 H 125 H 111 H Respiratory Rate 29 H Blood Pressure 85/55 L 77/54 L Pulse Oximetry 98 Oxygen Delivery Oxygen Flow Rate 04/10/25 18:52 04/10/25 20:00 04/10/25 20:00 Temperature Pulse Rate 111 H 115 H Respiratory Rate Blood Pressure 77/54 L 99/52 L Pulse Oximetry 100 Oxygen Delivery Nasal Cannula Oxygen Flow Rate 3 04/10/25 20:00 04/10/25 20:00 04/10/25 21:00 Temperature 36.9 C Pulse Rate 125 H 121 H Respiratory Rate 25 H Blood Pressure 99/52 L Pulse Oximetry 100 97 Oxygen Delivery Nasal Cannula Oxygen Flow Rate 3 04/10/25 22:00 04/10/25 22:00 04/10/25 22:00 Temperature Pulse Rate 113 H 123 H 123 H Respiratory Rate 23 H Blood Pressure 97/78 L 97/78 L Pulse Oximetry 99 Oxygen Delivery Oxygen Flow Rate 04/11/25 00:00 04/11/25 00:00 04/11/25 00:00 Temperature 37.0 C Pulse Rate 111 H 111 H Respiratory Rate 25 H Blood Pressure 103/63 103/63 Pulse Oximetry 100 100 Oxygen Delivery Nasal Cannula Oxygen Flow Rate 3 04/11/25 00:00 04/11/25 02:00 04/11/25 02:00 Temperature Pulse Rate 123 H 109 H 109 H Respiratory Rate 20 Blood Pressure 82/61 L Pulse Oximetry 100 Oxygen Delivery Oxygen Flow Rate 04/11/25 02:00 04/11/25 04:00 04/11/25 04:00 Temperature Pulse Rate 109 H 112 H Respiratory Rate Blood Pressure 82/61 L 88/74 L Pulse Oximetry 97 Oxygen Delivery Nasal Cannula Oxygen Flow Rate 3 04/11/25 04:00 04/11/25 04:00 04/11/25 04:14 Temperature 37.4 C Pulse Rate 110 H 104 H 110 H Respiratory Rate 23 H Blood Pressure 88/74 L 92/48 L Pulse Oximetry 97 Oxygen Delivery Oxygen Flow Rate 04/11/25 04:14 04/11/25 06:00 04/11/25 06:00 Temperature Pulse Rate 110 H 119 H 115 H Respiratory Rate Blood Pressure 92/48 L 97/52 L Pulse Oximetry Oxygen Delivery Oxygen Flow Rate 04/11/25 06:00 04/11/25 08:00 04/11/25 08:00 Temperature Pulse Rate 119 H 112 H 119 H Respiratory Rate 26 H 28 H Blood Pressure 97/52 L Pulse Oximetry 98 98 Oxygen Delivery Nasal Cannula Oxygen Flow Rate 3 04/11/25 08:00 04/11/25 10:00 04/11/25 10:00 Temperature 37.2 C Pulse Rate 119 H 122 H 122 H Respiratory Rate 26 H 30 H Blood Pressure 96/69 L 100/56 L Pulse Oximetry 98 96 Oxygen Delivery Oxygen Flow Rate 04/11/25 10:43 04/11/25 10:43 04/11/25 12:00 Temperature Pulse Rate 119 H 119 H 92 Respiratory Rate Blood Pressure Pulse Oximetry Oxygen Delivery Oxygen Flow Rate 04/11/25 12:00 04/11/25 12:00 04/11/25 14:00 Temperature Pulse Rate 102 H 102 H 92 Respiratory Rate 24 H 14 Blood Pressure 95/55 L Pulse Oximetry 98 100 Oxygen Delivery Nasal Cannula Oxygen Flow Rate 2 04/11/25 14:00 04/11/25 15:26 04/11/25 15:26 Temperature Pulse Rate 90 110 H 110 H Respiratory Rate 24 H Blood Pressure 95/55 L 89/52 L 89/52 L Pulse Oximetry 99 Oxygen Delivery Oxygen Flow Rate 04/11/25 16:00 04/11/25 16:00 04/11/25 16:00 Temperature 36.4 C Pulse Rate 86 82 98 Respiratory Rate 14 24 H Blood Pressure 91/57 L Pulse Oximetry 100 100 Oxygen Delivery Nasal Cannula Oxygen Flow Rate 2 Intake/Output Intake/Output: Intake & Output 04/08/25 04/09/25 04/10/25 04/11/25 23:59 23:59 23:59 23:59 Intake Total 2524.0 1340.0 1360.5 2710.2 Output Total 525 600 800 400 Balance 1999.0 740.0 560.5 2310.2 Meds/Results Medications: Active Medications Generic Name Dose Route Start Last Admin Trade Name Freq PRN Reason Stop Dose Admin Acetaminophen 650 mg 04/07/25 19:59 04/09/25 20:52 Acetaminophen 325 Mg Tablet PO 650 mg Q6H PRN Administration Mild Pain (1-3) or Fever Artificial Tears 1 drop 04/08/25 03:43 Artificial Tears Ophth Soln 15 Ml Bottle EACH EYE Q4H PRN Dry Eye(s) Ascorbic Acid 500 mg 04/08/25 09:00 04/11/25 08:39 Ascorbic Acid 500 Mg Tablet PO 500 mg DAILY ATUL Administration Aspirin 81 mg 04/08/25 09:00 04/11/25 08:39 Aspirin 81 Mg Enteric Tablet PO 81 mg DAILY ATUL Administration Benzocaine/Butamben/Tetracaine HCl 1 spray 04/11/25 13:54 Benzocaine/Tetracaine [place] (*Sp) 56 Ml Aerosol MUCOUS MEM PRN PRN Sore Throat Calcium Carbonate 1,000 mg 04/08/25 12:00 04/11/25 13:11 Calcium/Vitamin D 500 Mg/5 Mcg (200 I.U.) Tablet PO Not Given DAILY@1200 ATUL Clopidogrel Bisulfate 75 mg 04/08/25 09:00 04/11/25 08:38 Clopidogrel Bisulfate 75 Mg Tablet PO 75 mg DAILY ATUL Administration Cyclosporine 1 drop 04/08/25 09:00 04/11/25 08:38 Cyclosporine 0.4 Ml Ophth Solution EACH EYE 1 drop Q12HR ATUL Administration Digoxin 125 mcg 04/11/25 09:20 04/11/25 10:43 Digoxin Inj 250 Mcg/Ml 2 Ml Amp (*Bkc) IV PUSH 125 mcg DAILY ATUL Administration Enoxaparin Sodium 30 mg 04/09/25 09:00 04/11/25 08:38 Enoxaparin 30 Mg/0.3 Ml Syringe SUB-Q 30 mg DAILY ATUL Administration Famotidine 20 mg 04/08/25 09:00 04/11/25 08:38 Famotidine 20 Mg Tablet PO 20 mg Q12HR ATUL Administration Fish Oil 1 gm 04/08/25 09:00 04/11/25 08:38 [place] 3 Polyunsat Fatty Acids 1 Gm Cap PO 1 gm DAILY ATUL Administration Meropenem 1 gm in 100 mls @ 200 mls/hr 04/08/25 04:00 04/11/25 15:58 IVPB Infused Q12H ATUL Infusion Doxycycline Hyclate 100 mg in 100 mls @ 100 mls/hr 04/08/25 21:00 04/11/25 09:39 Vibramycin 100 Mg/Ns 100 Ml IVPB Infused Q12H ATUL Infusion Phenylephrine HCl 50 mg/ 250 mls @ 30 mls/hr 04/09/25 10:45 04/11/25 15:26 Sodium Chloride IV CONT 100 mcg/min .Q8H20M ATUL 30 mls/hr Administration Protocol 100 MCG/MIN Ipratropium [place] 2 spray 04/08/25 09:00 04/11/25 13:10 Ipratropium Nasal [place] 0.06% 15 Ml Bottle NASAL Not Given TID ATUL Metoprolol Tartrate 25 mg 04/11/25 09:10 04/11/25 10:43 Metoprolol Tartrate 25 Mg Tablet PO 25 mg Q12HR ATUL Administration Multivitamins Therapeutic 1 tablet 04/08/25 09:00 04/11/25 08:39 Multivitamins Therapeutic Tab (*Bkc) PO 1 tablet DAILY ATUL Administration Oxymetazoline HCl 1 spray 04/08/25 16:42 Oxymetazoline Hcl 0.05% [place] 15 Ml Btl (*Bkc) NASAL Q12HR PRN Congestion Ranolazine 500 mg 04/08/25 09:00 04/11/25 08:38 Ranolazine 500 Mg Tab.Er.12h PO 500 mg Q12HR ATUL Administration Sodium Bicarbonate 650 mg 04/09/25 17:00 04/11/25 08:38 Sodium Bicarbonate Tab 650 Mg Tablet PO 650 mg BID ATUL Administration Sodium Chloride 10 ml 04/09/25 14:00 04/11/25 13:11 Central Line Flush IV PUSH 10 ml Q8HR ATUL Administration Sodium Chloride 10 ml 04/09/25 10:42 Central Line Flush IV PUSH PRN PRN with TPN bag changes Sodium Chloride 20 ml 04/09/25 10:42 [place] Line Flush IV PUSH PRN PRN after blood draws Radiology Results: ITS Impressions Soft Tissue Neck CT 04/07/25 17:28 IMPRESSION: Right palatine tonsillar enlargement. No tonsillar abscess detected. Left submandibular gland enlargement. Left anterior cervical chain lymphadenopathy. Anterior neck soft tissue stranding, which may represent cellulitis in the appropriate clinical context. Paratracheal lymphadenopathy. Mild interstitial edema. Hip/Pelvis X-Ray 04/08/25 15:38 Impression: 1: No acute bone or joint abnormality. Cervical Spine CT 04/08/25 15:49 IMPRESSION: 1. No acute abnormality of the cervical spine. 2: Moderate cervical spondylosis. Abdomen Ultrasound 04/08/25 17:43 IMPRESSION: Distended gallbladder with possible minimal pericholecystic fluid versus edema. Clinical correlation and follow-up advised. Otherwise, normal Limited abdominal ultrasound. Chest X-Ray 04/09/25 11:27 Impression: 1: Cardiomegaly with mild interstitial edema, improved compared with 04/08/2025. Head CT 04/09/25 12:26 Impression: No intracranial hemorrhage, mass, or acute infarct. Atrophy and chronic white matter changes, as above. Venous Doppler Study 04/09/25 14:23 Impression: 1: Normal venous ultrasound of the internal jugular veins. No evidence for deep venous thrombosis. Chest/Abdomen/Pelvis CT 04/09/25 19:03 IMPRESSION: CHEST: 1. Bilateral basal atelectasis versus pneumonia with bilateral pleural effusion more on the right side. 2. Mediastinal lymphadenopathy. 3. Cardiomegaly. 4. Nodule in the left upper lobe. 6 months follow-up CT is advised. ABDOMEN/PELVIS: 1. No evidence of appendicitis, diverticulitis or intestinal obstruction. 2. 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 3. Hyperdense areas in the kidneys which may be residual contrast versus hemorrhagic cysts. Labs Labs: Laboratory Results - last 24 hr 04/08/25 04/11/25 03:58 06:11 WBC 19.3 H RBC 3.41 L Hgb 10.9 L Hct 31.9 L MCV 93.5 MCH 32.0 MCHC 34.2 RDW 15.0 H Plt Count 159 MPV 12.0 H Immature Gran % (Auto) Not Reportable Neut % (Auto) Not Reportable Lymph % (Auto) Not Reportable [place] % (Auto) Not Reportable Eos % (Auto) Not Reportable Baso % (Auto) Not Reportable Lymph # (Auto) Not Reportable [place] # (Auto) Not Reportable Eos # (Auto) Not Reportable Baso # (Auto) Not Reportable Abs Immat Gran (auto) Not Reportable Absolute Neuts (auto) Not Reportable Absolute Nucleated RBC Not Reportable Total Counted 100 Neutrophils % (Manual) 61 Band Neutrophils % 26 H Lymphocytes % (Manual) 0 L Monocytes % (Manual) 9 Eosinophils % (Manual) 4 Nucleated RBC % Not Reportable Abs Neuts (Manual) 16.79 H Abs Lymphs (Manual) 0.00 L Abs Monocytes (Manual) 1.73 H Absolute Eos (Manual) 0.77 H Nucleated RBCs 1 Platelet Estimate Adequate Schistocytes None seen Sodium 132 L Potassium 3.8 Chloride 103 Carbon Dioxide 22 Anion Gap 7 BUN 48 H Creatinine 1.06 Estim Creat Clear Calc 43 Estimated GFR > 60 Glucose 93 Calcium 7.3 L Phosphorus 2.1 L Magnesium 2.2 Total Bilirubin 1.3 AST 334 H ALT 495 H Alkaline Phosphatase 88 Total Creatine Kinase 248 H Total Protein 4.6 L Albumin 2.1 L EBV (Quant-PCR) Quant Not detected EBV DNA Quant PCR log10 Not detected Quality VTE Prophylaxis VTE prophylaxis: pharmacologic ordered
[2025-04-11] MEDS: BENZOCAINE/TETRACAINE SPRAY (*SP) 56 ML AEROSOL 1 SPRAY MUCOUS MEM (17:39)
[2025-04-11] MEDS: PHENYLEPHRINE HCL INJ 50 MG in SODIUM CHLORIDE 0.9% IV 245 ML 45 ML IV CONT (22:25)
[2025-04-12] VITALS (56 sets, daily range): BP systolic 88–126; BP diastolic 25–97; PULSE 68–106; RESP 13–26; TEMP 36–36.8; O2SAT 94–100
[2025-04-12] MEDS: ACETAMINOPHEN 325 MG TABLET 650 MG PO ×2 (01:20→09:43)
[2025-04-12] MEDS: MEROPENEM 1 GM/NS 100 ML 1 GM/100 ML BAG IVPB ×2 (03:51→16:35)
[2025-04-12] MEDS: CENTRAL LINE FLUSH 10 ML IV PUSH ×3 (04:01→21:15)
[2025-04-12] MEDS: PHENYLEPHRINE HCL INJ 50 MG in SODIUM CHLORIDE 0.9% IV 245 ML 45 ML IV CONT (04:02)
[2025-04-12 06:54] LABS: Hematocrit 31.1 % (42.0-52.0); Hemoglobin 10.6 g/dL (14.0-18.0); Mean Corpuscular HGB Conc 34.1 g/dl (32-36); Mean Corpuscular Hemoglobin 31.7 pg (26-34); Mean Corpuscular Volume 93.1 fl (80-100); Mean Platelet Volume 11.9 fl (7.4-10.4); Platelet Count Result 173 k/mm3 (150-375); Red Blood Count 3.34 M/mm3 (4.6-6.20); Red Cell Distribution Width 15.3 % (11.5-14.5); White Blood Count 13.9 K/mm3 (4.5-10.0)
[2025-04-12 07:18] LABS: Alanine Aminotransferase 431 U/L (6-50); Alkaline Phosphatase 93 U/L (38-126); Anion Gap 6 mmol/L (4-12); Aspartate Amino Transferase 230 U/L (17-59); Bilirubin,Total 1.2 mg/dL (0.2-1.3); Blood Urea Nitrogen 45 mg/dL (9-20); Calcium 7.1 mg/dL (8.4-10.2); Carbon Dioxide 21 mmol/L (22-30); Chloride 108 mmol/L (98-107); Estimated CRCL calculation 49 ml/min; Estimated Glomerular Filt Rate > 60; Glucose 94 mg/dL (65-110); Magnesium 2.2 mg/dL (1.6-2.3); Potassium 3.7 mmol/L (3.4-5.0); Sodium 135 mmol/L (137-145); Total Protein 4.4 g/dL (6.3-8.2)
--- NOTE | 2025-04-12 08:37 | P.PNINT_ITS ---
Progress Note: A&P Assessment and Plan (1) Sepsis: Qualifiers: Sepsis acute organ dysfunction status: without acute organ dysfunction Sepsis type: sepsis due to unspecified organism Qualified Code(s): A41.9 - S epsis, unspecified organism Code(s): A41.9 - Sepsis, unspecified organism Status: Acute Assessment and Plan: Patient presented with sepsis with the fever and rash and complained of sore throat and pain in the left neck CT scan of the soft tissue neck showed IMPRESSION: Right palatine tonsillar enlargement. No tonsillar abscess detected. Left submandibular gland enlargement. Left anterior cervical chain lymphadenopathy. Anterior neck soft tissue stranding, which may represent cellulitis in the appropriate clinical context. Paratracheal lymphadenopathy Patient was evaluated by ENT who recommended antibiotic therapy UA negative Ultrasound of IJ negative for any clot CT chest showed Bilateral basal atelectasis versus pneumonia with bilateral pleural effusion more on the right side. Blood cultures ordered and negative till now Ultrasound of the right upper quadrant suggest cholecystitis and hence general surgery consulted and they recommend antibiotic treatment with no further intervention Measles ruled out Continue Kike-Synephrine for blood pressure support Add albumin, midodrine and hydrocortisone as patient continues to require low- dose vasopressors. Due to congestive heart failure we limited with IV fluids (2) Cardiomyopathy: Code(s): I42.9 - Cardiomyopathy, unspecified Status: Acute Assessment and Plan: History of coronary disease and ischemic cardiomyopathy. Hold further IV fluids IV fluid Continue beta-angelo hold Entresto at this time due to low blood pressure. Continue Kike-Synephrine EchoSummary 1. Left ventricular chamber dimension is moderately enlarged. 2. Left ventricular systolic function is severely globally reduced, estimated at 20-25. 3. There is mild concentric increased left ventricular wall thickness. 4. The left ventricular diastolic function is abnormal. 5. E/e' 11 is mildly elevated. 6. Definity contrast administered improved wall motion interpretation. 7. Atrial fibrillation. 8. Left atrial chamber dimension is moderately enlarged. 9. Right atrial chamber dimension is moderately enlarged. 10. There is mild aortic valve sclerosis. 11. There is mild to moderate aortic valve regurgitation. 12. The mitral valve has a mildly calcified annulus. 13. There is mild to moderate mitral valve regurgitation. 14. There is mild tricuspid valve regurgitation. 15. No pulmonary hypertension, estimated pulmonary arterial systolic pressure is 33 mmHg. 16. The prox ascending aorta size is mildly dilated at 4.4 cm. (3) CHF (congestive heart failure): Code(s): I50.9 - Heart failure, unspecified Status: Acute Assessment and Plan: See above (4) Coronary artery disease: Qualifiers: Coronary Disease-Associated Artery/Lesion type: [place] artery [place] vs. transplanted heart: [place] heart Associated angina: without angina Qualified Code(s): I25.10 - Atherosclerotic heart disease of [place] coronary artery without angina pectoris Code(s): I25.10 - Atherosclerotic heart disease of [place] coronary artery without angina pectoris Status: Acute Assessment and Plan: History of coronary disease status post stenting. Continue aspirin and Plavix Resume beta-angelo and hold statin (5) Paroxysmal atrial fibrillation: Code(s): I48.0 - Paroxysmal atrial fibrillation Status: Acute Assessment and Plan: On p.o. metoprolol and digoxin as per Cardiology (6) Localized swelling, mass and lump, neck: Code(s): R22.1 - Localized swelling, mass and lump, neck Status: Acute Assessment and Plan: See above (7) Elevated LFTs: Code(s): R79.89 - Other specified abnormal findings of blood chemistry Status: Acute Assessment and Plan: Likely secondary to shock liver Hold statin ultrasound reviewed Levels improving (8) Benign prostatic hyperplasia: Code(s): N40.0 - Benign prostatic hyperplasia without lower urinary tract symptoms Status: Acute Assessment and Plan: Place [place] catheter (9) Rhabdomyolysis: Code(s): M62.82 - Rhabdomyolysis Status: Acute Assessment and Plan: Conservative IV fluids due to history of congestive heart failure CK level improving (10) LENIN (acute kidney injury): Code(s): N17.9 - Acute kidney failure, unspecified Status: Acute Assessment and Plan: LENIN likely secondary to sepsis and abscess Conservative IV fluids due to history of congestive heart failure. Patient was given additional 1 L of IV fluids with bicarb CT scan of abdomen negative for any obstruction or stone Consulted Urology Place [place] catheter for accurate I&Os Creatinine further improved and now in normal range Monitor urine output electrolytes and creatinine (11) Rash: Code(s): R21 - Rash and other nonspecific skin eruption Status: Acute Assessment and Plan: Can be secondary antibiotics or viral infection No schistocytes on peripheral blood smear Coag panel mildly abnormal (12) Cholecystitis: Code(s): K81.9 - Cholecystitis, unspecified Status: Acute Assessment and Plan: Right upper quadrant ultrasound showed Distended gallbladder with possible minimal pericholecystic fluid versus edema. Clinical correlation and follow-up advised. Otherwise, normal Limited abdominal ultrasound. Consulted general surgery and not require any intervention at this time Diet ordered Plan DVT prophylaxis -Lovenox Nutrition -diet ordered Code Status -patient wishes to be Full Code but does not want want to be on mechanical ventilation for a prolonged period of time. He is a and does not have any biological children. He wants his cousin Daniel to be decision maker on his behalf he is unable to do so Incentive spirometry, up in chair Consult PT OT Total Critical Care Time - 30 minutes Due to a high probability of clinically significant, life threatening deterioration, the patient required my highest level of preparedness to int ervene emergently and I personally spent this critical care time directly and personally managing the patient. This critical care time included obtaining a history; examining the patient; pulse oximetry; ordering and review of studies; arranging urgent treatment with development of a management plan; evaluation of patient's response to treatment; frequent reassessment; and discussions with other providers. It was exclusive of separately billable procedures and treating other patients and teaching time. Please see Assessment and Plan section and the rest of the note for further information on patient assessment and treatment Subjective Date/time seen: 04/12/25 Patient states that he has generalized back pain from laying in bed and arthritis. He denies any new complaints and overall feels better. He states he is eating adequately. Patient denies fever, chest pain, shortness of breath, cough, nausea vomiting, abdominal pain,, diarrhea, headache or constipation. He has had some confusion overnight as per nursing staff. He continues to be on phenylephrine infusion to maintain his blood pressure. AFib with controlled ventricular rate Afebrile Interval history: 89yo male with CAD with recent stent placement in December, pAFib (off anticoagulation for about 6 months) and HTN here for fever and sore throat. Review of Systems Review of Systems: All systems reviewed & are unremarkable except as noted in HPI and below (HPI) Exam Narrative: General: Pt is free old man who is awake and alert today Lungs/Chest: Trachea central course BS decreased at bases B/L, on room air Cardiac: Irregular rate and rhythm. Normal S1 S2. No murmurs Circulation: Pedal pulses are intact and symmetrical. Feet are warm Abdomen: Normal bowel sounds.. Soft. No tenderness on palpation Extremities: No clubbing, cyanosis or edema. Warm : Nation in place Neurologic: Follows commands. Moves all 4 extremities PERRL AO x3 Skin: Maculopapular rash on both legs appears less red the as compared to before Objective Data Vital Signs Vital Signs: Vital Signs - 24 hr 04/11/25 10:00 04/11/25 10:00 04/11/25 10:43 Temperature Pulse Rate 122 H 122 H 119 H Respiratory Rate 30 H Blood Pressure 100/56 L Pulse Oximetry 96 Oxygen Delivery Oxygen Flow Rate 04/11/25 10:43 04/11/25 12:00 04/11/25 12:00 Temperature Pulse Rate 119 H 92 102 H Respiratory Rate 24 H Blood Pressure 95/55 L Pulse Oximetry 98 Oxygen Delivery Oxygen Flow Rate 04/11/25 12:00 04/11/25 14:00 04/11/25 14:00 Temperature Pulse Rate 102 H 92 90 Respiratory Rate 14 24 H Blood Pressure 95/55 L Pulse Oximetry 100 99 Oxygen Delivery Nasal Cannula Oxygen Flow Rate 2 04/11/25 15:26 04/11/25 15:26 04/11/25 16:00 Temperature Pulse Rate 110 H 110 H 86 Respiratory Rate 14 Blood Pressure 89/52 L 89/52 L Pulse Oximetry 100 Oxygen Delivery Nasal Cannula Oxygen Flow Rate 2 04/11/25 16:00 04/11/25 16:00 04/11/25 18:00 Temperature 36.4 C Pulse Rate 82 98 101 H Respiratory Rate 24 H Blood Pressure 91/57 L Pulse Oximetry 100 Oxygen Delivery Oxygen Flow Rate 04/11/25 18:00 04/11/25 18:30 04/11/25 20:00 Temperature Pulse Rate 90 97 104 H Respiratory Rate 18 22 H Blood Pressure 95/64 L 88/54 L Pulse Oximetry 93 99 Oxygen Delivery Room Air Oxygen Flow Rate 04/11/25 20:00 04/11/25 20:00 04/11/25 20:01 Temperature 36.6 C Pulse Rate 104 H 104 H 101 H Respiratory Rate 22 H Blood Pressure 103/90 103/90 Pulse Oximetry 99 Oxygen Delivery Oxygen Flow Rate 04/11/25 20:06 04/11/25 22:00 04/11/25 22:00 Temperature Pulse Rate 92 84 84 Respiratory Rate Blood Pressure 95/50 L Pulse Oximetry Oxygen Delivery Oxygen Flow Rate 04/11/25 22:00 04/11/25 22:25 04/11/25 22:25 Temperature Pulse Rate 84 91 91 Respiratory Rate 32 H Blood Pressure 95/50 L 86/53 L 86/53 L Pulse Oximetry 97 Oxygen Delivery Oxygen Flow Rate 04/12/25 00:00 04/12/25 00:00 04/12/25 00:00 Temperature 36.8 C Pulse Rate 91 92 Respiratory Rate 24 H Blood Pressure 102/84 Pulse Oximetry 94 100 Oxygen Delivery Room Air Oxygen Flow Rate 04/12/25 00:00 04/12/25 02:00 04/12/25 02:00 Temperature Pulse Rate 92 96 96 Respiratory Rate 21 H Blood Pressure 102/84 114/97 H Pulse Oximetry 98 Oxygen Delivery Oxygen Flow Rate 04/12/25 02:00 04/12/25 04:00 04/12/25 04:00 Temperature Pulse Rate 96 90 Respiratory Rate Blood Pressure 114/97 H 91/66 L Pulse Oximetry 94 Oxygen Delivery Room Air Oxygen Flow Rate 04/12/25 04:00 04/12/25 04:00 04/12/25 04:02 Temperature 36.3 C L Pulse Rate 88 92 92 Respiratory Rate 21 H Blood Pressure 91/66 L 91/66 L Pulse Oximetry 96 Oxygen Delivery Oxygen Flow Rate 04/12/25 06:00 04/12/25 06:00 04/12/25 06:00 Temperature Pulse Rate 95 95 95 Respiratory Rate 26 H Blood Pressure 105/58 L 105/58 L Pulse Oximetry 100 Oxygen Delivery Oxygen Flow Rate Intake/Output Intake/Output: Intake & Output 04/09/25 04/10/25 04/11/25 04/12/25 23:59 23:59 23:59 23:59 Intake Total 1340.0 1360.5 2949.1 688.5 Output Total 600 800 850 350 Balance 740.0 560.5 2099.1 338.5 Meds/Results Medications: Active Medications Generic Name Dose Route Start Last Admin Trade Name Freq PRN Reason Stop Dose Admin Acetaminophen 650 mg 04/07/25 19:59 04/12/25 01:20 Acetaminophen 325 Mg Tablet PO 650 mg Q6H PRN Administration Mild Pain (1-3) or Fever Artificial Tears 1 drop 04/08/25 03:43 Artificial Tears Ophth Soln 15 Ml Bottle EACH EYE Q4H PRN Dry Eye(s) Ascorbic Acid 500 mg 04/08/25 09:00 04/11/25 08:39 Ascorbic Acid 500 Mg Tablet PO 500 mg DAILY ATUL Administration Aspirin 81 mg 04/08/25 09:00 04/11/25 08:39 Aspirin 81 Mg Enteric Tablet PO 81 mg DAILY ATUL Administration Benzocaine/Butamben/Tetracaine HCl 1 spray 04/11/25 13:54 04/11/25 17:39 Benzocaine/Tetracaine [place] (*Sp) 56 Ml Aerosol MUCOUS MEM 1 spray PRN PRN Administration Sore Throat Calcium Carbonate 1,000 mg 04/08/25 12:00 04/11/25 13:11 Calcium/Vitamin D 500 Mg/5 Mcg (200 I.U.) Tablet PO Not Given DAILY@1200 ATUL Clopidogrel Bisulfate 75 mg 04/08/25 09:00 04/11/25 08:38 Clopidogrel Bisulfate 75 Mg Tablet PO 75 mg DAILY ATUL Administration Cyclosporine 1 drop 04/08/25 09:00 04/11/25 20:07 Cyclosporine 0.4 Ml Ophth Solution EACH EYE 1 drop Q12HR ATUL Administration Digoxin 125 mcg 04/11/25 09:20 04/11/25 10:43 Digoxin Inj 250 Mcg/Ml 2 Ml Amp (*Bkc) IV PUSH 125 mcg DAILY ATUL Administration Enoxaparin Sodium 30 mg 04/09/25 09:00 04/11/25 08:38 Enoxaparin 30 Mg/0.3 Ml Syringe SUB-Q 30 mg DAILY ATUL Administration Famotidine 20 mg 04/08/25 09:00 04/11/25 20:06 Famotidine 20 Mg Tablet PO 20 mg Q12HR ATUL Administration Fish Oil 1 gm 04/08/25 09:00 04/11/25 08:38 [place] 3 Polyunsat Fatty Acids 1 Gm Cap PO 1 gm DAILY ATUL Administration Meropenem 1 gm in 100 mls @ 200 mls/hr 04/08/25 04:00 04/12/25 04:44 IVPB Infused Q12H ATUL Infusion Doxycycline Hyclate 100 mg in 100 mls @ 100 mls/hr 04/08/25 21:00 04/12/25 01:16 Vibramycin 100 Mg/Ns 100 Ml IVPB 04/13/25 20:59 Infused Q12H ATUL Infusion Phenylephrine HCl 50 mg/ 250 mls @ 45 mls/hr 04/09/25 10:45 04/12/25 06:00 Sodium Chloride IV CONT 150 mcg/min .Q5H34M ATUL 45 mls/hr Titration Protocol 150 MCG/MIN Ipratropium [place] 2 spray 04/08/25 09:00 04/11/25 17:39 Ipratropium Nasal [place] 0.06% 15 Ml Bottle NASAL 2 spray TID ATUL Administration Metoprolol Tartrate 25 mg 04/11/25 09:10 04/11/25 20:06 Metoprolol Tartrate 25 Mg Tablet PO 25 mg Q12HR ATUL Administration Multivitamins Therapeutic 1 tablet 04/08/25 09:00 04/11/25 08:39 Multivitamins Therapeutic Tab (*Bkc) PO 1 tablet DAILY ATUL Administration Oxymetazoline HCl 1 spray 04/08/25 16:42 Oxymetazoline Hcl 0.05% [place] 15 Ml Btl (*Bkc) NASAL Q12HR PRN Congestion Ranolazine 500 mg 04/08/25 09:00 04/11/25 20:06 Ranolazine 500 Mg Tab.Er.12h PO 500 mg Q12HR ATUL Administration Sodium Bicarbonate 650 mg 04/09/25 17:00 04/11/25 17:38 Sodium Bicarbonate Tab 650 Mg Tablet PO Not Given BID ATUL Sodium Chloride 10 ml 04/09/25 14:00 04/12/25 04:01 Central Line Flush IV PUSH 10 ml Q8HR ATUL Administration Sodium Chloride 10 ml 04/09/25 10:42 Central Line Flush IV PUSH PRN PRN with TPN bag changes Sodium Chloride 20 ml 04/09/25 10:42 Central Line Flush IV PUSH PRN PRN after blood draws Radiology Results: ITS Impressions Soft Tissue Neck CT 04/07/25 17:28 IMPRESSION: Right palatine tonsillar enlargement. No tonsillar abscess detected. Left submandibular gland enlargement. Left anterior cervical chain lymphadenopathy. Anterior neck soft tissue stranding, which may represent cellulitis in the appropriate clinical context. Paratracheal lymphadenopathy. Mild interstitial edema. Hip/Pelvis X-Ray 04/08/25 15:38 Impression: 1: No acute bone or joint abnormality. Cervical Spine CT 04/08/25 15:49 IMPRESSION: 1. No acute abnormality of the cervical spine. 2: Moderate cervical spondylosis. Abdomen Ultrasound 04/08/25 17:43 IMPRESSION: Distended gallbladder with possible minimal pericholecystic fluid versus edema. Clinical correlation and follow-up advised. Otherwise, normal Limited abdominal ultrasound. Chest X-Ray 04/09/25 11:27 Impression: 1: Cardiomegaly with mild interstitial edema, improved compared with 04/08/2025. Head CT 04/09/25 12:26 Impression: No intracranial hemorrhage, mass, or acute infarct. Atrophy and chronic white matter changes, as above. Venous Doppler Study 04/09/25 14:23 Impression: 1: Normal venous ultrasound of the internal jugular veins. No evidence for deep venous thrombosis. Chest/Abdomen/Pelvis CT 04/09/25 19:03 IMPRESSION: CHEST: 1. Bilateral basal atelectasis versus pneumonia with bilateral pleural effusion more on the right side. 2. Mediastinal lymphadenopathy. 3. Cardiomegaly. 4. Nodule in the left upper lobe. 6 months follow-up CT is advised. ABDOMEN/PELVIS: 1. No evidence of appendicitis, diverticulitis or intestinal obstruction. 2. 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 3. Hyperdense areas in the kidneys which may be residual contrast versus hemorrhagic cysts. Labs Labs: Laboratory Results - last 24 hr 04/12/25 06:44 WBC 13.9 H RBC 3.34 L Hgb 10.6 L Hct 31.1 L MCV 93.1 MCH 31.7 MCHC 34.1 RDW 15.3 H Plt Count 173 MPV 11.9 H Sodium 135 L Potassium 3.7 Chloride 108 H Carbon Dioxide 21 L Anion Gap 6 BUN 45 H Creatinine 0.91 Estim Creat Clear Calc 49 Estimated GFR > 60 Glucose 94 Calcium 7.1 L Magnesium 2.2 Total Bilirubin 1.2 AST 230 H ALT 431 H Alkaline Phosphatase 93 Total Protein 4.4 L Albumin 2.0 L Quality VTE Prophylaxis VTE prophylaxis: pharmacologic ordered
[2025-04-12] MEDS: DOXYCYCLINE 100 MG/NS 100 ML 100 MG/100 ML BAG IVPB ×2 (08:54→21:03)
[2025-04-12] MEDS: DIGOXIN INJ 250 MCG/ML 2 ML AMP (*BKC) 125 MCG IV PUSH (08:54)
[2025-04-12] MEDS: POTASSIUM CHLORIDE 20 MEQ PACKET (FOR LIQUID) 40 MEQ PO (09:04)
[2025-04-12] MEDS: MIDODRINE HCL 10 MG TABLET PO ×3 (09:05→16:36)
[2025-04-12] MEDS: ENOXAPARIN 30 MG/0.3 ML SYRINGE SUB-Q (09:05)
[2025-04-12] MEDS: METOPROLOL TARTRATE 25 MG TABLET PO ×2 (09:06→21:03)
[2025-04-12] MEDS: ASPIRIN 81 MG ENTERIC TABLET PO (09:06)
[2025-04-12] MEDS: CLOPIDOGREL BISULFATE 75 MG TABLET PO (09:07)
[2025-04-12] MEDS: FAMOTIDINE 20 MG TABLET PO ×2 (09:07→21:02)
[2025-04-12 09:08] LABS: Measles(Rubeola) PCR, QL NOT DETECTED (Negative)
[2025-04-12] MEDS: SODIUM BICARBONATE TAB 650 MG TABLET PO ×2 (09:08→16:36)
[2025-04-12] MEDS: OMEGA 3 POLYUNSAT FATTY ACIDS 1 GM CAP PO (09:09)
[2025-04-12] MEDS: RANOLAZINE 500 MG TAB.ER.12H PO ×2 (09:09→21:02)
[2025-04-12] MEDS: MULTIVITAMINS THERAPEUTIC TAB (*BKC) 1 TABLET PO (09:09)
[2025-04-12] MEDS: ASCORBIC ACID 500 MG TABLET PO (09:09)
[2025-04-12] MEDS: HYDROCORTISONE SODIUM SUCCINATE 100 MG/2 ML VIAL IV PUSH ×2 (09:11→16:35)
[2025-04-12] MEDS: cycloSPORINE 0.4 ML OPHTH SOLUTION 1 DROP EACH EYE ×2 (09:11→21:02)
[2025-04-12] MEDS: IPRATROPIUM NASAL SPRAY 0.06% 15 ML BOTTLE 2 SPRAY NASAL ×3 (09:12→16:37)
[2025-04-12] MEDS: ALBUMIN HUMAN 25% 25 GM/100 ML 100 ML IVPB ×3 (09:13→21:03)
[2025-04-12] MEDS: PHENYLEPHRINE HCL INJ 50 MG in SODIUM CHLORIDE 0.9% IV 245 ML 30 ML IV CONT ×2 (09:43→16:00)
--- NOTE | 2025-04-12 11:52 | PM.PNCARD ---
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 He is on room air. He has mild lower extremity edema. He is requiring phenylephrine due to hypotension. Use Lasix as needed but otherwise will not resume scheduled diuretics at this time due to low blood pressure. -regards to hypotension, wean off phenylephrine as tolerated. Continue midodrine that was started today.. -regards to coronary artery disease, history of stenting before. Continue aspirin. Continue Ranexa. In -regards to elevated liver enzymes continue to hold statin for now. -regards to atrial fibrillation rate controlled. Continue metoprolol. Continue digoxin IV which can be changed to p.o.. Not sure why he is not on anticoagulation. But we can resume anticoagulation prior to discharge. Just leave him on aspirin and Xarelto but no Plavix. Regards to acute kidney injury, much improved now. Creatinine on admission 1.4 and today 0.9. Subjective Date/time seen: 04/12/25 11:52 Interval history: Reason for visit: AFIB, CHF, Sepsis HPI: Armando Walton is an 89 year old male with coronary artery disease s/p PCI to RCA, LCx, repeat intervention to the c in 2010, vprox LAD in 2023, and shockwave and stenting of the LAD and LCx in 2024). He presents to the hospital with sore throat, shortness of breath, and fever. Cardiology is consulted for atrial fibrillation and CHF. Echocardiogram performed during this hospitalization showed severe LV dysfunction with EF 20-25% which is a decline compared to echo in December 2024 showing EF 40%. Patient states he has intermittent chest pain and takes NTG about 3 times weekly on average. Has been experiencing shortness of breath and some lower extremity edema but no palpitations. Feeling a little better today but still has chills and shortness of breath. Date of service 04/09: Overnight, he had two falls in his room. Now in the ICU. Patient quite sleepy this morning. Date of service 04/11/2025: Still has some confusion. Does not have any specific complaints but feels lousy. Denies chest pain, palpitations, shortness of xavier Date of service 04/12/2025: Resting comfortably in chair. Sitting on bedside. He has sitter on the bedside. He is in room air. Denies shortness of breath or chest pain. He remains in AFib with heart rates 90 to low 100s. Remains on phenylephrine. Review of Systems Review of Systems: All systems reviewed & are unremarkable except as noted in HPI and below ROS unobtainable: Yes unobtainable due to mental status Cardiovascular: Cardiovascular: Reports as per HPI Neurologic: Reports confusion Psychiatric: Psychiatric: Reports confusion Exam Const: General: comfortable, no acute distress, alert, awake and confusion Orientation/consciousness: patient oriented x3 and confusion Other: Sleepy HENMT: Head: normal to inspection Mouth: Yes moist mucous membranes and Yes dry mucous membranes Eyes: General: appearance normal, both eyes and all related structures Sclera: sclerae normal Pupils: Equal, round and reactive pupils present Neck: Neck: normal visual inspection, supple and no JVD Carotids: normal carotid upstroke Resp: Effort & Inspection: normal respiratory effort Auscultation: rales Cardio: Rate: regular rate and tachycardic Rhythm: abnormal rhythm irregularly irregular Heart sounds: S1 normal heart sound present, S2 normal heart sound present and no murmurs GI: Auscultation: normal bowel sounds Skin: General skin exam: normal color, erythema and rashes Rashes: rashes noted Neuro: General: patient oriented x3 and confusion Cranial nerves: Yes Equal, round and reactive pupils present Extrem: General: edema and pedal edema Psych: Appearance: grossly normal Mental Status: mental status grossly normal Affect: normal affect Other: Sleepy Objective Data Vital Signs Vital Signs: Vital Signs - 24 hr 04/11/25 12:00 04/11/25 12:00 04/11/25 12:00 Temperature Pulse Rate 92 102 H 102 H Respiratory Rate 24 H 14 Blood Pressure 95/55 L Pulse Oximetry 98 100 Oxygen Delivery Nasal Cannula Oxygen Flow Rate 2 04/11/25 14:00 04/11/25 14:00 04/11/25 15:26 Temperature Pulse Rate 92 90 110 H Respiratory Rate 24 H Blood Pressure 95/55 L 89/52 L Pulse Oximetry 99 Oxygen Delivery Oxygen Flow Rate 04/11/25 15:26 04/11/25 16:00 04/11/25 16:00 Temperature Pulse Rate 110 H 86 82 Respiratory Rate 14 Blood Pressure 89/52 L Pulse Oximetry 100 Oxygen Delivery Nasal Cannula Oxygen Flow Rate 2 04/11/25 16:00 04/11/25 18:00 04/11/25 18:00 Temperature 36.4 C Pulse Rate 98 101 H 90 Respiratory Rate 24 H 18 Blood Pressure 91/57 L 95/64 L Pulse Oximetry 100 93 Oxygen Delivery Oxygen Flow Rate 04/11/25 18:30 04/11/25 20:00 04/11/25 20:00 Temperature 36.6 C Pulse Rate 97 104 H 104 H Respiratory Rate 22 H 22 H Blood Pressure 88/54 L 103/90 Pulse Oximetry 99 99 Oxygen Delivery Room Air Oxygen Flow Rate 04/11/25 20:00 04/11/25 20:01 04/11/25 20:06 Temperature Pulse Rate 104 H 101 H 92 Respiratory Rate Blood Pressure 103/90 Pulse Oximetry Oxygen Delivery Oxygen Flow Rate 04/11/25 22:00 04/11/25 22:00 04/11/25 22:00 Temperature Pulse Rate 84 84 84 Respiratory Rate 32 H Blood Pressure 95/50 L 95/50 L Pulse Oximetry 97 Oxygen Delivery Oxygen Flow Rate 04/11/25 22:25 04/11/25 22:25 04/12/25 00:00 Temperature Pulse Rate 91 91 Respiratory Rate Blood Pressure 86/53 L 86/53 L Pulse Oximetry 94 Oxygen Delivery Room Air Oxygen Flow Rate 04/12/25 00:00 04/12/25 00:00 04/12/25 00:00 Temperature 36.8 C Pulse Rate 91 92 92 Respiratory Rate 24 H Blood Pressure 102/84 102/84 Pulse Oximetry 100 Oxygen Delivery Oxygen Flow Rate 04/12/25 02:00 04/12/25 02:00 04/12/25 02:00 Temperature Pulse Rate 96 96 96 Respiratory Rate 21 H Blood Pressure 114/97 H 114/97 H Pulse Oximetry 98 Oxygen Delivery Oxygen Flow Rate 04/12/25 04:00 04/12/25 04:00 04/12/25 04:00 Temperature Pulse Rate 90 88 Respiratory Rate Blood Pressure 91/66 L Pulse Oximetry 94 Oxygen Delivery Room Air Oxygen Flow Rate 04/12/25 04:00 04/12/25 04:02 04/12/25 06:00 Temperature 36.3 C L Pulse Rate 92 92 95 Respiratory Rate 21 H Blood Pressure 91/66 L 91/66 L Pulse Oximetry 96 Oxygen Delivery Oxygen Flow Rate 04/12/25 06:00 04/12/25 06:00 04/12/25 08:00 Temperature Pulse Rate 95 95 94 Respiratory Rate 26 H Blood Pressure 105/58 L 105/58 L 91/25 L Pulse Oximetry 100 Oxygen Delivery Oxygen Flow Rate 04/12/25 08:00 04/12/25 08:00 04/12/25 08:00 Temperature 36.4 C L Pulse Rate 95 101 H Respiratory Rate 20 Blood Pressure 99/57 L Pulse Oximetry 97 Oxygen Delivery Room Air Oxygen Flow Rate 04/12/25 08:52 04/12/25 08:54 04/12/25 09:06 Temperature Pulse Rate 89 87 95 Respiratory Rate Blood Pressure 111/84 Pulse Oximetry Oxygen Delivery Oxygen Flow Rate 04/12/25 09:43 04/12/25 09:43 04/12/25 10:00 Temperature Pulse Rate 106 H 106 H 99 Respiratory Rate Blood Pressure 100/73 100/73 95/64 L Pulse Oximetry Oxygen Delivery Oxygen Flow Rate 04/12/25 10:00 04/12/25 10:00 Temperature Pulse Rate 95 95 Respiratory Rate 20 Blood Pressure 95/64 L Pulse Oximetry 99 Oxygen Delivery Oxygen Flow Rate Intake/Output Intake/Output: Intake & Output 04/09/25 04/10/25 04/11/25 04/12/25 23:59 23:59 23:59 23:59 Intake Total 1340.0 1360.5 2949.1 1207.9 Output Total 600 800 850 350 Balance 740.0 560.5 2099.1 857.9 Meds/Results Medications: Active Medications Generic Name Dose Route Start Last Admin Trade Name Freq PRN Reason Stop Dose Admin Acetaminophen 650 mg 04/07/25 19:59 04/12/25 09:43 Acetaminophen 325 Mg Tablet PO 650 mg Q6H PRN Administration Mild Pain (1-3) or Fever Artificial Tears 1 drop 04/08/25 03:43 Artificial Tears Ophth Soln 15 Ml Bottle EACH EYE Q4H PRN Dry Eye(s) Ascorbic Acid 500 mg 04/08/25 09:00 04/12/25 09:09 Ascorbic Acid 500 Mg Tablet PO 500 mg DAILY ATUL Administration Aspirin 81 mg 04/08/25 09:00 04/12/25 09:06 Aspirin 81 Mg Enteric Tablet PO 81 mg DAILY ATUL Administration Benzocaine/Butamben/Tetracaine HCl 1 spray 04/11/25 13:54 04/11/25 17:39 Benzocaine/Tetracaine [place] (*Sp) 56 Ml Aerosol MUCOUS MEM 1 spray PRN PRN Administration Sore Throat Calcium Carbonate 1,000 mg 04/08/25 12:00 04/11/25 13:11 Calcium/Vitamin D 500 Mg/5 Mcg (200 I.U.) Tablet PO Not Given DAILY@1200 ATUL Clopidogrel Bisulfate 75 mg 04/08/25 09:00 04/12/25 09:07 Clopidogrel Bisulfate 75 Mg Tablet PO 75 mg DAILY ATUL Administration Cyclosporine 1 drop 04/08/25 09:00 04/12/25 09:11 Cyclosporine 0.4 Ml Ophth Solution EACH EYE 1 drop Q12HR ATUL Administration Digoxin 125 mcg 04/11/25 09:20 04/12/25 08:54 Digoxin Inj 250 Mcg/Ml 2 Ml Amp (*Bkc) IV PUSH 125 mcg DAILY ATUL Administration Enoxaparin Sodium 30 mg 04/09/25 09:00 04/12/25 09:05 Enoxaparin 30 Mg/0.3 Ml Syringe SUB-Q 30 mg DAILY ATUL Administration Famotidine 20 mg 04/08/25 09:00 04/12/25 09:07 Famotidine 20 Mg Tablet PO 20 mg Q12HR ATUL Administration Fish Oil 1 gm 04/08/25 09:00 04/12/25 09:09 [place] 3 Polyunsat Fatty Acids 1 Gm Cap PO 1 gm DAILY ATUL Administration Hydrocortisone Sodium Succinate 100 mg 04/12/25 09:00 04/12/25 09:11 Hydrocortisone Sodium Succinate 100 Mg/2 Ml Vial IV PUSH 100 mg Q8H ATUL Administration Meropenem 1 gm in 100 mls @ 200 mls/hr 04/08/25 04:00 04/12/25 04:44 IVPB Infused Q12H ATUL Infusion Doxycycline Hyclate 100 mg in 100 mls @ 100 mls/hr 04/08/25 21:00 04/12/25 10:46 Vibramycin 100 Mg/Ns 100 Ml IVPB 04/13/25 20:59 Infused Q12H ATUL Infusion Phenylephrine HCl 50 mg/ 250 mls @ 30 mls/hr 04/09/25 10:45 04/12/25 10:00 Sodium Chloride IV CONT 100 mcg/min .Q8H20M ATUL 30 mls/hr Titration Protocol 100 MCG/MIN Albumin Human 100 mls @ 60 mls/hr 04/12/25 09:00 04/12/25 10:46 Albutein IVPB 04/13/25 04:39 Infused Q6H ATUL Infusion Ipratropium [place] 2 spray 04/08/25 09:00 04/12/25 09:12 Ipratropium Nasal [place] 0.06% 15 Ml Bottle NASAL 2 spray TID ATUL Administration Metoprolol Tartrate 25 mg 04/11/25 09:10 04/12/25 09:06 Metoprolol Tartrate 25 Mg Tablet PO 25 mg Q12HR ATUL Administration Midodrine 10 mg 04/12/25 09:00 04/12/25 09:05 Midodrine Hcl 10 Mg Tablet PO 10 mg TID ATUL Administration Multivitamins Therapeutic 1 tablet 04/08/25 09:00 04/12/25 09:09 Multivitamins Therapeutic Tab (*Bkc) PO 1 tablet DAILY ATUL Administration Oxymetazoline HCl 1 spray 04/08/25 16:42 Oxymetazoline Hcl 0.05% [place] 15 Ml Btl (*Bkc) NASAL Q12HR PRN Congestion Ranolazine 500 mg 04/08/25 09:00 04/12/25 09:09 Ranolazine 500 Mg Tab.Er.12h PO 500 mg Q12HR ATUL Administration Sodium Bicarbonate 650 mg 04/09/25 17:00 04/12/25 09:08 Sodium Bicarbonate Tab 650 Mg Tablet PO 650 mg BID ATUL Administration Sodium Chloride 10 ml 04/09/25 14:00 04/12/25 04:01 Central Line Flush IV PUSH 10 ml Q8HR ATUL Administration Sodium Chloride 10 ml 04/09/25 10:42 Central Line Flush IV PUSH PRN PRN with TPN bag changes Sodium Chloride 20 ml 04/09/25 10:42 Central Line Flush IV PUSH PRN PRN after blood draws Radiology Results: ITS Impressions Soft Tissue Neck CT 04/07/25 17:28 IMPRESSION: Right palatine tonsillar enlargement. No tonsillar abscess detected. Left submandibular gland enlargement. Left anterior cervical chain lymphadenopathy. Anterior neck soft tissue stranding, which may represent cellulitis in the appropriate clinical context. Paratracheal lymphadenopathy. Mild interstitial edema. Hip/Pelvis X-Ray 04/08/25 15:38 Impression: 1: No acute bone or joint abnormality. Cervical Spine CT 04/08/25 15:49 IMPRESSION: 1. No acute abnormality of the cervical spine. 2: Moderate cervical spondylosis. Abdomen Ultrasound 04/08/25 17:43 IMPRESSION: Distended gallbladder with possible minimal pericholecystic fluid versus edema. Clinical correlation and follow-up advised. Otherwise, normal Limited abdominal ultrasound. Chest X-Ray 04/09/25 11:27 Impression: 1: Cardiomegaly with mild interstitial edema, improved compared with 04/08/2025. Head CT 04/09/25 12:26 Impression: No intracranial hemorrhage, mass, or acute infarct. Atrophy and chronic white matter changes, as above. Venous Doppler Study 04/09/25 14:23 Impression: 1: Normal venous ultrasound of the internal jugular veins. No evidence for deep venous thrombosis. Chest/Abdomen/Pelvis CT 04/09/25 19:03 IMPRESSION: CHEST: 1. Bilateral basal atelectasis versus pneumonia with bilateral pleural effusion more on the right side. 2. Mediastinal lymphadenopathy. 3. Cardiomegaly. 4. Nodule in the left upper lobe. 6 months follow-up CT is advised. ABDOMEN/PELVIS: 1. No evidence of appendicitis, diverticulitis or intestinal obstruction. 2. 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 3. Hyperdense areas in the kidneys which may be residual contrast versus hemorrhagic cysts. Labs Labs: Laboratory Results - last 24 hr 04/08/25 04/12/25 19:43 06:44 WBC 13.9 H RBC 3.34 L Hgb 10.6 L Hct 31.1 L MCV 93.1 MCH 31.7 MCHC 34.1 RDW 15.3 H Plt Count 173 MPV 11.9 H Sodium 135 L Potassium 3.7 Chloride 108 H Carbon Dioxide 21 L Anion Gap 6 BUN 45 H Creatinine 0.91 Estim Creat Clear Calc 49 Estimated GFR > 60 Glucose 94 Calcium 7.1 L Magnesium 2.2 Total Bilirubin 1.2 AST 230 H ALT 431 H Alkaline Phosphatase 93 Total Protein 4.4 L Albumin 2.0 L Resp [place] (PCR) Not detected
[2025-04-12] MEDS: CALCIUM/VITAMIN D 500 MG/5 MCG (200 I.U.) TABLET 1000 MG PO (12:59)
--- NOTE | 2025-04-12 15:57 | PM.IMPN ---
Progress Note: A&P Assessment and Plan (1) Sepsis: Qualifiers: Sepsis acute organ dysfunction status: without acute organ dysfunction Sepsis type: sepsis due to unspecified organism Qualified Code(s): A41.9 - Sepsis, unspecified organism Code(s): A41.9 - Sepsis, unspecified organism Status: Acute Assessment and Plan: Patient with fever and rash. Rash began after abx given but drug reaction felt less likely. GA Strept swab negative. Stark negative. MRSA nasal swab negative. Influenza, COVID and RSV PCR negative. CXR was clear. CT Neck showing right tonsillar and left submandibular gland enlargement and adneopathy. Also with anterior neck stranding. BCx NGTD UA noted and did not trigger a UCx. Curently on Vanco, Meropenem and Doxy. Still having fevers. Developed HoTN with septic shock treated wtih Phenylephrine. Appreciate scouring train operator chief input. CT Ch/A/P pending. WBC better with 10% bands. PCT 5.2. Continue broad spectrum abx and follow up on cultures. Discussed with ID RN regarding measles testing. Discussed with scouring train operator chief. (2) Cellulitis of neck: Code(s): L03.221 - Cellulitis of neck Status: Acute Assessment and Plan: CT scan showing anterior neck soft tissue stranding and clinically with erythema. Consider strep with rash. Continue abx until clearer etiology is known. (3) Tonsillitis: Code(s): J03.90 - Acute tonsillitis, unspecified Status: Acute Assessment and Plan: As above. (4) Lymphadenitis: Code(s): I88.9 - Nonspecific lymphadenitis, unspecified Status: Acute Assessment and Plan: As above (5) CHF (congestive heart failure): Code(s): I50.9 - Heart failure, unspecified Status: Acute Assessment and Plan: Echo in Sep 2024 showing EF 55% but Lexiscan in December 2024 showing EF 42%. Patient complains of intermittent CP and SOB that has worsened over the past few months. Echo here showing moderately enlarged LV with EF 20-25% and diastolic dysfunction. Moderate LAE and mild valvular disease. He is in AFib with RVR. LV dysfunction could be from uncontrolled AFib. BNP >30K. CXR was clear but repeat showing pulmonary edema felt related to IV fluids. IV fluids stopped since he is becoming more tachypneic. Metoprolol advanced to control heart rate. Entresto added by Cardiology. Metoprolol and Entresto on hold since hypotensive now. Apprecaite Cardiology input (6) Paroxysmal atrial fibrillation: Code(s): I48.0 - Paroxysmal atrial fibrillation Status: Acute Assessment and Plan: Rate was poorly controlled here felt related to sepsis. Consider he may have RVR chronically causing his poor EF. He was on metoprolol on admission that was advanced (now held due to HoTN) Defer to cardiology about resuming Xarelto. Monitor on tele (7) Hyponatremia: Code(s): E87.1 - Hypo-osmolality and hyponatremia Status: Acute Assessment and Plan: Na low on admission at 124. Urine Na <5 to suggest either dehydration and/or poor cardiac output to kidneys. With IV fluids, sodium has improved to 128. Off IV fluids since his EF 20% and he is becoming more tachypneic Repeat CXR showing improvement in the pulmonary edema. (8) Elevated LFTs: Code(s): R79.89 - Other specified abnormal findings of blood chemistry Status: Acute Assessment and Plan: AST/ALT elevated. Consider related to sepsis or viral etiology. Consider hepatic congestion. TCK also elevated which could result in elevated LFTs. Abd US showing distended GB with possible pericholecystic fluid vs edema. GenSurg consulted for possible cholecystitis. Monitor. Trend LFTs. (9) Rhabdomyolysis: Code(s): M62.82 - Rhabdomyolysis Status: Acute Assessment and Plan: TCK was 895 on admission. Patient is fluid positive Etiology is probably related to infectious etiology and/or statin therapy. TCK is better Follow (10) Coronary artery disease: Qualifiers: Coronary Disease-Associated Artery/Lesion type: [place] artery [place] vs. transplanted heart: [place] heart Associated angina: without angina Qualified Code(s): I25.10 - Atherosclerotic heart disease of [place] coronary artery without angina pectoris Code(s): I25.10 - Atherosclerotic heart disease of [place] coronary artery without angina pectoris Status: Acute Assessment and Plan: Patient wsa hospitalized here in September for NSTEMI and transferred to [facility]. He underwent successful laser atherectomy assisted PTCA distal left circumflex, OM1 and OM2 bifurcation in stent restenosis and intravascular lithotripsy shockwave assisted PTCA the distal to proximal LAD. Patient was hospitalized again at [facility] in December where he underwent heart catheterization with shockwave and balloon angioplasty to distal left circumflex artery in stent restenosis. Patient was on ASA and Plavix but now on hold Cardiology consult. (11) LENIN (acute kidney injury): Code(s): N17.9 - Acute kidney failure, unspecified Status: Acute Assessment and Plan: Baseline Cr 1-1.2 range. Cr has climbed to 1.7 now [place] related to sepsis and shock. Nation placed so will be able to monitor UOP better. Monitor renal function, UOP and electrolytes. Plan today patient still stats his throat is still soar but as much as when he arrived, he was seen by ENT examined did not find any abscess, patient is being treated with IV abx, patient blood pressure remains soft and being treated with phenylephrine, hydrocortisone, albumin and IVF to help with is BP, his baseline echo showed ejection fraction 40% but the echo during this admission 25%. patient has PAF rate is controlled, patient is on RA, patient is seen by food service substitute and scouring train operator chief, will monitor, Falls - patient had 2 falls in the IMU yesterday. Repeat CT head again showing no acute findings. Fall precautions. Code status - full DVT prophylaxis - SCDs Subjective Date/time seen: 04/12/25 15:57 Interval history: 89yo male with CAD with recent stent placement in December, pAFib (off anticoagulation for about 6 months) and HTN here for fever and sore throat. Patient moved to ICU yesterday evening. He was confused overnight but this has been improving. He was HoTN was started on phenylephrine. Nation catheter had to be placed today by urology. Still feels SOB but better. No CP. Cough that is productive. Sore throat is better. today patient still stats his throat is still soar but as much as when he arrived, he was seen by ENT examined did not find any abscess, patient is being treated with IV abx, patient blood pressure remains soft and being treated with phenylephrine, hydrocortisone, albumin and IVF to help with is BP, his baseline echo showed ejection fraction 40% but the echo during this admission 25%. patient has PAF rate is controlled, patient is on RA, patient is seen by food service substitute and scouring train operator chief, will monitor, Review of Systems Review of Systems: 12 systems were reviewed and are negative except for as per HPI. All systems reviewed & are unremarkable except as noted in HPI and below (HPI) Exam Narrative: Elderly frail Patient is comfortable, NAD HEENT: eyes are clear and none icteric LUNGS:CTA HEART: RR S1S2 ABD: BS+, Soft and nontender Lower extremities: no edema SKIN: nonjaundiced Neuro: grossly intact. Objective Data Vital Signs Vital Signs: Vital Signs - 24 hr 04/11/25 16:00 04/11/25 16:00 04/11/25 16:00 Temperature 36.4 C Pulse Rate 86 82 98 Respiratory Rate 14 24 H Blood Pressure 91/57 L Pulse Oximetry 100 100 Oxygen Delivery Nasal Cannula Oxygen Flow Rate 2 04/11/25 18:00 04/11/25 18:00 04/11/25 18:30 Temperature Pulse Rate 101 H 90 97 Respiratory Rate 18 Blood Pressure 95/64 L 88/54 L Pulse Oximetry 93 Oxygen Delivery Oxygen Flow Rate 04/11/25 20:00 04/11/25 20:00 04/11/25 20:00 Temperature 36.6 C Pulse Rate 104 H 104 H 104 H Respiratory Rate 22 H 22 H Blood Pressure 103/90 Pulse Oximetry 99 99 Oxygen Delivery Room Air Oxygen Flow Rate 04/11/25 20:01 04/11/25 20:06 04/11/25 22:00 Temperature Pulse Rate 101 H 92 84 Respiratory Rate Blood Pressure 103/90 95/50 L Pulse Oximetry Oxygen Delivery Oxygen Flow Rate 04/11/25 22:00 04/11/25 22:00 04/11/25 22:25 Temperature Pulse Rate 84 84 91 Respiratory Rate 32 H Blood Pressure 95/50 L 86/53 L Pulse Oximetry 97 Oxygen Delivery Oxygen Flow Rate 04/11/25 22:25 04/12/25 00:00 04/12/25 00:00 Temperature Pulse Rate 91 91 Respiratory Rate Blood Pressure 86/53 L Pulse Oximetry 94 Oxygen Delivery Room Air Oxygen Flow Rate 04/12/25 00:00 04/12/25 00:00 04/12/25 02:00 Temperature 36.8 C Pulse Rate 92 92 96 Respiratory Rate 24 H Blood Pressure 102/84 102/84 Pulse Oximetry 100 Oxygen Delivery Oxygen Flow Rate 04/12/25 02:00 04/12/25 02:00 04/12/25 04:00 Temperature Pulse Rate 96 96 90 Respiratory Rate 21 H Blood Pressure 114/97 H 114/97 H 91/66 L Pulse Oximetry 98 Oxygen Delivery Oxygen Flow Rate 04/12/25 04:00 04/12/25 04:00 04/12/25 04:00 Temperature 36.3 C L Pulse Rate 88 92 Respiratory Rate 21 H Blood Pressure 91/66 L Pulse Oximetry 94 96 Oxygen Delivery Room Air Oxygen Flow Rate 04/12/25 04:02 04/12/25 06:00 04/12/25 06:00 Temperature Pulse Rate 92 95 95 Respiratory Rate 26 H Blood Pressure 91/66 L 105/58 L Pulse Oximetry 100 Oxygen Delivery Oxygen Flow Rate 04/12/25 06:00 04/12/25 08:00 04/12/25 08:00 Temperature 36.4 C L Pulse Rate 95 94 95 Respiratory Rate 20 Blood Pressure 105/58 L 91/25 L 99/57 L Pulse Oximetry 97 Oxygen Delivery Oxygen Flow Rate 04/12/25 08:00 04/12/25 08:00 04/12/25 08:52 Temperature Pulse Rate 101 H 89 Respiratory Rate Blood Pressure 111/84 Pulse Oximetry Oxygen Delivery Room Air Oxygen Flow Rate 04/12/25 08:54 04/12/25 09:06 04/12/25 09:43 Temperature Pulse Rate 87 95 106 H Respiratory Rate Blood Pressure 100/73 Pulse Oximetry Oxygen Delivery Oxygen Flow Rate 04/12/25 09:43 04/12/25 10:00 04/12/25 10:00 Temperature Pulse Rate 106 H 99 95 Respiratory Rate 20 Blood Pressure 100/73 95/64 L 95/64 L Pulse Oximetry 99 Oxygen Delivery Oxygen Flow Rate 04/12/25 10:00 04/12/25 12:00 04/12/25 12:00 Temperature 36.5 C Pulse Rate 95 84 84 Respiratory Rate 22 H Blood Pressure 88/55 L 88/55 L Pulse Oximetry 96 Oxygen Delivery Oxygen Flow Rate 04/12/25 12:00 04/12/25 12:00 04/12/25 14:00 Temperature Pulse Rate 76 86 Respiratory Rate Blood Pressure 98/69 L Pulse Oximetry Oxygen Delivery Room Air Oxygen Flow Rate 04/12/25 14:00 04/12/25 14:00 04/12/25 14:45 Temperature Pulse Rate 86 86 Respiratory Rate 20 Blood Pressure 98/69 L Pulse Oximetry 100 Oxygen Delivery Room Air Oxygen Flow Rate 04/12/25 15:42 Temperature Pulse Rate Respiratory Rate Blood Pressure Pulse Oximetry Oxygen Delivery Room Air Oxygen Flow Rate Intake/Output Intake/Output: Intake & Output 04/09/25 04/10/25 04/11/25 04/12/25 23:59 23:59 23:59 23:59 Intake Total 1340.0 1360.5 2949.1 1342.9 Output Total 600 800 850 350 Balance 740.0 560.5 2099.1 992.9 Meds/Results Medications: Active Medications Generic Name Dose Route Start Last Admin Trade Name Freq PRN Reason Stop Dose Admin Acetaminophen 650 mg 04/07/25 19:59 04/12/25 09:43 Acetaminophen 325 Mg Tablet PO 650 mg Q6H PRN Administration Mild Pain (1-3) or Fever Artificial Tears 1 drop 04/08/25 03:43 Artificial Tears Ophth Soln 15 Ml Bottle EACH EYE Q4H PRN Dry Eye(s) Ascorbic Acid 500 mg 04/08/25 09:00 04/12/25 09:09 Ascorbic Acid 500 Mg Tablet PO 500 mg DAILY ATUL Administration Aspirin 81 mg 04/08/25 09:00 04/12/25 09:06 Aspirin 81 Mg Enteric Tablet PO 81 mg DAILY ATUL Administration Benzocaine/Butamben/Tetracaine HCl 1 spray 04/11/25 13:54 04/11/25 17:39 Benzocaine/Tetracaine [place] (*Sp) 56 Ml Aerosol MUCOUS MEM 1 spray PRN PRN Administration Sore Throat Calcium Carbonate 1,000 mg 04/08/25 12:00 04/12/25 12:59 Calcium/Vitamin D 500 Mg/5 Mcg (200 I.U.) Tablet PO 1,000 mg DAILY@1200 AUTL Administration Clopidogrel Bisulfate 75 mg 04/08/25 09:00 04/12/25 09:07 Clopidogrel Bisulfate 75 Mg Tablet PO 75 mg DAILY ATUL Administration Cyclosporine 1 drop 04/08/25 09:00 04/12/25 09:11 Cyclosporine 0.4 Ml Ophth Solution EACH EYE 1 drop Q12HR ATUL Administration Digoxin 125 mcg 04/11/25 09:20 04/12/25 08:54 Digoxin Inj 250 Mcg/Ml 2 Ml Amp (*Bkc) IV PUSH 125 mcg DAILY ATUL Administration Enoxaparin Sodium 30 mg 04/09/25 09:00 04/12/25 09:05 Enoxaparin 30 Mg/0.3 Ml Syringe SUB-Q 30 mg DAILY ATUL Administration Famotidine 20 mg 04/08/25 09:00 04/12/25 09:07 Famotidine 20 Mg Tablet PO 20 mg Q12HR ATUL Administration Fish Oil 1 gm 04/08/25 09:00 04/12/25 09:09 [place] 3 Polyunsat Fatty Acids 1 Gm Cap PO 1 gm DAILY ATUL Administration Hydrocortisone Sodium Succinate 100 mg 04/12/25 09:00 04/12/25 09:11 Hydrocortisone Sodium Succinate 100 Mg/2 Ml Vial IV PUSH 100 mg Q8H ATUL Administration Meropenem 1 gm in 100 mls @ 200 mls/hr 04/08/25 04:00 04/12/25 04:44 IVPB Infused Q12H ATUL Infusion Doxycycline Hyclate 100 mg in 100 mls @ 100 mls/hr 04/08/25 21:00 04/12/25 10:46 Vibramycin 100 Mg/Ns 100 Ml IVPB 04/13/25 20:59 Infused Q12H ATUL Infusion Phenylephrine HCl 50 mg/ 250 mls @ 37.5 mls/hr 04/09/25 10:45 04/12/25 14:00 Sodium Chloride IV CONT 125 mcg/min .Q6H40M ATUL 37.5 mls/hr Titration Protocol 125 MCG/MIN Albumin Human 100 mls @ 60 mls/hr 04/12/25 09:00 04/12/25 15:52 Albutein IVPB 04/13/25 04:39 60 mls/hr Q6H ATUL Administration Ipratropium Fay 2 spray 04/08/25 09:00 04/12/25 13:01 Ipratropium Nasal [place] 0.06% 15 Ml Bottle NASAL 2 spray TID ATUL Administration Metoprolol Tartrate 25 mg 04/11/25 09:10 04/12/25 09:06 Metoprolol Tartrate 25 Mg Tablet PO 25 mg Q12HR ATUL Administration Midodrine 10 mg 04/12/25 09:00 04/12/25 12:59 Midodrine Hcl 10 Mg Tablet PO 10 mg TID ATUL Administration Multivitamins Therapeutic 1 tablet 04/08/25 09:00 04/12/25 09:09 Multivitamins Therapeutic Tab (*Bkc) PO 1 tablet DAILY ATUL Administration Oxymetazoline HCl 1 spray 04/08/25 16:42 Oxymetazoline Hcl 0.05% [place] 15 Ml Btl (*Bkc) NASAL Q12HR PRN Congestion Ranolazine 500 mg 04/08/25 09:00 04/12/25 09:09 Ranolazine 500 Mg Tab.Er.12h PO 500 mg Q12HR ATUL Administration Sodium Bicarbonate 650 mg 04/09/25 17:00 04/12/25 09:08 Sodium Bicarbonate Tab 650 Mg Tablet PO 650 mg BID ATUL Administration Sodium Chloride 10 ml 04/09/25 14:00 04/12/25 13:01 Central Line Flush IV PUSH 10 ml Q8HR ATUL Administration Sodium Chloride 10 ml 04/09/25 10:42 Central Line Flush IV PUSH PRN PRN with TPN bag changes Sodium Chloride 20 ml 04/09/25 10:42 Central Line Flush IV PUSH PRN PRN after blood draws Radiology Results: ITS Impressions Soft Tissue Neck CT 04/07/25 17:28 IMPRESSION: Right palatine tonsillar enlargement. No tonsillar abscess detected. Left submandibular gland enlargement. Left anterior cervical chain lymphadenopathy. Anterior neck soft tissue stranding, which may represent cellulitis in the appropriate clinical context. Paratracheal lymphadenopathy. Mild interstitial edema. Hip/Pelvis X-Ray 04/08/25 15:38 Impression: 1: No acute bone or joint abnormality. Cervical Spine CT 04/08/25 15:49 IMPRESSION: 1. No acute abnormality of the cervical spine. 2: Moderate cervical spondylosis. Abdomen Ultrasound 04/08/25 17:43 IMPRESSION: Distended gallbladder with possible minimal pericholecystic fluid versus edema. Clinical correlation and follow-up advised. Otherwise, normal Limited abdominal ultrasound. Chest X-Ray 04/09/25 11:27 Impression: 1: Cardiomegaly with mild interstitial edema, improved compared with 04/08/2025. Head CT 04/09/25 12:26 Impression: No intracranial hemorrhage, mass, or acute infarct. Atrophy and chronic white matter changes, as above. Venous Doppler Study 04/09/25 14:23 Impression: 1: Normal venous ultrasound of the internal jugular veins. No evidence for deep venous thrombosis. Chest/Abdomen/Pelvis CT 04/09/25 19:03 IMPRESSION: CHEST: 1. Bilateral basal atelectasis versus pneumonia with bilateral pleural effusion more on the right side. 2. Mediastinal lymphadenopathy. 3. Cardiomegaly. 4. Nodule in the left upper lobe. 6 months follow-up CT is advised. ABDOMEN/PELVIS: 1. No evidence of appendicitis, diverticulitis or intestinal obstruction. 2. 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 3. Hyperdense areas in the kidneys which may be residual contrast versus hemorrhagic cysts. Labs Labs: Laboratory Results - last 24 hr 04/08/25 04/12/25 19:43 06:44 WBC 13.9 H RBC 3.34 L Hgb 10.6 L Hct 31.1 L MCV 93.1 MCH 31.7 MCHC 34.1 RDW 15.3 H Plt Count 173 MPV 11.9 H Sodium 135 L Potassium 3.7 Chloride 108 H Carbon Dioxide 21 L Anion Gap 6 BUN 45 H Creatinine 0.91 Estim Creat Clear Calc 49 Estimated GFR > 60 Glucose 94 Calcium 7.1 L Magnesium 2.2 Total Bilirubin 1.2 AST 230 H ALT 431 H Alkaline Phosphatase 93 Total Protein 4.4 L Albumin 2.0 L Resp [place] (PCR) Not detected Quality VTE Prophylaxis VTE prophylaxis: pharmacologic ordered
[2025-04-13] VITALS (65 sets, daily range): BP systolic 91–135; BP diastolic 48–89; PULSE 62–105; RESP 10–35; TEMP 35.8–36.4; O2SAT 94–100
[2025-04-13] MEDS: HYDROCORTISONE SODIUM SUCCINATE 100 MG/2 ML VIAL IV PUSH ×3 (01:10→16:57)
[2025-04-13] MEDS: ALBUMIN HUMAN 25% 25 GM/100 ML 100 ML IVPB (02:28)
[2025-04-13] MEDS: MEROPENEM 1 GM/NS 100 ML 1 GM/100 ML BAG IVPB ×2 (04:31→16:57)
[2025-04-13] MEDS: CENTRAL LINE FLUSH 20 ML IV PUSH (04:47)
[2025-04-13] MEDS: CENTRAL LINE FLUSH 10 ML IV PUSH ×3 (04:47→20:31)
[2025-04-13 05:45] LABS: Hematocrit 28.9 % (42.0-52.0); Hemoglobin 9.7 g/dL (14.0-18.0); Mean Corpuscular HGB Conc 33.6 g/dl (32-36); Mean Corpuscular Hemoglobin 31.8 pg (26-34); Mean Corpuscular Volume 94.8 fl (80-100); Mean Platelet Volume 12.1 fl (7.4-10.4); Platelet Count Result 144 k/mm3 (150-375); Red Blood Count 3.05 M/mm3 (4.6-6.20); Red Cell Distribution Width 15.6 % (11.5-14.5); White Blood Count 9.4 K/mm3 (4.5-10.0)
--- NOTE | 2025-04-13 05:58 | PC.NURSE ---
CXR obtained due to increased restlessness and increased respiratory rate. Patient lungs clear and O2 sat 99-100%. Patient resting quietly currently.
[2025-04-13 06:02] LABS: Alanine Aminotransferase 317 U/L (6-50); Albumin Level 3.1 g/dL (3.5-5.1); Alkaline Phosphatase 72 U/L (38-126); Anion Gap 8 mmol/L (4-12); Aspartate Amino Transferase 124 U/L (17-59); Bilirubin,Total 1.5 mg/dL (0.2-1.3); Blood Urea Nitrogen 46 mg/dL (9-20); Carbon Dioxide 23 mmol/L (22-30); Chloride 105 mmol/L (98-107); Estimated CRCL calculation 50 ml/min; Estimated Glomerular Filt Rate > 60; Glucose 155 mg/dL (65-110); Magnesium 2.4 mg/dL (1.6-2.3); Potassium 4.2 mmol/L (3.4-5.0); Sodium 136 mmol/L (137-145); Total Protein 5.3 g/dL (6.3-8.2)
[2025-04-13] MEDS: FUROSEMIDE INJ 40 MG/4 ML VIAL IV PUSH (08:17)
[2025-04-13] MEDS: ENOXAPARIN 30 MG/0.3 ML SYRINGE SUB-Q (08:17)
[2025-04-13] MEDS: OMEGA 3 POLYUNSAT FATTY ACIDS 1 GM CAP PO (08:18)
[2025-04-13] MEDS: FAMOTIDINE 20 MG TABLET PO ×2 (08:18→20:29)
[2025-04-13] MEDS: CLOPIDOGREL BISULFATE 75 MG TABLET PO (08:18)
[2025-04-13] MEDS: MIDODRINE HCL 10 MG TABLET PO ×3 (08:18→16:57)
[2025-04-13] MEDS: SODIUM BICARBONATE TAB 650 MG TABLET PO ×2 (08:18→16:58)
[2025-04-13] MEDS: ASPIRIN 81 MG ENTERIC TABLET PO (08:18)
[2025-04-13] MEDS: DOXYCYCLINE 100 MG/NS 100 ML 100 MG/100 ML BAG IVPB (08:18)
[2025-04-13] MEDS: cycloSPORINE 0.4 ML OPHTH SOLUTION 1 DROP EACH EYE ×2 (08:19→20:29)
[2025-04-13] MEDS: MULTIVITAMINS THERAPEUTIC TAB (*BKC) 1 TABLET PO (08:19)
[2025-04-13] MEDS: RANOLAZINE 500 MG TAB.ER.12H PO ×2 (08:19→20:29)
[2025-04-13] MEDS: DIGOXIN INJ 250 MCG/ML 2 ML AMP (*BKC) 125 MCG IV PUSH (08:19)
[2025-04-13] MEDS: METOPROLOL TARTRATE 25 MG TABLET PO ×2 (08:19→20:30)
[2025-04-13] MEDS: ASCORBIC ACID 500 MG TABLET PO (08:19)
[2025-04-13] MEDS: IPRATROPIUM NASAL SPRAY 0.06% 15 ML BOTTLE 2 SPRAY NASAL ×3 (08:23→16:59)
--- NOTE | 2025-04-13 09:33 | P.PNINT_ITS ---
Progress Note: A&P Assessment and Plan (1) Sepsis: Qualifiers: Sepsis acute organ dysfunction status: without acute organ dysfunction Sepsis type: sepsis due to unspecified organism Qualified Code(s): A41.9 - S epsis, unspecified organism Code(s): A41.9 - Sepsis, unspecified organism Status: Acute Assessment and Plan: Patient presented with sepsis with the fever and rash and complained of sore throat and pain in the left neck CT scan of the soft tissue neck showed IMPRESSION: Right palatine tonsillar enlargement. No tonsillar abscess detected. Left submandibular gland enlargement. Left anterior cervical chain lymphadenopathy. Anterior neck soft tissue stranding, which may represent cellulitis in the appropriate clinical context. Paratracheal lymphadenopathy Patient was evaluated by ENT who recommended antibiotic therapy UA negative Ultrasound of IJ negative for any clot CT chest showed Bilateral basal atelectasis versus pneumonia with bilateral pleural effusion more on the right side. Blood cultures ordered and negative till now Ultrasound of the right upper quadrant suggest cholecystitis and hence general surgery consulted and they recommend antibiotic treatment with no further intervention Measles ruled out Continue Kike-Synephrine for blood pressure support which is currently off continue midodrine and hydrocortisone as patient continues to require low-dose vasopressors. Due to congestive heart failure we limited with IV fluids (2) Cardiomyopathy: Code(s): I42.9 - Cardiomyopathy, unspecified Status: Acute Assessment and Plan: History of coronary disease and ischemic cardiomyopathy. off further IV fluids IV fluid Continue beta-angelo hold Entresto at this time due to low blood pressure. I will give Lasix today EchoSummary 1. Left ventricular chamber dimension is moderately enlarged. 2. Left ventricular systolic function is severely globally reduced, estimated at 20-25. 3. There is mild concentric increased left ventricular wall thickness. 4. The left ventricular diastolic function is abnormal. 5. E/e' 11 is mildly elevated. 6. Definity contrast administered improved wall motion interpretation. 7. Atrial fibrillation. 8. Left atrial chamber dimension is moderately enlarged. 9. Right atrial chamber dimension is moderately enlarged. 10. There is mild aortic valve sclerosis. 11. There is mild to moderate aortic valve regurgitation. 12. The mitral valve has a mildly calcified annulus. 13. There is mild to moderate mitral valve regurgitation. 14. There is mild tricuspid valve regurgitation. 15. No pulmonary hypertension, estimated pulmonary arterial systolic pressure is 33 mmHg. 16. The prox ascending aorta size is mildly dilated at 4.4 cm. (3) CHF (congestive heart failure): Code(s): I50.9 - Heart failure, unspecified Status: Acute Assessment and Plan: See above (4) Coronary artery disease: Qualifiers: Coronary Disease-Associated Artery/Lesion type: [place] artery [place] vs. transplanted heart: [place] heart Associated angina: without angina Qualified Code(s): I25.10 - Atherosclerotic heart disease of [place] coronary artery without angina pectoris Code(s): I25.10 - Atherosclerotic heart disease of [place] coronary artery without angina pectoris Status: Acute Assessment and Plan: History of coronary disease status post stenting. Continue aspirin and Plavix continue beta-angelo and hold statin (5) Paroxysmal atrial fibrillation: Code(s): I48.0 - Paroxysmal atrial fibrillation Status: Acute Assessment and Plan: On p.o. metoprolol and digoxin as per Cardiology (6) Localized swelling, mass and lump, neck: Code(s): R22.1 - Localized swelling, mass and lump, neck Status: Acute Assessment and Plan: See above (7) Elevated LFTs: Code(s): R79.89 - Other specified abnormal findings of blood chemistry Status: Acute Assessment and Plan: Likely secondary to shock liver Hold statin ultrasound reviewed Levels improving (8) Benign prostatic hyperplasia: Code(s): N40.0 - Benign prostatic hyperplasia without lower urinary tract symptoms Status: Acute Assessment and Plan: Place [place] catheter (9) Rhabdomyolysis: Code(s): M62.82 - Rhabdomyolysis Status: Acute Assessment and Plan: Conservative IV fluids due to history of congestive heart failure CK level improving (10) LENIN (acute kidney injury): Code(s): N17.9 - Acute kidney failure, unspecified Status: Acute Assessment and Plan: LENIN likely secondary to sepsis and abscess Conservative IV fluids due to history of congestive heart failure. Patient was given additional 1 L of IV fluids with bicarb CT scan of abdomen negative for any obstruction or stone Consulted Urology Place Nation catheter for accurate I&Os Creatinine further improved and now in normal range Monitor urine output electrolytes and creatinine (11) Rash: Code(s): R21 - Rash and other nonspecific skin eruption Status: Acute Assessment and Plan: Can be secondary antibiotics or viral infection No schistocytes on peripheral blood smear Coag panel mildly abnormal (12) Cholecystitis: Code(s): K81.9 - Cholecystitis, unspecified Status: Acute Assessment and Plan: Right upper quadrant ultrasound showed Distended gallbladder with possible minimal pericholecystic fluid versus edema. Clinical correlation and follow-up advised. Otherwise, normal Limited abdominal ultrasound. Consulted general surgery and not require any intervention at this time Diet ordered Plan DVT prophylaxis -Lovenox Nutrition -diet ordered Code Status -patient wishes to be Full Code but does not want want to be on mechanical ventilation for a prolonged period of time. He is a and does not have any biological children. He wants his cousin Daniel to be decision maker on his behalf he is unable to do so Incentive spirometry, up in chair PT OT If patient remains off Kike-Synephrine and tolerates diuresis I will transfer patient out to step-down unit later today Subjective Date/time seen: 04/13/25 patient feels tired this morning but does night is any specific complaint. Nurse reports patient had some confusion with orientation overnight. Patient denies fever, chest pain, shortness of breath, cough, nausea vomiting, abdominal pain,, diarrhea, headache or constipation. All other systems were reviewed and negative. phenylephrine was weaned off this morning. urine output is on the lower side ventricular rate is well controlled on current metoprolol does. Afebrile. he is on room air. Interval history: 89yo male with CAD with recent stent placement in December, pAFib (off anticoagulation for about 6 months) and HTN here for fever and sore throat. Review of Systems Review of Systems: All systems reviewed & are unremarkable except as noted in HPI and below (HPI) Exam Narrative: General: Pt is free old man who is awake and alert today Lungs/Chest: Trachea central course BS decreased at bases B/L, on room air Cardiac: Irregular rate and rhythm. Normal S1 S2. No murmurs Circulation: Pedal pulses are intact and symmetrical. Feet are warm Abdomen: Normal bowel sounds.. Soft. No tenderness on palpation Extremities: Bilateral lower extremity pitting edema present at the ankle : Nation in place Neurologic: Follows commands. Moves all 4 extremities PERRL AO x3 Skin: Maculopapular rash on both legs appears less red the as compared to before Objective Data Vital Signs Vital Signs: Vital Signs - 24 hr 04/12/25 09:43 04/12/25 09:43 04/12/25 10:00 Temperature Pulse Rate 106 H 106 H 99 Respiratory Rate Blood Pressure 100/73 100/73 95/64 L Pulse Oximetry Oxygen Delivery 04/12/25 10:00 04/12/25 10:00 04/12/25 12:00 Temperature Pulse Rate 95 95 84 Respiratory Rate 20 Blood Pressure 95/64 L 88/55 L Pulse Oximetry 99 Oxygen Delivery 04/12/25 12:00 04/12/25 12:00 04/12/25 12:00 Temperature 36.5 C Pulse Rate 84 76 Respiratory Rate 22 H Blood Pressure 88/55 L Pulse Oximetry 96 Oxygen Delivery Room Air 04/12/25 14:00 04/12/25 14:00 04/12/25 14:00 Temperature Pulse Rate 86 86 86 Respiratory Rate 20 Blood Pressure 98/69 L 98/69 L Pulse Oximetry 100 Oxygen Delivery 04/12/25 14:45 04/12/25 15:42 04/12/25 16:00 Temperature Pulse Rate 84 Respiratory Rate Blood Pressure 112/63 Pulse Oximetry Oxygen Delivery Room Air Room Air 04/12/25 16:00 04/12/25 16:00 04/12/25 16:00 Temperature Pulse Rate 84 80 Respiratory Rate Blood Pressure 112/63 Pulse Oximetry Oxygen Delivery Room Air 04/12/25 16:00 04/12/25 18:00 04/12/25 18:00 Temperature 36.5 C Pulse Rate 83 88 88 Respiratory Rate 20 20 Blood Pressure 99/53 L 126/64 126/64 Pulse Oximetry 97 97 Oxygen Delivery 04/12/25 18:00 04/12/25 19:00 04/12/25 19:01 Temperature Pulse Rate 88 79 78 Respiratory Rate 15 20 Blood Pressure 101/74 Pulse Oximetry 100 99 Oxygen Delivery 04/12/25 19:15 04/12/25 19:16 04/12/25 19:30 Temperature Pulse Rate 79 90 94 Respiratory Rate 18 Blood Pressure 105/56 L 114/63 Pulse Oximetry 100 99 99 Oxygen Delivery 04/12/25 19:31 04/12/25 19:45 04/12/25 19:46 Temperature Pulse Rate 94 71 80 Respiratory Rate 17 22 H 23 H Blood Pressure 103/67 Pulse Oximetry 98 100 100 Oxygen Delivery 04/12/25 20:00 04/12/25 20:00 04/12/25 20:00 Temperature 36.0 C L Pulse Rate 81 81 81 Respiratory Rate 20 Blood Pressure 102/74 102/74 Pulse Oximetry 99 Oxygen Delivery 04/12/25 20:00 04/12/25 20:01 04/12/25 20:15 Temperature Pulse Rate 79 78 68 Respiratory Rate 21 H 20 21 H Blood Pressure 102/74 106/63 Pulse Oximetry 100 98 100 Oxygen Delivery 04/12/25 20:16 04/12/25 20:30 04/12/25 20:31 Temperature Pulse Rate 86 80 87 Respiratory Rate 24 H 22 H 18 Blood Pressure 90/71 L Pulse Oximetry 100 100 100 Oxygen Delivery 04/12/25 20:45 04/12/25 20:46 04/12/25 21:00 Temperature Pulse Rate 71 82 79 Respiratory Rate 21 H 20 21 H Blood Pressure 99/53 L 102/55 L Pulse Oximetry 100 100 100 Oxygen Delivery 04/12/25 21:01 04/12/25 21:03 04/12/25 21:15 Temperature Pulse Rate 74 81 78 Respiratory Rate 17 20 Blood Pressure Pulse Oximetry 100 98 Oxygen Delivery 04/12/25 21:17 04/12/25 21:30 04/12/25 21:31 Temperature Pulse Rate 87 79 80 Respiratory Rate 20 19 21 H Blood Pressure 109/62 105/60 Pulse Oximetry 100 100 98 Oxygen Delivery 04/12/25 21:45 04/12/25 21:46 04/12/25 22:00 Temperature Pulse Rate 84 71 77 Respiratory Rate 13 21 H Blood Pressure 99/55 L Pulse Oximetry 100 100 Oxygen Delivery 04/12/25 22:00 04/12/25 22:00 04/12/25 22:00 Temperature Pulse Rate 77 77 80 Respiratory Rate 19 17 Blood Pressure 95/63 L 95/63 L 95/63 L Pulse Oximetry 100 100 Oxygen Delivery 04/12/25 22:01 04/12/25 22:15 04/12/25 22:16 Temperature Pulse Rate 78 79 81 Respiratory Rate 21 H 22 H 20 Blood Pressure 109/54 L Pulse Oximetry 100 100 100 Oxygen Delivery 04/12/25 22:30 04/12/25 22:30 04/12/25 22:31 Temperature Pulse Rate 77 77 75 Respiratory Rate 17 21 H Blood Pressure 112/58 L 112/58 L Pulse Oximetry 99 99 Oxygen Delivery 04/12/25 22:45 04/12/25 22:46 04/12/25 23:00 Temperature Pulse Rate 84 81 85 Respiratory Rate 21 H 21 H 20 Blood Pressure 89/54 L Pulse Oximetry 100 100 100 Oxygen Delivery 04/12/25 23:01 04/12/25 23:15 04/12/25 23:16 Temperature Pulse Rate 78 85 78 Respiratory Rate 18 20 19 Blood Pressure 103/63 99/61 L Pulse Oximetry 98 99 100 Oxygen Delivery 04/12/25 23:30 04/12/25 23:31 04/12/25 23:45 Temperature Pulse Rate 85 68 83 Respiratory Rate 17 18 19 Blood Pressure 110/65 100/64 Pulse Oximetry 99 99 98 Oxygen Delivery 04/12/25 23:46 04/13/25 00:00 04/13/25 00:00 Temperature 36.0 C L Pulse Rate 82 78 Respiratory Rate 19 17 Blood Pressure 108/61 Pulse Oximetry 99 100 Oxygen Delivery Room Air 04/13/25 00:00 04/13/25 00:00 04/13/25 00:00 Temperature Pulse Rate 78 74 73 Respiratory Rate 23 H Blood Pressure 108/61 Pulse Oximetry 100 Oxygen Delivery 04/13/25 00:01 04/13/25 00:15 04/13/25 00:16 Temperature Pulse Rate 86 74 78 Respiratory Rate 19 19 19 Blood Pressure 108/61 108/56 L Pulse Oximetry 100 97 99 Oxygen Delivery 04/13/25 00:30 04/13/25 00:31 04/13/25 00:45 Temperature Pulse Rate 72 71 70 Respiratory Rate 17 17 19 Blood Pressure 99/65 L 102/62 Pulse Oximetry 100 100 100 Oxygen Delivery 04/13/25 00:46 04/13/25 01:00 04/13/25 01:01 Temperature Pulse Rate 88 82 72 Respiratory Rate 18 18 18 Blood Pressure 103/61 Pulse Oximetry 99 100 98 Oxygen Delivery 04/13/25 01:15 04/13/25 01:16 04/13/25 01:30 Temperature Pulse Rate 77 80 81 Respiratory Rate 19 16 18 Blood Pressure 105/52 L 94/63 L Pulse Oximetry 100 100 100 Oxygen Delivery 04/13/25 01:31 04/13/25 01:45 04/13/25 01:47 Temperature Pulse Rate 72 94 79 Respiratory Rate 19 18 19 Blood Pressure 107/61 Pulse Oximetry 99 99 100 Oxygen Delivery 04/13/25 02:00 04/13/25 02:00 04/13/25 02:00 Temperature Pulse Rate 83 83 83 Respiratory Rate 17 Blood Pressure 102/60 102/60 Pulse Oximetry 99 Oxygen Delivery 04/13/25 02:00 04/13/25 02:09 04/13/25 02:15 Temperature Pulse Rate 78 76 76 Respiratory Rate 21 H 20 17 Blood Pressure 102/60 104/65 Pulse Oximetry 98 100 99 Oxygen Delivery 04/13/25 02:16 04/13/25 02:30 04/13/25 02:31 Temperature Pulse Rate 81 79 88 Respiratory Rate 19 20 19 Blood Pressure 112/54 L Pulse Oximetry 99 100 100 Oxygen Delivery 04/13/25 02:45 04/13/25 02:46 04/13/25 03:08 Temperature Pulse Rate 72 77 74 Respiratory Rate 18 19 18 Blood Pressure 104/69 Pulse Oximetry 100 99 100 Oxygen Delivery 04/13/25 03:16 04/13/25 03:30 04/13/25 03:30 Temperature Pulse Rate 86 82 78 Respiratory Rate 21 H 35 H Blood Pressure 112/62 112/62 Pulse Oximetry 99 100 Oxygen Delivery 04/13/25 03:31 04/13/25 03:45 04/13/25 03:46 Temperature Pulse Rate 89 80 73 Respiratory Rate 24 H Blood Pressure 91/54 L Pulse Oximetry 100 100 100 Oxygen Delivery 04/13/25 04:00 04/13/25 04:00 04/13/25 04:00 Temperature 35.8 C L Pulse Rate 73 73 Respiratory Rate 10 L Blood Pressure 99/61 L 99/61 L Pulse Oximetry 98 100 Oxygen Delivery Room Air 04/13/25 04:00 04/13/25 04:00 04/13/25 04:01 Temperature Pulse Rate 76 91 74 Respiratory Rate Blood Pressure 99/61 L Pulse Oximetry 100 100 Oxygen Delivery 04/13/25 04:15 04/13/25 04:16 04/13/25 04:30 Temperature Pulse Rate 75 72 77 Respiratory Rate 17 Blood Pressure 99/58 L Pulse Oximetry 98 99 99 Oxygen Delivery 04/13/25 04:31 04/13/25 04:45 04/13/25 04:46 Temperature Pulse Rate 72 77 75 Respiratory Rate 18 21 H 22 H Blood Pressure 99/61 L 100/68 Pulse Oximetry 99 99 99 Oxygen Delivery 04/13/25 05:00 04/13/25 05:01 04/13/25 05:09 Temperature Pulse Rate 72 82 80 Respiratory Rate 21 H 20 Blood Pressure 113/48 L 113/48 L Pulse Oximetry 100 99 Oxygen Delivery 04/13/25 05:15 04/13/25 05:16 04/13/25 05:30 Temperature Pulse Rate 65 72 96 Respiratory Rate 19 21 H 30 H Blood Pressure 95/49 L Pulse Oximetry 99 99 94 Oxygen Delivery 04/13/25 05:36 04/13/25 05:45 04/13/25 05:57 Temperature Pulse Rate 105 H 94 94 Respiratory Rate 28 H 23 H 22 H Blood Pressure 129/89 100/77 Pulse Oximetry 100 97 99 Oxygen Delivery 04/13/25 05:59 04/13/25 05:59 04/13/25 06:00 Temperature 36.3 C L Pulse Rate 83 83 85 Respiratory Rate 19 19 Blood Pressure 103/60 103/60 Pulse Oximetry 100 98 Oxygen Delivery 04/13/25 06:01 04/13/25 06:03 04/13/25 06:15 Temperature Pulse Rate 90 83 86 Respiratory Rate 17 27 H Blood Pressure 103/60 110/78 Pulse Oximetry 97 99 Oxygen Delivery 04/13/25 06:16 04/13/25 06:30 04/13/25 06:31 Temperature Pulse Rate 91 74 78 Respiratory Rate 21 H 18 17 Blood Pressure 92/61 L Pulse Oximetry 98 98 98 Oxygen Delivery 04/13/25 08:19 04/13/25 08:19 Temperature Pulse Rate 74 74 Respiratory Rate Blood Pressure Pulse Oximetry Oxygen Delivery Intake/Output Intake/Output: Intake & Output 04/10/25 04/11/25 04/12/25 04/13/25 23:59 23:59 23:59 23:59 Intake Total 1360.5 2949.1 2599.2 187.4 Output Total 800 850 700 325 Balance 560.5 2099.1 1899.2 -137.6 Meds/Results Medications: Active Medications Generic Name Dose Route Start Last Admin Trade Name Freq PRN Reason Stop Dose Admin Acetaminophen 650 mg 04/07/25 19:59 04/12/25 09:43 Acetaminophen 325 Mg Tablet PO 650 mg Q6H PRN Administration Mild Pain (1-3) or Fever Artificial Tears 1 drop 04/08/25 03:43 Artificial Tears Ophth Soln 15 Ml Bottle EACH EYE Q4H PRN Dry Eye(s) Ascorbic Acid 500 mg 04/08/25 09:00 04/13/25 08:19 Ascorbic Acid 500 Mg Tablet PO 500 mg DAILY ATUL Administration Aspirin 81 mg 04/08/25 09:00 04/13/25 08:18 Aspirin 81 Mg Enteric Tablet PO 81 mg DAILY ATUL Administration Benzocaine/Butamben/Tetracaine HCl 1 spray 04/11/25 13:54 04/11/25 17:39 Benzocaine/Tetracaine [place] (*Sp) 56 Ml Aerosol MUCOUS MEM 1 spray PRN PRN Administration Sore Throat Calcium Carbonate 1,000 mg 04/08/25 12:00 04/12/25 12:59 Calcium/Vitamin D 500 Mg/5 Mcg (200 I.U.) Tablet PO 1,000 mg DAILY@1200 ATUL Administration Clopidogrel Bisulfate 75 mg 04/08/25 09:00 04/13/25 08:18 Clopidogrel Bisulfate 75 Mg Tablet PO 75 mg DAILY ATUL Administration Cyclosporine 1 drop 04/08/25 09:00 04/13/25 08:19 Cyclosporine 0.4 Ml Ophth Solution EACH EYE 1 drop Q12HR ATUL Administration Digoxin 125 mcg 04/11/25 09:20 04/13/25 08:19 Digoxin Inj 250 Mcg/Ml 2 Ml Amp (*Bkc) IV PUSH 125 mcg DAILY ATUL Administration Enoxaparin Sodium 30 mg 04/09/25 09:00 04/13/25 08:17 Enoxaparin 30 Mg/0.3 Ml Syringe SUB-Q 30 mg DAILY ATUL Administration Famotidine 20 mg 04/08/25 09:00 04/13/25 08:18 Famotidine 20 Mg Tablet PO 20 mg Q12HR ATUL Administration Fish Oil 1 gm 04/08/25 09:00 04/13/25 08:18 [place] 3 Polyunsat Fatty Acids 1 Gm Cap PO 1 gm DAILY ATUL Administration Hydrocortisone Sodium Succinate 100 mg 04/12/25 09:00 04/13/25 08:18 Hydrocortisone Sodium Succinate 100 Mg/2 Ml Vial IV PUSH 100 mg Q8H AUTL Administration Meropenem 1 gm in 100 mls @ 200 mls/hr 04/08/25 04:00 04/13/25 04:31 IVPB 200 mls/hr Q12H ATUL Administration Doxycycline Hyclate 100 mg in 100 mls @ 100 mls/hr 04/08/25 21:00 04/13/25 08:18 Vibramycin 100 Mg/Ns 100 Ml IVPB 04/13/25 20:59 100 mls/hr Q12H ATUL Administration Phenylephrine HCl 50 mg/ 250 mls @ 0 mls/hr 04/09/25 10:45 04/13/25 06:03 Sodium Chloride IV CONT 0 mcg/min .Q0M ATUL 0 mls/hr Titration Protocol Ipratropium [place] 2 spray 04/08/25 09:00 04/13/25 08:23 Ipratropium Nasal [place] 0.06% 15 Ml Bottle NASAL 2 spray TID ATUL Administration Metoprolol Tartrate 25 mg 04/11/25 09:10 04/13/25 08:19 Metoprolol Tartrate 25 Mg Tablet PO 25 mg Q12HR ATUL Administration Midodrine 10 mg 04/12/25 09:00 04/13/25 08:18 Midodrine Hcl 10 Mg Tablet PO 10 mg TID ATUL Administration Multivitamins Therapeutic 1 tablet 04/08/25 09:00 04/13/25 08:19 Multivitamins Therapeutic Tab (*Bkc) PO 1 tablet DAILY ATUL Administration Oxymetazoline HCl 1 spray 04/08/25 16:42 Oxymetazoline Hcl 0.05% [place] 15 Ml Btl (*Bkc) NASAL Q12HR PRN Congestion Ranolazine 500 mg 04/08/25 09:00 04/13/25 08:19 Ranolazine 500 Mg Tab.Er.12h PO 500 mg Q12HR ATUL Administration Sodium Bicarbonate 650 mg 04/09/25 17:00 04/13/25 08:18 Sodium Bicarbonate Tab 650 Mg Tablet PO 04/14/25 23:59 650 mg BID ATUL Administration Sodium Chloride 10 ml 04/09/25 14:00 04/13/25 04:47 Central Line Flush IV PUSH 10 ml Q8HR ATUL Administration Sodium Chloride 10 ml 04/09/25 10:42 Central Line Flush IV PUSH PRN PRN with TPN bag changes Sodium Chloride 20 ml 04/09/25 10:42 04/13/25 04:47 Central Line Flush IV PUSH 20 ml PRN PRN Administration after blood draws Radiology Results: ITS Impressions Soft Tissue Neck CT 04/07/25 17:28 IMPRESSION: Right palatine tonsillar enlargement. No tonsillar abscess detected. Left submandibular gland enlargement. Left anterior cervical chain lymphadenopathy. Anterior neck soft tissue stranding, which may represent cellulitis in the appropriate clinical context. Paratracheal lymphadenopathy. Mild interstitial edema. Hip/Pelvis X-Ray 04/08/25 15:38 Impression: 1: No acute bone or joint abnormality. Cervical Spine CT 04/08/25 15:49 IMPRESSION: 1. No acute abnormality of the cervical spine. 2: Moderate cervical spondylosis. Abdomen Ultrasound 04/08/25 17:43 IMPRESSION: Distended gallbladder with possible minimal pericholecystic fluid versus edema. Clinical correlation and follow-up advised. Otherwise, normal Limited abdominal ultrasound. Head CT 04/09/25 12:26 Impression: No intracranial hemorrhage, mass, or acute infarct. Atrophy and chronic white matter changes, as above. Venous Doppler Study 04/09/25 14:23 Impression: 1: Normal venous ultrasound of the internal jugular veins. No evidence for deep venous thrombosis. Chest/Abdomen/Pelvis CT 04/09/25 19:03 IMPRESSION: CHEST: 1. Bilateral basal atelectasis versus pneumonia with bilateral pleural effusion more on the right side. 2. Mediastinal lymphadenopathy. 3. Cardiomegaly. 4. Nodule in the left upper lobe. 6 months follow-up CT is advised. ABDOMEN/PELVIS: 1. No evidence of appendicitis, diverticulitis or intestinal obstruction. 2. 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 3. Hyperdense areas in the kidneys which may be residual contrast versus hemorrhagic cysts. Chest X-Ray 04/13/25 06:51 Impression: Small right pleural effusion and probable mild pulmonary edema pattern. Questionable underlying COPD. Stable cardiomegaly. Right-sided PICC line. Labs Labs: Laboratory Results - last 24 hr 04/13/25 04:48 WBC 9.4 RBC 3.05 L Hgb 9.7 L Hct 28.9 L MCV 94.8 MCH 31.8 MCHC 33.6 RDW 15.6 H Plt Count 144 L MPV 12.1 H Sodium 136 L Potassium 4.2 Chloride 105 Carbon Dioxide 23 Anion Gap 8 BUN 46 H Creatinine 0.90 Estim Creat Clear Calc 50 Estimated GFR > 60 Glucose 155 H Calcium 8.0 L Magnesium 2.4 H Total Bilirubin 1.5 H AST 124 H ALT 317 H Alkaline Phosphatase 72 Total Protein 5.3 L Albumin 3.1 L Quality VTE Prophylaxis VTE prophylaxis: pharmacologic ordered
--- NOTE | 2025-04-13 11:10 | PM.PNCARD ---
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 He is on room air. He has mild lower extremity edema. Today he appears to be somewhat short of breath. Will proceed with Lasix 40 mg IV x1. -regards to hypotension, he is off phenylephrine since 5:00 a.m. today April 13. Continue midodrine. Blood pressure stable -regards to coronary artery disease, history of stenting before. Continue Ranexa and aspirin. -regards to elevated liver enzymes continue to hold statin for now. -regards to atrial fibrillation rate controlled. Continue metoprolol and IV digoxin. Can consider anticoagulation prior to discharge. Regards to acute kidney injury, much improved now. Creatinine on admission 1.4 and today 0.9. Subjective Date/time seen: 04/13/25 11:10 Interval history: Reason for visit: AFIB, CHF, Sepsis HPI: Armando Walton is an 89 year old male with coronary artery disease s/p PCI to RCA, LCx, repeat intervention to the LXc in 2010, vprox LAD in 2023, and shockwave and stenting of the LAD and LCx in 2024). He presents to the hospital with sore throat, shortness of breath, and fever. Cardiology is consulted for atrial fibrillation and CHF. Echocardiogram performed during this hospitalization showed severe LV dysfunction with EF 20-25% which is a decline compared to echo in December 2024 showing EF 40%. Patient states he has intermittent chest pain and takes NTG about 3 times weekly on average. Has been experiencing shortness of breath and some lower extremity edema but no palpitations. Feeling a little better today but still has chills and shortness of breath. Date of service 04/09: Overnight, he had two falls in his room. Now in the ICU. Patient quite sleepy this morning. Date of service 04/11/2025: Still has some confusion. Does not have any specific complaints but feels lousy. Denies chest pain, palpitations, shortness of xavier Date of service 04/12/2025: Resting comfortably in chair. Sitting on bedside. He has sitter on the bedside. He is in room air. Denies shortness of breath or chest pain. He remains in AFib with heart rates 90 to low 100s. Remains on phenylephrine. Date of service 04/13/2025-resting comfortably in bed. Appears to be somewhat short of breath. Sitter room bedside. He remains arm air. AFib with controlled heart rates. off phenylephrine since 5:00 a.m. this morning Review of Systems Review of Systems: All systems reviewed & are unremarkable except as noted in HPI and below ROS unobtainable: Yes unobtainable due to mental status Cardiovascular: Cardiovascular: Reports as per HPI Neurologic: Reports confusion Psychiatric: Psychiatric: Reports confusion Exam Const: General: comfortable, no acute distress, alert, awake and confusion Orientation/consciousness: patient oriented x3 and confusion Other: Sleepy HENMT: Head: normal to inspection Mouth: Yes moist mucous membranes and Yes dry mucous membranes Eyes: General: appearance normal, both eyes and all related structures Sclera: sclerae normal Pupils: Equal, round and reactive pupils present Neck: Neck: normal visual inspection, supple and no JVD Carotids: normal carotid upstroke Resp: Effort & Inspection: normal respiratory effort Auscultation: rales Cardio: Rate: regular rate and tachycardic Rhythm: abnormal rhythm irregularly irregular Heart sounds: S1 normal heart sound present, S2 normal heart sound present and no murmurs GI: Auscultation: normal bowel sounds Skin: General skin exam: normal color, erythema and rashes Rashes: rashes noted Neuro: General: patient oriented x3 and confusion Cranial nerves: Yes Equal, round and reactive pupils present Extrem: General: edema and pedal edema Psych: Appearance: grossly normal Mental Status: mental status grossly normal Affect: normal affect Other: Sleepy Objective Data Vital Signs Vital Signs: Vital Signs - 24 hr 04/12/25 12:00 04/12/25 12:00 04/12/25 12:00 Temperature 36.5 C Pulse Rate 84 84 76 Respiratory Rate 22 H Blood Pressure 88/55 L 88/55 L Pulse Oximetry 96 Oxygen Delivery 04/12/25 12:00 04/12/25 14:00 04/12/25 14:00 Temperature Pulse Rate 86 86 Respiratory Rate Blood Pressure 98/69 L Pulse Oximetry Oxygen Delivery Room Air 04/12/25 14:00 04/12/25 14:45 04/12/25 15:42 Temperature Pulse Rate 86 Respiratory Rate 20 Blood Pressure 98/69 L Pulse Oximetry 100 Oxygen Delivery Room Air Room Air 04/12/25 16:00 04/12/25 16:00 04/12/25 16:00 Temperature Pulse Rate 84 84 Respiratory Rate Blood Pressure 112/63 112/63 Pulse Oximetry Oxygen Delivery Room Air 04/12/25 16:00 04/12/25 16:00 04/12/25 18:00 Temperature 36.5 C Pulse Rate 80 83 88 Respiratory Rate 20 Blood Pressure 99/53 L 126/64 Pulse Oximetry 97 Oxygen Delivery 04/12/25 18:00 04/12/25 18:00 04/12/25 19:00 Temperature Pulse Rate 88 88 79 Respiratory Rate 20 15 Blood Pressure 126/64 Pulse Oximetry 97 100 Oxygen Delivery 04/12/25 19:01 04/12/25 19:15 04/12/25 19:16 Temperature Pulse Rate 78 79 90 Respiratory Rate 20 Blood Pressure 101/74 105/56 L Pulse Oximetry 99 100 99 Oxygen Delivery 04/12/25 19:30 04/12/25 19:31 04/12/25 19:45 Temperature Pulse Rate 94 94 71 Respiratory Rate 18 17 22 H Blood Pressure 114/63 103/67 Pulse Oximetry 99 98 100 Oxygen Delivery 04/12/25 19:46 04/12/25 20:00 04/12/25 20:00 Temperature 36.0 C L Pulse Rate 80 81 81 Respiratory Rate 23 H 20 Blood Pressure 102/74 Pulse Oximetry 100 99 Oxygen Delivery 04/12/25 20:00 04/12/25 20:00 04/12/25 20:01 Temperature Pulse Rate 81 79 78 Respiratory Rate 21 H 20 Blood Pressure 102/74 102/74 Pulse Oximetry 100 98 Oxygen Delivery 04/12/25 20:15 04/12/25 20:16 04/12/25 20:30 Temperature Pulse Rate 68 86 80 Respiratory Rate 21 H 24 H 22 H Blood Pressure 106/63 90/71 L Pulse Oximetry 100 100 100 Oxygen Delivery 04/12/25 20:31 04/12/25 20:45 04/12/25 20:46 Temperature Pulse Rate 87 71 82 Respiratory Rate 18 21 H 20 Blood Pressure 99/53 L Pulse Oximetry 100 100 100 Oxygen Delivery 04/12/25 21:00 04/12/25 21:01 04/12/25 21:03 Temperature Pulse Rate 79 74 81 Respiratory Rate 21 H 17 Blood Pressure 102/55 L Pulse Oximetry 100 100 Oxygen Delivery 04/12/25 21:15 04/12/25 21:17 04/12/25 21:30 Temperature Pulse Rate 78 87 79 Respiratory Rate 20 20 19 Blood Pressure 109/62 Pulse Oximetry 98 100 100 Oxygen Delivery 04/12/25 21:31 04/12/25 21:45 04/12/25 21:46 Temperature Pulse Rate 80 84 71 Respiratory Rate 21 H 13 21 H Blood Pressure 105/60 99/55 L Pulse Oximetry 98 100 100 Oxygen Delivery 04/12/25 22:00 04/12/25 22:00 04/12/25 22:00 Temperature Pulse Rate 77 77 77 Respiratory Rate 19 Blood Pressure 95/63 L 95/63 L Pulse Oximetry 100 Oxygen Delivery 04/12/25 22:00 04/12/25 22:01 04/12/25 22:15 Temperature Pulse Rate 80 78 79 Respiratory Rate 17 21 H 22 H Blood Pressure 95/63 L 109/54 L Pulse Oximetry 100 100 100 Oxygen Delivery 04/12/25 22:16 04/12/25 22:30 04/12/25 22:30 Temperature Pulse Rate 81 77 77 Respiratory Rate 20 17 Blood Pressure 112/58 L 112/58 L Pulse Oximetry 100 99 Oxygen Delivery 04/12/25 22:31 04/12/25 22:45 04/12/25 22:46 Temperature Pulse Rate 75 84 81 Respiratory Rate 21 H 21 H 21 H Blood Pressure 89/54 L Pulse Oximetry 99 100 100 Oxygen Delivery 04/12/25 23:00 04/12/25 23:01 04/12/25 23:15 Temperature Pulse Rate 85 78 85 Respiratory Rate 20 18 20 Blood Pressure 103/63 Pulse Oximetry 100 98 99 Oxygen Delivery 04/12/25 23:16 04/12/25 23:30 04/12/25 23:31 Temperature Pulse Rate 78 85 68 Respiratory Rate 19 17 18 Blood Pressure 99/61 L 110/65 Pulse Oximetry 100 99 99 Oxygen Delivery 04/12/25 23:45 04/12/25 23:46 04/13/25 00:00 Temperature Pulse Rate 83 82 Respiratory Rate 19 19 Blood Pressure 100/64 Pulse Oximetry 98 99 Oxygen Delivery Room Air 04/13/25 00:00 04/13/25 00:00 04/13/25 00:00 Temperature 36.0 C L Pulse Rate 78 78 74 Respiratory Rate 17 Blood Pressure 108/61 108/61 Pulse Oximetry 100 Oxygen Delivery 04/13/25 00:00 04/13/25 00:01 04/13/25 00:15 Temperature Pulse Rate 73 86 74 Respiratory Rate 23 H 19 19 Blood Pressure 108/61 108/56 L Pulse Oximetry 100 100 97 Oxygen Delivery 04/13/25 00:16 04/13/25 00:30 04/13/25 00:31 Temperature Pulse Rate 78 72 71 Respiratory Rate 19 17 17 Blood Pressure 99/65 L Pulse Oximetry 99 100 100 Oxygen Delivery 04/13/25 00:45 04/13/25 00:46 04/13/25 01:00 Temperature Pulse Rate 70 88 82 Respiratory Rate 19 18 18 Blood Pressure 102/62 103/61 Pulse Oximetry 100 99 100 Oxygen Delivery 04/13/25 01:01 04/13/25 01:15 04/13/25 01:16 Temperature Pulse Rate 72 77 80 Respiratory Rate 18 19 16 Blood Pressure 105/52 L Pulse Oximetry 98 100 100 Oxygen Delivery 04/13/25 01:30 04/13/25 01:31 04/13/25 01:45 Temperature Pulse Rate 81 72 94 Respiratory Rate 18 19 18 Blood Pressure 94/63 L Pulse Oximetry 100 99 99 Oxygen Delivery 04/13/25 01:47 04/13/25 02:00 04/13/25 02:00 Temperature Pulse Rate 79 83 83 Respiratory Rate 19 17 Blood Pressure 107/61 102/60 Pulse Oximetry 100 99 Oxygen Delivery 04/13/25 02:00 04/13/25 02:00 04/13/25 02:09 Temperature Pulse Rate 83 78 76 Respiratory Rate 21 H 20 Blood Pressure 102/60 102/60 Pulse Oximetry 98 100 Oxygen Delivery 04/13/25 02:15 04/13/25 02:16 04/13/25 02:30 Temperature Pulse Rate 76 81 79 Respiratory Rate 17 19 20 Blood Pressure 104/65 112/54 L Pulse Oximetry 99 99 100 Oxygen Delivery 04/13/25 02:31 04/13/25 02:45 04/13/25 02:46 Temperature Pulse Rate 88 72 77 Respiratory Rate 19 18 19 Blood Pressure 104/69 Pulse Oximetry 100 100 99 Oxygen Delivery 04/13/25 03:08 04/13/25 03:16 04/13/25 03:30 Temperature Pulse Rate 74 86 82 Respiratory Rate 18 21 H Blood Pressure 112/62 Pulse Oximetry 100 99 Oxygen Delivery 04/13/25 03:30 04/13/25 03:31 04/13/25 03:45 Temperature Pulse Rate 78 89 80 Respiratory Rate 35 H 24 H Blood Pressure 112/62 91/54 L Pulse Oximetry 100 100 100 Oxygen Delivery 04/13/25 03:46 04/13/25 04:00 04/13/25 04:00 Temperature 35.8 C L Pulse Rate 73 73 Respiratory Rate 10 L Blood Pressure 99/61 L Pulse Oximetry 100 98 100 Oxygen Delivery Room Air 04/13/25 04:00 04/13/25 04:00 04/13/25 04:00 Temperature Pulse Rate 73 76 91 Respiratory Rate Blood Pressure 99/61 L 99/61 L Pulse Oximetry 100 Oxygen Delivery 04/13/25 04:01 04/13/25 04:15 04/13/25 04:16 Temperature Pulse Rate 74 75 72 Respiratory Rate Blood Pressure 99/58 L Pulse Oximetry 100 98 99 Oxygen Delivery 04/13/25 04:30 04/13/25 04:31 04/13/25 04:45 Temperature Pulse Rate 77 72 77 Respiratory Rate 17 18 21 H Blood Pressure 99/61 L Pulse Oximetry 99 99 99 Oxygen Delivery 04/13/25 04:46 04/13/25 05:00 04/13/25 05:01 Temperature Pulse Rate 75 72 82 Respiratory Rate 22 H 21 H 20 Blood Pressure 100/68 113/48 L Pulse Oximetry 99 100 99 Oxygen Delivery 04/13/25 05:09 04/13/25 05:15 04/13/25 05:16 Temperature Pulse Rate 80 65 72 Respiratory Rate 19 21 H Blood Pressure 113/48 L 95/49 L Pulse Oximetry 99 99 Oxygen Delivery 04/13/25 05:30 04/13/25 05:36 04/13/25 05:45 Temperature Pulse Rate 96 105 H 94 Respiratory Rate 30 H 28 H 23 H Blood Pressure 129/89 Pulse Oximetry 94 100 97 Oxygen Delivery 04/13/25 05:57 04/13/25 05:59 04/13/25 05:59 Temperature 36.3 C L Pulse Rate 94 83 83 Respiratory Rate 22 H 19 Blood Pressure 100/77 103/60 Pulse Oximetry 99 100 Oxygen Delivery 04/13/25 06:00 04/13/25 06:01 04/13/25 06:03 Temperature Pulse Rate 85 90 83 Respiratory Rate 19 17 Blood Pressure 103/60 103/60 Pulse Oximetry 98 97 Oxygen Delivery 04/13/25 06:15 04/13/25 06:16 04/13/25 06:30 Temperature Pulse Rate 86 91 74 Respiratory Rate 27 H 21 H 18 Blood Pressure 110/78 92/61 L Pulse Oximetry 99 98 98 Oxygen Delivery 04/13/25 06:31 04/13/25 08:00 04/13/25 08:00 Temperature 36.1 C L Pulse Rate 78 81 Respiratory Rate 17 22 H Blood Pressure 101/53 L Pulse Oximetry 98 98 99 Oxygen Delivery Room Air 04/13/25 08:19 04/13/25 08:19 04/13/25 10:00 Temperature Pulse Rate 74 74 85 Respiratory Rate 23 H Blood Pressure 115/55 L Pulse Oximetry 99 Oxygen Delivery Intake/Output Intake/Output: Intake & Output 04/10/25 04/11/25 04/12/25 04/13/25 23:59 23:59 23:59 23:59 Intake Total 1360.5 2949.1 2599.2 187.4 Output Total 800 850 700 325 Balance 560.5 2099.1 1899.2 -137.6 Meds/Results Medications: Active Medications Generic Name Dose Route Start Last Admin Trade Name Freq PRN Reason Stop Dose Admin Acetaminophen 650 mg 04/07/25 19:59 04/12/25 09:43 Acetaminophen 325 Mg Tablet PO 650 mg Q6H PRN Administration Mild Pain (1-3) or Fever Artificial Tears 1 drop 04/08/25 03:43 Artificial Tears Ophth Soln 15 Ml Bottle EACH EYE Q4H PRN Dry Eye(s) Ascorbic Acid 500 mg 04/08/25 09:00 04/13/25 08:19 Ascorbic Acid 500 Mg Tablet PO 500 mg DAILY ATUL Administration Aspirin 81 mg 04/08/25 09:00 04/13/25 08:18 Aspirin 81 Mg Enteric Tablet PO 81 mg DAILY ATUL Administration Benzocaine/Butamben/Tetracaine HCl 1 spray 04/11/25 13:54 04/11/25 17:39 Benzocaine/Tetracaine [place] (*Sp) 56 Ml Aerosol MUCOUS MEM 1 spray PRN PRN Administration Sore Throat Calcium Carbonate 1,000 mg 04/08/25 12:00 04/12/25 12:59 Calcium/Vitamin D 500 Mg/5 Mcg (200 I.U.) Tablet PO 1,000 mg DAILY@1200 ATUL Administration Clopidogrel Bisulfate 75 mg 04/08/25 09:00 04/13/25 08:18 Clopidogrel Bisulfate 75 Mg Tablet PO 75 mg DAILY ATUL Administration Cyclosporine 1 drop 04/08/25 09:00 04/13/25 08:19 Cyclosporine 0.4 Ml Ophth Solution EACH EYE 1 drop Q12HR ATUL Administration Digoxin 125 mcg 04/11/25 09:20 04/13/25 08:19 Digoxin Inj 250 Mcg/Ml 2 Ml Amp (*Bkc) IV PUSH 125 mcg DAILY ATUL Administration Enoxaparin Sodium 30 mg 04/09/25 09:00 04/13/25 08:17 Enoxaparin 30 Mg/0.3 Ml Syringe SUB-Q 30 mg DAILY ATUL Administration Famotidine 20 mg 04/08/25 09:00 04/13/25 08:18 Famotidine 20 Mg Tablet PO 20 mg Q12HR ATUL Administration Fish Oil 1 gm 04/08/25 09:00 04/13/25 08:18 [place] 3 Polyunsat Fatty Acids 1 Gm Cap PO 1 gm DAILY ATUL Administration Hydrocortisone Sodium Succinate 100 mg 04/12/25 09:00 04/13/25 08:18 Hydrocortisone Sodium Succinate 100 Mg/2 Ml Vial IV PUSH 100 mg Q8H ATUL Administration Meropenem 1 gm in 100 mls @ 200 mls/hr 04/08/25 04:00 04/13/25 04:31 IVPB 200 mls/hr Q12H ATUL Administration Doxycycline Hyclate 100 mg in 100 mls @ 100 mls/hr 04/08/25 21:00 04/13/25 08:18 Vibramycin 100 Mg/Ns 100 Ml IVPB 04/13/25 20:59 100 mls/hr Q12H ATUL Administration Phenylephrine HCl 50 mg/ 250 mls @ 0 mls/hr 04/09/25 10:45 04/13/25 06:03 Sodium Chloride IV CONT 0 mcg/min .Q0M ATUL 0 mls/hr Titration Protocol Ipratropium [place] 2 spray 04/08/25 09:00 04/13/25 08:23 Ipratropium Nasal [place] 0.06% 15 Ml Bottle NASAL 2 spray TID ATUL Administration Metoprolol Tartrate 25 mg 04/11/25 09:10 04/13/25 08:19 Metoprolol Tartrate 25 Mg Tablet PO 25 mg Q12HR ATUL Administration Midodrine 10 mg 04/12/25 09:00 04/13/25 08:18 Midodrine Hcl 10 Mg Tablet PO 10 mg TID ATUL Administration Multivitamins Therapeutic 1 tablet 04/08/25 09:00 04/13/25 08:19 Multivitamins Therapeutic Tab (*Bkc) PO 1 tablet DAILY ATUL Administration Oxymetazoline HCl 1 spray 04/08/25 16:42 Oxymetazoline Hcl 0.05% [place] 15 Ml Btl (*Bkc) NASAL Q12HR PRN Congestion Ranolazine 500 mg 04/08/25 09:00 04/13/25 08:19 Ranolazine 500 Mg Tab.Er.12h PO 500 mg Q12HR ATUL Administration Sodium Bicarbonate 650 mg 04/09/25 17:00 04/13/25 08:18 Sodium Bicarbonate Tab 650 Mg Tablet PO 04/14/25 23:59 650 mg BID ATUL Administration Sodium Chloride 10 ml 04/09/25 14:00 04/13/25 04:47 Central Line Flush IV PUSH 10 ml Q8HR ATUL Administration Sodium Chloride 10 ml 04/09/25 10:42 Central Line Flush IV PUSH PRN PRN with TPN bag changes Sodium Chloride 20 ml 04/09/25 10:42 04/13/25 04:47 Central Line Flush IV PUSH 20 ml PRN PRN Administration after blood draws Radiology Results: ITS Impressions Soft Tissue Neck CT 04/07/25 17:28 IMPRESSION: Right palatine tonsillar enlargement. No tonsillar abscess detected. Left submandibular gland enlargement. Left anterior cervical chain lymphadenopathy. Anterior neck soft tissue stranding, which may represent cellulitis in the appropriate clinical context. Paratracheal lymphadenopathy. Mild interstitial edema. Hip/Pelvis X-Ray 04/08/25 15:38 Impression: 1: No acute bone or joint abnormality. Cervical Spine CT 04/08/25 15:49 IMPRESSION: 1. No acute abnormality of the cervical spine. 2: Moderate cervical spondylosis. Abdomen Ultrasound 04/08/25 17:43 IMPRESSION: Distended gallbladder with possible minimal pericholecystic fluid versus edema. Clinical correlation and follow-up advised. Otherwise, normal Limited abdominal ultrasound. Head CT 04/09/25 12:26 Impression: No intracranial hemorrhage, mass, or acute infarct. Atrophy and chronic white matter changes, as above. Venous Doppler Study 04/09/25 14:23 Impression: 1: Normal venous ultrasound of the internal jugular veins. No evidence for deep venous thrombosis. Chest/Abdomen/Pelvis CT 04/09/25 19:03 IMPRESSION: CHEST: 1. Bilateral basal atelectasis versus pneumonia with bilateral pleural effusion more on the right side. 2. Mediastinal lymphadenopathy. 3. Cardiomegaly. 4. Nodule in the left upper lobe. 6 months follow-up CT is advised. ABDOMEN/PELVIS: 1. No evidence of appendicitis, diverticulitis or intestinal obstruction. 2. 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 3. Hyperdense areas in the kidneys which may be residual contrast versus hemorrhagic cysts. Chest X-Ray 04/13/25 06:51 Impression: Small right pleural effusion and probable mild pulmonary edema pattern. Questionable underlying COPD. Stable cardiomegaly. Right-sided PICC line. Labs Labs: Laboratory Results - last 24 hr 04/13/25 04:48 WBC 9.4 RBC 3.05 L Hgb 9.7 L Hct 28.9 L MCV 94.8 MCH 31.8 MCHC 33.6 RDW 15.6 H Plt Count 144 L MPV 12.1 H Sodium 136 L Potassium 4.2 Chloride 105 Carbon Dioxide 23 Anion Gap 8 BUN 46 H Creatinine 0.90 Estim Creat Clear Calc 50 Estimated GFR > 60 Glucose 155 H Calcium 8.0 L Magnesium 2.4 H Total Bilirubin 1.5 H AST 124 H ALT 317 H Alkaline Phosphatase 72 Total Protein 5.3 L Albumin 3.1 L
[2025-04-13] MEDS: CALCIUM/VITAMIN D 500 MG/5 MCG (200 I.U.) TABLET 1000 MG PO (13:00)
--- NOTE | 2025-04-13 13:41 | PM.IMPN ---
Progress Note: A&P Assessment and Plan (1) Sepsis: Qualifiers: Sepsis acute organ dysfunction status: without acute organ dysfunction Sepsis type: sepsis due to unspecified organism Qualified Code(s): A41.9 - Sepsis, unspecified organism Code(s): A41.9 - Sepsis, unspecified organism Status: Acute Assessment and Plan: Patient with fever and rash. Rash began after abx given but drug reaction felt less likely. [place] Strept swab negative. [place] negative. MRSA nasal swab negative. Influenza, COVID and RSV PCR negative. CXR was clear. CT Neck showing right tonsillar and left submandibular gland enlargement and adneopathy. Also with anterior neck stranding. BCx NGTD UA noted and did not trigger a UCx. Curently on Vanco, Meropenem and Doxy. Still having fevers. Developed HoTN with septic shock treated wtih Phenylephrine. Appreciate dietary tech input. CT Ch/A/P pending. WBC better with 10% bands. PCT 5.2. Continue broad spectrum abx and follow up on cultures. Discussed with ID RN regarding measles testing. Discussed with dietary tech. (2) Cellulitis of neck: Code(s): L03.221 - Cellulitis of neck Status: Acute Assessment and Plan: CT scan showing anterior neck soft tissue stranding and clinically with erythema. Consider strep with rash. Continue abx until clearer etiology is known. (3) Tonsillitis: Code(s): J03.90 - Acute tonsillitis, unspecified Status: Acute Assessment and Plan: As above. (4) Lymphadenitis: Code(s): I88.9 - Nonspecific lymphadenitis, unspecified Status: Acute Assessment and Plan: As above (5) CHF (congestive heart failure): Code(s): I50.9 - Heart failure, unspecified Status: Acute Assessment and Plan: Echo in Sep 2024 showing EF 55% but Lexiscan in December 2024 showing EF 42%. Patient complains of intermittent CP and SOB that has worsened over the past few months. Echo here showing moderately enlarged LV with EF 20-25% and diastolic dysfunction. Moderate LAE and mild valvular disease. He is in AFib with RVR. LV dysfunction could be from uncontrolled AFib. BNP >30K. CXR was clear but repeat showing pulmonary edema felt related to IV fluids. IV fluids stopped since he is becoming more tachypneic. Metoprolol advanced to control heart rate. Entresto added by Cardiology. Metoprolol and Entresto on hold since hypotensive now. Apprecaite Cardiology input (6) Paroxysmal atrial fibrillation: Code(s): I48.0 - Paroxysmal atrial fibrillation Status: Acute Assessment and Plan: Rate was poorly controlled here felt related to sepsis. Consider he may have RVR chronically causing his poor EF. He was on metoprolol on admission that was advanced (now held due to HoTN) Defer to cardiology about resuming Xarelto. Monitor on tele (7) Hyponatremia: Code(s): E87.1 - Hypo-osmolality and hyponatremia Status: Acute Assessment and Plan: Na low on admission at 124. Urine Na <5 to suggest either dehydration and/or poor cardiac output to kidneys. With IV fluids, sodium has improved to 128. Off IV fluids since his EF 20% and he is becoming more tachypneic Repeat CXR showing improvement in the pulmonary edema. (8) Elevated LFTs: Code(s): R79.89 - Other specified abnormal findings of blood chemistry Status: Acute Assessment and Plan: AST/ALT elevated. Consider related to sepsis or viral etiology. Consider hepatic congestion. TCK also elevated which could result in elevated LFTs. Abd US showing distended GB with possible pericholecystic fluid vs edema. GenSurg consulted for possible cholecystitis. Monitor. Trend LFTs. (9) Rhabdomyolysis: Code(s): M62.82 - Rhabdomyolysis Status: Acute Assessment and Plan: TCK was 895 on admission. Patient is fluid positive Etiology is probably related to infectious etiology and/or statin therapy. TCK is better Follow (10) Coronary artery disease: Qualifiers: Coronary Disease-Associated Artery/Lesion type: ute artery [place] vs. transplanted heart: ute heart Associated angina: without angina Qualified Code(s): I25.10 - Atherosclerotic heart disease of ute coronary artery without angina pectoris Code(s): I25.10 - Atherosclerotic heart disease of ute coronary artery without angina pectoris Status: Acute Assessment and Plan: Patient wsa hospitalized here in September for NSTEMI and transferred to [facility]. He underwent successful laser atherectomy assisted PTCA distal left circumflex, OM1 and OM2 bifurcation in stent restenosis and intravascular lithotripsy shockwave assisted PTCA the distal to proximal LAD. Patient was hospitalized again at [facility] in December where he underwent heart catheterization with shockwave and balloon angioplasty to distal left circumflex artery in stent restenosis. Patient was on ASA and Plavix but now on hold Cardiology consult. (11) LENIN (acute kidney injury): Code(s): N17.9 - Acute kidney failure, unspecified Status: Acute Assessment and Plan: Baseline Cr 1-1.2 range. Cr has climbed to 1.7 now [place] related to sepsis and shock. Nation placed so will be able to monitor UOP better. Monitor renal function, UOP and electrolytes. Plan today patient still stats his throat is still soar but as much as when he arrived, he was seen by ENT examined did not find any abscess, patient is being treated with IV abx, patient blood pressure was soft and treated with phenylephrine, hydrocortisone, albumin and IVF to help with is BP, today his BP is better, and phenylephrine is stopped, his baseline echo showed ejection fraction 40% but the echo during this admission 25%. patient has PAF rate is controlled, patient is on RA, patient is seen by rectifying attendant and dietary tech, will monitor, Falls - patient had 2 falls in the IMU yesterday. Repeat CT head again showing no acute findings. Fall precautions. Code status - full DVT prophylaxis - SCDs Subjective Date/time seen: 04/13/25 13:41 Interval history: 89yo male with CAD with recent stent placement in December, pAFib (off anticoagulation for about 6 months) and HTN here for fever and sore throat. Patient moved to ICU yesterday evening. He was confused overnight but this has been improving. He was HoTN was started on phenylephrine. Nation catheter had to be placed today by urology. Still feels SOB but better. No CP. Cough that is productive. Sore throat is better. today patient still stats his throat is still soar but as much as when he arrived, he was seen by ENT examined did not find any abscess, patient is being treated with IV abx, patient blood pressure was soft and treated with phenylephrine, hydrocortisone, albumin and IVF to help with is BP, today his BP is better, and phenylephrine is stopped, his baseline echo showed ejection fraction 40% but the echo during this admission 25%. patient has PAF rate is controlled, patient is on RA, patient is seen by rectifying attendant and dietary tech, will monitor, Review of Systems Review of Systems: 12 systems were reviewed and are negative except for as per HPI. All systems reviewed & are unremarkable except as noted in HPI and below (HPI) Exam Narrative: Elderly frail Patient is comfortable, NAD HEENT: eyes are clear and none icteric LUNGS:CTA HEART: RR S1S2 ABD: BS+, Soft and nontender Lower extremities: no edema SKIN: nonjaundiced Neuro: grossly intact. Objective Data Vital Signs Vital Signs: Vital Signs - 24 hr 04/12/25 14:00 04/12/25 14:00 04/12/25 14:00 Temperature Pulse Rate 86 86 86 Respiratory Rate 20 Blood Pressure 98/69 L 98/69 L Pulse Oximetry 100 Oxygen Delivery 04/12/25 14:45 04/12/25 15:42 04/12/25 16:00 Temperature Pulse Rate 84 Respiratory Rate Blood Pressure 112/63 Pulse Oximetry Oxygen Delivery Room Air Room Air 04/12/25 16:00 04/12/25 16:00 04/12/25 16:00 Temperature Pulse Rate 84 80 Respiratory Rate Blood Pressure 112/63 Pulse Oximetry Oxygen Delivery Room Air 04/12/25 16:00 04/12/25 18:00 04/12/25 18:00 Temperature 36.5 C Pulse Rate 83 88 88 Respiratory Rate 20 20 Blood Pressure 99/53 L 126/64 126/64 Pulse Oximetry 97 97 Oxygen Delivery 04/12/25 18:00 04/12/25 19:00 04/12/25 19:01 Temperature Pulse Rate 88 79 78 Respiratory Rate 15 20 Blood Pressure 101/74 Pulse Oximetry 100 99 Oxygen Delivery 04/12/25 19:15 04/12/25 19:16 04/12/25 19:30 Temperature Pulse Rate 79 90 94 Respiratory Rate 18 Blood Pressure 105/56 L 114/63 Pulse Oximetry 100 99 99 Oxygen Delivery 04/12/25 19:31 04/12/25 19:45 04/12/25 19:46 Temperature Pulse Rate 94 71 80 Respiratory Rate 17 22 H 23 H Blood Pressure 103/67 Pulse Oximetry 98 100 100 Oxygen Delivery 04/12/25 20:00 04/12/25 20:00 04/12/25 20:00 Temperature 36.0 C L Pulse Rate 81 81 81 Respiratory Rate 20 Blood Pressure 102/74 102/74 Pulse Oximetry 99 Oxygen Delivery 04/12/25 20:00 04/12/25 20:01 04/12/25 20:15 Temperature Pulse Rate 79 78 68 Respiratory Rate 21 H 20 21 H Blood Pressure 102/74 106/63 Pulse Oximetry 100 98 100 Oxygen Delivery 04/12/25 20:16 04/12/25 20:30 04/12/25 20:31 Temperature Pulse Rate 86 80 87 Respiratory Rate 24 H 22 H 18 Blood Pressure 90/71 L Pulse Oximetry 100 100 100 Oxygen Delivery 04/12/25 20:45 04/12/25 20:46 04/12/25 21:00 Temperature Pulse Rate 71 82 79 Respiratory Rate 21 H 20 21 H Blood Pressure 99/53 L 102/55 L Pulse Oximetry 100 100 100 Oxygen Delivery 04/12/25 21:01 04/12/25 21:03 04/12/25 21:15 Temperature Pulse Rate 74 81 78 Respiratory Rate 17 20 Blood Pressure Pulse Oximetry 100 98 Oxygen Delivery 04/12/25 21:17 04/12/25 21:30 04/12/25 21:31 Temperature Pulse Rate 87 79 80 Respiratory Rate 20 19 21 H Blood Pressure 109/62 105/60 Pulse Oximetry 100 100 98 Oxygen Delivery 04/12/25 21:45 04/12/25 21:46 04/12/25 22:00 Temperature Pulse Rate 84 71 77 Respiratory Rate 13 21 H Blood Pressure 99/55 L Pulse Oximetry 100 100 Oxygen Delivery 04/12/25 22:00 04/12/25 22:00 04/12/25 22:00 Temperature Pulse Rate 77 77 80 Respiratory Rate 19 17 Blood Pressure 95/63 L 95/63 L 95/63 L Pulse Oximetry 100 100 Oxygen Delivery 04/12/25 22:01 04/12/25 22:15 04/12/25 22:16 Temperature Pulse Rate 78 79 81 Respiratory Rate 21 H 22 H 20 Blood Pressure 109/54 L Pulse Oximetry 100 100 100 Oxygen Delivery 04/12/25 22:30 04/12/25 22:30 04/12/25 22:31 Temperature Pulse Rate 77 77 75 Respiratory Rate 17 21 H Blood Pressure 112/58 L 112/58 L Pulse Oximetry 99 99 Oxygen Delivery 04/12/25 22:45 04/12/25 22:46 04/12/25 23:00 Temperature Pulse Rate 84 81 85 Respiratory Rate 21 H 21 H 20 Blood Pressure 89/54 L Pulse Oximetry 100 100 100 Oxygen Delivery 04/12/25 23:01 04/12/25 23:15 04/12/25 23:16 Temperature Pulse Rate 78 85 78 Respiratory Rate 18 20 19 Blood Pressure 103/63 99/61 L Pulse Oximetry 98 99 100 Oxygen Delivery 04/12/25 23:30 04/12/25 23:31 04/12/25 23:45 Temperature Pulse Rate 85 68 83 Respiratory Rate 17 18 19 Blood Pressure 110/65 100/64 Pulse Oximetry 99 99 98 Oxygen Delivery 04/12/25 23:46 04/13/25 00:00 04/13/25 00:00 Temperature 36.0 C L Pulse Rate 82 78 Respiratory Rate 19 17 Blood Pressure 108/61 Pulse Oximetry 99 100 Oxygen Delivery Room Air 04/13/25 00:00 04/13/25 00:00 04/13/25 00:00 Temperature Pulse Rate 78 74 73 Respiratory Rate 23 H Blood Pressure 108/61 Pulse Oximetry 100 Oxygen Delivery 04/13/25 00:01 04/13/25 00:15 04/13/25 00:16 Temperature Pulse Rate 86 74 78 Respiratory Rate 19 19 19 Blood Pressure 108/61 108/56 L Pulse Oximetry 100 97 99 Oxygen Delivery 04/13/25 00:30 04/13/25 00:31 04/13/25 00:45 Temperature Pulse Rate 72 71 70 Respiratory Rate 17 17 19 Blood Pressure 99/65 L 102/62 Pulse Oximetry 100 100 100 Oxygen Delivery 04/13/25 00:46 04/13/25 01:00 04/13/25 01:01 Temperature Pulse Rate 88 82 72 Respiratory Rate 18 18 18 Blood Pressure 103/61 Pulse Oximetry 99 100 98 Oxygen Delivery 04/13/25 01:15 04/13/25 01:16 04/13/25 01:30 Temperature Pulse Rate 77 80 81 Respiratory Rate 19 16 18 Blood Pressure 105/52 L 94/63 L Pulse Oximetry 100 100 100 Oxygen Delivery 04/13/25 01:31 04/13/25 01:45 04/13/25 01:47 Temperature Pulse Rate 72 94 79 Respiratory Rate 19 18 19 Blood Pressure 107/61 Pulse Oximetry 99 99 100 Oxygen Delivery 04/13/25 02:00 04/13/25 02:00 04/13/25 02:00 Temperature Pulse Rate 83 83 83 Respiratory Rate 17 Blood Pressure 102/60 102/60 Pulse Oximetry 99 Oxygen Delivery 04/13/25 02:00 04/13/25 02:09 04/13/25 02:15 Temperature Pulse Rate 78 76 76 Respiratory Rate 21 H 20 17 Blood Pressure 102/60 104/65 Pulse Oximetry 98 100 99 Oxygen Delivery 04/13/25 02:16 04/13/25 02:30 04/13/25 02:31 Temperature Pulse Rate 81 79 88 Respiratory Rate 19 20 19 Blood Pressure 112/54 L Pulse Oximetry 99 100 100 Oxygen Delivery 04/13/25 02:45 04/13/25 02:46 04/13/25 03:08 Temperature Pulse Rate 72 77 74 Respiratory Rate 18 19 18 Blood Pressure 104/69 Pulse Oximetry 100 99 100 Oxygen Delivery 04/13/25 03:16 04/13/25 03:30 04/13/25 03:30 Temperature Pulse Rate 86 82 78 Respiratory Rate 21 H 35 H Blood Pressure 112/62 112/62 Pulse Oximetry 99 100 Oxygen Delivery 04/13/25 03:31 04/13/25 03:45 04/13/25 03:46 Temperature Pulse Rate 89 80 73 Respiratory Rate 24 H Blood Pressure 91/54 L Pulse Oximetry 100 100 100 Oxygen Delivery 04/13/25 04:00 04/13/25 04:00 04/13/25 04:00 Temperature 35.8 C L Pulse Rate 73 73 Respiratory Rate 10 L Blood Pressure 99/61 L 99/61 L Pulse Oximetry 98 100 Oxygen Delivery Room Air 04/13/25 04:00 04/13/25 04:00 04/13/25 04:01 Temperature Pulse Rate 76 91 74 Respiratory Rate Blood Pressure 99/61 L Pulse Oximetry 100 100 Oxygen Delivery 04/13/25 04:15 04/13/25 04:16 04/13/25 04:30 Temperature Pulse Rate 75 72 77 Respiratory Rate 17 Blood Pressure 99/58 L Pulse Oximetry 98 99 99 Oxygen Delivery 04/13/25 04:31 04/13/25 04:45 04/13/25 04:46 Temperature Pulse Rate 72 77 75 Respiratory Rate 18 21 H 22 H Blood Pressure 99/61 L 100/68 Pulse Oximetry 99 99 99 Oxygen Delivery 04/13/25 05:00 04/13/25 05:01 04/13/25 05:09 Temperature Pulse Rate 72 82 80 Respiratory Rate 21 H 20 Blood Pressure 113/48 L 113/48 L Pulse Oximetry 100 99 Oxygen Delivery 04/13/25 05:15 04/13/25 05:16 04/13/25 05:30 Temperature Pulse Rate 65 72 96 Respiratory Rate 19 21 H 30 H Blood Pressure 95/49 L Pulse Oximetry 99 99 94 Oxygen Delivery 04/13/25 05:36 04/13/25 05:45 04/13/25 05:57 Temperature Pulse Rate 105 H 94 94 Respiratory Rate 28 H 23 H 22 H Blood Pressure 129/89 100/77 Pulse Oximetry 100 97 99 Oxygen Delivery 04/13/25 05:59 04/13/25 05:59 04/13/25 06:00 Temperature 36.3 C L Pulse Rate 83 83 85 Respiratory Rate 19 19 Blood Pressure 103/60 103/60 Pulse Oximetry 100 98 Oxygen Delivery 04/13/25 06:01 04/13/25 06:03 04/13/25 06:15 Temperature Pulse Rate 90 83 86 Respiratory Rate 17 27 H Blood Pressure 103/60 110/78 Pulse Oximetry 97 99 Oxygen Delivery 04/13/25 06:16 04/13/25 06:30 04/13/25 06:31 Temperature Pulse Rate 91 74 78 Respiratory Rate 21 H 18 17 Blood Pressure 92/61 L Pulse Oximetry 98 98 98 Oxygen Delivery 04/13/25 08:00 04/13/25 08:00 04/13/25 08:00 Temperature 36.1 C L Pulse Rate 81 73 Respiratory Rate 22 H Blood Pressure 101/53 L Pulse Oximetry 98 99 Oxygen Delivery Room Air 04/13/25 08:00 04/13/25 08:19 04/13/25 08:19 Temperature Pulse Rate 80 74 74 Respiratory Rate Blood Pressure 101/53 L Pulse Oximetry Oxygen Delivery 04/13/25 10:00 04/13/25 10:00 04/13/25 10:00 Temperature Pulse Rate 85 86 86 Respiratory Rate 23 H Blood Pressure 115/55 L 115/55 L Pulse Oximetry 99 Oxygen Delivery 04/13/25 12:00 04/13/25 12:00 Temperature Pulse Rate 71 74 Respiratory Rate Blood Pressure 101/61 Pulse Oximetry Oxygen Delivery Intake/Output Intake/Output: Intake & Output 04/10/25 04/11/25 04/12/25 04/13/25 23:59 23:59 23:59 23:59 Intake Total 1360.5 2949.1 2599.2 187.4 Output Total 800 850 700 325 Balance 560.5 2099.1 1899.2 -137.6 Meds/Results Medications: Active Medications Generic Name Dose Route Start Last Admin Trade Name Freq PRN Reason Stop Dose Admin Acetaminophen 650 mg 04/07/25 19:59 04/12/25 09:43 Acetaminophen 325 Mg Tablet PO 650 mg Q6H PRN Administration Mild Pain (1-3) or Fever Artificial Tears 1 drop 04/08/25 03:43 Artificial Tears Ophth Soln 15 Ml Bottle EACH EYE Q4H PRN Dry Eye(s) Ascorbic Acid 500 mg 04/08/25 09:00 04/13/25 08:19 Ascorbic Acid 500 Mg Tablet PO 500 mg DAILY ATUL Administration Aspirin 81 mg 04/08/25 09:00 04/13/25 08:18 Aspirin 81 Mg Enteric Tablet PO 81 mg DAILY ATUL Administration Benzocaine/Butamben/Tetracaine HCl 1 spray 04/11/25 13:54 04/11/25 17:39 Benzocaine/Tetracaine [place] (*Sp) 56 Ml Aerosol MUCOUS MEM 1 spray PRN PRN Administration Sore Throat Calcium Carbonate 1,000 mg 04/08/25 12:00 04/13/25 13:00 Calcium/Vitamin D 500 Mg/5 Mcg (200 I.U.) Tablet PO 1,000 mg DAILY@1200 ATUL Administration Clopidogrel Bisulfate 75 mg 04/08/25 09:00 04/13/25 08:18 Clopidogrel Bisulfate 75 Mg Tablet PO 75 mg DAILY ATUL Administration Cyclosporine 1 drop 04/08/25 09:00 04/13/25 08:19 Cyclosporine 0.4 Ml Ophth Solution EACH EYE 1 drop Q12HR ATUL Administration Digoxin 125 mcg 04/11/25 09:20 04/13/25 08:19 Digoxin Inj 250 Mcg/Ml 2 Ml Amp (*Bkc) IV PUSH 125 mcg DAILY ATUL Administration Enoxaparin Sodium 30 mg 04/09/25 09:00 04/13/25 08:17 Enoxaparin 30 Mg/0.3 Ml Syringe SUB-Q 30 mg DAILY ATUL Administration Famotidine 20 mg 04/08/25 09:00 04/13/25 08:18 Famotidine 20 Mg Tablet PO 20 mg Q12HR ATUL Administration Fish Oil 1 gm 04/08/25 09:00 04/13/25 08:18 Pyrites 3 Polyunsat Fatty Acids 1 Gm Cap PO 1 gm DAILY ATUL Administration Hydrocortisone Sodium Succinate 100 mg 04/12/25 09:00 04/13/25 08:18 Hydrocortisone Sodium Succinate 100 Mg/2 Ml Vial IV PUSH 100 mg Q8H ATUL Administration Meropenem 1 gm in 100 mls @ 200 mls/hr 04/08/25 04:00 04/13/25 04:31 IVPB 200 mls/hr Q12H ATUL Administration Doxycycline Hyclate 100 mg in 100 mls @ 100 mls/hr 04/08/25 21:00 04/13/25 08:18 Vibramycin 100 Mg/Ns 100 Ml IVPB 04/13/25 20:59 100 mls/hr Q12H ATUL Administration Phenylephrine HCl 50 mg/ 250 mls @ 0 mls/hr 04/09/25 10:45 04/13/25 12:00 Sodium Chloride IV CONT 0 mcg/min .Q0M ATUL 0 mls/hr Titration Protocol Ipratropium [place] 2 spray 04/08/25 09:00 04/13/25 13:00 Ipratropium Nasal [place] 0.06% 15 Ml Bottle NASAL 2 spray TID ATUL Administration Melatonin 3 mg 04/13/25 21:00 Melatonin 3 Mg Tablet PO HS [facility] Metoprolol Tartrate 25 mg 04/11/25 09:10 04/13/25 08:19 Metoprolol Tartrate 25 Mg Tablet PO 25 mg Q12HR ATUL Administration Midodrine 10 mg 04/12/25 09:00 04/13/25 13:03 Midodrine Hcl 10 Mg Tablet PO 10 mg TID ATUL Administration Multivitamins Therapeutic 1 tablet 04/08/25 09:00 04/13/25 08:19 Multivitamins Therapeutic Tab (*Bkc) PO 1 tablet DAILY ATUL Administration Oxymetazoline HCl 1 spray 04/08/25 16:42 Oxymetazoline Hcl 0.05% Ade[place] 15 Ml Btl (*Bkc) NASAL Q12HR PRN Congestion Quetiapine Fumarate 25 mg 04/13/25 21:00 Quetiapine Fumarate 25 Mg Tablet PO HS [facility] Ranolazine 500 mg 04/08/25 09:00 04/13/25 08:19 Ranolazine 500 Mg Tab.Er.12h PO 500 mg Q12HR ATUL Administration Sodium Bicarbonate 650 mg 04/09/25 17:00 04/13/25 08:18 Sodium Bicarbonate Tab 650 Mg Tablet PO 04/14/25 23:59 650 mg BID ATUL Administration Sodium Chloride 10 ml 04/09/25 14:00 04/13/25 13:01 Central Line Flush IV PUSH 10 ml Q8HR ATUL Administration Sodium Chloride 10 ml 04/09/25 10:42 Central Line Flush IV PUSH PRN PRN with TPN bag changes Sodium Chloride 20 ml 04/09/25 10:42 04/13/25 04:47 Central Line Flush IV PUSH 20 ml PRN PRN Administration after blood draws Radiology Results: ITS Impressions Soft Tissue Neck CT 04/07/25 17:28 IMPRESSION: Right palatine tonsillar enlargement. No tonsillar abscess detected. Left submandibular gland enlargement. Left anterior cervical chain lymphadenopathy. Anterior neck soft tissue stranding, which may represent cellulitis in the appropriate clinical context. Paratracheal lymphadenopathy. Mild interstitial edema. Hip/Pelvis X-Ray 04/08/25 15:38 Impression: 1: No acute bone or joint abnormality. Cervical Spine CT 04/08/25 15:49 IMPRESSION: 1. No acute abnormality of the cervical spine. 2: Moderate cervical spondylosis. Abdomen Ultrasound 04/08/25 17:43 IMPRESSION: Distended gallbladder with possible minimal pericholecystic fluid versus edema. Clinical correlation and follow-up advised. Otherwise, normal Limited abdominal ultrasound. Head CT 04/09/25 12:26 Impression: No intracranial hemorrhage, mass, or acute infarct. Atrophy and chronic white matter changes, as above. Venous Doppler Study 04/09/25 14:23 Impression: 1: Normal venous ultrasound of the internal jugular veins. No evidence for deep venous thrombosis. Chest/Abdomen/Pelvis CT 04/09/25 19:03 IMPRESSION: CHEST: 1. Bilateral basal atelectasis versus pneumonia with bilateral pleural effusion more on the right side. 2. Mediastinal lymphadenopathy. 3. Cardiomegaly. 4. Nodule in the left upper lobe. 6 months follow-up CT is advised. ABDOMEN/PELVIS: 1. No evidence of appendicitis, diverticulitis or intestinal obstruction. 2. 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 3. Hyperdense areas in the kidneys which may be residual contrast versus hemorrhagic cysts. Chest X-Ray 04/13/25 06:51 Impression: Small right pleural effusion and probable mild pulmonary edema pattern. Questionable underlying COPD. Stable cardiomegaly. Right-sided PICC line. Labs Labs: Laboratory Results - last 24 hr 04/13/25 04:48 WBC 9.4 RBC 3.05 L Hgb 9.7 L Hct 28.9 L MCV 94.8 MCH 31.8 MCHC 33.6 RDW 15.6 H Plt Count 144 L MPV 12.1 H Sodium 136 L Potassium 4.2 Chloride 105 Carbon Dioxide 23 Anion Gap 8 BUN 46 H Creatinine 0.90 Estim Creat Clear Calc 50 Estimated GFR > 60 Glucose 155 H Calcium 8.0 L Magnesium 2.4 H Total Bilirubin 1.5 H AST 124 H ALT 317 H Alkaline Phosphatase 72 Total Protein 5.3 L Albumin 3.1 L Quality VTE Prophylaxis VTE prophylaxis: pharmacologic ordered
[2025-04-13] MEDS: QUEtiapine FUMARATE 25 MG TABLET PO (20:29)
[2025-04-13] MEDS: MELATONIN 3 MG TABLET PO (20:29)
[2025-04-14] VITALS (18 sets, daily range): BP systolic 91–151; BP diastolic 40–87; PULSE 64–103; RESP 14–30; TEMP 36.1–36.4; O2SAT 95–100
[2025-04-14] MEDS: HYDROCORTISONE SODIUM SUCCINATE 100 MG/2 ML VIAL IV PUSH ×2 (01:39→09:08)
[2025-04-14] MEDS: MEROPENEM 1 GM/NS 100 ML 1 GM/100 ML BAG IVPB ×2 (03:58→15:37)
[2025-04-14] MEDS: CENTRAL LINE FLUSH 20 ML IV PUSH (04:37)
[2025-04-14] MEDS: CENTRAL LINE FLUSH 10 ML IV PUSH ×3 (04:37→20:13)
[2025-04-14 04:45] LABS: Hematocrit 29.6 % (42.0-52.0); Hemoglobin 9.9 g/dL (14.0-18.0); Mean Corpuscular HGB Conc 33.4 g/dl (32-36); Mean Corpuscular Hemoglobin 31.8 pg (26-34); Mean Corpuscular Volume 95.2 fl (80-100); Mean Platelet Volume 11.7 fl (7.4-10.4); Platelet Count Result 138 k/mm3 (150-375); Red Blood Count 3.11 M/mm3 (4.6-6.20); Red Cell Distribution Width 15.6 % (11.5-14.5); White Blood Count 10.2 K/mm3 (4.5-10.0)
[2025-04-14 05:12] LABS: Alanine Aminotransferase 287 U/L (6-50); Albumin Level 2.8 g/dL (3.5-5.1); Alkaline Phosphatase 75 U/L (38-126); Anion Gap 9 mmol/L (4-12); Aspartate Amino Transferase 92 U/L (17-59); Bilirubin,Total 1.2 mg/dL (0.2-1.3); Blood Urea Nitrogen 53 mg/dL (9-20); Calcium 8.4 mg/dL (8.4-10.2); Carbon Dioxide 23 mmol/L (22-30); Chloride 107 mmol/L (98-107); Estimated CRCL calculation 46 ml/min; Estimated Glomerular Filt Rate > 60; Glucose 172 mg/dL (65-110); Magnesium 2.3 mg/dL (1.6-2.3); Potassium 3.9 mmol/L (3.4-5.0); Sodium 139 mmol/L (137-145); Total Protein 5.3 g/dL (6.3-8.2)
[2025-04-14] MEDS: IPRATROPIUM 0.5 MG/ALBUTEROL SULFATE 2.5 MG AMPUL.NEB 3 ML INHALATION (06:16)
--- NOTE | 2025-04-14 06:17 | PC.NURSE ---
Patient noted to be having expiratory wheezing this am. Spoke with Dr. Manuel. Notified him that patient continues to sat 100% on room air but starting to have some wheezing. Neb treatments ordered PRN. Notified RT that patient would need a PRN treatment.
--- NOTE | 2025-04-14 08:11 | WPDINTPN ---
Progress Note: A&P Assessment and Plan (1) Sepsis: Qualifiers: Sepsis acute organ dysfunction status: without acute organ dysfunction Sepsis type: sepsis due to unspecified organism Qualified Code(s): A41.9 - Sepsis, unspecified organism Code(s): A41.9 - Sepsis, unspecified organism Status: Acute Assessment and Plan: Patient presented with sepsis with the fever and rash and complained of sore throat and pain in the left neck CT scan of the soft tissue neck showed IMPRESSION: Right palatine tonsillar enlargement. No tonsillar abscess detected. Left submandibular gland enlargement. Left anterior cervical chain lymphadenopathy. Anterior neck soft tissue stranding, which may represent cellulitis in the appropriate clinical context. Paratracheal lymphadenopathy Patient was evaluated by ENT who recommended antibiotic therapy UA negative Ultrasound of IJ negative for any clot CT chest showed Bilateral basal atelectasis versus pneumonia with bilateral pleural effusion more on the right side. Blood cultures ordered and negative till now Ultrasound of the right upper quadrant suggest cholecystitis and hence general surgery consulted and they recommend antibiotic treatment with no further intervention Measles ruled out Continue Kike-Synephrine for blood pressure support which is currently off continue midodrine Decrease hydrocortisone Due to congestive heart failure we limited with IV fluids (2) Cardiomyopathy: Code(s): I42.9 - Cardiomyopathy, unspecified Status: Acute Assessment and Plan: History of coronary disease and ischemic cardiomyopathy. off further IV fluids IV fluid Continue beta-angelo hold Entresto at this time due to low blood pressure. I will give Lasix again today EchoSummary 1. Left ventricular chamber dimension is moderately enlarged. 2. Left ventricular systolic function is severely globally reduced, estimated at 20-25. 3. There is mild concentric increased left ventricular wall thickness. 4. The left ventricular diastolic function is abnormal. 5. E/e' 11 is mildly elevated. 6. Definity contrast administered improved wall motion interpretation. 7. Atrial fibrillation. 8. Left atrial chamber dimension is moderately enlarged. 9. Right atrial chamber dimension is moderately enlarged. 10. There is mild aortic valve sclerosis. 11. There is mild to moderate aortic valve regurgitation. 12. The mitral valve has a mildly calcified annulus. 13. There is mild to moderate mitral valve regurgitation. 14. There is mild tricuspid valve regurgitation. 15. No pulmonary hypertension, estimated pulmonary arterial systolic pressure is 33 mmHg. 16. The prox ascending aorta size is mildly dilated at 4.4 cm. (3) CHF (congestive heart failure): Code(s): I50.9 - Heart failure, unspecified Status: Acute Assessment and Plan: See above (4) Coronary artery disease: Qualifiers: Coronary Disease-Associated Artery/Lesion type: [place] artery [place] vs. transplanted heart: [place] heart Associated angina: without angina Qualified Code(s): I25.10 - Atherosclerotic heart disease of [place] coronary artery without angina pectoris Code(s): I25.10 - Atherosclerotic heart disease of [place] coronary artery without angina pectoris Status: Acute Assessment and Plan: History of coronary disease status post stenting. Continue aspirin and Plavix continue beta-angelo and hold statin due to elevated liver enzyme (5) Paroxysmal atrial fibrillation: Code(s): I48.0 - Paroxysmal atrial fibrillation Status: Acute Assessment and Plan: On p.o. metoprolol and digoxin as per Cardiology not on any anticoagulation but is on aspirin and Plavix (6) Localized swelling, mass and lump, neck: Code(s): R22.1 - Localized swelling, mass and lump, neck Status: Acute Assessment and Plan: See above (7) Elevated LFTs: Code(s): R79.89 - Other specified abnormal findings of blood chemistry Status: Acute Assessment and Plan: Likely secondary to shock liver Hold statin ultrasound reviewed Levels improving (8) Benign prostatic hyperplasia: Code(s): N40.0 - Benign prostatic hyperplasia without lower urinary tract symptoms Status: Acute Assessment and Plan: Place [place] catheter (9) Rhabdomyolysis: Code(s): M62.82 - Rhabdomyolysis Status: Acute Assessment and Plan: Conservative IV fluids due to history of congestive heart failure CK level improving (10) LENIN (acute kidney injury): Code(s): N17.9 - Acute kidney failure, unspecified Status: Acute Assessment and Plan: LENIN likely secondary to sepsis and abscess Conservative IV fluids due to history of congestive heart failure. Patient was given additional 1 L of IV fluids with bicarb CT scan of abdomen negative for any obstruction or stone Consulted Urology Place [place] catheter for accurate I&Os Creatinine further improved and now in normal range Monitor urine output electrolytes and creatinine (11) Rash: Code(s): R21 - Rash and other nonspecific skin eruption Status: Acute Assessment and Plan: Can be secondary antibiotics or viral infection No schistocytes on peripheral blood smear Coag panel mildly abnormal (12) Cholecystitis: Code(s): K81.9 - Cholecystitis, unspecified Status: Acute Assessment and Plan: Right upper quadrant ultrasound showed Distended gallbladder with possible minimal pericholecystic fluid versus edema. Clinical correlation and follow-up advised. Otherwise, normal Limited abdominal ultrasound. Consulted general surgery and not require any intervention at this time Diet ordered (13) Delirium: Code(s): R41.0 - Disorientation, unspecified Status: Acute Assessment and Plan: Seroquel ordered q.h.s. supportive care Plan DVT prophylaxis -Lovenox Nutrition -diet ordered Code Status -patient wishes to be Full Code but does not want want to be on mechanical ventilation for a prolonged period of time. He is a and does not have any biological children. He wants his cousin Daniel to be decision maker on his behalf he is unable to do so Incentive spirometry, up in chair PT OT Subjective Date/time seen: 04/14/25 patient again had a lot of confusion overnight but then went to sleep finally after few hours. No new complaints. Feels tired and weak. Yesterday he decompensated when nursing staff was trying to get him out of bed to chair and he got short of breath with increased tachycardia. symptoms improved once he went back into bed and rested for low bed. Afebrile. AFib on the monitor with controlled ventricular rate. Off Kike-Synephrine. Afebrile. Interval history: 89yo male with CAD with recent stent placement in December, pAFib (off anticoagulation for about 6 months) and HTN here for fever and sore throat. Review of Systems Review of Systems: All systems reviewed & are unremarkable except as noted in HPI and below (HPI) Exam Narrative: General: Pt is free old man who is awake and alert today Lungs/Chest: Trachea central course BS decreased at bases B/L, on room air Cardiac: Irregular rate and rhythm. Normal S1 S2. No murmurs Circulation: Pedal pulses are intact and symmetrical. Feet are warm Abdomen: Normal bowel sounds.. Soft. No tenderness on palpation Extremities: Bilateral lower extremity pitting edema present at the ankle : Nation in place Neurologic: Follows commands. Moves all 4 extremities PERRL AO x3 Skin: Maculopapular rash on both legs appears less red the as compared to before Objective Data Vital Signs Vital Signs: Vital Signs - 24 hr 04/13/25 08:19 04/13/25 08:19 04/13/25 10:00 Temperature Pulse Rate 74 74 85 Respiratory Rate 23 H Blood Pressure 115/55 L Pulse Oximetry 99 Oxygen Delivery Oxygen Flow Rate 04/13/25 10:00 04/13/25 10:00 04/13/25 12:00 Temperature Pulse Rate 86 86 71 Respiratory Rate Blood Pressure 115/55 L 101/61 Pulse Oximetry Oxygen Delivery Oxygen Flow Rate 04/13/25 12:00 04/13/25 12:00 04/13/25 12:00 Temperature 36.1 C L Pulse Rate 74 71 Respiratory Rate 20 Blood Pressure 101/61 Pulse Oximetry 98 99 Oxygen Delivery Room Air Oxygen Flow Rate 04/13/25 14:00 04/13/25 14:00 04/13/25 14:00 Temperature Pulse Rate 73 73 73 Respiratory Rate 24 H Blood Pressure 108/62 108/62 Pulse Oximetry 99 Oxygen Delivery Oxygen Flow Rate 04/13/25 16:00 04/13/25 16:00 04/13/25 16:00 Temperature 36.0 C L Pulse Rate 63 63 62 Respiratory Rate 18 Blood Pressure 94/56 L 94/56 L Pulse Oximetry 99 Oxygen Delivery Oxygen Flow Rate 04/13/25 16:00 04/13/25 18:00 04/13/25 18:00 Temperature Pulse Rate 73 73 Respiratory Rate 19 Blood Pressure 103/56 L Pulse Oximetry 99 99 Oxygen Delivery Nasal Cannula Oxygen Flow Rate 2 04/13/25 18:00 04/13/25 20:00 04/13/25 20:00 Temperature Pulse Rate 73 90 103 H Respiratory Rate 28 H Blood Pressure 103/56 L 135/56 L Pulse Oximetry 98 Oxygen Delivery Room Air Oxygen Flow Rate 04/13/25 20:00 04/13/25 20:00 04/13/25 20:30 Temperature 36.4 C L Pulse Rate 87 103 H 67 Respiratory Rate 28 H Blood Pressure 135/56 L Pulse Oximetry 98 Oxygen Delivery Oxygen Flow Rate 04/13/25 22:00 04/13/25 22:00 04/14/25 00:00 Temperature Pulse Rate 74 74 74 Respiratory Rate 21 H 21 H Blood Pressure 103/61 Pulse Oximetry 99 99 Oxygen Delivery Room Air Oxygen Flow Rate 04/14/25 00:00 04/14/25 00:00 04/14/25 02:00 Temperature 36.4 C L Pulse Rate 77 84 81 Respiratory Rate 16 Blood Pressure 123/56 L Pulse Oximetry 98 Oxygen Delivery Oxygen Flow Rate 04/14/25 02:00 04/14/25 04:00 04/14/25 04:00 Temperature Pulse Rate 81 93 82 Respiratory Rate 29 H 19 Blood Pressure 91/60 L Pulse Oximetry 100 99 Oxygen Delivery Room Air Oxygen Flow Rate 04/14/25 04:00 04/14/25 06:00 04/14/25 06:00 Temperature 36.4 C L Pulse Rate 88 80 80 Respiratory Rate 21 H 20 Blood Pressure 151/55 H 111/87 Pulse Oximetry 98 100 Oxygen Delivery Oxygen Flow Rate 04/14/25 06:16 04/14/25 06:24 Temperature Pulse Rate 94 94 Respiratory Rate 16 16 Blood Pressure Pulse Oximetry Oxygen Delivery Oxygen Flow Rate Intake/Output Intake/Output: Intake & Output 04/11/25 04/12/25 04/13/25 04/14/25 23:59 23:59 23:59 23:59 Intake Total 2949.1 2599.2 1057.4 160 Output Total 546 150 8283 200 Balance 2099.1 1899.2 -217.6 -40 Meds/Results Medications: Active Medications Generic Name Dose Route Start Last Admin Trade Name Freq PRN Reason Stop Dose Admin Acetaminophen 650 mg 04/07/25 19:59 04/12/25 09:43 Acetaminophen 325 Mg Tablet PO 650 mg Q6H PRN Administration Mild Pain (1-3) or Fever Albuterol/Ipratropium 3 ml 04/14/25 06:03 04/14/25 06:16 Ipratropium 0.5 Mg/Albuterol Sulfate 2.5 Mg Ampul.Neb 3 Ml INHALATION 3 ml Q6HRT PRN Administration wheezing Artificial Tears 1 drop 04/08/25 03:43 Artificial Tears Ophth Soln 15 Ml Bottle EACH EYE Q4H PRN Dry Eye(s) Ascorbic Acid 500 mg 04/08/25 09:00 04/13/25 08:19 Ascorbic Acid 500 Mg Tablet PO 500 mg DAILY ATUL Administration Aspirin 81 mg 04/08/25 09:00 04/13/25 08:18 Aspirin 81 Mg Enteric Tablet PO 81 mg DAILY ATUL Administration Benzocaine/Butamben/Tetracaine HCl 1 spray 04/11/25 13:54 04/11/25 17:39 Benzocaine/Tetracaine [place] (*Sp) 56 Ml Aerosol MUCOUS MEM 1 spray PRN PRN Administration Sore Throat Calcium Carbonate 1,000 mg 04/08/25 12:00 04/13/25 13:00 Calcium/Vitamin D 500 Mg/5 Mcg (200 I.U.) Tablet PO 1,000 mg DAILY@1200 ATUL Administration Clopidogrel Bisulfate 75 mg 04/08/25 09:00 04/13/25 08:18 Clopidogrel Bisulfate 75 Mg Tablet PO 75 mg DAILY ATUL Administration Cyclosporine 1 drop 04/08/25 09:00 04/13/25 20:29 Cyclosporine 0.4 Ml Ophth Solution EACH EYE 1 drop Q12HR ATUL Administration Digoxin 125 mcg 04/11/25 09:20 04/13/25 08:19 Digoxin Inj 250 Mcg/Ml 2 Ml Amp (*Bkc) IV PUSH 125 mcg DAILY ATUL Administration Enoxaparin Sodium 30 mg 04/09/25 09:00 04/13/25 08:17 Enoxaparin 30 Mg/0.3 Ml Syringe SUB-Q 30 mg DAILY ATUL Administration Famotidine 20 mg 04/08/25 09:00 04/13/25 20:29 Famotidine 20 Mg Tablet PO 20 mg Q12HR ATUL Administration Fish Oil 1 gm 04/08/25 09:00 04/13/25 08:18 [place] 3 Polyunsat Fatty Acids 1 Gm Cap PO 1 gm DAILY [facility] Administration Hydrocortisone Sodium Succinate 100 mg 04/14/25 09:00 Hydrocortisone Sodium Succinate 100 Mg/2 Ml Vial IV PUSH QAM ATUL Meropenem 1 gm in 100 mls @ 200 mls/hr 04/08/25 04:00 04/14/25 04:36 IVPB Infused Q12H [facility] Infusion Ipratropium [place] 2 spray 04/08/25 09:00 04/13/25 16:59 Ipratropium Nasal [place] 0.06% 15 Ml Bottle NASAL 2 spray TID ATUL Administration Melatonin 3 mg 04/13/25 21:00 04/13/25 20:29 Melatonin 3 Mg Tablet PO 3 mg HS [facility] Administration Metoprolol Tartrate 25 mg 04/11/25 09:10 04/13/25 20:30 Metoprolol Tartrate 25 Mg Tablet PO 25 mg Q12HR [facility] Administration Midodrine 10 mg 04/12/25 09:00 04/13/25 16:57 Midodrine Hcl 10 Mg Tablet PO 10 mg TID ATUL Administration Multivitamins Therapeutic 1 tablet 04/08/25 09:00 04/13/25 08:19 Multivitamins Therapeutic Tab (*Bkc) PO 1 tablet DAILY ATUL Administration Oxymetazoline HCl 1 spray 04/08/25 16:42 Oxymetazoline Hcl 0.05% [place] 15 Ml Btl (*Bkc) NASAL Q12HR PRN Congestion Quetiapine Fumarate 25 mg 04/13/25 21:00 04/13/25 20:29 Quetiapine Fumarate 25 Mg Tablet PO 25 mg HS ATUL Administration Ranolazine 500 mg 04/08/25 09:00 04/13/25 20:29 Ranolazine 500 Mg Tab.Er.12h PO 500 mg Q12HR ATUL Administration Sodium Bicarbonate 650 mg 04/09/25 17:00 04/13/25 16:58 Sodium Bicarbonate Tab 650 Mg Tablet PO 04/14/25 23:59 650 mg BID ATUL Administration Sodium Chloride 10 ml 04/09/25 14:00 04/14/25 04:37 Central Line Flush IV PUSH 10 ml Q8HR ATUL Administration Sodium Chloride 10 ml 04/09/25 10:42 Central Line Flush IV PUSH PRN PRN with TPN bag changes Sodium Chloride 20 ml 04/09/25 10:42 04/14/25 04:37 Central Line Flush IV PUSH 20 ml PRN PRN Administration after blood draws Radiology Results: ITS Impressions Soft Tissue Neck CT 04/07/25 17:28 IMPRESSION: Right palatine tonsillar enlargement. No tonsillar abscess detected. Left submandibular gland enlargement. Left anterior cervical chain lymphadenopathy. Anterior neck soft tissue stranding, which may represent cellulitis in the appropriate clinical context. Paratracheal lymphadenopathy. Mild interstitial edema. Hip/Pelvis X-Ray 04/08/25 15:38 Impression: 1: No acute bone or joint abnormality. Cervical Spine CT 04/08/25 15:49 IMPRESSION: 1. No acute abnormality of the cervical spine. 2: Moderate cervical spondylosis. Abdomen Ultrasound 04/08/25 17:43 IMPRESSION: Distended gallbladder with possible minimal pericholecystic fluid versus edema. Clinical correlation and follow-up advised. Otherwise, normal Limited abdominal ultrasound. Head CT 04/09/25 12:26 Impression: No intracranial hemorrhage, mass, or acute infarct. Atrophy and chronic white matter changes, as above. Venous Doppler Study 04/09/25 14:23 Impression: 1: Normal venous ultrasound of the internal jugular veins. No evidence for deep venous thrombosis. Chest/Abdomen/Pelvis CT 04/09/25 19:03 IMPRESSION: CHEST: 1. Bilateral basal atelectasis versus pneumonia with bilateral pleural effusion more on the right side. 2. Mediastinal lymphadenopathy. 3. Cardiomegaly. 4. Nodule in the left upper lobe. 6 months follow-up CT is advised. ABDOMEN/PELVIS: 1. No evidence of appendicitis, diverticulitis or intestinal obstruction. 2. 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 3. Hyperdense areas in the kidneys which may be residual contrast versus hemorrhagic cysts. Chest X-Ray 04/13/25 06:51 Impression: Small right pleural effusion and probable mild pulmonary edema pattern. Questionable underlying COPD. Stable cardiomegaly. Right-sided PICC line. Labs Labs: Laboratory Results - last 24 hr 04/14/25 04:36 WBC 10.2 H RBC 3.11 L Hgb 9.9 L Hct 29.6 L MCV 95.2 MCH 31.8 MCHC 33.4 RDW 15.6 H Plt Count 138 L MPV 11.7 H Sodium 139 Potassium 3.9 Chloride 107 Carbon Dioxide 23 Anion Gap 9 BUN 53 H Creatinine 0.98 Estim Creat Clear Calc 46 Estimated GFR > 60 Glucose 172 H Calcium 8.4 Magnesium 2.3 Total Bilirubin 1.2 AST 92 H ALT 287 H Alkaline Phosphatase 75 Total Protein 5.3 L Albumin 2.8 L Quality VTE Prophylaxis VTE prophylaxis: pharmacologic ordered
[2025-04-14] MEDS: RANOLAZINE 500 MG TAB.ER.12H PO ×2 (09:07→20:10)
[2025-04-14] MEDS: SODIUM BICARBONATE TAB 650 MG TABLET PO ×2 (09:07→20:10)
[2025-04-14] MEDS: METOPROLOL TARTRATE 25 MG TABLET PO ×2 (09:07→20:11)
[2025-04-14] MEDS: ASCORBIC ACID 500 MG TABLET PO (09:07)
[2025-04-14] MEDS: MIDODRINE HCL 10 MG TABLET PO ×3 (09:07→20:10)
[2025-04-14] MEDS: CLOPIDOGREL BISULFATE 75 MG TABLET PO (09:07)
[2025-04-14] MEDS: MULTIVITAMINS THERAPEUTIC TAB (*BKC) 1 TABLET PO (09:07)
[2025-04-14] MEDS: FAMOTIDINE 20 MG TABLET PO ×2 (09:07→20:10)
[2025-04-14] MEDS: cycloSPORINE 0.4 ML OPHTH SOLUTION 1 DROP EACH EYE ×2 (09:08→20:11)
[2025-04-14] MEDS: ENOXAPARIN 30 MG/0.3 ML SYRINGE SUB-Q (09:08)
[2025-04-14] MEDS: ASPIRIN 81 MG ENTERIC TABLET PO (09:08)
[2025-04-14] MEDS: DIGOXIN INJ 250 MCG/ML 2 ML AMP (*BKC) 125 MCG IV PUSH (09:08)
[2025-04-14] MEDS: FUROSEMIDE INJ 40 MG/4 ML VIAL IV PUSH (09:08)
[2025-04-14] MEDS: OMEGA 3 POLYUNSAT FATTY ACIDS 1 GM CAP PO (09:09)
[2025-04-14] MEDS: IPRATROPIUM NASAL SPRAY 0.06% 15 ML BOTTLE 2 SPRAY NASAL ×3 (09:19→20:12)
--- NOTE | 2025-04-14 10:42 | PCFNICU ---
ICU Rounding Note: Pt current nutrition is Low fat at with Ensure Clear TID. Last recorded weight is 83.9 kg, up from 76.3 kgo on admit. Bowel Motility: Last reported BM 04/13 Labs Reviewed: Glu 172, BUN 53, Alb 2.8 Meds Noted: Lopressor, Vit C, MVI Skin: WNL Additional Notes:Patient remains on a Low Fat diet. Oral Intake <50% of meals. Is also trying to drink diet supplement which is providing an additional 240 kcal and 8 gm protein. PO intake encouraged. Agree with diet orders. Following daily in ICU rounds.
--- NOTE | 2025-04-14 11:12 | P.PNCA_ITS ---
Progress Note: A&P Assessment and Plan (1) Cardiomyopathy: Code(s): I42.9 - Cardiomyopathy, unspecified Status: Acute (2) Coronary artery disease: Qualifiers: Coronary Disease-Associated Artery/Lesion type: [place] artery [place] vs. transplanted heart: [place] heart Associated angina: without angina Qualified Code(s): I25.10 - Atherosclerotic heart disease of [place] coronary artery without angina pectoris Code(s): I25.10 - Atherosclerotic heart disease of [place] coronary artery without angina pectoris Status: Acute (3) Atrial fibrillation: Qualifiers: Atrial fibrillation type: persistent (not longstanding) Qualified Code(s): I48.19 - Other persistent atrial fibrillation Code(s): I48.91 - Unspecified atrial fibrillation Status: Acute (4) Hyperlipidemia: Qualifiers: Hyperlipidemia type: unspecified Qualified Code(s): E78.5 - Hyperlipidemia, unspecified Code(s): E78.5 - Hyperlipidemia, unspecified Status: Acute Plan 81-year-old man with CAD status post PCI presented with fevers now being treated for sepsis also found to have new onset systolic cardiomyopathy New onset systolic cardiomyopathy -may be secondary to sudden of acute illness -appears euvolemic and currently unable to tolerate guideline directed medical therapy and still require midodrine for blood pressure support -wean midodrine as tolerated Coronary artery disease status post PCI -continue aspirin 81 mg p.o. daily and Plavix 75 mg p.o. daily Persistent atrial fibrillation -previously on Xarelto however complained of significant epistaxis -there is informed to follow-up for further discussions of possible left atrial appendage occlusion -currently on metoprolol 25 mg p.o. b.i.d. and digoxin 125 mcg IV daily -given his delirium, will check a digoxin level in most likely discontinue tomorrow Hyperlipidemia -resume atorvastatin on discharge Subjective Date/time seen: 04/14/25 11:12 Interval history: Patient with sitter at bedside. No complaints. Review of Systems Review of Systems: ROS unobtainable: Yes unobtainable due to medical condition and unobtainable due to mental status Exam Const: General: comfortable Eyes: EOM: EOMs intact bilaterally Neck: Neck: no JVD Resp: Effort & Inspection: normal respiratory effort Auscultation: clear to auscultation bilaterally Cardio: Rate: tachycardic Rhythm: abnormal rhythm Extrem: General: no pedal edema Objective Data Vital Signs Vital Signs: Vital Signs - 24 hr 04/13/25 12:00 04/13/25 12:00 04/13/25 12:00 Temperature 36.1 C L Pulse Rate 71 74 71 Respiratory Rate 20 Blood Pressure 101/61 101/61 Pulse Oximetry 98 Oxygen Delivery Oxygen Flow Rate 04/13/25 12:00 04/13/25 14:00 04/13/25 14:00 Temperature Pulse Rate 73 73 Respiratory Rate 24 H Blood Pressure 108/62 108/62 Pulse Oximetry 99 99 Oxygen Delivery Room Air Oxygen Flow Rate 04/13/25 14:00 04/13/25 16:00 04/13/25 16:00 Temperature 36.0 C L Pulse Rate 73 63 63 Respiratory Rate 18 Blood Pressure 94/56 L 94/56 L Pulse Oximetry 99 Oxygen Delivery Oxygen Flow Rate 04/13/25 16:00 04/13/25 16:00 04/13/25 18:00 Temperature Pulse Rate 62 73 Respiratory Rate 19 Blood Pressure 103/56 L Pulse Oximetry 99 99 Oxygen Delivery Nasal Cannula Oxygen Flow Rate 2 04/13/25 18:00 04/13/25 18:00 04/13/25 20:00 Temperature Pulse Rate 73 73 90 Respiratory Rate Blood Pressure 103/56 L 135/56 L Pulse Oximetry Oxygen Delivery Oxygen Flow Rate 04/13/25 20:00 04/13/25 20:00 04/13/25 20:00 Temperature 36.4 C L Pulse Rate 103 H 87 103 H Respiratory Rate 28 H 28 H Blood Pressure 135/56 L Pulse Oximetry 98 98 Oxygen Delivery Room Air Oxygen Flow Rate 04/13/25 20:30 04/13/25 22:00 04/13/25 22:00 Temperature Pulse Rate 67 74 74 Respiratory Rate 21 H Blood Pressure 103/61 Pulse Oximetry 99 Oxygen Delivery Oxygen Flow Rate 04/14/25 00:00 04/14/25 00:00 04/14/25 00:00 Temperature 36.4 C L Pulse Rate 74 77 84 Respiratory Rate 21 H 16 Blood Pressure 123/56 L Pulse Oximetry 99 98 Oxygen Delivery Room Air Oxygen Flow Rate 04/14/25 02:00 04/14/25 02:00 04/14/25 04:00 Temperature Pulse Rate 81 81 93 Respiratory Rate 29 H 19 Blood Pressure 91/60 L Pulse Oximetry 100 99 Oxygen Delivery Room Air Oxygen Flow Rate 04/14/25 04:00 04/14/25 04:00 04/14/25 06:00 Temperature 36.4 C L Pulse Rate 82 88 80 Respiratory Rate 21 H Blood Pressure 151/55 H Pulse Oximetry 98 Oxygen Delivery Oxygen Flow Rate 04/14/25 06:00 04/14/25 06:16 04/14/25 06:24 Temperature Pulse Rate 80 94 94 Respiratory Rate 20 16 16 Blood Pressure 111/87 Pulse Oximetry 100 Oxygen Delivery Oxygen Flow Rate 04/14/25 08:00 04/14/25 08:00 04/14/25 09:07 Temperature 36.1 C L Pulse Rate 103 H 82 79 Respiratory Rate 30 H 30 H Blood Pressure 113/58 L Pulse Oximetry 98 98 Oxygen Delivery Room Air Oxygen Flow Rate 04/14/25 09:08 Temperature Pulse Rate 82 Respiratory Rate Blood Pressure Pulse Oximetry Oxygen Delivery Oxygen Flow Rate Intake/Output Intake/Output: Intake & Output 04/11/25 04/12/25 04/13/25 04/14/25 23:59 23:59 23:59 23:59 Intake Total 2949.1 2599.2 1057.4 220 Output Total 546 096 9605 200 Balance 2099.1 1899.2 -217.6 20 Meds/Results Medications: Active Medications Generic Name Dose Route Start Last Admin Trade Name Freq PRN Reason Stop Dose Admin Acetaminophen 650 mg 04/07/25 19:59 04/12/25 09:43 Acetaminophen 325 Mg Tablet PO 650 mg Q6H PRN Administration Mild Pain (1-3) or Fever Albuterol/Ipratropium 3 ml 04/14/25 06:03 04/14/25 06:16 Ipratropium 0.5 Mg/Albuterol Sulfate 2.5 Mg Ampul.Neb 3 Ml INHALATION 3 ml Q6HRT PRN Administration wheezing Artificial Tears 1 drop 04/08/25 03:43 Artificial Tears Ophth Soln 15 Ml Bottle EACH EYE Q4H PRN Dry Eye(s) Ascorbic Acid 500 mg 04/08/25 09:00 04/14/25 09:07 Ascorbic Acid 500 Mg Tablet PO 500 mg DAILY ATUL Administration Aspirin 81 mg 04/08/25 09:00 04/14/25 09:08 Aspirin 81 Mg Enteric Tablet PO 81 mg DAILY ATUL Administration Benzocaine/Butamben/Tetracaine HCl 1 spray 04/11/25 13:54 04/11/25 17:39 Benzocaine/Tetracaine [place] (*Sp) 56 Ml Aerosol MUCOUS MEM 1 spray PRN PRN Administration Sore Throat Calcium Carbonate 1,000 mg 04/08/25 12:00 04/13/25 13:00 Calcium/Vitamin D 500 Mg/5 Mcg (200 I.U.) Tablet PO 1,000 mg DAILY@1200 ATUL Administration Clopidogrel Bisulfate 75 mg 04/08/25 09:00 04/14/25 09:07 Clopidogrel Bisulfate 75 Mg Tablet PO 75 mg DAILY ATUL Administration Cyclosporine 1 drop 04/08/25 09:00 04/14/25 09:08 Cyclosporine 0.4 Ml Ophth Solution EACH EYE 1 drop Q12HR ATUL Administration Digoxin 125 mcg 04/11/25 09:20 04/14/25 09:08 Digoxin Inj 250 Mcg/Ml 2 Ml Amp (*Bkc) IV PUSH 125 mcg DAILY ATUL Administration Enoxaparin Sodium 30 mg 04/09/25 09:00 04/14/25 09:08 Enoxaparin 30 Mg/0.3 Ml Syringe SUB-Q 30 mg DAILY ATUL Administration Famotidine 20 mg 04/08/25 09:00 04/14/25 09:07 Famotidine 20 Mg Tablet PO 20 mg Q12HR ATUL Administration Fish Oil 1 gm 04/08/25 09:00 04/14/25 09:09 [place] 3 Polyunsat Fatty Acids 1 Gm Cap PO 1 gm DAILY ATUL Administration Hydrocortisone Sodium Succinate 100 mg 04/14/25 09:00 04/14/25 09:08 Hydrocortisone Sodium Succinate 100 Mg/2 Ml Vial IV PUSH 100 mg QAM ATUL Administration Meropenem 1 gm in 100 mls @ 200 mls/hr 04/08/25 04:00 04/14/25 04:36 IVPB Infused Q12H ATUL Infusion Ipratropium [place] 2 spray 04/08/25 09:00 04/13/25 16:59 Ipratropium Nasal [place] 0.06% 15 Ml Bottle NASAL 2 spray TID ATUL Administration Melatonin 3 mg 04/13/25 21:00 04/13/25 20:29 Melatonin 3 Mg Tablet PO 3 mg HS ATUL Administration Metoprolol Tartrate 25 mg 04/11/25 09:10 04/14/25 09:07 Metoprolol Tartrate 25 Mg Tablet PO 25 mg Q12HR ATUL Administration Midodrine 10 mg 04/12/25 09:00 04/14/25 09:07 Midodrine Hcl 10 Mg Tablet PO 10 mg TID ATUL Administration Multivitamins Therapeutic 1 tablet 04/08/25 09:00 04/14/25 09:07 Multivitamins Therapeutic Tab (*Bkc) PO 1 tablet DAILY ATUL Administration Oxymetazoline HCl 1 spray 04/08/25 16:42 Oxymetazoline Hcl 0.05% [place] 15 Ml Btl (*Bkc) NASAL Q12HR PRN Congestion Quetiapine Fumarate 25 mg 04/13/25 21:00 04/13/25 20:29 Quetiapine Fumarate 25 Mg Tablet PO 25 mg HS ATUL Administration Ranolazine 500 mg 04/08/25 09:00 04/14/25 09:07 Ranolazine 500 Mg Tab.Er.12h PO 500 mg Q12HR ATUL Administration Sodium Bicarbonate 650 mg 04/09/25 17:00 04/14/25 09:07 Sodium Bicarbonate Tab 650 Mg Tablet PO 04/14/25 23:59 650 mg BID ATUL Administration Sodium Chloride 10 ml 04/09/25 14:00 04/14/25 04:37 Central Line Flush IV PUSH 10 ml Q8HR ATUL Administration Sodium Chloride 10 ml 04/09/25 10:42 Central Line Flush IV PUSH PRN PRN with TPN bag changes Sodium Chloride 20 ml 04/09/25 10:42 04/14/25 04:37 Central Line Flush IV PUSH 20 ml PRN PRN Administration after blood draws Radiology Results: ITS Impressions Soft Tissue Neck CT 04/07/25 17:28 IMPRESSION: Right palatine tonsillar enlargement. No tonsillar abscess detected. Left submandibular gland enlargement. Left anterior cervical chain lymphadenopathy. Anterior neck soft tissue stranding, which may represent cellulitis in the appropriate clinical context. Paratracheal lymphadenopathy. Mild interstitial edema. Hip/Pelvis X-Ray 04/08/25 15:38 Impression: 1: No acute bone or joint abnormality. Cervical Spine CT 04/08/25 15:49 IMPRESSION: 1. No acute abnormality of the cervical spine. 2: Moderate cervical spondylosis. Abdomen Ultrasound 04/08/25 17:43 IMPRESSION: Distended gallbladder with possible minimal pericholecystic fluid versus edema. Clinical correlation and follow-up advised. Otherwise, normal Limited abdominal ultrasound. Head CT 04/09/25 12:26 Impression: No intracranial hemorrhage, mass, or acute infarct. Atrophy and chronic white matter changes, as above. Venous Doppler Study 04/09/25 14:23 Impression: 1: Normal venous ultrasound of the internal jugular veins. No evidence for deep venous thrombosis. Chest/Abdomen/Pelvis CT 04/09/25 19:03 IMPRESSION: CHEST: 1. Bilateral basal atelectasis versus pneumonia with bilateral pleural effusion more on the right side. 2. Mediastinal lymphadenopathy. 3. Cardiomegaly. 4. Nodule in the left upper lobe. 6 months follow-up CT is advised. ABDOMEN/PELVIS: 1. No evidence of appendicitis, diverticulitis or intestinal obstruction. 2. 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 3. Hyperdense areas in the kidneys which may be residual contrast versus hemorrhagic cysts. Chest X-Ray 04/13/25 06:51 Impression: Small right pleural effusion and probable mild pulmonary edema pattern. Questionable underlying COPD. Stable cardiomegaly. Right-sided PICC line. Labs Labs: Laboratory Results - last 24 hr 04/14/25 04:36 WBC 10.2 H RBC 3.11 L Hgb 9.9 L Hct 29.6 L MCV 95.2 MCH 31.8 MCHC 33.4 RDW 15.6 H Plt Count 138 L MPV 11.7 H Sodium 139 Potassium 3.9 Chloride 107 Carbon Dioxide 23 Anion Gap 9 BUN 53 H Creatinine 0.98 Estim Creat Clear Calc 46 Estimated GFR > 60 Glucose 172 H Calcium 8.4 Magnesium 2.3 Total Bilirubin 1.2 AST 92 H ALT 287 H Alkaline Phosphatase 75 Total Protein 5.3 L Albumin 2.8 L
[2025-04-14] MEDS: CALCIUM/VITAMIN D 500 MG/5 MCG (200 I.U.) TABLET 1000 MG PO (15:36)
--- NOTE | 2025-04-14 17:47 | P.PNIM_ITS ---
Progress Note: A&P Assessment and Plan (1) Sepsis: Qualifiers: Sepsis acute organ dysfunction status: without acute organ dysfunction Sepsis type: sepsis due to unspecified organism Qualified Code(s): A41.9 - S epsis, unspecified organism Code(s): A41.9 - Sepsis, unspecified organism Status: Acute Assessment and Plan: Patient with fever and rash. Rash began after abx given but drug reaction felt less likely. [place] Strept swab negative. [place] negative. MRSA nasal swab negative. Influenza, COVID and RSV PCR negative. CXR was clear. CT Neck showing right tonsillar and left submandibular gland enlargement and adneopathy. Also with anterior neck stranding. BCx NGTD UA noted and did not trigger a UCx. Curently on Vanco, Meropenem and Doxy. Still having fevers. Developed HoTN with septic shock treated wtih Phenylephrine. Appreciate medicine and health service manager input. CT Ch/A/P pending. WBC better with 10% bands. PCT 5.2. Continue broad spectrum abx and follow up on cultures. Discussed with ID RN regarding measles testing. Discussed with medicine and health service manager. (2) Cellulitis of neck: Code(s): L03.221 - Cellulitis of neck Status: Acute Assessment and Plan: CT scan showing anterior neck soft tissue stranding and clinically with erythema. Consider strep with rash. Continue abx until clearer etiology is known. (3) Tonsillitis: Code(s): J03.90 - Acute tonsillitis, unspecified Status: Acute Assessment and Plan: As above. (4) Lymphadenitis: Code(s): I88.9 - Nonspecific lymphadenitis, unspecified Status: Acute Assessment and Plan: As above (5) CHF (congestive heart failure): Code(s): I50.9 - Heart failure, unspecified Status: Acute Assessment and Plan: Echo in Sep 2024 showing EF 55% but Lexiscan in December 2024 showing EF 42%. Patient complains of intermittent CP and SOB that has worsened over the past few months. Echo here showing moderately enlarged LV with EF 20-25% and diastolic dysfunction. Moderate LAE and mild valvular disease. He is in AFib with RVR. LV dysfunction could be from uncontrolled AFib. BNP >30K. CXR was clear but repeat showing pulmonary edema felt related to IV fluids. IV fluids stopped since he is becoming more tachypneic. Metoprolol advanced to control heart rate. Entresto added by Cardiology. Metoprolol and Entresto on hold since hypotensive now. Apprecaite Cardiology input (6) Paroxysmal atrial fibrillation: Code(s): I48.0 - Paroxysmal atrial fibrillation Status: Acute Assessment and Plan: Rate was poorly controlled here felt related to sepsis. Consider he may have RVR chronically causing his poor EF. He was on metoprolol on admission that was advanced (now held due to HoTN) Defer to cardiology about resuming Xarelto. Monitor on tele (7) Hyponatremia: Code(s): E87.1 - Hypo-osmolality and hyponatremia Status: Acute Assessment and Plan: Na low on admission at 124. Urine Na <5 to suggest either dehydration and/or poor cardiac output to kidneys. With IV fluids, sodium has improved to 128. Off IV fluids since his EF 20% and he is becoming more tachypneic Repeat CXR showing improvement in the pulmonary edema. (8) Elevated LFTs: Code(s): R79.89 - Other specified abnormal findings of blood chemistry Status: Acute Assessment and Plan: AST/ALT elevated. Consider related to sepsis or viral etiology. Consider hepatic congestion. TCK also elevated which could result in elevated LFTs. Abd US showing distended GB with possible pericholecystic fluid vs edema. GenSurg consulted for possible cholecystitis. Monitor. Trend LFTs. (9) Rhabdomyolysis: Code(s): M62.82 - Rhabdomyolysis Status: Acute Assessment and Plan: TCK was 895 on admission. Patient is fluid positive Etiology is probably related to infectious etiology and/or statin therapy. TCK is better Follow (10) Coronary artery disease: Qualifiers: Coronary Disease-Associated Artery/Lesion type: [place] artery [place] vs. transplanted heart: [place] heart Associated angina: without angina Qualified Code(s): I25.10 - Atherosclerotic heart disease of [place] coronary artery without angina pectoris Code(s): I25.10 - Atherosclerotic heart disease of [place] coronary artery without angina pectoris Status: Acute Assessment and Plan: Patient wsa hospitalized here in September for NSTEMI and transferred to [facility]. He underwent successful laser atherectomy assisted PTCA distal left circumflex, OM1 and OM2 bifurcation in stent restenosis and intravascular lithotripsy shockwave assisted PTCA the distal to proximal LAD. Patient was hospitalized again at [facility] in December where he underwent heart catheterization with shockwave and balloon angioplasty to distal left circumflex artery in stent restenosis. Patient was on ASA and Plavix but now on hold Cardiology consult. (11) LENIN (acute kidney injury): Code(s): N17.9 - Acute kidney failure, unspecified Status: Acute Assessment and Plan: Baseline Cr 1-1.2 range. Cr has climbed to 1.7 now [place] related to sepsis and shock. Nation placed so will be able to monitor UOP better. Monitor renal function, UOP and electrolytes. Plan Today patient still stats his throat is still soar but as much as when he arrived, he was seen by ENT examined did not find any abscess, patient is being treated with IV abx, patient blood pressure was soft and treated with phenylephrine, hydrocortisone, albumin and IVF to help with is BP, today his BP is better, and phenylephrine is stopped,patient with soft blood pressure still requiring midodrine, will monitor and wean patient as tolerated his baseline echo showed ejection fraction 40% but the echo during this admission 25%. patient has PAF rate is controlled, , patient is on RA, patient is seen by international trade specialist and medicine and health service manager, will monitor, Falls - patient had 2 falls in the IMU yesterday. Repeat CT head again showing no acute findings. Fall precautions. Code status - full DVT prophylaxis - SCDs Subjective Date/time seen: 04/14/25 17:47 Interval history: 89yo male with CAD with recent stent placement in December, pAFib (off anticoagulation for about 6 months) and HTN here for fever and sore throat. Patient moved to ICU yesterday evening. He was confused overnight but this has been improving. He was HoTN was started on phenylephrine. Nation catheter had to be placed today by urology. Still feels SOB but better. No CP. Cough that is productive. Sore throat is better. today patient still stats his throat is still soar but as much as when he ar rived, he was seen by ENT examined did not find any abscess, patient is being treated with IV abx, patient blood pressure was soft and treated with phenylephrine, hydrocortisone, albumin and IVF to help with is BP, today his BP is better, and phenylephrine is stopped,patient with soft blood pressure still requiring midodrine, will monitor and wean patient as tolerated his baseline echo showed ejection fraction 40% but the echo during this admission 25%. patient has PAF rate is controlled, , patient is on RA, patient is seen by international trade specialist and medicine and health service manager, will monitor, Review of Systems Review of Systems: 12 systems were reviewed and are negativ e except for as per HPI. All systems reviewed & are unremarkable except as noted in HPI and below (HPI) Exam Narrative: Elderly frail Patient is comfortable, NAD HEENT: eyes are clear and none icteric LUNGS:CTA HEART: RR S1S2 ABD: BS+, Soft and nontender Lower extremities: no edema SKIN: nonjaundiced Neuro: grossly intact. Objective Data Vital Signs Vital Signs: Vital Signs - 24 hr 04/13/25 18:00 04/13/25 18:00 04/13/25 18:00 Temperature Pulse Rate 73 73 73 Respiratory Rate 19 Blood Pressure 103/56 L 103/56 L Pulse Oximetry 99 Oxygen Delivery 04/13/25 20:00 04/13/25 20:00 04/13/25 20:00 Temperature Pulse Rate 90 103 H 87 Respiratory Rate 28 H Blood Pressure 135/56 L Pulse Oximetry 98 Oxygen Delivery Room Air 04/13/25 20:00 04/13/25 20:30 04/13/25 22:00 Temperature 36.4 C L Pulse Rate 103 H 67 74 Respiratory Rate 28 H Blood Pressure 135/56 L Pulse Oximetry 98 Oxygen Delivery 04/13/25 22:00 04/14/25 00:00 04/14/25 00:00 Temperature Pulse Rate 74 74 77 Respiratory Rate 21 H 21 H Blood Pressure 103/61 Pulse Oximetry 99 99 Oxygen Delivery Room Air 04/14/25 00:00 04/14/25 02:00 04/14/25 02:00 Temperature 36.4 C L Pulse Rate 84 81 81 Respiratory Rate 16 29 H Blood Pressure 123/56 L 91/60 L Pulse Oximetry 98 100 Oxygen Delivery 04/14/25 04:00 04/14/25 04:00 04/14/25 04:00 Temperature 36.4 C L Pulse Rate 93 82 88 Respiratory Rate 19 21 H Blood Pressure 151/55 H Pulse Oximetry 99 98 Oxygen Delivery Room Air 04/14/25 06:00 04/14/25 06:00 04/14/25 06:16 Temperature Pulse Rate 80 80 94 Respiratory Rate 20 16 Blood Pressure 111/87 Pulse Oximetry 100 Oxygen Delivery 04/14/25 06:24 04/14/25 08:00 04/14/25 08:00 Temperature 36.1 C L Pulse Rate 94 103 H 82 Respiratory Rate 16 30 H 30 H Blood Pressure 113/58 L Pulse Oximetry 98 98 Oxygen Delivery Room Air 04/14/25 08:00 04/14/25 09:07 04/14/25 09:08 Temperature Pulse Rate 86 79 82 Respiratory Rate Blood Pressure Pulse Oximetry Oxygen Delivery 04/14/25 10:00 04/14/25 12:00 04/14/25 12:00 Temperature Pulse Rate 83 93 93 Respiratory Rate 26 H 26 H Blood Pressure 131/77 Pulse Oximetry 100 100 Oxygen Delivery Room Air 04/14/25 12:00 04/14/25 14:00 04/14/25 16:00 Temperature 36.4 C Pulse Rate 94 77 86 Respiratory Rate 24 H Blood Pressure 111/40 L Pulse Oximetry 100 Oxygen Delivery Intake/Output Intake/Output: Intake & Output 04/11/25 04/12/25 04/13/25 04/14/25 23:59 23:59 23:59 23:59 Intake Total 2949.1 2599.2 1057.4 220 Output Total 832 515 7409 1100 Balance 2099.1 1899.2 -217.6 -880 Meds/Results Medications: Active Medications Generic Name Dose Route Start Last Admin Trade Name Freq PRN Reason Stop Dose Admin Acetaminophen 650 mg 04/07/25 19:59 04/12/25 09:43 Acetaminophen 325 Mg Tablet PO 650 mg Q6H PRN Administration Mild Pain (1-3) or Fever Albuterol/Ipratropium 3 ml 04/14/25 06:03 04/14/25 06:16 Ipratropium 0.5 Mg/Albuterol Sulfate 2.5 Mg Ampul.Neb 3 Ml INHALATION 3 ml Q6HRT PRN Administration wheezing Artificial Tears 1 drop 04/08/25 03:43 Artificial Tears Ophth Soln 15 Ml Bottle EACH EYE Q4H PRN Dry Eye(s) Ascorbic Acid 500 mg 04/08/25 09:00 04/14/25 09:07 Ascorbic Acid 500 Mg Tablet PO 500 mg DAILY ATUL Administration Aspirin 81 mg 04/08/25 09:00 04/14/25 09:08 Aspirin 81 Mg Enteric Tablet PO 81 mg DAILY ATUL Administration Benzocaine/Butamben/Tetracaine HCl 1 spray 04/11/25 13:54 04/11/25 17:39 Benzocaine/Tetracaine [place] (*Sp) 56 Ml Aerosol MUCOUS MEM 1 spray PRN PRN Administration Sore Throat Calcium Carbonate 1,000 mg 04/08/25 12:00 04/14/25 15:36 Calcium/Vitamin D 500 Mg/5 Mcg (200 I.U.) Tablet PO 1,000 mg DAILY@1200 ATUL Administration Clopidogrel Bisulfate 75 mg 04/08/25 09:00 04/14/25 09:07 Clopidogrel Bisulfate 75 Mg Tablet PO 75 mg DAILY ATUL Administration Cyclosporine 1 drop 04/08/25 09:00 04/14/25 09:08 Cyclosporine 0.4 Ml Ophth Solution EACH EYE 1 drop Q12HR ATUL Administration Digoxin 125 mcg 04/11/25 09:20 04/14/25 09:08 Digoxin Inj 250 Mcg/Ml 2 Ml Amp (*Bkc) IV PUSH 125 mcg DAILY ATUL Administration Enoxaparin Sodium 30 mg 04/09/25 09:00 04/14/25 09:08 Enoxaparin 30 Mg/0.3 Ml Syringe SUB-Q 30 mg DAILY ATUL Administration Famotidine 20 mg 04/08/25 09:00 04/14/25 09:07 Famotidine 20 Mg Tablet PO 20 mg Q12HR ATUL Administration Fish Oil 1 gm 04/08/25 09:00 04/14/25 09:09 [place] 3 Polyunsat Fatty Acids 1 Gm Cap PO 1 gm DAILY ATUL Administration Hydrocortisone Sodium Succinate 100 mg 04/14/25 09:00 04/14/25 09:08 Hydrocortisone Sodium Succinate 100 Mg/2 Ml Vial IV PUSH 100 mg QAM ATUL Administration Meropenem 1 gm in 100 mls @ 200 mls/hr 04/08/25 04:00 04/14/25 15:37 IVPB 04/17/25 16:29 200 mls/hr Q12H ATUL Administration Ipratropium [place] 2 spray 04/08/25 09:00 04/14/25 14:25 Ipratropium Nasal [place] 0.06% 15 Ml Bottle NASAL 2 spray TID ATUL Administration Melatonin 3 mg 04/13/25 21:00 04/13/25 20:29 Melatonin 3 Mg Tablet PO 3 mg HS ATUL Administration Metoprolol Tartrate 25 mg 04/11/25 09:10 04/14/25 09:07 Metoprolol Tartrate 25 Mg Tablet PO 25 mg Q12HR ATUL Administration Midodrine 10 mg 04/12/25 09:00 04/14/25 14:25 Midodrine Hcl 10 Mg Tablet PO 10 mg TID ATUL Administration Multivitamins Therapeutic 1 tablet 04/08/25 09:00 04/14/25 09:07 Multivitamins Therapeutic Tab (*Bkc) PO 1 tablet DAILY ATUL Administration Oxymetazoline HCl 1 spray 04/08/25 16:42 Oxymetazoline Hcl 0.05% [place] 15 Ml Btl (*Bkc) NASAL Q12HR PRN Congestion Quetiapine Fumarate 12.5 mg 04/14/25 21:00 Quetiapine Fumarate 12.5 Mg Tablet PO HS ATUL Ranolazine 500 mg 04/08/25 09:00 04/14/25 09:07 Ranolazine 500 Mg Tab.Er.12h PO 500 mg Q12HR ATUL Administration Sodium Bicarbonate 650 mg 04/09/25 17:00 04/14/25 09:07 Sodium Bicarbonate Tab 650 Mg Tablet PO 04/14/25 23:59 650 mg BID ATUL Administration Sodium Chloride 10 ml 04/09/25 14:00 04/14/25 14:25 Central Line Flush IV PUSH 10 ml Q8HR ATUL Administration Sodium Chloride 10 ml 04/09/25 10:42 Central Line Flush IV PUSH PRN PRN with TPN bag changes Sodium Chloride 20 ml 04/09/25 10:42 04/14/25 04:37 Central Line Flush IV PUSH 20 ml PRN PRN Administration after blood draws Radiology Results: ITS Impressions Soft Tissue Neck CT 04/07/25 17:28 IMPRESSION: Right palatine tonsillar enlargement. No tonsillar abscess detected. Left submandibular gland enlargement. Left anterior cervical chain lymphadenopathy. Anterior neck soft tissue stranding, which may represent cellulitis in the appropriate clinical context. Paratracheal lymphadenopathy. Mild interstitial edema. Hip/Pelvis X-Ray 04/08/25 15:38 Impression: 1: No acute bone or joint abnormality. Cervical Spine CT 04/08/25 15:49 IMPRESSION: 1. No acute abnormality of the cervical spine. 2: Moderate cervical spondylosis. Abdomen Ultrasound 04/08/25 17:43 IMPRESSION: Distended gallbladder with possible minimal pericholecystic fluid versus edema. Clinical correlation and follow-up advised. Otherwise, normal Limited abdominal ultrasound. Head CT 04/09/25 12:26 Impression: No intracranial hemorrhage, mass, or acute infarct. Atrophy and chronic white matter changes, as above. Venous Doppler Study 04/09/25 14:23 Impression: 1: Normal venous ultrasound of the internal jugular veins. No evidence for deep venous thrombosis. Chest/Abdomen/Pelvis CT 04/09/25 19:03 IMPRESSION: CHEST: 1. Bilateral basal atelectasis versus pneumonia with bilateral pleural effusion more on the right side. 2. Mediastinal lymphadenopathy. 3. Cardiomegaly. 4. Nodule in the left upper lobe. 6 months follow-up CT is advised. ABDOMEN/PELVIS: 1. No evidence of appendicitis, diverticulitis or intestinal obstruction. 2. 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 3. Hyperdense areas in the kidneys which may be residual contrast versus hemorrhagic cysts. Chest X-Ray 04/13/25 06:51 Impression: Small right pleural effusion and probable mild pulmonary edema pattern. Questionable underlying COPD. Stable cardiomegaly. Right-sided PICC line. Labs Labs: Laboratory Results - last 24 hr 04/14/25 04:36 WBC 10.2 H RBC 3.11 L Hgb 9.9 L Hct 29.6 L MCV 95.2 MCH 31.8 MCHC 33.4 RDW 15.6 H Plt Count 138 L MPV 11.7 H Sodium 139 Potassium 3.9 Chloride 107 Carbon Dioxide 23 Anion Gap 9 BUN 53 H Creatinine 0.98 Estim Creat Clear Calc 46 Estimated GFR > 60 Glucose 172 H Calcium 8.4 Magnesium 2.3 Total Bilirubin 1.2 AST 92 H ALT 287 H Alkaline Phosphatase 75 Total Protein 5.3 L Albumin 2.8 L
[2025-04-14] MEDS: QUEtiapine FUMARATE 12.5 MG TABLET PO (20:10)
[2025-04-14] MEDS: MELATONIN 3 MG TABLET PO (20:10)
[2025-04-15] VITALS (11 sets, daily range): BP systolic 102–132; BP diastolic 49–79; PULSE 69–108; RESP 16–25; TEMP 35.6–37; O2SAT 96–100; BMI 26.2
[2025-04-15] MEDS: MEROPENEM 1 GM/NS 100 ML 1 GM/100 ML BAG IVPB (03:54)
[2025-04-15] MEDS: IPRATROPIUM 0.5 MG/ALBUTEROL SULFATE 2.5 MG AMPUL.NEB 3 ML INHALATION (04:29)
[2025-04-15] MEDS: CENTRAL LINE FLUSH 20 ML IV PUSH (06:46)
[2025-04-15] MEDS: CENTRAL LINE FLUSH 10 ML IV PUSH ×3 (06:47→21:06)
[2025-04-15 06:58] LABS: Hemoglobin 10.9 g/dL (14.0-18.0); Mean Corpuscular Hemoglobin 32.1 pg (26-34); Mean Corpuscular Volume 97.1 fl (80-100); Mean Platelet Volume 12.2 fl (7.4-10.4); Platelet Count Result 168 k/mm3 (150-375); Red Cell Distribution Width 16.2 % (11.5-14.5); White Blood Count 12.1 K/mm3 (4.5-10.0)
[2025-04-15 07:25] LABS: Alanine Aminotransferase 270 U/L (6-50); Albumin Level 3.3 g/dL (3.5-5.1); Alkaline Phosphatase 107 U/L (38-126); Anion Gap 10 mmol/L (4-12); Aspartate Amino Transferase 105 U/L (17-59); Bilirubin,Total 1.5 mg/dL (0.2-1.3); Blood Urea Nitrogen 59 mg/dL (9-20); Calcium 9.3 mg/dL (8.4-10.2); Carbon Dioxide 23 mmol/L (22-30); Chloride 108 mmol/L (98-107); Estimated CRCL calculation 44 ml/min; Estimated Glomerular Filt Rate > 60; Glucose 153 mg/dL (65-110); Magnesium 2.3 mg/dL (1.6-2.3); Potassium 4.3 mmol/L (3.4-5.0); Sodium 141 mmol/L (137-145); Total Protein 5.8 g/dL (6.3-8.2)
[2025-04-15 09:13] LABS: Digoxin 0.5 ng/mL (0.8-2.0)
[2025-04-15] MEDS: HYDROCORTISONE SODIUM SUCCINATE 100 MG/2 ML VIAL IV PUSH (09:57)
[2025-04-15] MEDS: ENOXAPARIN 30 MG/0.3 ML SYRINGE SUB-Q (09:57)
[2025-04-15] MEDS: cycloSPORINE 0.4 ML OPHTH SOLUTION 1 DROP EACH EYE (10:00)
[2025-04-15] MEDS: IPRATROPIUM NASAL SPRAY 0.06% 15 ML BOTTLE 2 SPRAY NASAL ×2 (10:00→12:14)
--- NOTE | 2025-04-15 10:20 | PC.NURSE ---
Spoke with Dr. Snow, hold this AM dose of digoxin d/t pt having bradycardia at times. If a change in HR occurs will notify
--- NOTE | 2025-04-15 11:54 | P.PNCA_ITS ---
Progress Note: A&P Assessment and Plan (1) Cardiomyopathy: Code(s): I42.9 - Cardiomyopathy, unspecified Status: Acute (2) Coronary artery disease: Qualifiers: Coronary Disease-Associated Artery/Lesion type: [place] artery [place] vs. transplanted heart: [place] heart Associated angina: without angina Qualified Code(s): I25.10 - Atherosclerotic heart disease of [place] coronary artery without angina pectoris Code(s): I25.10 - Atherosclerotic heart disease of [place] coronary artery without angina pectoris Status: Acute (3) Atrial fibrillation: Qualifiers: Atrial fibrillation type: persistent (not longstanding) Qualified Code(s): I48.19 - Other persistent atrial fibrillation Code(s): I48.91 - Unspecified atrial fibrillation Status: Acute (4) Hyperlipidemia: Qualifiers: Hyperlipidemia type: unspecified Qualified Code(s): E78.5 - Hyperlipidemia, unspecified Code(s): E78.5 - Hyperlipidemia, unspecified Status: Acute Plan 81-year-old man with CAD status post PCI presented with fevers now being treated for sepsis also found to have new onset systolic cardiomyopathy New onset systolic cardiomyopathy -may be secondary to sudden of acute illness -appears euvolemic and currently unable to tolerate guideline directed medical therapy and still require midodrine for blood pressure support -wean midodrine as tolerated Coronary artery disease status post PCI -continue aspirin 81 mg p.o. daily and Plavix 75 mg p.o. daily Persistent atrial fibrillation -previously on Xarelto however complained of significant epistaxis -Follow up outpatient for further discussions of possible left atrial appendage occlusion -currently on metoprolol 25 mg p.o. b.i.d. and digoxin 125 mcg IV daily, however, cannot take oral pills at this time, therefore, has not received Metoprolol. Heart rates generally rate controlled. Resume PO Metoprolol when able to take oral. Has episodes of bradycardia, but this appears to be vagally induced. Will continue to closely monitor for now. Hyperlipidemia -resume atorvastatin on discharge Consider goals of care discussion with the family. Subjective Date/time seen: 04/15/25 11:54 Interval history: Reason for visit: AFIB with RVR Patient with sitter. Is confused, has episodes of labored breathing, coughing, and then appears to vagal, which results in intermittent bradycardia. Remains in AFIB. Review of Systems Review of Systems: ROS unobtainable: Yes unobtainable due to mental status Exam Const: Other: Ill appearing male HENMT: Mouth: Yes dry mucous membranes Eyes: General: appearance normal, both eyes and all related structures Sclera: sclerae normal Resp: Other: Increased respiratory effort Cardio: Rhythm: abnormal rhythm irregularly irregular Neuro: Other: Confused Objective Data Vital Signs Vital Signs: Vital Signs - 24 hr 04/14/25 12:00 04/14/25 12:00 04/14/25 12:00 Temperature Pulse Rate 93 93 94 Respiratory Rate 26 H 26 H Blood Pressure 131/77 Pulse Oximetry 100 100 Oxygen Delivery Room Air Fraction of Inspired Oxygen 04/14/25 14:00 04/14/25 16:00 04/14/25 16:00 Temperature 36.4 C Pulse Rate 77 86 86 Respiratory Rate 24 H 24 H Blood Pressure 111/40 L Pulse Oximetry 100 100 Oxygen Delivery Room Air Fraction of Inspired Oxygen 04/14/25 16:00 04/14/25 18:00 04/14/25 20:00 Temperature Pulse Rate 73 73 92 Respiratory Rate 18 Blood Pressure Pulse Oximetry 98 Oxygen Delivery Room Air Fraction of Inspired Oxygen 04/14/25 20:00 04/14/25 20:00 04/14/25 20:11 Temperature 36.3 C L Pulse Rate 92 87 99 Respiratory Rate 18 Blood Pressure 120/56 L Pulse Oximetry 98 Oxygen Delivery Fraction of Inspired Oxygen 04/14/25 20:36 04/14/25 22:00 04/15/25 00:00 Temperature Pulse Rate 72 64 81 Respiratory Rate 14 25 H Blood Pressure Pulse Oximetry 95 100 Oxygen Delivery Room Air Room Air Fraction of Inspired Oxygen 21 04/15/25 00:00 04/15/25 00:00 04/15/25 02:00 Temperature 36.4 C Pulse Rate 81 71 69 Respiratory Rate 25 H Blood Pressure 132/77 Pulse Oximetry 100 Oxygen Delivery Fraction of Inspired Oxygen 04/15/25 04:00 04/15/25 04:00 04/15/25 04:00 Temperature 36.4 C L Pulse Rate 108 H 108 H 85 Respiratory Rate 25 H 25 H Blood Pressure 127/78 Pulse Oximetry 100 100 Oxygen Delivery Room Air Fraction of Inspired Oxygen 04/15/25 04:30 04/15/25 06:00 04/15/25 08:00 Temperature Pulse Rate 85 90 Respiratory Rate 20 Blood Pressure Pulse Oximetry Oxygen Delivery Room Air Fraction of Inspired Oxygen 04/15/25 08:00 04/15/25 08:00 04/15/25 10:00 Temperature 36.6 C Pulse Rate 84 92 91 Respiratory Rate 19 Blood Pressure 130/67 Pulse Oximetry 97 Oxygen Delivery Fraction of Inspired Oxygen 04/15/25 11:49 Temperature 36.6 C Pulse Rate 105 H Respiratory Rate 25 H Blood Pressure 124/79 Pulse Oximetry 98 Oxygen Delivery Fraction of Inspired Oxygen Intake/Output Intake/Output: Intake & Output 04/12/25 04/13/25 04/14/25 04/15/25 23:59 23:59 23:59 23:59 Intake Total 2599.2 1057.4 430 150 Output Total 700 1275 1300 250 Balance 1899.2 -217.6 -870 -100 Meds/Results Medications: Active Medications Generic Name Dose Route Start Last Admin Trade Name Freq PRN Reason Stop Dose Admin Acetaminophen 650 mg 04/07/25 19:59 04/12/25 09:43 Acetaminophen 325 Mg Tablet PO 650 mg Q6H PRN Administration Mild Pain (1-3) or Fever Albuterol/Ipratropium 3 ml 04/14/25 06:03 04/15/25 04:29 Ipratropium 0.5 Mg/Albuterol Sulfate 2.5 Mg Ampul.Neb 3 Ml INHALATION 3 ml Q6HRT PRN Administration wheezing Artificial Tears 1 drop 04/08/25 03:43 Artificial Tears Ophth Soln 15 Ml Bottle EACH EYE Q4H PRN Dry Eye(s) Ascorbic Acid 500 mg 04/08/25 09:00 04/14/25 09:07 Ascorbic Acid 500 Mg Tablet PO 500 mg DAILY ATUL Administration Aspirin 81 mg 04/08/25 09:00 04/14/25 09:08 Aspirin 81 Mg Enteric Tablet PO 81 mg DAILY ATUL Administration Benzocaine/Butamben/Tetracaine HCl 1 spray 04/11/25 13:54 04/11/25 17:39 Benzocaine/Tetracaine [place] (*Sp) 56 Ml Aerosol MUCOUS MEM 1 spray PRN PRN Administration Sore Throat Calcium Carbonate 1,000 mg 04/08/25 12:00 04/14/25 15:36 Calcium/Vitamin D 500 Mg/5 Mcg (200 I.U.) Tablet PO 1,000 mg DAILY@1200 ATUL Administration Clopidogrel Bisulfate 75 mg 04/08/25 09:00 04/14/25 09:07 Clopidogrel Bisulfate 75 Mg Tablet PO 75 mg DAILY ATUL Administration Cyclosporine 1 drop 04/08/25 09:00 04/15/25 10:00 Cyclosporine 0.4 Ml Ophth Solution EACH EYE 1 drop Q12HR ATUL Administration Digoxin 125 mcg 04/11/25 09:20 04/14/25 09:08 Digoxin Inj 250 Mcg/Ml 2 Ml Amp (*Bkc) IV PUSH 125 mcg DAILY ATUL Administration Enoxaparin Sodium 30 mg 04/09/25 09:00 04/15/25 09:57 Enoxaparin 30 Mg/0.3 Ml Syringe SUB-Q 30 mg DAILY ATUL Administration Famotidine 20 mg 04/08/25 09:00 04/14/25 20:10 Famotidine 20 Mg Tablet PO 20 mg Q12HR ATUL Administration Fish Oil 1 gm 04/08/25 09:00 04/14/25 09:09 [place] 3 Polyunsat Fatty Acids 1 Gm Cap PO 1 gm DAILY ATUL Administration Hydrocortisone Sodium Succinate 100 mg 04/14/25 09:00 04/15/25 09:57 Hydrocortisone Sodium Succinate 100 Mg/2 Ml Vial IV PUSH 100 mg QAM ATUL Administration Meropenem 1 gm in 100 mls @ 200 mls/hr 04/08/25 04:00 04/15/25 04:25 IVPB 04/17/25 16:29 Infused Q12H ATUL Infusion Ipratropium [place] 2 spray 04/08/25 09:00 04/15/25 10:00 Ipratropium Nasal [place] 0.06% 15 Ml Bottle NASAL 2 spray TID ATUL Administration Melatonin 3 mg 04/13/25 21:00 04/14/25 20:10 Melatonin 3 Mg Tablet PO 3 mg HS ATUL Administration Metoprolol Tartrate 25 mg 04/11/25 09:10 04/14/25 20:11 Metoprolol Tartrate 25 Mg Tablet PO 25 mg Q12HR ATUL Administration Midodrine 10 mg 04/12/25 09:00 04/14/25 20:10 Midodrine Hcl 10 Mg Tablet PO 10 mg TID ATUL Administration Multivitamins Therapeutic 1 tablet 04/08/25 09:00 04/14/25 09:07 Multivitamins Therapeutic Tab (*Bkc) PO 1 tablet DAILY ATUL Administration Oxymetazoline HCl 1 spray 04/08/25 16:42 Oxymetazoline Hcl 0.05% [place] 15 Ml Btl (*Bkc) NASAL Q12HR PRN Congestion Quetiapine Fumarate 12.5 mg 04/14/25 21:00 04/14/25 20:10 Quetiapine Fumarate 12.5 Mg Tablet PO 12.5 mg HS ATUL Administration Ranolazine 500 mg 04/08/25 09:00 04/14/25 20:10 Ranolazine 500 Mg Tab.Er.12h PO 500 mg Q12HR ATUL Administration Sodium Chloride 10 ml 04/09/25 14:00 04/15/25 06:47 Central Line Flush IV PUSH 10 ml Q8HR ATUL Administration Sodium Chloride 10 ml 04/09/25 10:42 Central Line Flush IV PUSH PRN PRN with TPN bag changes Sodium Chloride 20 ml 04/09/25 10:42 04/15/25 06:46 Central Line Flush IV PUSH 20 ml PRN PRN Administration after blood draws Radiology Results: ITS Impressions Soft Tissue Neck CT 04/07/25 17:28 IMPRESSION: Right palatine tonsillar enlargement. No tonsillar abscess detected. Left submandibular gland enlargement. Left anterior cervical chain lymphadenopathy. Anterior neck soft tissue stranding, which may represent cellulitis in the appropriate clinical context. Paratracheal lymphadenopathy. Mild interstitial edema. Hip/Pelvis X-Ray 04/08/25 15:38 Impression: 1: No acute bone or joint abnormality. Cervical Spine CT 04/08/25 15:49 IMPRESSION: 1. No acute abnormality of the cervical spine. 2: Moderate cervical spondylosis. Abdomen Ultrasound 04/08/25 17:43 IMPRESSION: Distended gallbladder with possible minimal pericholecystic fluid versus edema. Clinical correlation and follow-up advised. Otherwise, normal Limited abdominal ultrasound. Head CT 04/09/25 12:26 Impression: No intracranial hemorrhage, mass, or acute infarct. Atrophy and chronic white matter changes, as above. Venous Doppler Study 04/09/25 14:23 Impression: 1: Normal venous ultrasound of the internal jugular veins. No evidence for deep venous thrombosis. Chest/Abdomen/Pelvis CT 04/09/25 19:03 IMPRESSION: CHEST: 1. Bilateral basal atelectasis versus pneumonia with bilateral pleural effusion more on the right side. 2. Mediastinal lymphadenopathy. 3. Cardiomegaly. 4. Nodule in the left upper lobe. 6 months follow-up CT is advised. ABDOMEN/PELVIS: 1. No evidence of appendicitis, diverticulitis or intestinal obstruction. 2. 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 3. Hyperdense areas in the kidneys which may be residual contrast versus hemorrhagic cysts. Chest X-Ray 04/13/25 06:51 Impression: Small right pleural effusion and probable mild pulmonary edema pattern. Questionable underlying COPD. Stable cardiomegaly. Right-sided PICC line. Labs Labs: Laboratory Results - last 24 hr 04/15/25 06:52 WBC 12.1 H RBC 3.40 L Hgb 10.9 L Hct 33.0 L MCV 97.1 MCH 32.1 MCHC 33.0 RDW 16.2 H Plt Count 168 MPV 12.2 H Sodium 141 Potassium 4.3 Chloride 108 H Carbon Dioxide 23 Anion Gap 10 BUN 59 H Creatinine 1.03 Estim Creat Clear Calc 44 Estimated GFR > 60 Glucose 153 H Calcium 9.3 Magnesium 2.3 Total Bilirubin 1.5 H AST 105 H ALT 270 H Alkaline Phosphatase 107 Total Protein 5.8 L Albumin 3.3 L Digoxin 0.5 L
--- NOTE | 2025-04-15 13:41 | PCSTNOTE ---
Please refer to the Bedside Swallow Evaluation in the EMR. Please note, silent aspiration cannot be ruled out at bedside. The pt was seen for a repeat bedside swallow evaluation due to having excessive coughing spell after nursing gave him a straw sip of water. (a bedside swallow evaluation was also previously completed on April 09 with intermittent overt s/s of aspiration being exhibited with subsequent Modified Barium Swallow (MBS) recommendation; no MBS order was received). At this time, per RN, pt coughed so excessively he became bradycardic then respiratory rate increased into the 40's. Pt has exhibited increased confusion and having difficulty with following simple commands and responding to simple questions. Coughing was noted before any oral trials were given. Pt was positioned upright in the bed and presented with limited trials of thin liquid and pudding. 3 ml trials of thin liquid and 1/4 tsp and 1/2 tsp amounts of pudding. The oral stages appeared WFL with no leakage, pocketing, or residue. Swallow reflex appeared timely and laryngeal elevation appeared adequate but intermittent coughing occurred after each consistency. Due to the inconsistent but frequent nature of pt's coughing, an MBS is recommended (once pt is medically stable) in order to further and more thoroughly assess the pts swallow in order to determine a safe diet. Impression/Recommendations: questionable degree of dysphagia due to intermittent, but at times, excessive coughing. MBS recommended; NPO until then.
[2025-04-15] MEDS: MORPHINE SULFATE INJ (*CRX) 10 MG/ML AMP IV PUSH (15:26)
[2025-04-15] MEDS: LORazepam INJ (*CRX) 2 MG/ML VIAL 0.5 MG IV PUSH ×3 (15:54→21:03)
--- NOTE | 2025-04-15 16:48 | PC.NURSE ---
This patient, Armando Walton, was received from [ICU 2] on 04/15/25 at 1646. Patient/family oriented to unit policies and routines. Report received from Teresa.
--- NOTE | 2025-04-15 16:50 | P.PNIM_ITS ---
Progress Note: A&P Assessment and Plan (1) Sepsis: Qualifiers: Sepsis acute organ dysfunction status: without acute organ dysfunction Sepsis type: sepsis due to unspecified organism Qualified Code(s): A41.9 - S epsis, unspecified organism Code(s): A41.9 - Sepsis, unspecified organism Status: Acute Assessment and Plan: Patient with fever and rash. Rash began after abx given but drug reaction felt less likely. GA Strept swab negative. [place] negative. MRSA nasal swab negative. Influenza, COVID and RSV PCR negative. CXR was clear. CT Neck showing right tonsillar and left submandibular gland enlargement and adneopathy. Also with anterior neck stranding. BCx NGTD UA noted and did not trigger a UCx. Curently on Vanco, Meropenem and Doxy. Still having fevers. Developed HoTN with septic shock treated wtih Phenylephrine. Appreciate stud master/mistress input. CT Ch/A/P pending. WBC better with 10% bands. PCT 5.2. Continue broad spectrum abx and follow up on cultures. Discussed with ID RN regarding measles testing. Discussed with stud master/mistress. (2) Cellulitis of neck: Code(s): L03.221 - Cellulitis of neck Status: Acute Assessment and Plan: CT scan showing anterior neck soft tissue stranding and clinically with erythema. Consider strep with rash. Continue abx until clearer etiology is known. (3) Tonsillitis: Code(s): J03.90 - Acute tonsillitis, unspecified Status: Acute Assessment and Plan: As above. (4) Lymphadenitis: Code(s): I88.9 - Nonspecific lymphadenitis, unspecified Status: Acute Assessment and Plan: As above (5) CHF (congestive heart failure): Code(s): I50.9 - Heart failure, unspecified Status: Acute Assessment and Plan: Echo in Sep 2024 showing EF 55% but Lexiscan in December 2024 showing EF 42%. Patient complains of intermittent CP and SOB that has worsened over the past few months. Echo here showing moderately enlarged LV with EF 20-25% and diastolic dysfunction. Moderate LAE and mild valvular disease. He is in AFib with RVR. LV dysfunction could be from uncontrolled AFib. BNP >30K. CXR was clear but repeat showing pulmonary edema felt related to IV fluids. IV fluids stopped since he is becoming more tachypneic. Metoprolol advanced to control heart rate. Entresto added by Cardiology. Metoprolol and Entresto on hold since hypotensive now. Apprecaite Cardiology input (6) Paroxysmal atrial fibrillation: Code(s): I48.0 - Paroxysmal atrial fibrillation Status: Acute Assessment and Plan: Rate was poorly controlled here felt related to sepsis. Consider he may have RVR chronically causing his poor EF. He was on metoprolol on admission that was advanced (now held due to HoTN) Defer to cardiology about resuming Xarelto. Monitor on tele (7) Hyponatremia: Code(s): E87.1 - Hypo-osmolality and hyponatremia Status: Acute Assessment and Plan: Na low on admission at 124. Urine Na <5 to suggest either dehydration and/or poor cardiac output to kidneys. With IV fluids, sodium has improved to 128. Off IV fluids since his EF 20% and he is becoming more tachypneic Repeat CXR showing improvement in the pulmonary edema. (8) Elevated LFTs: Code(s): R79.89 - Other specified abnormal findings of blood chemistry Status: Acute Assessment and Plan: AST/ALT elevated. Consider related to sepsis or viral etiology. Consider hepatic congestion. TCK also elevated which could result in elevated LFTs. Abd US showing distended GB with possible pericholecystic fluid vs edema. GenSurg consulted for possible cholecystitis. Monitor. Trend LFTs. (9) Rhabdomyolysis: Code(s): M62.82 - Rhabdomyolysis Status: Acute Assessment and Plan: TCK was 895 on admission. Patient is fluid positive Etiology is probably related to infectious etiology and/or statin therapy. TCK is better Follow (10) Coronary artery disease: Qualifiers: Coronary Disease-Associated Artery/Lesion type: [place] artery [place] vs. transplanted heart: [place] heart Associated angina: without angina Qualified Code(s): I25.10 - Atherosclerotic heart disease of [place] coronary artery without angina pectoris Code(s): I25.10 - Atherosclerotic heart disease of [place] coronary artery without angina pectoris Status: Acute Assessment and Plan: Patient wsa hospitalized here in September for NSTEMI and transferred to [facility]. He underwent successful laser atherectomy assisted PTCA distal left circumflex, OM1 and OM2 bifurcation in stent restenosis and intravascular lithotripsy shockwave assisted PTCA the distal to proximal LAD. Patient was hospitalized again at [facility] in December where he underwent heart catheterization with shockwave and balloon angioplasty to distal left circumflex artery in stent restenosis. Patient was on ASA and Plavix but now on hold Cardiology consult. (11) LENIN (acute kidney injury): Code(s): N17.9 - Acute kidney failure, unspecified Status: Acute Assessment and Plan: Baseline Cr 1-1.2 range. Cr has climbed to 1.7 now Webb related to sepsis and shock. Nation placed so will be able to monitor UOP better. Monitor renal function, UOP and electrolytes. Plan patient still stats his throat is still soar but as much as when he arrived, he was seen by ENT examined did not find any abscess, patient is being treated with IV abx, patient blood pressure was soft and treated with phenylephrine, hydrocortisone, albumin and IVF to help with is BP, today his BP is better, and phenylephrine is stopped,patient with soft blood pressure still requiring midodrine, will monitor and wean patient as tolerated his baseline echo showed ejection fraction 40% but the echo during this admission 25%. patient has PAF rate is controlled, , patient is on RA, patient is seen by business integration analyst and stud master/mistress, will monitor, Falls - patient had 2 falls in the IMU yesterday. Repeat CT head again showing no acute findings. Fall precautions. Today patient clinical symptoms were worsening with bradycardia and pauses, patient was not very responsive and concern patient may cardiac arrest, patient immediate family was present in the room, called patient patient POA and discuss the presentation and he agreed to place patient under DNR and comfort measure, will monitor, will consult hospice for further recommendations to follow. Code status - full DVT prophylaxis - SCDs Subjective Date/time seen: 04/15/25 16:50 Interval history: 89yo male with CAD with recent stent placement in December, pAFib (off anticoagulation for about 6 months) and HTN here for fever and sore throat. Patient moved to ICU yesterday evening. He was confused overnight but this has been improving. He was HoTN was started on phenylephrine. Nation catheter had to be placed today by urology. Still feels SOB but better. No CP. Cough that is productive. Sore throat is better. today patient still stats his throat is still soar but as much as when he arrived, he was seen by ENT examined did not find any abscess, patient is being treated with IV abx, patient blood pressure was soft and treated with phenylephrine, hydrocortisone, albumin and IVF to help with is BP, today his BP is better, and phenylephrine is stopped,patient with soft blood pressure still requiring midodrine, will monitor and wean patient as tolerated his baseline echo showed ejection fraction 40% but the echo during this admission 25%. patient has PAF rate is controlled, , patient is on RA, patient is seen by business integration analyst and stud master/mistress, will monitor, Today patient clinical symptoms were worsening with bradycardia and pauses, patient was not very responsive and concern patient may cardiac arrest, patient immediate family was present in the room, called patient patient POA and discuss the presentation and he agreed to place patient under DNR and comfort measure, will monitor, will consult hospice for further recommendations to follow. Review of Systems Review of Systems: 12 systems were reviewed and are negativ e except for as per HPI. All systems reviewed & are unremarkable except as noted in HPI and below (HPI) Exam Narrative: Elderly frail Patient is comfortable, NAD HEENT: eyes are clear and none icteric LUNGS:CTA HEART: RR S1S2 ABD: BS+, Soft and nontender Lower extremities: no edema SKIN: nonjaundiced Neuro: grossly intact. Objective Data Vital Signs Vital Signs: Vital Signs - 24 hr 04/14/25 18:00 04/14/25 20:00 04/14/25 20:00 Temperature 36.3 C L Pulse Rate 73 92 92 Respiratory Rate 18 18 Blood Pressure 120/56 L Pulse Oximetry 98 98 Oxygen Delivery Room Air Fraction of Inspired Oxygen 04/14/25 20:00 04/14/25 20:11 04/14/25 20:36 Temperature Pulse Rate 87 99 72 Respiratory Rate 14 Blood Pressure Pulse Oximetry 95 Oxygen Delivery Room Air Fraction of Inspired Oxygen 21 04/14/25 22:00 04/15/25 00:00 04/15/25 00:00 Temperature 36.4 C Pulse Rate 64 81 81 Respiratory Rate 25 H 25 H Blood Pressure 132/77 Pulse Oximetry 100 100 Oxygen Delivery Room Air Fraction of Inspired Oxygen 04/15/25 00:00 04/15/25 02:00 04/15/25 04:00 Temperature Pulse Rate 71 69 108 H Respiratory Rate 25 H Blood Pressure Pulse Oximetry 100 Oxygen Delivery Room Air Fraction of Inspired Oxygen 04/15/25 04:00 04/15/25 04:00 04/15/25 04:30 Temperature 36.4 C L Pulse Rate 108 H 85 85 Respiratory Rate 25 H 20 Blood Pressure 127/78 Pulse Oximetry 100 Oxygen Delivery Fraction of Inspired Oxygen 04/15/25 06:00 04/15/25 08:00 04/15/25 08:00 Temperature 36.6 C Pulse Rate 90 84 Respiratory Rate 19 Blood Pressure 130/67 Pulse Oximetry 97 Oxygen Delivery Room Air Fraction of Inspired Oxygen 04/15/25 08:00 04/15/25 10:00 04/15/25 11:49 Temperature 36.6 C Pulse Rate 92 91 105 H Respiratory Rate 25 H Blood Pressure 124/79 Pulse Oximetry 98 Oxygen Delivery Fraction of Inspired Oxygen 04/15/25 12:00 04/15/25 12:00 Temperature Pulse Rate 76 Respiratory Rate Blood Pressure Pulse Oximetry Oxygen Delivery Room Air Fraction of Inspired Oxygen Intake/Output Intake/Output: Intake & Output 04/12/25 04/13/25 04/14/25 04/15/25 23:59 23:59 23:59 23:59 Intake Total 2599.2 1057.4 430 150 Output Total 700 1275 1300 250 Balance 1899.2 -217.6 -870 -100 Meds/Results Medications: Active Medications Generic Name Dose Route Start Last Admin Trade Name Freq PRN Reason Stop Dose Admin Acetaminophen 650 mg 04/07/25 19:59 04/12/25 09:43 Acetaminophen 325 Mg Tablet PO 650 mg Q6H PRN Administration Mild Pain (1-3) or Fever Benzocaine/Butamben/Tetracaine HCl 1 spray 04/11/25 13:54 04/11/25 17:39 Benzocaine/Tetracaine [place] (*Sp) 56 Ml Aerosol MUCOUS MEM 1 spray PRN PRN Administration Sore Throat Lorazepam 0.5 mg 04/15/25 14:15 04/15/25 15:54 Lorazepam Inj (*Crx) 2 Mg/Ml Vial IV PUSH 0.5 mg Q2H PRN Administration Anxiety/Comfort Morphine Sulfate 0.5 mg 04/15/25 14:15 Morphine Sulfate (*Crx) 2 Mg/Ml Inj IV PUSH Q30M PRN COMFORT Sodium Chloride 10 ml 04/09/25 14:00 04/15/25 13:42 Central Line Flush IV PUSH 10 ml Q8HR ATUL Administration Sodium Chloride 10 ml 04/09/25 10:42 Central Line Flush IV PUSH PRN PRN with TPN bag changes Sodium Chloride 20 ml 04/09/25 10:42 04/15/25 06:46 Central Line Flush IV PUSH 20 ml PRN PRN Administration after blood draws Radiology Results: ITS Impressions Soft Tissue Neck CT 04/07/25 17:28 IMPRESSION: Right palatine tonsillar enlargement. No tonsillar abscess detected. Left submandibular gland enlargement. Left anterior cervical chain lymphadenopathy. Anterior neck soft tissue stranding, which may represent cellulitis in the appropriate clinical context. Paratracheal lymphadenopathy. Mild interstitial edema. Hip/Pelvis X-Ray 04/08/25 15:38 Impression: 1: No acute bone or joint abnormality. Cervical Spine CT 04/08/25 15:49 IMPRESSION: 1. No acute abnormality of the cervical spine. 2: Moderate cervical spondylosis. Abdomen Ultrasound 04/08/25 17:43 IMPRESSION: Distended gallbladder with possible minimal pericholecystic fluid versus edema. Clinical correlation and follow-up advised. Otherwise, normal Limited abdominal ultrasound. Venous Doppler Study 04/09/25 14:23 Impression: 1: Normal venous ultrasound of the internal jugular veins. No evidence for deep venous thrombosis. Chest/Abdomen/Pelvis CT 04/09/25 19:03 IMPRESSION: CHEST: 1. Bilateral basal atelectasis versus pneumonia with bilateral pleural effusion more on the right side. 2. Mediastinal lymphadenopathy. 3. Cardiomegaly. 4. Nodule in the left upper lobe. 6 months follow-up CT is advised. ABDOMEN/PELVIS: 1. No evidence of appendicitis, diverticulitis or intestinal obstruction. 2. 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 3. Hyperdense areas in the kidneys which may be residual contrast versus hemorrhagic cysts. Chest X-Ray 04/13/25 06:51 Impression: Small right pleural effusion and probable mild pulmonary edema pattern. Questionable underlying COPD. Stable cardiomegaly. Right-sided PICC line. Head CT 04/15/25 13:38 IMPRESSION: 1. No acute intracranial process. 2. Age-related changes including moderate diffuse volume loss and moderate scattered white matter hypoattenuation consistent with chronic small vessel ischemic disease. Carotid Doppler Study 04/15/25 14:03 IMPRESSION: 1. Less than 50% stenosis in the right internal carotid artery by sonographic criteria. 2. Less than 50% stenosis in the left internal carotid artery by sonographic criteria. Labs Labs: Laboratory Results - last 24 hr 04/15/25 06:52 WBC 12.1 H RBC 3.40 L Hgb 10.9 L Hct 33.0 L MCV 97.1 MCH 32.1 MCHC 33.0 RDW 16.2 H Plt Count 168 MPV 12.2 H Sodium 141 Potassium 4.3 Chloride 108 H Carbon Dioxide 23 Anion Gap 10 BUN 59 H Creatinine 1.03 Estim Creat Clear Calc 44 Estimated GFR > 60 Glucose 153 H Calcium 9.3 Magnesium 2.3 Total Bilirubin 1.5 H AST 105 H ALT 270 H Alkaline Phosphatase 107 Total Protein 5.8 L Albumin 3.3 L Digoxin 0.5 L Quality VTE Prophylaxis VTE prophylaxis: pharmacologic ordered
--- NOTE | 2025-04-15 16:51 | PC.NURSE ---
This patient, Armando Walton, was transferred to [facility] on 04/15/25 at 1642. Personal belongings sent with patient. Report given to Kristofer. Appropriate documentation sent with patient and all patient belongings.
[2025-04-15] MEDS: MORPHINE SULFATE (*CRX) 2 MG/ML INJ 0.5 MG IV PUSH ×2 (18:28→21:04)
[2025-04-16 00:11] VITALS: BP 129/70; PULSE 77; RESP 20; O2SAT 100
[2025-04-16] MEDS: LORazepam INJ (*CRX) 2 MG/ML VIAL 0.5 MG IV PUSH ×3 (03:08→08:38)
[2025-04-16] MEDS: MORPHINE SULFATE (*CRX) 2 MG/ML INJ 0.5 MG IV PUSH ×2 (03:09→08:16)
[2025-04-16 04:23] VITALS: BP 96/61; PULSE 84; RESP 20; TEMP 36.6; O2SAT 98
[2025-04-16] MEDS: CENTRAL LINE FLUSH 10 ML IV PUSH (05:46)
--- NOTE | 2025-04-16 07:00 | PC.NURSE ---
patient condition changing. longer periods of apnea noted this am. notified ruben English
[2025-04-16 08:00] VITALS: BP 107/56; PULSE 75; RESP 22; O2SAT 98
--- NOTE | 2025-04-16 09:35 | PCOTNOTE ---
Per RN, Patient has been put on comfort measures , no therapy services.
[2025-04-16] MEDS: MORPHINE SULFATE (*CRX) 2 MG/ML INJ 1 MG IV PUSH (09:42)
[2025-04-16] MEDS: LORazepam INJ (*CRX) 2 MG/ML VIAL 1 MG IV PUSH ×2 (10:00→11:51)
--- NOTE | 2025-04-22 11:45 | P.DS_ITS ---
DS: Admitting Diagnosis Discharge Date 04/16/25 Admitting Diagnosis Fever and sore throat. DS: Discharge Diagnosis Discharge Diagnosis (1) Sepsis: Qualifiers: Sepsis acute organ dysfunction status: without acute organ dysfunction Sepsis type: sepsis due to unspecified organism Qualified Code(s): A41.9 - Sepsis, unspecified organism Code(s): A41.9 - Sepsis, unspecified organism Status: Acute Assessment and Plan: Patient with fever and rash. Rash began after abx given but drug reaction felt less likely. [place] Strept swab negative. [place] negative. MRSA nasal swab negative. Influenza, COVID and RSV PCR negative. CXR was clear. CT Neck showing right tonsillar and left submandibular gland enlargement and adneopathy. Also with anterior neck stranding. BCx NGTD UA noted and did not trigger a UCx. Curently on Vanco, Meropenem and Doxy. Still having fevers. Developed HoTN with septic shock treated wtih Phenylephrine. Appreciate masking machine feeder input. CT Ch/A/P pending. WBC better with 10% bands. PCT 5.2. Continue broad spectrum abx and follow up on cultures. Discussed with ID RN regarding measles testing. Discussed with masking machine feeder. (2) Cellulitis of neck: Code(s): L03.221 - Cellulitis of neck Status: Acute Assessment and Plan: CT scan showing anterior neck soft tissue stranding and clinically with erythema. Consider strep with rash. Continue abx until clearer etiology is known. (3) Tonsillitis: Code(s): J03.90 - Acute tonsillitis, unspecified Status: Acute Assessment and Plan: As above. (4) Lymphadenitis: Code(s): I88.9 - Nonspecific lymphadenitis, unspecified Status: Acute Assessment and Plan: As above (5) CHF (congestive heart failure): Code(s): I50.9 - Heart failure, unspecified Status: Acute Assessment and Plan: Echo in Sep 2024 showing EF 55% but Lexiscan in December 2024 showing EF 42%. Patient complains of intermittent CP and SOB that has worsened over the past few months. Echo here showing moderately enlarged LV with EF 20-25% and diastolic dysfunction. Moderate LAE and mild valvular disease. He is in AFib with RVR. LV dysfunction could be from uncontrolled AFib. BNP >30K. CXR was clear but repeat showing pulmonary edema felt related to IV fluids. IV fluids stopped since he is becoming more tachypneic. Metoprolol advanced to control heart rate. Entresto added by Cardiology. Metoprolol and Entresto on hold since hypotensive now. Apprecaite Cardiology input (6) Paroxysmal atrial fibrillation: Code(s): I48.0 - Paroxysmal atrial fibrillation Status: Acute Assessment and Plan: Rate was poorly controlled here felt related to sepsis. Consider he may have RVR chronically causing his poor EF. He was on metoprolol on admission that was advanced (now held due to HoTN) Defer to cardiology about resuming Xarelto. Monitor on tele (7) Hyponatremia: Code(s): E87.1 - Hypo-osmolality and hyponatremia Status: Acute Assessment and Plan: Na low on admission at 124. Urine Na <5 to suggest either dehydration and/or poor cardiac output to kidneys. With IV fluids, sodium has improved to 128. Off IV fluids since his EF 20% and he is becoming more tachypneic Repeat CXR showing improvement in the pulmonary edema. (8) Elevated LFTs: Code(s): R79.89 - Other specified abnormal findings of blood chemistry Status: Acute Assessment and Plan: AST/ALT elevated. Consider related to sepsis or viral etiology. Consider hepatic congestion. TCK also elevated which could result in elevated LFTs. Abd US showing distended GB with possible pericholecystic fluid vs edema. GenSurg consulted for possible cholecystitis. Monitor. Trend LFTs. (9) Rhabdomyolysis: Code(s): M62.82 - Rhabdomyolysis Status: Acute Assessment and Plan: TCK was 895 on admission. Patient is fluid positive Etiology is probably related to infectious etiology and/or statin therapy. TCK is better Follow (10) Coronary artery disease: Qualifiers: Coronary Disease-Associated Artery/Lesion type: [place] artery [place] vs. transplanted heart: [place] heart Associated angina: without angina Qualified Code(s): I25.10 - Atherosclerotic heart disease of [place] coronary artery without angina pectoris Code(s): I25.10 - Atherosclerotic heart disease of [place] coronary artery without angina pectoris Status: Acute Assessment and Plan: Patient anne hospitalized here in September for NSTEMI and transferred to [facility]. He underwent successful laser atherectomy assisted PTCA distal left circumflex, OM1 and OM2 bifurcation in stent restenosis and intravascular lithotripsy shockwave assisted PTCA the distal to proximal LAD. Patient was hospitalized again at [facility] in December where he underwent heart catheterization with shockwave and balloon angioplasty to distal left circumflex artery in stent restenosis. Patient was on ASA and Plavix but now on hold Cardiology consult. (11) LENIN (acute kidney injury): Code(s): N17.9 - Acute kidney failure, unspecified Status: Acute Assessment and Plan: Baseline Cr 1-1.2 range. Cr has climbed to 1.7 now [place] related to sepsis and shock. Nation placed so will be able to monitor UOP better. Monitor renal function, UOP and electrolytes. Plan patient still stats his throat is still soar but as much as when he arrived, he was seen by ENT examined did not find any abscess, patient is being treated with IV abx, patient blood pressure was soft and treated with phenylephrine, hydrocortisone, albumin and IVF to help with is BP, today his BP is better, and phenylephrine is stopped,patient with soft blood pressure still requiring midodrine, will monitor and wean patient as tolerated his baseline echo showed ejection fraction 40% but the echo during this admission 25%. patient has PAF rate is controlled, , patient is on RA, patient is seen by instructional design manager and masking machine feeder, will monitor, Falls - patient had 2 falls in the IMU yesterday. Repeat CT head again showing no acute findings. Fall precautions. Today patient clinical symptoms were worsening with bradycardia and pauses, patient was not very responsive and concern patient may cardiac arrest, patient immediate family was present in the room, called patient patient POA and discuss the presentation and he agreed to place patient under DNR and comfort measure, will monitor, will consult hospice for further recommendations to follow. Code status - full DVT prophylaxis - SCDs DS: Summary Hospital Course Hospital Course: Today patient clinical symptoms were worsening with bradycardia and pauses, patient was not very responsive and concern patient may cardiac arrest, patient immediate family was present in the room, called patient patient POA and discuss the presentation and he agreed to place patient under DNR and comfort measure, will monitor, will consult hospice for further recommendations to follow. will discharge patient today and will be admitted under hospice care. Time Spent with Patient Time attestation: Total time spent providing and/or coordinating discharge services: Exam Narrative: Elderly frail Patient is comfortable, NAD HEENT: eyes are clear and none icteric LUNGS:CTA HEART: RR S1S2 ABD: BS+, Soft and nontender Lower extremities: no edema SKIN: nonjaundiced Neuro: grossly intact. Discharge Plan Discharge Consulting providers: Cyrus Yang; Amanda Snow; Alex Vu; Howard Manuel; Manuel Haider; Mika Noble; Florin Rosas; Andria Grover; Carlene Garcia; Vita Boyer; Keith Thomas; Jerrod Bauer; Vivian Moody; Margaret Hamilton; Garo Lopez; Jorje Randall; Abhijit Smart; Paulino Camacho; Henok Caruso; Gareth Stephens Patient Disposition: Hospice [facility] Inpatient Patient Instructions: Cellulitis (GEN) Patient Language: Citizen Of [place] Date of admission: 04/08/25 08:45 Primary Care Provider: Wallace Reich Admitting Provider: Juanita Sandoval Attending physician on admission: Sonia Erickson Condition: Serious
== END 2025-04-16 12:30 | disposition hospice, inpatient (51) | DRG 871 ==
LOC: ANHED 18:36 → ANHIMU 19:33 → ANHICU 04-08 19:05 → ANH3MEDSUR 04-17 09:15 → ANHICU 04-17 09:15
PROVIDERS: Family Medicine; Internal Medicine; Physician Assistant; Admitting Provider Internal Medicine; Emergency Provider Physician Assistant; PCP Internal Medicine; Visit Provider Family Medicine
DX: A41.9 Sepsis, unspecified organism (principal); I50.23 Acute on chronic systolic (congestive) heart failure; R65.21 Severe sepsis with septic shock; L03.221 Cellulitis of neck; E87.1 Hypo-osmolality and hyponatremia; M62.82 Rhabdomyolysis; N17.9 Acute kidney failure, unspecified; D64.9 Anemia, unspecified; E78.5 Hyperlipidemia, unspecified; I25.10 Atherosclerotic heart disease of native coronary artery without angina pectoris; I11.0 Hypertensive heart disease with heart failure; I25.5 Ischemic cardiomyopathy; I48.0 Paroxysmal atrial fibrillation; I88.9 Nonspecific lymphadenitis, unspecified; J03.90 Acute tonsillitis, unspecified; K81.9 Cholecystitis, unspecified; K82.8 Other specified diseases of gallbladder; K21.9 Gastro-esophageal reflux disease without esophagitis; N40.0 Benign prostatic hyperplasia without lower urinary tract symptoms; R21 Rash and other nonspecific skin eruption; R79.89 Other specified abnormal findings of blood chemistry; W19.XXXA Unspecified fall, initial encounter; Z95.1 Presence of aortocoronary bypass graft; Z90.49 Acquired absence of other specified parts of digestive tract; Z79.82 Long term (current) use of aspirin; Z66 Do not resuscitate; Z20.822 Contact with and (suspected) exposure to COVID-19
CPT/HCPCS: 36415; 36569; 36600; 70450; 70491; 71045; 71250; 72125; 73521; 74176; 76705; 80048; 80053; 80074; 80143; 80162; 80202; 81001; 82550; 82570; 82805; 83605; 83735; 83880; 83930; 83935; 84100; 84145; 84295; 84300; 84443; 85018; 85025; 85027; 85055; 85384; 85610; 85730; 86140; 86308; 86644; 86645; 86765; 87040; 87637; 87641; 87651; 92610; 93005; 93880; 93970; 94640; 96361; 96365; 96366; 96375; 97162; 97165; 97530; 99285; A9270; C1751; C8929; G0378; J0295; J1160; J1650; J1720; J1938; J2003; J2060; J2185; J2270; J2371; J3370; J7030; J7050; P9045; P9047; Q9957; Q9967

== ENCOUNTER 2025-04-16 12:31 | HOS | payer OTHER, MEDICARE, SELFPAY ==
--- NOTE | 2025-04-16 12:39 | ADMGEN ---
This patient, Armando Walton, was admitted to 3 [facility] Surg Room 303-01. Patient/family oriented to hospital policies and general routines including ID bracelet, bed and alarms, visiting hours, pain management, procedures, bathroom and other care routines, personal items, smoking policy, room service/diet, and visiting hours. Information on how to activate the Rapid Response Team has been discussed. Patient/Family are encouraged to report perceived risks to care and to ask questions if they do not understand what they are told or what they should do.
[2025-04-16 12:49] VITALS: BMI 23.8
[2025-04-16] MEDS: MORPHINE SULFATE (*CRX) 4 MG/ML INJ IV PUSH ×2 (13:06→20:09)
[2025-04-16] MEDS: MORPHINE SULFATE INJ (*CRX) 50 MG in SODIUM CHLORIDE 0.9% IV 95 ML IV CONT (13:38)
--- OUTSIDE RECORDS SUMMARY | 2025-04-16 14:30 | XMS_ITS | Clinical Summary ---
Author Organization [facility] Address [address] [place] [address] Care Team Providers Care Mottler Operator Name Role Phone Alex Sunshine MD Primary Care Provider [phone] Source Comments [facility],non-owned Affiliates and Associated Physician Practices is amultiple site organization consisting of ambulatory clinics and hospital sitesin [place], [place], [place] and [place]. This disclosure is being madepursuant to the Care Everywhere program and may not contain all information available regarding this patient. Last updated 18.[facility] [employer] 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
--- OUTSIDE RECORDS SUMMARY | 2025-04-16 14:30 | XMS_ITS | Encounter Summary ---
Author Organization [facility] Healthcare Address [address] [place] [address] Care Team Providers Care Psychiatric Attendant Name Role Phone Al Martinez MD Primary Care Provider [phone] Encounter Details Date Type Department Care Team (Late st Contact Info) Description 04/15/2025 Orders Only [facility] Medical Group Cardiology [address] [place] [address] Garo Lopez MD [address] [place] [address] Social History Tobacco Use Types Packs/Day Years Used Date Smoking Tobacco: Never Smokeless Tobacco: Never Alcohol Use Standard Drinks/Week Comments Yes 0 (1 standard drink = 0.6 oz pur e alcohol) 2-5 ETOH per week [facility] Utilities Answer Date Recorded In the past 12 months has [employer], gas, oil, or water company threatened [...] week 12/25/2024 How often do you attend [facility] or muslim services? More than 4 times per year 12/25/2024 Do you belong to any clubs o r organizations such as worship groups, unions, fraternal or athletic groups, or [...] time in the past [address] [facility], were you homeless or living in a fci (including now)? No 12/25/2024 Personal Safety Answer Date Recorded Have you ever been in or are you currently in a harmful physical or emotional relationship or is someone making you feel afraid or unsafe? 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 Gender Identity Not on file Sexual Orientation Not on file documented as of this encounter Plan of Treatment Not on file documented as of this encounter Procedures Procedure Name Priority Date/Time Associated Diagnosis Comments CARDIOLOGY DOCUMENT SCAN Routine 04/14/2025 3:10 PM CDT documented in this encounter Results * Cardiology Document Scan (04/14/2025 3:10 PM CDT) Anatomical Region Laterality Modality Other us Garo Lopez MD CV CARDIAC SERVICES PROCEDURES F inal Result documented in this encounter Visit Diagnoses Not on filedocumented in this encounter Care Teams Psychiatric Attendant Relationship Specialty Start Date End Date Al Martinez MD PCP - General Family Practice 08/22/23 documented as of this encounter
--- OUTSIDE RECORDS SUMMARY | 2025-04-16 14:30 | XMS_ITS | Encounter Summary ---
Author Organization [facility] Healthcare Address [address] [place] [address] Care Team Providers Care Remnant Sorter Name Role Phone Al Martinez MD Primary Care Provider [phone] Encounter Details Date Type Department Care Team (Late st Contact Info) Description 04/08/2025 Telephone [facility] Medical Group Cardiology [address] [place] [address] Kleber Ervin MD [address] [facility] [address] [place] [address] Social History Tobacco Use Types Packs/Day Years Used Date Smoking Tobacco: Never Smokeless Tobacco: Never Alcohol Use Standard Drinks/Week Comments Yes 0 (1 standard drink = 0.6 oz pur e alcohol) 2-5 ETOH per week [facility] Utilities Answer Date Recorded In the past 12 months has [employer], gas, oil, or water company threatened to [...] week 12/25/2024 How often do you attend [facility] or pentecostalism services? More than 4 times per year 12/25/2024 Do you belong to any clubs o r organizations such as zoroastrian groups, unions, fraternal or athletic groups, or [...] any time in the past 12 m [facility], were you homeless or living in a [place] [facility] [place] facility (including now)? No 12/25/2024 Personal Safety Answer Date Recorded Have you ever been in or are you currently in a harmful physical or emotional relationship or is someone making you feel afraid or unsafe? 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 * Telephone Encounter - Elza Mendoza - 04/08/2025 10:41 AM CDT Pts cousin Daniel called to inform F that the pt was taken to yesterday by ambulance. He was dehydrated and was running a fever of 103. They are pushing fluids and antibiotics for an infection. Please advise thank you Contact: documented in this encounter Plan of Treatment Not on file documented as of this encounter Visit Diagnoses Not on filedocumented in this encounter Care Teams Remnant Sorter Relationship Specialty Start Date End Date Al Martinez MD PCP - General Family Practice 08/22/23 documented as of this encounter
--- OUTSIDE RECORDS SUMMARY | 2025-04-16 14:30 | XMS_ITS | Clinical Summary ---
Author Organization [facility] Address [address] [address] Phone Care Team Providers Care Varnish Filterer Name Role Phone Alex Sunshine MD Primary Care Provider [phone] Allergies No known active allergies Medications Calcium-Vitamin D 600-200 MG-UNIT Tablet Take 1 Tab by mouth. Active Glucosamine-Luciano droitin 500-400 MG Tablet Take 1 Tab by mouth. Active ipratropium (ATROVENT) 0.06 % Solution 2 Sprays. 8 Active Multiple Vitamins-Mineral s (COMPLETE) Tablet Take by mouth. Active niacin 250 MG Tablet Take 250 mg by mouth. Active Saw Mackay, Serenoa repens, (SAW PALMETTO EXTRACT PO) Take by mouth. Active rivaroxaban (XARELTO) 20 MG Tablet TAKE 1 TABLET(20 MG) BY MOUTH DAILY WITH DINNER 9 Active Rodessa-3 Fatty Acids (FISH OIL PO) Take by [...] Hemorrhoids 02/21/2019 Coronary artery disease invo lving [place] coronary artery of [place] heart without angina pectoris 02/21/2019 BPH (benign [...] (Adult) (1 - 1-dose 75+ series) 2011 SARS-COV-2 Immunization ( season) 2024 09/04/2021, 01/30/2021, 01/07/2021 Influenza Immunization (Seas on Ended) 2025 Hepatitis B Immunization Aged Out No longer eligible based on patient's age to complete this topic Human Papillomavirus (HPV) Immunization Aged Out No longer eligible b ased on patient's age to complete this topic Meningococcal Immunization (ACWY) Aged Out No longer eligible b ased on patient's age to complete this topic Rotavirus Immunization Aged Out No lo nger eligible based on patient's age to complete this topic Insurance MEDICARE C [facility] Advance Directives * Full Code (Latest Code Status on File) Date Activated Date Inactivated Comments 02/21/2019 4:00 PM 02/22/2019 2:13 PM CPR-Full Jose L atment: FULL ARREST: Attempt Resuscitation/CPR wit intubation and mechanical ventilation. PRE-ARREST: Use entire range of life support measures to stabilize the patient. Care Teams Varnish Filterer Relationship Specialty Start Date End Date Alex Sunshine MD PCP - General Internal Medicine 01/02/19
--- OUTSIDE RECORDS SUMMARY | 2025-04-16 14:30 | XMS_ITS | Encounter Summary ---
Author Organization [facility] Health Address [address] [facility] [place] [address] Care Team Providers Care Swimming Coach Or Instructor Name Role Phone Alex Sunshine MD Primary Care Provider [phone] Encounter Details Date Type Department Care Team (Late st Contact Info) Description 05/03/2020 Lab Requisition [facility] [address] [facility], [facility] [place] [id number] Radhames Freeman MD [address] [facility] [address] [place] [address] Social History Tobacco Use Types Packs/Day Years Used Date Smoking Tobacco: Never Alcohol Use Standard Drinks/Week Comments Not Asked 0 (1 standard drink = 0.6 oz pur e alcohol) Sex and Gender Information Value Date Recorded Sex Assigned at Not on file Legal Sex Male 6:04 PM SHOP ASSISTANT Gender Identity Not on file Sexual Orientation Not on file documented as of this encounter Plan of Treatment Not on file documented as of this encounter Procedures Procedure Name Priority Date/Time Associated Diagnosis Comments DERMPATH SLIDE CONSULT Routine 05/03/2020 12:00 AM CDT documented in this encounter Results * DERMPATH SLIDE CONSULT (05/03/2020 12:00 AM CDT) Case Report Dermatopathology Report Case: [id number] Authorizing Provider: Radhames Freeman MD Collected: 05/03/2020 12:00 AM Ordering Location: [facility] Lab Received: 05/03/2020 11:44 AM Pathologist: Kari Jones MD Specimen: Slide(s), Left upper leg, OSC# [id number] 0 4:10 PM CDT DERMATOPATHOLOGY LABORATORY Final Diagnosis Specimen A. Slide(s), Left upper leg, OSC# [id number]: DERMAL SCAR WITH INCREASED DERMAL BLOOD VESSELS (L90.5) 0 4:10 PM CDT DERMATOPATHOLOGY LABORATORY at 1610 CDT Clinical History Materials received from: [facility] [address] [place], [place] [address] Received at the request of Dr. Radhames Freeman, a consult will be performed on 2 (H&E) slide(s) labeled [id number]. Benign vascular proliferation. All slides returned. Any additional sections, special stains or immunohistochemical stains performed by our laboratory will be kept here on file. 0 4:10 PM CDT DERMATOPATHOLOGY LABORATORY Microscopic Description Specimen A. Slide(s), Left upper leg, OSC# [id number]: There are fibroblasts and collagen bundles oriented [...] characteristic determined by the Dermatopathology Laboratory at [facility], directed by Dr. Tawny Ba. These tests need not be, and therefore are not, approved by the [place] Food and Drug Administration. The tests are used for clinical purposes. Billing Codes Specimen Charges Stain Charges 33542 1 0 4:10 PM CDT DERMATOPATHOLOGY LABORATORY Embedded Images 0 4:10 PM CDT DERMATOPATHOLOGY LABORATORY Pathology/Cytolog y SLIDE / Unknown 05/03/2020 05/03/2020 11:44 AM CDT Radhames Freeman MD LAB - PATHOLOGY/CYTOLOGY ORDER MARLON Final Result DERMATOPATHOLOGY LABORATORY [facility] - Department of Dermatology [facility] [address] [phone] documented in this encounter Visit Diagnoses Not on filedocumented in this encounter Care Teams Swimming Coach Or Instructor Relationship Specialty Start Date End Date Alex Sunshine MD [address] [place] [address] PCP - General 09/09/15 documented as of this encounter
--- OUTSIDE RECORDS SUMMARY | 2025-04-16 14:31 | XMS_ITS | Clinical Summary ---
Author Organization [facility] [address] Address [address] [place] [address] Care Team Providers Care Kick Press Operator Name Role Phone Al Martinez MD Primary Care Provider [phone] Allergies No known active allergies Medications aspirin [...] 1 capsule by mouth every morning Active mqlew-0-ujr-epa -dpa-fish oil 1,050-1,200 mg capsule Take 1 [...] (10/25/2019): Added automatically from request for surgery [id number] Coronary artery disease invo lving [place] coronary artery of [place]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 09/19/2017 History of coronary artery stent placement 09/19 Paroxysmal atrial fibrillation 09/19/2017 Encounters Date Type Department Care Team Description 04/15/2025 Orders Only [facility] Medical [facility] Cardiology [address] [place] [address] Garo Lopez MD 04/10/2025 Orders Only [facility] Medical [facility] Cardiology [address] [place] [address] Amanda Snow MD 04/08/2025 Telephone [facility] Cardiology [address] [facility] [address] [place] [address] Kleber Ervin MD 02/12/2025 Telephone [facility] Medical [facility] Cardiology [address] [place] [address] Kleber Ervin MD 01/24/2025 Telephone [facility] Cardiology [address] [place] [address] Kleber Ervin MD 01/20/2025 Telephone [facility] Cardiology [address] [place] [address] Kleber Ervin MD from Last 3 Months Immunizations Immunization Administration [...] ANGIOGRAPHY AND WITH OR WITHOUT LEFT VENTRICULOGRAM [id number]; Surgeon: Margaret Hamilton MD; Location: CARDIAC OFFICE CLERK ASSISTANT; Service: Cardiovascular; Laterality: N/A; Medical devices from this surgery are in the Medical Devices section. CARDIAC CATHETERIZATION 12/25/2024 N/A Procedure: IVUS/OCT CORS OR GRAFTS, FIRST VESSEL (+) [id number]; Surgeon: Margaret Hamilton MD; Location: CARDIAC OFFICE CLERK ASSISTANT; Service: Cardiovascular; Laterality: N/A; Medical devices from this surgery are in the Medical Devices section. CARDIAC CATHETERIZATION 12/25/2024 N/A Procedure: IVUS/OCT CORS OR GRAFTS, EACH ADDTN'L VESSEL (+) [id number]; Surgeon: Margaret Hamilton MD; Location: CARDIAC OFFICE CLERK ASSISTANT; Service: Cardiovascular; Laterality: N/A; Medical devices from this surgery are in the Medical Devices section. CARDIAC CATHETERIZATION 12/25/2024 N/A Procedure: PCI MIRLANDE MAJOR CORONARY [id number] - [id number]; Surgeon: Margaret Hamilton MD; Location: CARDIAC OFFICE CLERK ASSISTANT; Service: Cardiovascular; Laterality: N/A; Medical devices from this surgery are in the Medical Devices section. CARDIAC CATHETERIZATION 12/25/2024 N/A Procedure: Percutaneous Coronary Lithotripsy W/ PCI (+) [id number]; Surgeon: Margaret Hamilton MD; Location: CARDIAC OFFICE CLERK ASSISTANT; Service: Cardiovascular; Laterality: N/A; Medical devices from this surgery are in the Medical Devices section. Medical History Medical History Date Comments PAF (paroxysmal atrial fibri llation) ([facility]) Coronary artery disease Rhinitis BPH (benign prostatic hyperplasia) NSVT (nonsustained ventricul ar tachycardia) ([facility]) 02/21/2019 Cardiac complication 02/21/2019 NSVT during colonoscopy/hemorrhoid [...] pur e alcohol) 2-5 ETOH per week [facility] Utilities Answer Date Recorded In the past 12 months has [employer], gas, oil, or water [employer] threatened to shut off services in your [...] week 12/25/2024 How often do you attend [facility] or sikh services? More than 4 times per year 12/25/2024 Do you belong to any clubs o r organizations such as confucianist groups, unions, fraternal or athletic groups, or [...] any time in the past 12 m [facility], were you homeless or living in a alf (including now)? No 12/25/2024 Personal Safety Answer Date Recorded Have you ever been in or are you currently in a harmful physical or emotional relationship or is someone making you feel afraid or unsafe? Denies 12/24/2024 Sex and Gender Information Value Date Recorded Sex Assigned at Not on file Legal Sex Male 8:42 AM HOSPICE MANAGER Gender Identity Not on file Sexual Orientation Not on file Obstetrics History Last Filed Vital Signs Vital Sign Reading Time Taken Comments Blood Pressure 116/60 01/09/2025 9:27 AM HOSPICE MANAGER Pulse 61 01/09/2025 9:27 AM HOSPICE MANAGER Temperature 36.4 C (97.5 F) 12/26/2024 11:43 AM HOSPICE MANAGER Respiratory Rate 16 12/26/2024 11:43 AM HOSPICE MANAGER Oxygen Saturation 94% 01/09/2025 9:27 AM HOSPICE MANAGER Inhaled Oxygen Concentration - - Weight 73.5 kg (162 lb) 01/09/2025 9:27 AM HOSPICE MANAGER Height 175.3 cm (5' 9) 01/09/2025 9:27 AM HOSPICE MANAGER Body Mass Index 23.92 01/09/2025 9:27 AM HOSPICE MANAGER Plan of Treatment Health Maintenance Due Date Last Done Comments Depression Screening 1936 DTaP/Tdap/Td Vaccine (1 - Tdap) 1947 Hepatitis B Screening 1954 Pneumococcal vaccine 65+ (1 of 2 - PCV) 1955 Zoster Vaccine (1 of 2) 1986 Well Visit 65+ 2001 Covid-19 Vaccine (3 - season) 2024, 01/07/2021 Fall Risk Assessment 12/26/2025 12/26/2024 Influenza Vaccine Completed 09/05/2024 Medical Devices Implanted Type Area Speed Belt Sander Device Identifier Shelf Expiration Date Model / Serial / Lot Stent Stent Heart Tractive Angio-Seal Vip Bondek-Plus 8fr .038in 70cm Hemostatic Latex Free [id number] - [id number] Implanted:Qty: 1 on 09/13/2024 by Garo Lopez MD at [facility] [id number] / / Medtronic Card Vasc Surgery 3.5 X 34mm Basil Holcomb Rx Coronary Stent [id number] - [id number] Implanted:Qty: 1 on 09/16/2024 by Garo Lopez MD at [facility] Medtronic Card Vasc Surgery 06/18/2026 [id number] / / [id number] Medtronic Card Vasc Surgery 3.0 X 34mm Basil Holcomb Rx Coronary Stent [id number] - [id number] Implanted:Qty: 1 on 12/25/2024 by Margaret Hamilton MD at [facility] Medtronic Card Vasc Surgery 05/22/2027 [id number] / / [id number] Tractive Angio-Seal Vip 6fr Closere Device [id number] - [id number] Implanted:Qty: 1 on 12/25/2024 by Margaret Hamilton MD at [facility] [id number] / / Procedures Procedure Name Priority Date/Time Associated Diagnosis Comments CARDIOLOGY DOCUMENT SCAN Routine 04/14/2025 3:10 PM CDT CARDIOLOGY DOCUMENT SCAN Routine 025 11:14 AM CDT from Last 3 Months Results * Cardiology Document Scan (04/14/2025 3:10 PM CDT) Anatomical Region Laterality Modality Other us Garo Lopez MD CV CARDIAC SERVICES PROCEDURES F inal Result * Cardiology Document Scan (04/09/2025 11:14 AM CDT) Anatomical Region Laterality Modality Other us Amanda Snow MD CV CARDIAC SERVICES PRO CEDURES Final Result from Last 3 Months Insurance AETNA MEDICARE [facility] MEDICARE T MEDICARE Advance Directives For more information, please contact: [phone] Documents on File Type Date Recorded Patient Binder Selector Expl anation ADVANCE DIRECTIVE 11/28/2019 4:58 AM POWER OF JET MAN-MEDICAL ADVANCE DIRECTIVE 11/21/2019 12:28 PM SEMAJ R OF JET MAN-MEDICAL * Full Code (Latest Code Status on File) Date Activated Date Inactivated Comments 12/24/2024 11:04 PM 12/26/2024 7:39 PM * Full Code Date Activated Date Inactivated Comments 09/15/2024 12:07 PM 09/17/2024 6:45 PM * Full Code Date Activated Date Inactivated Comments 09/11/2024 4:51 AM 09/14/2024 5:17 PM Healthcare Agents on File Name Relationship Healthcare Agent Relationsla p Communication Daniel Hayden Health Care Agent Care Teams Kick Press Operator Relationship Specialty Start Date End Date Al Martinez MD PCP - General Family Practice 08/22/23
--- OUTSIDE RECORDS SUMMARY | 2025-04-16 14:31 | XMS_ITS | Referral Summary ---
Author Organization [facility] [address] [place] [address] [address] [place] [address] Care Team Providers Care Program Director Cable Television Name Role Phone Al Martinez MD Primary Care Provider [phone] Encounters Date Type Department Care Team Description 04/15/[address] [facility] Medical Group Cardiology [address] [place] [address] Garo Lopez MD 04/10/[address] [facility] Medical [facility] Cardiology [address] [place] [address] Amanda Snow MD 04/08/[address] [facility] Medical [facility] Cardiology [address] [place] [address] Kleber Ervin MD 02/12/[address] [facility] Medical Group Cardiology [address] [place] [address] Kleber Ervin MD 01/24/[address] [facility] Medical [facility] Cardiology [address] [place] [address] Kleber Ervin MD 01/20/[address] [facility] Medical Group Cardiology [address] [place] [address] Kleber Ervin MD from Last 3 Months Allergies No known [...] 1 capsule by mouth every morning Active uplbk-0-ubm-epa -dpa-fish oil 1,050-1,200 mg capsule Take 1 [...] (10/25/2019): Added automatically from request for surgery [id number] Coronary artery disease invo lving [place] coronary artery of [place]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 09/19/2017 History [...] pur e alcohol) 2-5 ETOH per week [facility] Utilities Answer Date Recorded In the past 12 months has th e [employer], gas, oil, or water [employer] threatened to shut off services in your [...] week 12/25/2024 How often do you attend [facility] or tenriism services? More than 4 times per year 12/25/2024 Do you belong to any clubs o r organizations such as restoration groups, unions, fraternal or athletic groups, or [...] any time in the past 12 m [facility], were you homeless or living in a senior care (including now)? No 12/25/2024 Personal Safety Answer Date Recorded Have you ever been in or are you currently in a harmful physical or emotional relationship or is someone making you feel afraid or unsafe? Denies 12/24/2024 Sex and Gender Information Value Date Recorded Sex Assigned at Not on file Legal Sex Male 8:42 AM APPLICATION SUPPORT LEAD Gender Identity Not on file Sexual Orientation Not on file Last Filed Vital Signs Vital Sign Reading Time Taken Comments Blood Pressure 116/60 01/09/2025 9:27 AM APPLICATION SUPPORT LEAD Pulse 61 01/09/2025 9:27 AM APPLICATION SUPPORT LEAD Temperature 36.4 C (97.5 F) 12/26/2024 11:43 AM APPLICATION SUPPORT LEAD Respiratory Rate 16 12/26/2024 11:43 AM APPLICATION SUPPORT LEAD Oxygen Saturation 94% 01/09/2025 9:27 AM APPLICATION SUPPORT LEAD Inhaled Oxygen Concentration - - Weight 73.5 kg (162 lb) 01/09/2025 9:27 AM APPLICATION SUPPORT LEAD Height 175.3 cm (5' 9) 01/09/2025 9:27 AM APPLICATION SUPPORT LEAD Body Mass Index 23.92 01/09/2025 9:27 AM APPLICATION SUPPORT LEAD Plan of Treatment Not on file Medical Devices Implanted Type Area Regulatory Compliance Manager Device Identifier Shelf Expiration Date Model / Serial / Lot Stent Stent Heart Zealify Casandra Angio-Seal Vip Bondek-Plus 8fr .038in 70cm Hemostatic Latex Free [id number] - [id number] Implanted:Qty: 1 on 09/13/20[id number] / / Medtronic Card Vasc Surgery 3.5 X 34mm Hettinger Tekoa Rx Coronary Stent [id number] - [id number] Implanted:Qty: 1 on 09/16/2024 by Garo Lopez MD at [facility] Medtronic Card Vasc Surgery 06/18/2026 [id number] / / [id number] Medtronic Card Vasc Surgery 3.0 X 34mm Basil Tekoa Rx Coronary Stent [id number] - [id number] Implanted:Qty: 1 on 12/25/2024 [facility] 05/22/2027 [id number] / / [id number] [facility] Merlin [employer] Casandra Angio-Seal Vip 6fr Closere Device [id number] - [id number] Implanted:Qty: 1 on 12/25/2024 by Margaret Hamliton MD at [facility] [employer] [id number] / / Procedures Procedure Name Priority Date/Time Associated Diagnosis Comments CARDIOLOGY DOCUMENT SCAN Routine 04/14/2025 3:10 PM CDT CARDIOLOGY DOCUMENT SCAN Routine 11:14 AM CDT from Last 3 Months Results * Cardiology Document Scan (04/14/2025 3:10 PM CDT) Anatomical Region Laterality Modality Other us Garo Lopez MD CV CARDIAC SERVICES PROCEDURES F inal Result * Cardiology Document Scan (04/09/2025 11:14 AM CDT) Anatomical Region Laterality Modality Other us Amanda Snow MD CV CARDIAC SERVICES PRO CEDURES Final Result from Last 3 Months Insurance AETNA MEDICARE [facility] MEDICARE Member Subscriber Plan / Payer (Ef fective 2022-Present) Name:Armando Walton Relation to Subscriber:Self Name:Armando Walton Payer ID:[id number] ([facility]) Type:AETNA MEDICARE Address: [facility] [id number] [place] [phone] [facility] MEDICARE Member Subscriber Plan / Payer (Ef fective 2022-Present) Name:Armando Walton Cathryn Relation to Subscriber:Self Name:Armando Walton Payer ID:1 ([facility]) Type:AETNA MEDICARE Address: [facility] [id number] [place] [phone] Advance Directives For more information, please contact: [phone] Documents on File Type Date Recorded Patient Casino Duty Manager Expl anation ADVANCE DIRECTIVE 11/28/2019 4:58 AM POWER OF RAIL TRANSIT OPERATOR-MEDICAL ADVANCE DIRECTIVE 11/21/2019 12:28 PM SEMAJ R OF RAIL TRANSIT OPERATOR-MEDICAL * Full Code (Latest Code Status on File) Date Activated Date Inactivated Comments 12/24/2024 11:04 PM 12/26/2024 7:39 PM * Full Code Date Activated Date Inactivated Comments 09/15/2024 12:07 PM 09/17/2024 6:45 PM * Full Code Date Activated Date Inactivated Comments 09/11/2024 4:51 AM 09/14/2024 5:17 PM Healthcare Agents on File Name Relationship Healthcare Agent [facility] Communication Daniel HuertaSaint Louis University Health Science Centerjo[facility] Health Care Agent Care Teams Program Director Cable Television Relationship Specialty Start Date End Date Al Martinez MD PCP - General Family Practice 08/22/23
--- OUTSIDE RECORDS SUMMARY | 2025-04-16 14:31 | XMS_ITS | Encounter Summary ---
Author Organization [facility] Address [address] [facility] Attn: [place] [address] Care Team Providers Care Algologist Name Role Phone Alex Sunshine MD Primary Care Provider + Encounter Details Date Type Department Care Team (Late st Contact Info) Description 08/03/2007 Outpatient Historical Ken Ramos MD [facility] [address] [address] Social History Tobacco Use Types Packs/Day Years Used Date Smoking Tobacco: Never Assessed Sex and Gender Information Value Date Recorded Sex Assigned at Not on file Legal Sex Male 5:28 AM YARD MANAGER Gender Identity Not on file Sexual Orientation Not on file documented as of this encounter Plan of Treatment Not on file documented as of this encounter Visit Diagnoses Not on filedocumented in this encounter Care Teams Algologist Relationship Specialty Start Date End Date Alex Sunshine MD [address] [place] [address] PCP - General Internal Medicine 10/23/17 documented as of this encounter
--- OUTSIDE RECORDS SUMMARY | 2025-04-16 14:31 | XMS_ITS | Clinical Summary ---
Author Organization [facility] Address [address] [place] [address] Phone Care Team Providers Care Medical Anthropology Director Name Role Phone Alex Sunshine MD [...] 250 mg by mouth daily. Active Saw [place] 160 mg Capsule Take by mouth. Active [...] on file Legal Sex Male 5:28 AM CARPET CUTTER Gender Identity Not on file Sexual Orientation Not on file Last Filed Vital Signs Vital Sign Reading Time Taken Comments Blood Pressure 125/60 11/10/2017 3:34 PM CARPET CUTTER Pulse 55 11/10/2017 3:34 PM CARPET CUTTER Temperature 36.1 C (97 F) 11/10/2017 3:34 PM CARPET CUTTER Respiratory Rate 16 11/10/2017 3:34 PM CARPET CUTTER Oxygen Saturation 99% 11/10/2017 3:34 PM CARPET CUTTER Inhaled Oxygen Concentration - - Weight 76.2 kg (168 lb) 11/10/2017 10:49 AM CARPET CUTTER Height 177.8 cm (5' 10) 11/07/2017 1:41 PM CARPET CUTTER Body Mass Index 24.11 11/07/2017 1:41 PM CARPET CUTTER Plan of Treatment Health Maintenance Due Date Last Done Comments DTAP/TDAP/TD VACCINES (1 - Tdap) 1955 PNEUMOCOCCAL VACCINE 50+ YEARS (1 of 1 - PCV) 07/22/19 86 ZOSTER VACCINE (1 of 2) 1986 RSV VACCINE (60+ or ) (1 - 1-dose 75+ series) 2011 INFLUENZA VACCINE (#1) 2024 Insurance [id number] [id number] Advance Directives For more information, please contact: [phone] * Full Code (Latest Code Status on File) Date Activated Date Inactivated Comments 11/10/2017 12:09 PM 11/10/2017 6:14 PM * Full Code Date Activated Date Inactivated Comments 11/10/2017 10:41 AM 11/10/2017 12:09 PM Care Teams Medical Anthropology Director Relationship Specialty Start Date End Date Alex Sunshine MD [address] [place] [address] PCP - General Internal Medicine 10/23/17
--- OUTSIDE RECORDS SUMMARY | 2025-04-16 14:31 | XMS_ITS | Encounter Summary ---
Author Organization [employer] Address [address] [place] [address] Care Team Providers Care Casting Room Operator Name Role Phone Alex Sunshine MD Primary Care Provider + Encounter Details Date Type Department Care Team (Latest Contact Info) Description 08/03/2007 Inpatient Historical HIS PATIENT IN A BED Martin Calhoun MD [address] [facility] [address] [place], [place] [id number] Subendo Infrc, Init Episd ([facility]) (Primary Dx) Social History Tobacco Use Types Packs/Day Years Used Date Smoking Tobacco: Never Assessed Sex and Gender Information Value Date Recorded Sex Assigned at Not on file Legal Sex Male 5:28 AM IT SYSTEMS ENGINEER Gender Identity Not on file Sexual Orientation [...] and non- Americans is available on the [facility] Intranet at: [email or web address] Select: Lab Policies and Procedures Select: Reference [...] heparin 08/03/2007 2:[address] [facility] Martin Calhoun MD HEMATOLOGY ORDERABLES Edited Performing Organization Address City/[facility] de Phone Number INTERFACE SYSTEM Refer to [...] patients with mechanical heart valves or post [place]. Pediatric (12 years and under): 1.5 - [...] MD HEMATOLOGY ORDERABLES Edited Performing Organization Address [facility] de Phone Number INTERFACE SYSTEM Refer to [...] SYSTEM 08/03/2007 2:[address] [facility] Martin Calhoun MD HEMATOLOGY ORDERABLES [...] infarction, subendocardial infarction, initial episode of care ([facility])- Primary Acute myocardial infarction, subendocardial infarction, initial episode of care documented in this encounter Care Teams Casting Room Operator Relationship Specialty Start Date End Date Alex Sunshine MD [address] [place] [address] PCP - General Internal Medicine 10/23/17 documented as of this encounter
--- NOTE | 2025-04-16 18:33 | P.HP_ITS ---
H&P: HPI History of Present Illness Date/Time: 04/16/25 18:33 Chief Complaint: Uncontrolled pain Narrative: Mr. Walton is an 89-year-old gentleman was admitted [facility] April 07 with cellulitis left neck with associated sepsis. His course was complicated by septic shock cephalopathy and atrial fibrillation with rapid ventricular rate. In spite of appropriate antibiotic therapy he can and was confused restless and in pain. He was not eating or drinking. Because of this his family opted for inpatient hospice care. Review of Systems Review of Systems: ROS unobtainable: Yes unobtainable due to medical condition COUNT INCLUDES THE [facility] Past Medical History Medical History Difficult Nation catheter placement Hypertension Hyperlipidemia Coronary artery disease Benign prostatic hyperplasia Paroxysmal atrial fibrillation Surgical History Surgical History History of coronary artery stent placement History of cardiac catheterization History of hemorrhoidectomy History of cataract extraction History of appendectomy Family History Family History Father Dementia Mother Heart disease Sibling Heart disease Sibling Heart disease Social History Social History (Updated 04/16/25 @ 18:42 by Lavelle Linda MD) Social History: Surrogate medical decision maker: Luke Gibson. 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 Spiritual care concerns: No Meds Home Medications and Allergies Home Medications ?Medication ?Instructions ?Recorded ?Confirmed ?Type aspirin 81 mg tablet,delayed 81 mg PO DAILY 01/08/20 04/07/25 History release (Adult Aspirin Regimen) ascorbate calcium (vitamin C) 500 500 mg PO DAILY 03/25/20 04/07/25 History mg tablet calcium 600 mg (as carbonate)-vit 2 tablet PO DAILY 03/25/20 04/07/25 History D3 5 mcg (200 unit)-minerals tablet multivitamin 1 tablet PO DAILY 03/25/20 04/07/25 History omega-3 fatty acids 1,000 mg 1,000 mg PO DAILY 03/25/20 04/07/25 History capsule atorvastatin 80 mg tablet (Lipitor) 80 mg PO QHS 12/30/24 04/07/25 History clopidogrel 75 mg tablet 75 mg PO DAILY 12/30/24 04/07/25 History cyclosporine 0.05 % eye drops in a 1 drp EACH EYE Q12H 12/30/24 04/07/25 History dropperette famotidine 20 mg tablet 20 mg PO BID 12/30/24 04/07/25 History glucosamine-chondroitin 2 tablet PO DAILY 12/30/24 04/07/25 History isosorbide mononitrate 30 mg 30 mg PO DAILY 12/30/24 04/07/25 History tablet,extended release 24 hr nitroglycerin 0.4 mg sublingual 0.4 mg sublingual Q5M PRN chest 12/30/24 04/07/25 History tablet pain propylene glycol 0.6 % eye drops 1 drp EACH EYE 4-6XD PRN dry eye(s) 12/30/24 04/07/25 History (Systane Complete) ranolazine 500 mg tablet,extended 500 mg PO Q12H 12/30/24 04/07/25 History release,12 hr ipratropium bromide 42 mcg (0.06 2 spray intranasal TID #15 mL 01/15/25 04/07/25 Rx %) nasal spray cefdinir 300 mg capsule 300 mg PO Q12H 10 days #20 caps 04/03/25 04/07/25 Rx metoprolol succinate 25 mg 25 mg PO Q12H 04/07/25 04/07/25 History tablet,extended release 24 hr perfluorohexyloctane (PF) 100 % 1 drp EACH EYE QID 04/07/25 04/07/25 History eye drops (Miebo (PF)) Allergies Allergy/AdvReac Type Severity Reaction Status Date / Time cefdinir Allergy Intermediate Rash Verified 04/08/25 09:12 Exam Narrative: HEENT: Pharyngeal mucosa pink and intact NECK: No JVD, mild erythema of left neck CHEST: Clear to auscultation. Normal effort HEART: NL S1/S2, regular, no murmur ABDOMEN: BS hypoactive, soft, nontender, no mass, no bruits EXTREMITIES: No edema NEUROLOGIC: CN intact and symmetric to inspection MUSCULOSKELETAL: No gross deformity noted PSYCH: Unresponsive to verbal or tactile step Assessment and Plan Assessment and plan (1) Hospice care: Code(s): Z51.5 - Encounter for palliative care Status: Acute Assessment and Plan: * Meet inpatient hospice criteria due to require continuous IV morphine at 2 milligrams/hour for control of pain restlessness * P.r.n. palliative regimen ordered * 04/16/2025 Discussed care and prognosis with family friend at bedside (2) Cellulitis of neck: Code(s): L03.221 - Cellulitis of neck Status: Acute (3) Sepsis: Qualifiers: Sepsis acute organ dysfunction status: without acute organ dysfunction Sepsis type: sepsis due to unspecified organism Qualified Code(s): A41.9 - Sepsis, unspecified organism Code(s): A41.9 - Sepsis, unspecified organism Status: Acute (4) Delirium: Code(s): R41.0 - Disorientation, unspecified Status: Acute (5) Cardiomyopathy: Code(s): I42.9 - Cardiomyopathy, unspecified Status: Acute (6) Coronary artery disease: Qualifiers: Coronary Disease-Associated Artery/Lesion type: [place] artery [place] vs. transplanted heart: [place] heart Associated angina: without angina Qualified Code(s): I25.10 - Atherosclerotic heart disease of [place] coronary artery without angina pectoris Code(s): I25.10 - Atherosclerotic heart disease of [place] coronary artery without angina pectoris Status: Acute (7) NSTEMI (non-ST elevated myocardial infarction): Code(s): I21.4 - Non-ST elevation (NSTEMI) myocardial infarction Status: Acute (8) Coronary artery disease: Code(s): I25.10 - Atherosclerotic heart disease of [place] coronary artery without angina pectoris Status: Acute (9) Paroxysmal atrial fibrillation: Code(s): I48.0 - Paroxysmal atrial fibrillation Status: Acute
[2025-04-16 20:00] VITALS: BP 118/74; PULSE 84; RESP 20; TEMP 35.8; O2SAT 85
[2025-04-16] MEDS: ARTIFICIAL TEARS OPHTH SOLN 15 ML BOTTLE 1 DROP EACH EYE (20:16)
[2025-04-16 21:55] VITALS: O2SAT 93
[2025-04-17] MEDS: ARTIFICIAL TEARS OPHTH SOLN 15 ML BOTTLE 1 DROP EACH EYE ×2 (07:27→20:05)
[2025-04-17 08:00] VITALS: BP 109/77; PULSE 63; RESP 14; TEMP 36.2; O2SAT 92
[2025-04-17 08:26] VITALS: PULSE 77; RESP 20; O2SAT 99
[2025-04-17] MEDS: MORPHINE SULFATE INJ (*CRX) 50 MG in SODIUM CHLORIDE 0.9% IV 95 ML IV CONT (11:44)
[2025-04-17] MEDS: LORazepam INJ (*CRX) 2 MG/ML VIAL IV PUSH (11:52)
--- NOTE | 2025-04-17 18:50 | P.PNIM_ITS ---
Progress Note: A&P Assessment and Plan (1) Hospice care: Code(s): Z51.5 - Encounter for palliative care Status: Acute Assessment and Plan: * Meet inpatient hospice criteria due to require continuous IV morphine at 2 milligrams/hour for control of pain restlessness * P.r.n. palliative regimen ordered * 04/16/2025 Discussed care and prognosis with family friend at bedside * 04/17/2025 Required PRN dose, BP trending down, continues to require morphine at 2 mg/hr (2) Cellulitis of neck: Code(s): L03.221 - Cellulitis of neck Status: Acute (3) Sepsis: Qualifiers: Sepsis acute organ dysfunction status: without acute organ dysfunction Sepsis type: sepsis due to unspecified organism Qualified Code(s): A41.9 - Sepsis, unspecified organism Code(s): A41.9 - Sepsis, unspecified organism Status: Acute (4) Delirium: Code(s): R41.0 - Disorientation, unspecified Status: Acute (5) Cardiomyopathy: Code(s): I42.9 - Cardiomyopathy, unspecified Status: Acute (6) Coronary artery disease: Qualifiers: Coronary Disease-Associated Artery/Lesion type: [place] artery [place] vs. transplanted heart: [place] heart Associated angina: without angina Qualified Code(s): I25.10 - Atherosclerotic heart disease of [place] coronary artery without angina pectoris Code(s): I25.10 - Atherosclerotic heart disease of [place] coronary artery without angina pectoris Status: Acute (7) NSTEMI (non-ST elevated myocardial infarction): Code(s): I21.4 - Non-ST elevation (NSTEMI) myocardial infarction Status: Acute (8) Paroxysmal atrial fibrillation: Code(s): I48.0 - Paroxysmal atrial fibrillation Status: Acute Subjective Date/time seen: 04/17/25 18:50 Interval history: Required a p.r.n. dose today. No p.o. intake. Review of Systems Review of Systems: ROS unobtainable: Yes unobtainable due to medical condition Exam Narrative: HEENT: Pharyngeal mucosa pink and intact NECK: No JVD, mild erythema of left neck CHEST: Clear to auscultation. Normal effort HEART: NL S1/S2, regular, no murmur ABDOMEN: BS hypoactive, soft, nontender, no mass, no bruits EXTREMITIES: No edema NEUROLOGIC: CN intact and symmetric to inspection MUSCULOSKELETAL: No gross deformity noted PSYCH: Unresponsive to verbal or tactile step Objective Data Vital Signs Vital Signs: Vital Signs - 24 hr 04/16/25 19:54 04/16/25 20:00 04/16/25 21:55 Temperature 96.4 F L Pulse Rate 84 Respiratory Rate 20 Blood Pressure 118/74 Pulse Oximetry 85 L 93 Oxygen Delivery Room Air Nasal Cannula Oxygen Flow Rate 1 Fraction of Inspired Oxygen 04/17/25 08:00 04/17/25 08:00 04/17/25 08:26 Temperature 97.1 F L Pulse Rate 63 77 Respiratory Rate 14 20 Blood Pressure 109/77 Pulse Oximetry 92 99 Oxygen Delivery Room Air Room Air Oxygen Flow Rate Fraction of Inspired Oxygen 21 Intake/Output Intake/Output: Intake & Output 04/14/25 04/15/25 04/16/25 04/17/25 23:59 23:59 23:59 23:59 Intake Total 88.4 Output Total 400 450 Balance -400 -361.6 Meds/Results Medications: Active Medications Generic Name Dose Route Start Last Admin Trade Name Freq PRN Reason Stop Dose Admin Acetaminophen 650 mg 04/16/25 12:50 Acetaminophen 650 Mg Suppository RECTAL Q4H PRN Fever Artificial Tears 1 drop 04/16/25 21:00 04/17/25 07:27 Artificial Tears Ophth Soln 15 Ml Bottle EACH EYE 1 drop Q12HR ATUL Administration Artificial Tears 1 drop 04/16/25 13:00 Artificial Tears Ophth Soln 15 Ml Bottle EACH EYE PRN PRN Dry Eye(s) Bisacodyl 10 mg 04/16/25 12:50 Bisacodyl 10 Mg Suppository RECTAL DAILY PRN Constipation Glycopyrrolate 0.1 mg 04/16/25 12:50 Glycopyrrolate Inj (*Sp) 0.2 Mg/Ml Vial IV PUSH Q4H PRN secretions Morphine Sulfate 50 mg/ Sodium 100 mls @ 4 mls/hr 04/16/25 12:50 04/17/25 11:44 Chloride IV CONT 4 mls/hr .Q24H ATUL Administration Lorazepam 2 mg 04/16/25 12:50 04/17/25 11:52 Lorazepam Inj (*Crx) 2 Mg/Ml Vial IV PUSH 2 mg Q4H PRN Administration AGITATION Morphine Sulfate 4 mg 04/16/25 12:56 04/16/25 20:09 Morphine Sulfate (*Crx) 4 Mg/Ml Inj IV PUSH 4 mg Q2H PRN Administration PAIN/DYSPNEA Prochlorperazine Edisylate 10 mg 04/16/25 12:50 Prochlorperazine Edisylate 10 Mg/2 Ml Vial IV PUSH Q6H PRN Nausea
[2025-04-17 20:00] VITALS: BP 101/79; PULSE 58; RESP 12; TEMP 36.4; O2SAT 95
[2025-04-17] MEDS: GLYCOPYRROLATE INJ (*SP) 0.2 MG/ML VIAL 0.1 MG IV PUSH (20:07)
[2025-04-18 05:43] VITALS: TEMP 38.3
[2025-04-18] MEDS: ACETAMINOPHEN 650 MG SUPPOSITORY RECTAL (05:43)
[2025-04-18] MEDS: MORPHINE SULFATE (*CRX) 4 MG/ML INJ IV PUSH ×3 (05:49→12:11)
[2025-04-18 06:27] VITALS: BP 104/57; PULSE 69; RESP 20; TEMP 38.3; O2SAT 95
[2025-04-18 06:43] VITALS: TEMP 36.8
[2025-04-18 06:51] VITALS: TEMP 37.6
[2025-04-18] MEDS: LORazepam INJ (*CRX) 2 MG/ML VIAL IV PUSH ×2 (09:04→13:01)
[2025-04-18] MEDS: MORPHINE SULFATE INJ (*CRX) 50 MG in SODIUM CHLORIDE 0.9% IV 95 ML IV CONT (12:09)
--- NOTE | 2025-04-18 12:18 | P.PNIM_ITS ---
Progress Note: A&P Assessment and Plan (1) Hospice care: Code(s): Z51.5 - Encounter for palliative care Status: Acute Assessment and Plan: * Meet inpatient hospice criteria due to require continuous IV morphine at 2 milligrams/hour for control of pain restlessness * P.r.n. palliative regimen ordered * 04/16/2025 Discussed care and prognosis with family friend at bedside * 04/17/2025 Required PRN dose, BP trending down, continues to require morphine at 2 mg/hr * 04/28/2025 Febrile, utilizing accessory respiratory muscles, tachycardic, hypotensive, continues to require morphine at 2 mg/hr (2) Cellulitis of neck: Code(s): L03.221 - Cellulitis of neck Status: Acute (3) Sepsis: Qualifiers: Sepsis acute organ dysfunction status: without acute organ dysfunction Sepsis type: sepsis due to unspecified organism Qualified Code(s): A41.9 - Sepsis, unspecified organism Code(s): A41.9 - Sepsis, unspecified organism Status: Acute (4) Delirium: Code(s): R41.0 - Disorientation, unspecified Status: Acute (5) Cardiomyopathy: Code(s): I42.9 - Cardiomyopathy, unspecified Status: Acute (6) Coronary artery disease: Qualifiers: Associated angina: without angina Coronary Disease-Associated Artery/Lesion type: [place] artery [place] vs. transplanted heart: [place] heart Qualified Code(s): I25.10 - Atherosclerotic heart disease of [place] coronary artery without angina pectoris Code(s): I25.10 - Atherosclerotic heart disease of [place] coronary artery without angina pectoris Status: Acute (7) NSTEMI (non-ST elevated myocardial infarction): Code(s): I21.4 - Non-ST elevation (NSTEMI) myocardial infarction Status: Acute (8) Paroxysmal atrial fibrillation: Code(s): I48.0 - Paroxysmal atrial fibrillation Status: Acute Subjective Date/time seen: 04/18/25 12:18 Interval history: Remains comfortable. Febrile. Review of Systems Review of Systems: ROS unobtainable: Yes unobtainable due to medical condition Exam Narrative: HEENT: Pharyngeal mucosa pink and intact NECK: No JVD, mild erythema of left neck CHEST: Coarse BS, use of accessory muscles HEART: NL S1/S2, regular, no murmur ABDOMEN: BS hypoactive, soft, nontender, no mass, no bruits EXTREMITIES: No edema NEUROLOGIC: CN intact and symmetric to inspection MUSCULOSKELETAL: No gross deformity noted PSYCH: Unresponsive to verbal or tactile step Objective Data Vital Signs Vital Signs: Vital Signs - 24 hr 04/17/25 19:57 04/17/25 20:00 04/18/25 05:43 Temperature 97.5 F L 101.0 F H Pulse Rate 58 L Respiratory Rate 12 Blood Pressure 101/79 Pulse Oximetry 95 Oxygen Delivery Room Air 04/18/25 06:27 04/18/25 06:43 04/18/25 06:51 Temperature 101 F H 98.2 F 99.7 F H Pulse Rate 69 Respiratory Rate 20 Blood Pressure 104/57 L Pulse Oximetry 95 Oxygen Delivery Intake/Output Intake/Output: Intake & Output 04/15/25 04/16/25 04/17/25 04/18/25 23:59 23:59 23:59 23:59 Intake Total 88.4 97 Output Total 400 450 Balance -400 -361.6 97 Meds/Results Medications: Active Medications Generic Name Dose Route Start Last Admin Trade Name Freq PRN Reason Stop Dose Admin Acetaminophen 650 mg 04/16/25 12:50 04/18/25 05:43 Acetaminophen 650 Mg Suppository RECTAL 650 mg Q4H PRN Administration Fever Artificial Tears 1 drop 04/16/25 21:00 04/18/25 09:45 Artificial Tears Ophth Soln 15 Ml Bottle EACH EYE Not Given Q12HR ATUL Artificial Tears 1 drop 04/16/25 13:00 Artificial Tears Ophth Soln 15 Ml Bottle EACH EYE PRN PRN Dry Eye(s) Bisacodyl 10 mg 04/16/25 12:50 Bisacodyl 10 Mg Suppository RECTAL DAILY PRN Constipation Glycopyrrolate 0.1 mg 04/16/25 12:50 04/17/25 20:07 Glycopyrrolate Inj (*Sp) 0.2 Mg/Ml Vial IV PUSH 0.1 mg Q4H PRN Administration secretions Morphine Sulfate 50 mg/ Sodium 100 mls @ 4 mls/hr 04/16/25 12:50 04/18/25 12:09 Chloride IV CONT 4 mls/hr .Q24H ATUL Administration Lorazepam 2 mg 04/16/25 12:50 04/18/25 09:04 Lorazepam Inj (*Crx) 2 Mg/Ml Vial IV PUSH 2 mg Q4H PRN Administration AGITATION Morphine Sulfate 4 mg 04/16/25 12:56 04/18/25 12:11 Morphine Sulfate (*Crx) 4 Mg/Ml Inj IV PUSH 4 mg Q2H PRN Administration PAIN/DYSPNEA Prochlorperazine Edisylate 10 mg 04/16/25 12:50 Prochlorperazine Edisylate 10 Mg/2 Ml Vial IV PUSH Q6H PRN Nausea
--- NOTE | 2025-04-24 20:39 | P.DN_ITS ---
Discharge Summary Date and Time Date of : 04/18/25 Time of : 14:24 Provider Pronounced By: 2 RNs Name of First RN That Pronounced: Kate Bermudez RN Name of Second RN That Pronounced: Rubia Lopes RN Probable Cause of Probable Cause of : Sepsis with septic shock secondary to cellulitis of neck Summary Hospital Course: Admitted to inpatient hospice service for symptom management. Medications were titrated to comfort. Mr. Walton peacefully. Additional Data Confirmation of as documented by pronouncing clinician: Pupillary Reflex, Palpable Pulses, Response to Stimuli, Heart Tones and Breath Sounds Name of Provider Notified: Alexei Time Provider Notified: 16:55 Provider Requests Autopsy: No Family Requests Autopsy: No Unified Communications Engineer Notified: Yes Date [facility] Notified of : 04/18/25 Time [facility] Notified of : 14:30
== END 2025-04-18 17:39 | disposition expired | DRG 951 ==
LOC: ANH3MEDSUR 12:36
PROVIDERS: Admitting Provider Internal Medicine; PCP Internal Medicine; Visit Provider Internal Medicine
DX: Z51.5 Encounter for palliative care (principal); A41.9 Sepsis, unspecified organism; R65.21 Severe sepsis with septic shock; L03.221 Cellulitis of neck; G93.40 Encephalopathy, unspecified; I10 Essential (primary) hypertension; I25.10 Atherosclerotic heart disease of native coronary artery without angina pectoris; I48.0 Paroxysmal atrial fibrillation; R41.0 Disorientation, unspecified
CPT/HCPCS: A9270; J1596; J2060; J2270